=== PATIENT | female | born 1935 | race Caucasian/White ===

== ENCOUNTER 2017-01-13 10:52 | Inpatient (IN) | payer MEDICARE, BC ==
[2017-01-13] MEDS ORDERED: SODIUM CHLORIDE 0.9% 1,000 ML IV STA (11:12)
[2017-01-13] MEDS ORDERED: IPRATROPIUM-ALBUTEROL 3 ML NEB INHALATION STA (11:15)
--- NOTE | 2017-01-13 11:18 | ED ---
General Adult HPI - General Stated complaint: Syncope Time Seen by Provider: 01/13/17 11:02 Source: patient, family, EMS, RN notes reviewed Mode of arrival: EMS Limitations: no limitations - History of Present Illness Initial comments: Patient is a pleasant 81-year-old female presenting to the emergency department following syncopal episode. Reportedly this occurred at Dr. Torrez's office. Patient reportedly had a high heart rate. Carotid massage was done and heart rate improved. EMS states they believe patient originally had SVT then converted to A. fib. Patient is unclear whether or not she fully passed out. is also unclear. Patient has been having some breathing problems. Patient does have cough. Patient has had some intermittent fevers. Patient and state there is some leg swelling. No calf pain. No chest pain. No confusion. No history of previous syncope. - Related Data Home Medications Medication Instructions Recorded Confirmed Atenolol [Tenormin] 50 mg PO BID 08/05/14 07/28/16 Cholecalciferol [Vitamin D3] 5,000 unit PO DAILY 08/05/14 07/28/16 Docusate [Colace] 100 mg PO DAILY PRN 08/05/14 07/28/16 Gabapentin [Neurontin] 300 mg PO TID 08/05/14 07/28/16 Lisinopril [Zestril] 10 mg PO BID 08/05/14 07/28/16 Multivitamins, Thera [Multivitamin 1 tab PO DAILY 08/05/14 07/28/16 (formulary)] Omeprazole 40 mg PO AC-BRKFST 08/05/14 07/28/16 Oxybutynin Chloride [Ditropan XL] 10 mg PO DAILY 08/05/14 07/28/16 Pravastatin Sodium [Pravachol] 10 mg PO DAILY 05/21/15 07/28/16 metFORMIN HCL [Glucophage] 500 mg PO BID 05/21/15 07/28/16 rOPINIRole HCL [Requip] 0.5 mg PO HS 07/28/16 07/28/16 Previous Rx's Medication Instructions Recorded Aspirin EC [Ecotrin Low Dose] 81 mg PO DAILY tablet. 05/26/15 Fluconazole [Diflucan] 200 mg PO DAILY #5 tab 08/04/16 Levofloxacin [Levaquin] 500 mg PO DAILY #7 tab 08/04/16 Allergies Allergy/AdvReac Type Severity Reaction Status Date / Time No Known Allergies Allergy Verified 01/13/17 12:51 Review of Systems ROS Statement: Those systems with pertinent positive or pertinent negative responses have been documented in the HPI. ROS Other: All systems not noted in ROS Statement are negative. Constitutional: Reports: fever Eyes: Denies: eye pain ENT: Denies: ear pain Respiratory: Reports: cough, dyspnea Cardiovascular: Denies: chest pain Endocrine: Denies: fatigue Gastrointestinal: Denies: abdominal pain Genitourinary: Denies: urgency Musculoskeletal: Denies: back pain Skin: Denies: rash Neurological: Denies: weakness Past Medical History Past Medical History: Cancer, Diabetes Mellitus, GERD/Reflux, Hyperlipidemia, Hypertension, Syncope Additional Past Medical History / Comment(s): RT ARM PAIN THAT WOKE PT FROM SLEEP,F/U W/DR IN OFFICE EKG DONE AND PT WAS TOLD TO GO TO ER FOR EVALUATION. OTHER HX: LYMPHOMA; BREAST CANCER, MIGRAINES IN PAST, CONSTIPATION, ANEMIA History of Any Multi-Drug Resistant Organisms: MRSA Date of last positivie culture/infection: 08/26/2014 MDRO Source:: Urine Past Surgical History: Adenoidectomy, Appendectomy, Cholecystectomy, Heart Catheterization, Hysterectomy, Tonsillectomy Additional Past Surgical History / Comment(s): MASTECTOMY RIGHT ,CATARACTS Past Anesthesia/Blood Transfusion Reactions: No Reported Reaction Additional Past Anesthesia/Blood Transfusion Reaction / Comment(s): HAD BLOOD TRANSFUSION IN PAST, HAS CLAUSTERPHOBIA Past Psychological History: No Psychological Hx Reported Smoking Status: Never smoker Past Alcohol Use History: None Reported Past Drug Use History: None Reported - Past Family History Father Additional Family Medical History / Comment(s): PARKINSONS Mother Family Medical History: Cancer Additional Family Medical History / Comment(s): FROM BREAST CANCER-HAD HEART PROBLEMS, General Exam Limitations: no limitations General appearance: alert, in no apparent distress Head exam: Present: atraumatic Eye exam: Present: normal appearance, PERRL, EOMI. Absent: nystagmus ENT exam: Present: normal oropharynx Neck exam: Present: normal inspection Respiratory exam: Present: wheezes, rales Cardiovascular Exam: Present: irregular rhythm GI/Abdominal exam: Present: soft, distended, normal bowel sounds. Absent: tenderness, guarding, rebound, rigid, pulsatile mass Extremities exam: Present: pedal edema. Absent: calf tenderness Back exam: Present: normal inspection Neurological exam: Present: alert, CN II-XII intact. Absent: motor sensory deficit Expanded Speech: Present: fluid speech Cranial nerves: EOM's Intact: Normal Motor strength exam: RUE: 5, LUE: 5, RLE: 5, LLE: 5 Eye Response: (4) open spontaneously Motor Response: (6) obeys commands Verbal Response: (5) oriented Psychiatric exam: Present: normal affect, normal mood Skin exam: Absent: rash Course Vital Signs 01/13/17 01/13/17 01/13/17 11:09 11:36 11:47 Temperature 97.2 F L Pulse Rate 104 H 89 91 Respiratory 20 Rate Blood Pressure 162/70 O2 Sat by Pulse 93 L Oximetry EKG Findings - EKG Comments: EKG Findings:: Irregular narrow complex rhythm. PA 160. QRS 70. QT 364. QTC 421. Left axis. Normal QRS. Nonspecific ST-T Medical Decision Making - Medical Decision Making Patient reevaluated and resting comfortably in bed. Patient will be treated for pneumonia recent chest x-ray results. Patient does have elevated d-dimer. Computed tomography scan of the chest will be ordered. Abdominal CT will also be added secondary to distention. Patient also has some thrombocytopenia therefore anticoagulation will be held at this time. There is some concern for possible underlying malignancy. Case was discussed in detail with Dr. Flores, covering for Dr. auguste, who will admit for Dr. Judge. Cardiology will be consulted for possible arrhythmia. Dr. Torrez will also be consulted. Elevation of heart rate is secondary to arrhythmia prior to patient arrival. This has resolved. Because of this patient does not meet sepsis criteria. In addition with possible underlying CHF patient may be harmed by fluid boluses. This can be further evaluated following computed tomography scan of the chest. - Lab Data Result diagrams: 01/13/17 11:45 01/13/17 11:45 Lab Results 01/13/17 01/13/17 01/13/17 Range/Units 11:45 11:45 11:45 WBC 5.7 (3.8-10.6) k/uL RBC 3.61 L (3.80-5.40) m/uL Hgb 9.7 L (11.4-16.0) gm/dL Hct 31.1 L (34.0-46.0) % MCV 86.2 (80.0-100.0) fL MCH 27.0 (25.0-35.0) pg MCHC 31.3 (31.0-37.0) g/dL RDW 18.0 H (11.5-15.5) % Plt Count 74 L (150-450) k/uL Neutrophils % (Manual) 83.0 % Lymphocytes % (Manual) 5.0 % Monocytes % (Manual) 12.0 % Neutrophils # (Manual) 4.7 (1.3-7.7) k/uL Lymphocytes # (Manual) 0.3 L (1.0-4.8) k/uL Monocytes # (Manual) 0.7 (0-1.0) k/uL Nucleated RBCs 0 (0-0) /100 WBC Large Platelets Present Polychromasia Present Hypochromasia Marked Poikilocytosis (manual Present Anisocytosis Slight Target Cells Present Ovalocytes Present Fragmented RBCs Present PT (9.0-12.0) sec INR (<1.1) APTT (22.0-30.0) sec D-Dimer (<0.60) mg/L FEU Sodium 140 (137-145) mmol/L Potassium 3.0 L* (3.5-5.1) mmol/L Chloride 107 (98-107) mmol/L Carbon Dioxide 24 (22-30) mmol/L Anion Gap 9 mmol/L BUN 21 H (7-17) mg/dL Creatinine 0.90 (0.52-1.04) mg/dL Est GFR (MDRD) Af Amer >60 (>60 ml/min/1.73 sqM) Est GFR (MDRD) Non-Af 60 (>60 ml/min/1.73 sqM) Glucose 125 H (74-99) mg/dL Calcium 8.9 (8.4-10.2) mg/dL Magnesium 1.4 L (1.6-2.3) mg/dL Total Bilirubin 1.4 H (0.2-1.3) mg/dL AST 14 (14-36) U/L ALT 23 (9-52) U/L Alkaline Phosphatase 58 (38-126) U/L Total Creatine Kinase <20 L (30-135) U/L CK-MB (CK-2) 0.4 (0.0-2.4) ng/mL CK-MB (CK-2) Rel Index 0.0 Troponin I 0.033 (0.000-0.034) ng/mL NT-Pro-B Natriuret Pep pg/mL Total Protein 5.3 L (6.3-8.2) g/dL Albumin 3.2 L (3.5-5.0) g/dL 01/13/17 01/13/17 Range/Units 11:45 11:45 WBC (3.8-10.6) k/uL RBC (3.80-5.40) m/uL Hgb (11.4-16.0) gm/dL Hct (34.0-46.0) % MCV (80.0-100.0) fL MCH (25.0-35.0) pg MCHC (31.0-37.0) g/dL RDW (11.5-15.5) % Plt Count (150-450) k/uL Neutrophils % (Manual) % Lymphocytes % (Manual) % Monocytes % (Manual) % Neutrophils # (Manual) (1.3-7.7) k/uL Lymphocytes # (Manual) (1.0-4.8) k/uL Monocytes # (Manual) (0-1.0) k/uL Nucleated RBCs (0-0) /100 WBC Large Platelets Polychromasia Hypochromasia Poikilocytosis (manual Anisocytosis Target Cells Ovalocytes Fragmented RBCs PT 12.3 H (9.0-12.0) sec INR 1.2 (<1.1) APTT 31.2 H (22.0-30.0) sec D-Dimer 6.62 H (<0.60) mg/L FEU Sodium (137-145) mmol/L Potassium (3.5-5.1) mmol/L Chloride (98-107) mmol/L Carbon Dioxide (22-30) mmol/L Anion Gap mmol/L BUN (7-17) mg/dL Creatinine (0.52-1.04) mg/dL Est GFR (MDRD) Af Amer (>60 ml/min/1.73 sqM) Est GFR (MDRD) Non-Af (>60 ml/min/1.73 sqM) Glucose (74-99) mg/dL Calcium (8.4-10.2) mg/dL Magnesium (1.6-2.3) mg/dL Total Bilirubin (0.2-1.3) mg/dL AST (14-36) U/L ALT (9-52) U/L Alkaline Phosphatase (38-126) U/L Total Creatine Kinase (30-135) U/L CK-MB (CK-2) (0.0-2.4) ng/mL CK-MB (CK-2) Rel Index Troponin I (0.000-0.034) ng/mL NT-Pro-B Natriuret Pep 7830 pg/mL Total Protein (6.3-8.2) g/dL Albumin (3.5-5.0) g/dL - Radiology Data Radiology results: report reviewed (Computed tomography scan of the brain shows atrophy), image reviewed (Two-view chest x-ray does show posterior right middle lobe infiltrate. Abdominal x-ray shows nonspecific abdomen.) Disposition Clinical Impression: Syncope, Arrhythmia, Pneumonia Disposition: ADMITTED IP TO THIS HOSP Condition: Serious
[2017-01-13 12:07] LABS: Anisocytosis Slight; Aty Lym Flag Slight; CH 25.9; CHCM 30.2; HCT 31.1 % (34.0-46.0); HDW 3.04; HGB 9.7 gm/dL (11.4-16.0); Hypochromasia Marked; Large Platelets Flag Slight; MCHC 31.3 g/dL (31.0-37.0); MCV 86.2 fL (80.0-100.0); Mean Platelet Volume 10.5; RBC 3.61 m/uL (3.80-5.40); WBC 5.7 k/uL (3.8-10.6); WBC (Perox) 5.93
--- NOTE | 2017-01-13 12:20 | CT ---
EXAMINATION TYPE: CT brain wo con DATE OF EXAM: 01/13/2017 12:09 PM COMPARISON: 06/19/2013 INDICATION: syncope DLP: 931.6 mGycm, Automated exposure control for dose reduction was used. CONTRAST: None CT of the brain is performed utilizing 3 mm thick sections through the posterior fossa and 3 mm thick sections through the remaining calvarium. Study is performed within 24 hours of arrival to the hosp ital. No abnormal hyperdensity is present to suggest an acute intracranial hemorrhage. No mass lesion is evident. No acute infarcts are evident. There is mild periventricular white matter hypodensity, likely on the basis of chronic white matter ischemic changes. Some subcortical white matter change may be within th e posterior left frontal lobe. Ventricles and sulci are prominent for the patient age. Air-fluid level may be within the right maxillary sinus. Mucosal thickening is within the ethmoid air cells. Frontal and sphenoid sinuses are clear. Mild hyperostosis frontalis internus is present. Note is made of distal vertebral and internal carotid artery calcification. IMPRESSIONS: 1. Atrophy with periventricular white matter ischemic changes, somewhat progressive from 06/19/2013. 2. Correlate for acute right maxillary sinusitis.
--- NOTE | 2017-01-13 12:22 | XR ---
EXAMINATION TYPE: XR chest 2V DATE OF EXAM: 01/13/2017 12:17 PM COMPARISON: 09/09/2016 INDICATION: Syncope TECHNIQUE: Single frontal view of the chest is obtained. FINDINGS: The heart size is normal. The pulmonary vasculature is normal. There is a posterior medial right lower lobe infiltrate. Correlate for pneumonia. Atelectasis could b e considered. Follow-up to clearing is recommended. Port is present on the left with the tip in the s uperior vena cava region. On the lateral projection the port plate attached to the chest wall appears is a linear hyperdensity. IMPRESSION: 1. Posterior medial right lower lobe pneumonia. Atelectasis could be considered. Follow-up to clearin g is recommended.
--- NOTE | 2017-01-13 12:23 | XR ---
EXAMINATION TYPE: XR abdomen 1V DATE OF EXAM: 01/13/2017 12:17 PM COMPARISON: Pain INDICATION: Abdominal distention TECHNIQUE: Single view abdomen FINDINGS: Nonspecific bowel gas is present predominantly within small bowel loops within the left midabdomen. S ome colonic bowel gas does appear to be present. No mass effect is evident. Psoas margins are normal. No organomegaly is present. IMPRESSION: 1. Nonspecific bowel gas pattern
[2017-01-13 12:25] LABS: ALT 23 U/L (9-52); AST 14 U/L (14-36); Add Differential Manual Differential; Alkaline Phosphatase 58 U/L (38-126); Anion Gap 9 mmol/L; Blood Urea Nitrogen 21 mg/dL (7-17); Calcium 8.9 mg/dL (8.4-10.2); Carbon Dioxide 24 mmol/L (22-30); Chloride 107 mmol/L (98-107); Glucose 125 mg/dL (74-99); Magnesium 1.4 mg/dL (1.6-2.3); Non-African American GFR(MDRD) 60 (>60 ml/min/1.73 sqM); Sodium 140 mmol/L (137-145); Total Bilirubin 1.4 mg/dL (0.2-1.3); Total Protein 5.3 g/dL (6.3-8.2)
[2017-01-13 12:27] LABS: INR 1.2 (<1.1); Nucleated Red Blood Cells 0 /100 WBC (0-0); Ovalocytes Present; Partial Thromboplastin Time 31.2 sec (22.0-30.0); Prothrombin Time 12.3 sec (9.0-12.0); Target Cells Present; Total Cells Counted 100
[2017-01-13 12:28] LABS: Large Platelets Present; Polychromasia Present
[2017-01-13 12:30] LABS: Creatine Kinase <20 U/L (30-135)
[2017-01-13 12:43] LABS: Creatine Kinase MB 0.4 ng/mL (0.0-2.4); Troponin I 0.033 ng/mL (0.000-0.034)
[2017-01-13] MEDS ORDERED: RX INFO: IV CONTRAST WAS GIVEN 1 EACH MISC MISCELLANE PRN (13:03)
[2017-01-13] MEDS ORDERED: MAGNESIUM SULFATE-D5W PMX 1 GM in DEXTROSE/WATER 1 100ML.BAG IVPB ONE (13:03)
[2017-01-13] MEDS ORDERED: AZITHROMYCIN 500 MG in SODIUM CHLORIDE 0.9% 250 ML IVPB STA (13:09)
[2017-01-13] MEDS ORDERED: NALOXONE 0.4 MG/ML 1 ML VIAL IV PRN (13:09)
[2017-01-13] MEDS ORDERED: IPRATROPIUM-ALBUTEROL 3 ML NEB INHALATION PRN (13:09)
[2017-01-13] MEDS ORDERED: PNEUMONIA PROTOCOL UTILIZED 1 EACH MISC PO PRN (13:09)
[2017-01-13] MEDS: POTASSIUM CHLORIDE 10 MEQ, LIDOCAINE 2% INJ 10 MG in SODIUM CHLORIDE 0.9% 100 ML IVPB SCH ×2 (13:53→17:15)
--- NOTE | 2017-01-13 14:18 | CT ---
CT CHEST FOR PULMONARY EMBOLISM. EXAMINATION TYPE: CT angio chest DATE OF EXAM: 01/13/2017 2:06 PM INDICATION: Coughing CT DLP: 210.90 mGycm, Automated exposure control for dose reduction was used. CONTRAST: Patient injected with 100 mL of Omnipaque 350. COMPARISON: 07/29/2016 TECHNIQUE: CT of the chest is performed on a spiral scan at 2 mm thick sections. Study is performed with intravenous contrast timed for evaluation for pulmonary embolism. This will limit additional po rtions of the evaluation. 3-D MIP images reconstructed by the technologist are reviewed on the compu ter in the coronal and sagittal planes. FINDINGS: No persistent filling defects are evident to suggest an acute pulmonary embolism. No mediastinal or hilar adenopathy enlarged by CT criteria is evident. The ascending aorta diameter at the level of the main pulmonary artery is 3.1 cm. The main pulmonary artery diameter at the bifur cation is 3.3 cm. Early pulmonary hypertension could be considered. There is a small right pleural effusion. Previous left pleural effusion is resolved. Some compressive atelectasis is adjacent. A right lower lobe pneumonia is not excluded. A left lower lobe pneumonia o r atelectasis may be present. There is a 1.1 cm oval density in the posterior medial left upper lobe. Correlate for neoplasm. This has enlarged from 07/29/2016. Peribronchial thickening is present. Chronic bronchitis should be consid ered. There is a 1.3 x 2.5 cm area of increased density within the periphery of the right midlung. Co nsider atelectasis within the differential. Fluid collection could be considered. Neoplasm is not exc luded. Limited CT section through the upper abdomen are unremarkable. IMPRESSIONS: 1. Oval density posterior medial left apex enlarged from prior study. Additional workup for neoplasm is recommended. 2. COPD, consider chronic bronchitis. 3. New density within the periphery of the right midlung. Atelectasis and neoplasm could be considere d. 4. Small right pleural effusion. Previous left pleural effusion is resolved. 5. No acute pulmonary embolism.
--- NOTE | 2017-01-13 14:22 | CT ---
EXAMINATION TYPE: CT abdomen pelvis w con DATE OF EXAM: 01/13/2017 2:06 PM COMPARISON: NONE INDICATION: Abdominal distention DLP: 1585.0 mGycm, Automated exposure control for dose reduction was used. CONTRAST: dose from angio chest study mL of Omnipaque 350. Study performed without Oral Contrast TECHNIQUE: Axial images were obtained from above the diaphragm to the pubic rami in the axial plane a t 5 mm thick sections. Reconstructed images are reviewed on the computer in the coronal plane. FINDINGS: Limited CT sections are obtained the lung bases. Streak opacities in the posterior lateral right sreedhar g base. Correlate for atelectasis or pneumonia. Consolidations in the posterior medial left lung base . Correlate for atelectasis or pneumonia. There is a small right pleural effusion. Ascites is present .. CT ABDOMEN: Liver: Normal Spleen: Normal Pancreas: Normal Adrenal glands: The adrenal glands are normal. Gallbladder: Surgically absent Kidneys: No masses are evident. No hydronephrosis is present. There is a 1.8 cm superior pole left renal cyst. A 1.2 cm cortical renal cysts on the lateral left kidney. Delayed images were obtained t hrough the kidneys, which remain unremarkable. Aorta: Vascular calcification is within the aorta. Inferior vena cava: Normal. CT PELVIS: Ascites within the abdomen extends into the pelvis. A few diverticular changes are within the sigmoid colon. Bowel loops of bowel otherwise appear unrema rkable. Appendix: Normal as visualized. Urinary bladder: Decompressed with limited evaluation. Genitourinary structures: Uterus and ovaries are not identified. Osseous structures: No suspicious lytic or sclerotic lesions. IMPRESSIONS: 1. Bibasilar consolidations. Correlate for atelectasis and pneumonia. 2. Small right pleural effusion. 3. Large amount of ascites. Some subcutaneous edema is also present. 4. Mild diverticulosis sigmoid colon
[2017-01-13] MEDS: IPRATROPIUM-ALBUTEROL 3 ML NEB INHALATION SCH ×2 (16:55→21:08)
[2017-01-13 17:11] LABS: Glucose,Whole Blood 111 mg/dL (75-99)
[2017-01-13] MEDS: INSULIN LISPRO (humaLOG) 300 UNIT/3 ML VIAL SQ SCH ×2 (17:13→22:04)
[2017-01-13] MEDS ORDERED: DOCUSATE 100 MG CAP PO PRN (19:43)
[2017-01-13] MEDS ORDERED: HYDROmorphone 1 MG/ML 1 ML SYRINGE IVP PRN (19:44)
[2017-01-13] MEDS ORDERED: HYDROcodone/APAP 5-325MG 1 EACH TAB PO PRN (19:50)
[2017-01-13] MEDS ORDERED: TEMAZEPAM 15 MG CAP PO PRN (19:50)
[2017-01-13] MEDS: ACETAMINOPHEN TAB 500 MG TAB PO PRN (20:49)
[2017-01-13] MEDS: FUROSEMIDE 10 MG/ML 4 ML VIAL IV SCH (20:49)
[2017-01-13] MEDS: ATENOLOL 50 MG TAB PO SCH (20:49)
[2017-01-13] MEDS: HEPARIN SODIUM,PORCINE 5,000 UNIT/ML 1 ML VIAL SQ SCH (20:51)
[2017-01-13] MEDS: POTASSIUM CHLORIDE ER 20 MEQ TAB.ER PO SCH (20:51)
[2017-01-13] MEDS: FORMOTEROL FUMARATE 20 MCG/2 ML NEBU INHALATION SCH (21:08)
[2017-01-13] MEDS: BUDESONIDE 1 MG/2 ML NEBU INHALATION SCH (21:08)
[2017-01-13 21:30] LABS: Appearance,Urine Cloudy (Clear); Bilirubin,Urine Negative (Negative); Glucose,Urine (UA) Negative (Negative); Ketones,Urine Negative (Negative); Leukocyte Esterase,Urine Negative (Negative); Nitrite,Urine Negative (Negative); Particle Count 10428; Protein,Urine 1+ (Negative); RBC,Urine >182 /hpf (0-5); Specific Gravity,Urine 1.033 (1.001-1.035); Squamous Epithelial Cell,Urine 1 /hpf (0-4); UA Billing (MACRO vs. MICRO) MICRO; Urobilinogen,Urine <2.0 mg/dL (<2.0); WBC,Urine 5 /hpf (0-5)
[2017-01-13 21:31] LABS: Glucose,Whole Blood 113 mg/dL (75-99)
[2017-01-13] MEDS: PIPERACILLIN-TAZOBACTAM 3.375 GM in DEXTROSE/WATER 1 50ML.BAG IVPB SCH (23:15)
[2017-01-13] MEDS: GABAPENTIN 300 MG CAP PO SCH (23:16)
[2017-01-14 06:23] LABS: Glucose,Whole Blood 101 mg/dL (75-99)
[2017-01-14 06:36] LABS: Anisocytosis Slight; Aty Lym Flag Moderate; CH 25.8; CHCM 29.8; HCT 24.7 % (34.0-46.0); HDW 2.94; Hypochromasia Marked; Large Platelets Flag Moderate; Mean Platelet Volume 11.3; RBC 2.84 m/uL (3.80-5.40); RDW 18.1 % (11.5-15.5); WBC (Perox) 4.14
[2017-01-14 06:38] LABS: Anion Gap 5 mmol/L; Blood Urea Nitrogen 20 mg/dL (7-17); Calcium 8.3 mg/dL (8.4-10.2); Carbon Dioxide 27 mmol/L (22-30); Chloride 109 mmol/L (98-107); Glucose 99 mg/dL (74-99); Magnesium 1.6 mg/dL (1.6-2.3); Non-African American GFR(MDRD) 60 (>60 ml/min/1.73 sqM); Potassium 3.5 mmol/L (3.5-5.1); Sodium 141 mmol/L (137-145)
[2017-01-14 06:40] LABS: HGB 7.7 gm/dL (11.4-16.0)
[2017-01-14] MEDS: INSULIN LISPRO (humaLOG) 300 UNIT/3 ML VIAL SQ SCH ×4 (06:44→21:12)
[2017-01-14] MEDS: PIPERACILLIN-TAZOBACTAM 3.375 GM in DEXTROSE/WATER 1 50ML.BAG IVPB SCH ×3 (06:45→23:30)
[2017-01-14] MEDS: PANTOPRAZOLE 40 MG TABLET PO SCH (06:45)
[2017-01-14 06:54] LABS: Add Differential Manual Differential
[2017-01-14 06:58] LABS: Manual Review Performed; Nucleated Red Blood Cells 0 /100 WBC (0-0); Ovalocytes Present; Total Cells Counted 100
[2017-01-14] MEDS: FORMOTEROL FUMARATE 20 MCG/2 ML NEBU INHALATION SCH ×2 (08:56→21:08)
[2017-01-14] MEDS: IPRATROPIUM-ALBUTEROL 3 ML NEB INHALATION SCH ×4 (08:56→21:08)
[2017-01-14] MEDS: BUDESONIDE 1 MG/2 ML NEBU INHALATION SCH ×2 (08:56→21:08)
--- NOTE | 2017-01-14 09:14 | HP ---
DATE OF ADMISSION: 01/13/2017 CHIEF COMPLAINT: Syncope episode, atrial fibrillation and tiredness and weakness. HISTORY OF PRESENT ILLNESS: This 81-year-old woman with a past medical history of multiple medical problems including diabetes mellitus, GERD, hypertension, hyperlipidemia, large cell B-cell lymphoma, right breast cancer with surgery, history of peripheral neuropathy, adenoidectomy, being followed by Dr. Judge in the outpatient setting, apparently had follow-up appointment with Dr. Torrez's office. The patient had a high heart rate and patient had syncopal episode. After rate improved. The patient apparently had SVT and converted to atrial fibrillation. The patient was taken to [facility] and Cardizem was given. Currently the patient is in sinus rhythm. The patient also had significant bilateral rhonchi and also had evidence of consolidation. D-dimer was elevated but there is no evidence of any pulmonary embolism. Patient is being closely monitored at this time. There is no history of fevers, rigors. No history of headache, loss of consciousness or seizures. PAST MEDICAL HISTORY: History of diabetes, history of GERD, hypertension, hyperlipidemia, history of large B-cell lymphoma, history adenoidectomy, may have claustrophobia. Medications prior to admission include home medications are: 1. Stioloto 1 puff daily. 2. Requip 0.5 mg q.h.s. 3. Colace 100 mg daily p.r.n. 4. Lasix 20 mg daily. 5. Ventolin HFA 1 to 2 puffs q.4 p.r.n. 6. Glucophage 500 mg b.i.d. 7. Pravachol 10 mg p.o. daily. 8. Ditropan XL 10 mg p.o. daily. 9. Omeprazole 40 mg with breakfast. 10. Multivitamins 1 p.o. daily. 11. Neurontin 300 mg t.i.d. 12. Vitamin D3 5,000 daily. 13. Tenormin 50 mg p.o. b.i.d. ALLERGIES: None. FAMILY HISTORY: History of DJD, Parkinson's in the family. SOCIAL HISTORY: No history of smoking, no history of alcohol intake. REVIEW OF SYSTEMS: HEENT: Diminished vision, diminished hearing. CARDIOVASCULAR: As mentioned earlier. RESPIRATORY: As mentioned earlier. GI: No nausea. : No dysuria. NERVOUS SYSTEM: No numbness or weakness. ALLERGY/IMMUNOLOGY: No history of asthma or hayfever. MUSCULOSKELETAL: As mentioned earlier. HEMATOLOGY/ONCOLOGY: As mentioned earlier. ENDOCRINE: No history of diabetes or hypothyroidism. CONSTITUTIONAL: As mentioned earlier. DERMATOLOGY: Negative. RHEUMATOLOGY: Negative. PSYCHIATRY: As mentioned earlier. PHYSICAL EXAMINATION: Patient is alert and oriented x3. Pulse is 93, blood pressure 162/93, respirations 20, temperature 99 degrees, pulse ox 97% on 2 liters. HEENT: Conjunctivae normal. Oral mucosa moist. NECK: No jugular venous distention. No carotid bruit. No lymph node enlargement. CARDIOVASCULAR: S1 and S2, muffled. Ejection systolic murmur present. RESPIRATORY: Breath sounds diminished at the bases. Bilateral scattered rhonchi and crackles. ABDOMEN: Soft, nontender. No mass palpable. Abdominal distention present. LEGS: No edema, no swelling. NERVOUS SYSTEM: Higher function as mentioned. Moves all four limbs. No focal motor deficits. LYMPHATIC: No lymphadenopathy in the neck, axillae or groin. SKIN: No ulcer, rash or bleeding. LABS: Chest x-ray reviewed. EKG reviewed personally. Hemoglobin 9.7, D-dimer 6.6, potassium 3, total bilirubin 1.4. Troponin 0.08. ASSESSMENT: 1. Atrial fibrillation with fast ventricular rate. 2. Congestive heart failure acute exacerbation with acute on chronic systolic dysfunction, ejection fraction, 45 to 50%. 3. Moderate severe aortic stenosis and moderate mitral regurgitation. 4. Small right pleural effusion. 5. Ascites. 6. Hypokalemia. 7. Hypoalbuminemia with mild to moderate protein calorie malnutrition. 8. Troponin 0.08, indeterminate. 9. D-dimer is 6.6, high without evidence of pulmonary embolus. 10. Anemia, normocytic anemia of chronic disease. 11. Thrombocytopenia, possibly secondary to malignancy. 12. History large B-cell lymphoma. 13. History of right breast cancer and surgery. 14. Diabetes mellitus type 2. 15. Gastroesophageal reflux disease. 16. Hypertension, essential. 17. Hyperlipidemia. 18. History of syncope. 19. History of anemia. 20. History of peripheral neuropathy. 21. History of dystrophy of the right hand. 22. History of adenoidectomy. 23. History of appendectomy. 24. History of mastectomy, right. 25. History of gait dysfunction. 26. FULL CODE. 27. Hypokalemia. RECOMMENDATIONS AND DISCUSSION: This 81-year-old woman who presented with multiple complex medical issues. Will monitor the patient closely. Continue the current medications. I would recommend bronchodilators and broad-spectrum IV antibiotics. I also recommend IV diuretics also. Cardiology and pulmonology consultations to coordinate the care. Otherwise, monitor blood sugars closely. DVT prophylaxis. Repeat labs. Guarded prognosis because of multiple complex medical issues. Further recommendations to follow. See orders for details. MTDD
[2017-01-14] MEDS: SODIUM CHLORIDE 0.9% 1,000 ML IV SCH ×2 (09:15→15:23)
[2017-01-14] MEDS: POTASSIUM CHLORIDE ER 20 MEQ TAB.ER PO SCH ×2 (09:21→21:02)
[2017-01-14] MEDS: PRAVASTATIN SODIUM 20 MG TAB PO SCH (09:21)
[2017-01-14] MEDS: OXYBUTYNIN 10 MG TAB.ER.24 PO SCH (09:21)
[2017-01-14] MEDS: FUROSEMIDE 10 MG/ML 4 ML VIAL IV SCH ×2 (09:21→21:02)
[2017-01-14] MEDS: ATENOLOL 50 MG TAB PO SCH (09:21)
[2017-01-14] MEDS: CHOLECALCIFEROL 1,000 UNIT TAB PO SCH (09:22)
[2017-01-14] MEDS: GABAPENTIN 300 MG CAP PO SCH ×3 (09:22→21:03)
[2017-01-14] MEDS: HEPARIN SODIUM,PORCINE 5,000 UNIT/ML 1 ML VIAL SQ SCH ×2 (09:22→21:02)
[2017-01-14] MEDS: MULTIVITAMINS, THERA 1 EACH TAB PO SCH (11:06)
[2017-01-14 12:14] LABS: Glucose,Whole Blood 93 mg/dL (75-99)
--- NOTE | 2017-01-14 13:39 | XR ---
EXAMINATION TYPE: XR chest 2V DATE OF EXAM: 01/14/2017 1:22 PM COMPARISON: 01/13/2017 INDICATION: Pneumonia previous abnormal chest TECHNIQUE: Single frontal view of the chest is obtained. FINDINGS: The heart size is normal. The pulmonary vasculature is normal. Small posterior pleural effusions are likely present and stable. Right lower lobe infiltrate appears to be resolving. Port is present on the left tip in superior vena cava region. IMPRESSION: 1. Small posterior pleural effusions
--- NOTE | 2017-01-14 14:51 | P.CRDCN ---
History of Present Illness Consult date: 01/14/17 Reason for Consult (text): arrhythmia Chief complaint: weakness, syncope History of present illness: Is a pleasant 81-year-old patient known history of diabetes, hyperlipidemia, hypertension, GERD, cancer and multifocal atrial tachycardia in the past. 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 Apparently was found to have a very high heart rate in the 180s, carotid massage was performed and it is unclear as to whether patient was in an SVT or atrial fibrillation at that time, no rhythm strips or EKGs available. Since admission patient has been in a sinus rhythm with some PACs. Also showed some possible areas of neoplasm. A value showed hemoglobin of 9.7 with a drop to 7.7 this morning. Her potassium on admission was 3.0 up to 3.5 this morning. When necessary 20 and creatinine was 0.9. Troponin levels 0.033 , 0.08 and 0.069. The patient is currently on atenolol 50 mg by mouth twice a day. Her vital signs have been stable. She has had no further complaints of dizziness, lightheadedness, syncope or weakness. She denies complaints of chest discomfort, palpitations or edema. Past Medical History Past Medical History: Cancer, Diabetes Mellitus, GERD/Reflux, Hyperlipidemia, Hypertension, Neurologic Disorder, Syncope Additional Past Medical History / Comment(s): LARGE B CELL LYMPHOMA; RIGHT BREAST CANCER WITH SX AND PT BELIEVES CHEMO, MIGRAINES IN PAST, CONSTIPATION, ANEMIA, NIDDM TYPE II, NEUROPATHY BILATERAL FEET, PUD, DIVERTICULAR DX, UTI'S, BACK PAIN, VASOMOTOR SYMPATHETIC DYSTROPHY RIGHT HAND, RLS. History of Any Multi-Drug Resistant Organisms: MRSA Date of last positivie culture/infection: 08/26/2014 MDRO Source:: Urine Past Surgical History: Adenoidectomy, Appendectomy, Breast Surgery, Cholecystectomy, Heart Catheterization, Hysterectomy, Tonsillectomy Additional Past Surgical History / Comment(s): MASTECTOMY RIGHT, BILATERAL CATARACTS REMOVED WITH LENS IMPLANTS, CARDIAC CATH-NORMAL, COLONOSCOPY Past Anesthesia/Blood Transfusion Reactions: No Reported Reaction Additional Past Anesthesia/Blood Transfusion Reaction / Comment(s): HAD BLOOD TRANSFUSION IN PAST, HAS CLAUSTERPHOBIA Past Psychological History: No Psychological Hx Reported Additional Psychological History / Comment(s): PT RESIDES WITH HER SPOUSE AND DAUGHTER. SHE USES A CANE TO AMBULATE. SHE NO LONGER DRIVES, HER SPOUSE TAKES HER TO APPTS OR HER DAUGHTER. Smoking Status: Never smoker Past Alcohol Use History: None Reported Past Drug Use History: None Reported - Past Family History Father Family Medical History: Musculoskeletal Disorder, Neurologic Disorder Additional Family Medical History / Comment(s): PARKINSONS Mother Family Medical History: Cancer Additional Family Medical History / Comment(s): FROM BREAST CANCER-HAD HEART PROBLEMS, Medications and Allergies Home Medications Medication Instructions Recorded Confirmed Type Atenolol [Tenormin] 50 mg PO BID 08/05/14 01/13/17 History Cholecalciferol [Vitamin D3] 5,000 unit PO DAILY 08/05/14 01/13/17 History Docusate [Colace] 100 mg PO DAILY PRN 08/05/14 01/13/17 History Gabapentin [Neurontin] 300 mg PO TID 08/05/14 01/13/17 History Multivitamins, Thera [Multivitamin 1 tab PO DAILY 08/05/14 01/13/17 History (formulary)] Omeprazole 40 mg PO AC-BRKFST 08/05/14 01/13/17 History Oxybutynin Chloride [Ditropan XL] 10 mg PO DAILY 08/05/14 01/13/17 History Pravastatin Sodium [Pravachol] 10 mg PO DAILY 05/21/15 01/13/17 History metFORMIN HCL [Glucophage] 500 mg PO BID 05/21/15 01/13/17 History rOPINIRole HCL [Requip] 0.5 mg PO HS 07/28/16 01/13/17 History Albuterol Inhaler [Ventolin Hfa 1 - 2 puff INHALATION RT-Q4H PRN 01/13/17 History Inhaler] Furosemide [Lasix] 20 mg PO DAILY 01/13/17 01/13/17 History Tiotropium Br/Olodaterol HCl 1 puff INHALATION RT-DAILY 01/13/17 01/13/17 History [Stiolto Respimat Inhal Sagle] Allergies Allergy/AdvReac Type Severity Reaction Status Date / Time No Known Allergies Allergy Verified 01/13/17 12:51 Physical Exam Vitals: Vital Signs Temp Pulse Pulse Resp BP Pulse Ox 01/14/17 13:08 60 01/14/17 12:59 64 01/14/17 11:32 60 18 129/58 94 L 01/14/17 09:30 68 01/14/17 09:08 68 01/14/17 08:57 64 01/14/17 08:00 98.6 F 66 18 130/60 100 01/14/17 03:00 98.4 F 68 18 130/64 98 01/13/17 23:30 98.6 F 68 20 122/58 98 01/13/17 22:53 86 01/13/17 22:42 86 01/13/17 21:30 89 01/13/17 21:11 84 01/13/17 20:00 101.2 F H 87 20 139/80 97 01/13/17 17:03 84 01/13/17 16:56 80 Intake and Output 01/13/17 01/14/17 01/14/17 22:59 06:59 14:59 Intake Total 290 Output Total 100 1200 Balance -100 -910 Intake: Intake, IV Titration 290 Amount Piperacillin-Tazobactam 3 50 .375 gm In Dextrose/Water 1 50ml.bag @ 12.5 mls/hr IVPB Q6HR [facility] Rx#: [id number] Sodium Chloride 0.9% 1, 240 000 ml @ 20 mls/hr IV . Q24H [facility] Rx#:[id number] Output: Urine 100 1200 Other: Voiding Method Bedside Commode Bedside Commode Bedside Commode Diaper Diaper Diaper Incontinent Incontinent Incontinent Weight 74.843 kg 75 kg PHYSICAL EXAMINATION: HEENT: Head is atraumatic, normocephalic. Pupils equal, round. Neck is supple. There is no elevated jugular venous pressure. HEART EXAMINATION: Heart sounds regular, S1 and S2 normal. No murmur or gallop heard. CHEST EXAMINATION: Lungs reveal scattered rhonchi with diminished air entry bilateral bases. No chest wall tenderness is noted on palpation or with deep breathing. ABDOMEN: Soft, nontender. Bowel sounds are heard. No organomegaly noted. EXTREMITIES: 2+ peripheral pulses with no evidence of peripheral edema and no calf tenderness noted. NEUROLOGIC patient is awake, alert and oriented x3. . Results 01/14/17 05:57 01/14/17 05:57 Cardiac Enzymes 01/13/17 01/13/17 Range/Units 17:41 23:34 Troponin I 0.080 H* 0.069 H* (0.000-0.034) ng/mL CBC 01/14/17 Range/Units 05:57 WBC 4.0 (3.8-10.6) k/uL RBC 2.84 L (3.80-5.40) m/uL Hgb 7.7 L D (11.4-16.0) gm/dL Hct 24.7 L (34.0-46.0) % Plt Count 67 L (150-450) k/uL Comprehensive Metabolic Panel 01/14/17 Range/Units 05:57 Sodium 141 (137-145) mmol/L Potassium 3.5 (3.5-5.1) mmol/L Chloride 109 H (98-107) mmol/L Carbon Dioxide 27 (22-30) mmol/L BUN 20 H (7-17) mg/dL Creatinine 0.90 (0.52-1.04) mg/dL Glucose 99 (74-99) mg/dL Calcium 8.3 L (8.4-10.2) mg/dL Current Medications Generic Name Dose Route Start Last Admin Trade Name Freq PRN Reason Stop Dose Admin Acetaminophen 500 mg 01/13/17 19:50 01/13/17 20:49 Tylenol Tab PO 500 mg Q6HR PRN Administration Fever and/ or Mild Pain Hydrocodone Bitart/Acetaminophen 1 each 01/13/17 19:50 [place] 5-325 PO Q6HR PRN Moderate Pain Albuterol/Ipratropium 3 ml 01/13/17 16:00 01/14/17 12:59 Duoneb 0.5 Mg-3 Mg/3 Ml Soln INHALATION 3 ml RT-QID [facility] Administration Albuterol/Ipratropium 3 ml 01/13/17 13:09 01/13/17 22:42 Duoneb 0.5 Mg-3 Mg/3 Ml Soln INHALATION 3 ml RT-Q4H PRN Administration shortness of breath Alprazolam 0.25 mg 01/13/17 19:50 Xanax PO TID PRN Anxiety Atenolol 50 mg 01/13/17 21:00 01/14/17 09:21 Tenormin PO 50 mg BID [facility] Administration Azithromycin 500 mg 01/14/17 14:00 Zithromax PO DAILY@1400 [facility] Budesonide 1 mg 01/13/17 20:00 01/14/17 08:56 Pulmicort INHALATION 1 mg RT-BID [facility] Administration Cholecalciferol 5,000 unit 01/14/17 09:00 01/14/17 09:22 Vitamin D3 PO 5,000 unit DAILY [facility] Administration Docusate Sodium 100 mg 01/13/17 19:43 Colace PO DAILY PRN Constipation Formoterol Fumarate 20 mcg 01/13/17 20:00 01/14/17 08:56 Perforomist INHALATION 20 mcg RT-BID [facility] Administration Furosemide 40 mg 01/13/17 21:00 01/14/17 09:21 Lasix IV 40 mg Q12HR [facility] Administration Gabapentin 300 mg 01/13/17 22:00 01/14/17 09:22 Neurontin PO 300 mg TID [facility] Administration Heparin Sodium (Porcine) 5,000 unit 01/13/17 21:00 01/14/17 09:22 Heparin SQ 5,000 unit Q12HR [facility] Administration Hydromorphone HCl 0.5 mg 01/13/17 19:44 Dilaudid IVP Q6HR PRN Severe Pain Sodium Chloride 1,000 mls @ 20 mls/hr 01/13/17 13:15 01/14/17 09:15 Saline 0.9% IV Not Given .Q24H [facility] Piperacillin/Tazobactam/ 50 mls @ 12.5 mls/hr 01/14/17 16:00 Dextrose 3.375 gm/ IV Solution IVPB Q8HR [facility] Insulin Human Lispro 0 unit 01/13/17 17:30 01/14/17 12:46 Humalog SQ Not [facility] Protocol Metformin HCl 500 mg 01/15/17 17:30 Glucophage PO AC-BID [facility] Miscellaneous Information 1 each 01/13/17 13:03 Rx Info: Iv Contrast Was Given MISCELLANE 01/15/17 13:04 DAILY PRN Per Protocol Miscellaneous Information 1 each 01/13/17 13:09 Pneumonia Protocol Utilized PO ONCE PRN Per Protocol Multivitamins 1 each 01/14/17 12:00 01/14/17 11:06 Theragran PO 1 each DAILY@1200 [facility] Administration Naloxone HCl 0.2 mg 01/13/17 13:09 Narcan IV Q2M PRN Opioid Reversal Oxybutynin Chloride 10 mg 01/14/17 09:00 01/14/17 09:21 Ditropan Xl PO 10 mg DAILY [facility] Administration Pantoprazole Sodium 40 mg 01/14/17 07:30 01/14/17 06:45 Protonix PO 40 mg AC-BRKFST [facility] Administration Potassium Chloride 40 meq 01/13/17 21:00 01/14/17 09:21 K-Dur 20 PO 40 meq BID [facility] Administration Pravastatin Sodium 10 mg 01/14/17 09:00 01/14/17 09:21 Pravachol PO 10 mg DAILY [facility] Administration Ropinirole HCl 0.5 mg 01/13/17 21:00 01/13/17 20:51 Requip PO 0.5 mg HS [facility] Administration Temazepam 15 mg 01/13/17 19:50 Restoril PO HS PRN Insomnia Intake and Output 01/13/17 01/14/17 01/14/17 22:59 06:59 14:59 Intake Total 290 Output Total 100 1200 Balance -100 -910 Intake: Intake, IV Titration 290 Amount Piperacillin-Tazobactam 3 50 .375 gm In Dextrose/Water 1 50ml.bag @ 12.5 mls/hr IVPB Q6HR [facility] Rx#: [id number] Sodium Chloride 0.9% 1, 240 000 ml @ 20 mls/hr IV . Q24H [facility] Rx#:[id number] Output: Urine 100 1200 Other: Voiding Method Bedside Commode Bedside Commode Bedside Commode Diaper Diaper Diaper Incontinent Incontinent Incontinent Weight 74.843 kg 75 kg 01/14/17 05:57 01/14/17 05:57 Assessment and Plan Plan: Assessment and plan #1 SVT versus atrial fibrillation with rapid ventricular response, no arrhythmias noted since admission. #2 chronic ingestant heart failure, awaiting echo results #3 mild elevation in troponins, likely secondary to oxygen supply and demand mismatch related to rapid heart rate #4 history of large B-cell lymphoma #5 anemia From cardiology's perspective, we will obtain a 2-D echo. Depending on LV systolic function we may discontinue atenolol and start the patient on verapamil or Cardizem. Further recommendations to follow. 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 Patient was seen and examined.
[2017-01-14] MEDS: AZITHROMYCIN 500 MG TAB PO SCH (15:27)
--- NOTE | 2017-01-14 15:33 | ECHOF ---
Referral Reason:syncope MEASUREMENTS -------- HEIGHT: 165.1 cm WEIGHT: 74.8 kg BP: 130/60 IVSd: 1.1 cm (0.6 - 1.1) LVIDd: 4.7 cm (3.9 - 5.3) LVPWd: 0.9 cm (0.6 - 1.1) IVSs: 1.5 cm LVIDs: 3.2 cm LVPWs: 1.5 cm MV EXCURSION: 18.048 mm (> 18.000) MV EF SLOPE: 28 mm/s (70 - 150) EPSS: 1.4 cm MV E Colt: 1.12 m/s MV DecT: 263 ms MV A Colt: 1.23 m/s MV E/A Ratio: 0.91 AV maxP.79 mmHg AV meanP.75 mmHg RAP: 5.00 mmHg RVSP: 31.41 mmHg FINDINGS -------- Sinus rhythm. This was a technically adequate study. There is mild concentric left ventricular hypertrophy. Overall left ventricular systolic function is low-normal with, an EF between 50 - 55 %. The right ventricle is normal in size. The right atrial size is normal. The aortic valve was not well visualized. Aortic valve is trileaflet and is moderately thickened. Peak/mean gradient across the Aortic Valve is 41.79mmHg / 25.75mmHg. Aov is stenotic with decrease opening. Mild mitral annular calcification present. There is trace mitral regurgitation. No regurgitation noted There is no evidence of pulmonary hypertension. The right ventricular systolic pressure, as measured by Doppler, is 31.41mmHg. There is no pulmonic regurgitation present. There is no pericardial effusion. Large Pleural Effusion. CONCLUSIONS -------- 1. There is mild concentric left ventricular hypertrophy. 2. There is no evidence of pulmonary hypertension. 3. The right ventricular systolic pressure, as measured by Doppler, is 31.41mmHg. 4. There is no pericardial effusion. 5. Large Pleural Effusion. 6. Overall left ventricular systolic function is low-normal with, an EF between 50 - 55 %. 7. The aortic valve was not well visualized. 8. Aortic valve is trileaflet and is moderately thickened. 9. Peak/mean gradient across the Aortic Valve is 41.79mmHg / 25.75mmHg. 10. Aov is stenotic with decrease opening. 11. Mild mitral annular calcification present. 12. There is trace mitral regurgitation. 13. 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
[2017-01-14 17:06] LABS: Glucose,Whole Blood 94 mg/dL (75-99)
[2017-01-14] MEDS ORDERED: DILTIAZEM CD 120 MG CAP.ER.24H PO STA (17:13)
--- NOTE | 2017-01-14 17:20 | P.CONS ---
History of Present Illness - Reason for Consult Consult date: 01/14/17 - Chief Complaint Altered mental status - History of Present Illness 81-year-old female is a history of multiple medical troubles with that her pulmonologists office for follow-up of her cough that has been problematic since September of this year. She's had difficulties with some shortness of breath as well as a mostly dry but minimally productive cough. It has affected the quality of her life. At the office the patient apparently slumped over onto her . She had altered mental status. Vital signs reveal evidence of her heart rate in the 180s. Carotid massage was performed and heart rate slowed. Because of her difficulty she was transferred to the emergency center. There she is on evidence of atrial fibrillation with rapid ventricular response. She was treated with Cardizem and has had improvement. The patient has a known history of large B-cell lymphoma as well as a history of breast carcinoma. Does have underlying hyperlipidemia hypertension and diabetes in a history of multifocal atrial tachycardia. Cardiology has seen the patient and believe that she has chronic congestive heart failure systolic type. Infectious diseases consultation requested with concerns of pneumonia after her event and the abnormal chest x-ray. Patient does not believe she's had significant fever chill or rigor before admission. However is noted she is having difficulty with a chronic cough that is only minimally productive at times. Review of Systems HEENT:Denies headache or acute visual change. Denies sinus or mouth discomforts. Denies neck stiffness or pain. Denies significant oral cavity pain. Denies difficulty on swallowing. Lungs: He has baseline shortness of breath. She has a chronic cough. Minimally productive. No hemoptysis. She has baseline dyspnea on exertion but denies nik orthopnea or PND. Cardiovascular: Patient is denying chest pain. She does have chronic shortness of breath with cough. No sputum production. No chest pains or pressures. She did have a presyncopal/syncopal event in the physician's office. Gastrointestinal:Denies nausea, vomiting, diarrhea, constipation, hematemesis, melena, hematochezia. No no significant change of bowel habit noticed. Musculoskeletal: denies significant myalgias or arthralgias. No new joint swelling. Denies new back pain. Skin: Denies new rash or lesions. No new ulcers or wounds are related.. Neuro: Denies headache or visual change. Has some generalized weakness which has not changed recently. No acute other neurological changes except for the presyncopal/syncopal event. Psychiatric:Denies anxiety or depression. Endocrine: Denies significant fatigue, denies significant weight loss or weight gain. Past Medical History Past Medical History: Cancer, Diabetes Mellitus, GERD/Reflux, Hyperlipidemia, Hypertension, Neurologic Disorder, Syncope Additional Past Medical History / Comment(s): LARGE B CELL LYMPHOMA; RIGHT BREAST CANCER WITH SX AND PT BELIEVES CHEMO, MIGRAINES IN PAST, CONSTIPATION, ANEMIA, NIDDM TYPE II, NEUROPATHY BILATERAL FEET, PUD, DIVERTICULAR DX, UTI'S, BACK PAIN, VASOMOTOR SYMPATHETIC DYSTROPHY RIGHT HAND, RLS. History of Any Multi-Drug Resistant Organisms: MRSA Year Discovered:: 08/26/2014 MDRO Source:: Urine Past Surgical History: Adenoidectomy, Appendectomy, Breast Surgery, Cholecystectomy, Heart Catheterization, Hysterectomy, Tonsillectomy Additional Past Surgical History / Comment(s): MASTECTOMY RIGHT, BILATERAL CATARACTS REMOVED WITH LENS IMPLANTS, CARDIAC CATH-NORMAL, COLONOSCOPY Past Anesthesia/Blood Transfusion Reactions: No Reported Reaction Additional Past Anesthesia/Blood Transfusion Reaction / Comm: HAD BLOOD TRANSFUSION IN PAST, HAS CLAUSTERPHOBIA Past Psychological History: No Psychological Hx Reported Additional Psychological History / Comment(s): PT RESIDES WITH HER SPOUSE AND DAUGHTER. SHE USES A CANE TO AMBULATE. SHE NO LONGER DRIVES, HER SPOUSE TAKES HER TO APPTS OR HER DAUGHTER. They have 5 children. One grandson is a dentist in [place], [place] She has no experience. No international travel. no animal exposures. Very supportive family. for 65 years. Smoking Status: Never smoker Past Alcohol Use History: None Reported Past Drug Use History: None Reported - Past Family History Father Family Medical History: Musculoskeletal Disorder, Neurologic Disorder Additional Family Medical History / Comment(s): PARKINSONS Mother Family Medical History: Cancer Additional Family Medical History / Comment(s): FROM BREAST CANCER-HAD HEART PROBLEMS, Medications and Allergies Home Medications and Allergies Comment(s): Current Medications Acetaminophen (Tylenol Tab) 500 mg PO Q6HR PRN PRN Reason: Fever and/ or Mild Pain Last Admin: 01/13/17 20:49 Dose: 500 mg Hydrocodone Bitart/Acetaminophen ([place] 5-325) 1 each PO Q6HR PRN PRN Reason: Moderate Pain Albuterol/Ipratropium (Duoneb 0.5 Mg-3 Mg/3 Ml Soln) 3 ml INHALATION RT-QID [facility] Last Admin: 01/14/17 16:18 Dose: 3 ml Albuterol/Ipratropium (Duoneb 0.5 Mg-3 Mg/3 Ml Soln) 3 ml INHALATION RT-Q4H PRN PRN Reason: shortness of breath Last Admin: 01/13/17 22:42 Dose: 3 ml Alprazolam (Xanax) 0.25 mg PO TID PRN PRN Reason: Anxiety Atenolol (Tenormin) 50 mg PO BID [facility] Last Admin: 01/14/17 09:21 Dose: 50 mg Azithromycin (Zithromax) 500 mg PO DAILY@1400 [facility] Last Admin: 01/14/17 15:27 Dose: 500 mg Budesonide (Pulmicort) 1 mg INHALATION RT-BID [facility] Last Admin: 01/14/17 08:56 Dose: 1 mg Cholecalciferol (Vitamin D3) 5,000 unit PO DAILY [facility] Last Admin: 01/14/17 09:22 Dose: 5,000 unit Docusate Sodium (Colace) 100 mg PO DAILY PRN PRN Reason: Constipation Formoterol Fumarate (Perforomist) 20 mcg INHALATION RT-BID [facility] Last Admin: 01/14/17 08:56 Dose: 20 mcg Furosemide (Lasix) 40 mg IV Q12HR [facility] Last Admin: 01/14/17 09:21 Dose: 40 mg Gabapentin (Neurontin) 300 mg PO TID [facility] Last Admin: 01/14/17 15:27 Dose: 300 mg Heparin Sodium (Porcine) (Heparin) 5,000 unit SQ Q12HR [facility] Last Admin: 01/14/17 09:22 Dose: 5,000 unit Hydromorphone HCl (Dilaudid) 0.5 mg IVP Q6HR PRN PRN Reason: Severe Pain Sodium Chloride (Saline 0.9%) 1,000 mls @ 20 mls/hr IV .Q24H [facility] Last Admin: 01/14/17 15:23 Dose: Not Given Piperacillin/Tazobactam/ (Dextrose 3.375 gm/ IV Solution) 50 mls @ 12.5 mls/hr IVPB Q8HR [facility] Last Admin: 01/14/17 15:30 Dose: 12.5 mls/hr Insulin Human Lispro (Humalog) 0 unit SQ ACHS [facility] PRN Reason: Protocol Last Admin: 01/14/17 12:46 Dose: Not Given Metformin HCl (Glucophage) 500 mg PO AC-BID [facility] Miscellaneous Information (Rx Info: Iv Contrast Was Given) 1 each MISCELLANE DAILY PRN PRN Reason: Per Protocol Stop: 01/15/17 13:04 Miscellaneous Information (Pneumonia Protocol Utilized) 1 each PO ONCE PRN PRN Reason: Per Protocol Multivitamins (Theragran) 1 each PO DAILY@1200 [facility] Last Admin: 01/14/17 11:06 Dose: 1 each Naloxone HCl (Narcan) 0.2 mg IV Q2M PRN PRN Reason: Opioid Reversal Oxybutynin Chloride (Ditropan Xl) 10 mg PO DAILY [facility] Last Admin: 01/14/17 09:21 Dose: 10 mg Pantoprazole Sodium (Protonix) [facility] Last Admin: 01/14/17 06:45 Dose: 40 mg Potassium Chloride (K-Dur 20) 40 meq PO BID [facility] Last Admin: 01/14/17 09:21 Dose: 40 meq Pravastatin Sodium (Pravachol) 10 mg PO DAILY [facility] Last Admin: 01/14/17 09:21 Dose: 10 mg Ropinirole HCl (Requip) 0.5 mg PO HS [facility] Last Admin: 01/13/17 20:51 Dose: 0.5 mg Temazepam (Restoril) 15 mg PO HS PRN PRN Reason: Insomnia Home Medications Medication Instructions Recorded Confirmed Type Atenolol [Tenormin] 50 mg PO BID 08/05/14 01/13/17 History Cholecalciferol [Vitamin D3] 5,000 unit PO DAILY 08/05/14 01/13/17 History Docusate [Colace] 100 mg PO DAILY PRN 08/05/14 01/13/17 History Gabapentin [Neurontin] 300 mg PO TID 08/05/14 01/13/17 History Multivitamins, Thera [Multivitamin 1 tab PO DAILY 08/05/14 01/13/17 History (formulary)] Omeprazole 40 mg PO AC-BRKFST 08/05/14 01/13/17 History Oxybutynin Chloride [Ditropan XL] 10 mg PO DAILY 08/05/14 01/13/17 History Pravastatin Sodium [Pravachol] 10 mg PO DAILY 05/21/15 01/13/17 History metFORMIN HCL [Glucophage] 500 mg PO BID 05/21/15 01/13/17 History rOPINIRole HCL [Requip] 0.5 mg PO HS 07/28/16 01/13/17 History Albuterol Inhaler [Ventolin Hfa 1 - 2 puff INHALATION RT-Q4H PRN 01/13/17 History Inhaler] Furosemide [Lasix] 20 mg PO DAILY 01/13/17 01/13/17 History Tiotropium Br/Olodaterol HCl 1 puff INHALATION RT-DAILY 01/13/17 01/13/17 History [Stiolto Respimat Inhal [place]] Allergies Allergy/AdvReac Type Severity Reaction Status Date / Time No Known Allergies Allergy Verified 01/13/17 12:51 Physical Exam Vitals: Vital Signs Temp Pulse Pulse Resp BP Pulse Ox 01/14/17 16:41 68 01/14/17 16:18 68 01/14/17 16:00 63 18 150/61 95 01/14/17 13:08 60 01/14/17 12:59 64 01/14/17 11:32 60 18 129/58 94 L 01/14/17 09:30 68 01/14/17 09:08 68 01/14/17 08:57 64 01/14/17 08:00 98.6 F 66 18 130/60 100 01/14/17 03:00 98.4 F 68 18 130/64 98 01/13/17 23:30 98.6 F 68 20 122/58 98 01/13/17 22:53 86 01/13/17 22:42 86 01/13/17 21:30 89 01/13/17 21:11 84 01/13/17 20:00 101.2 F H 87 20 139/80 97 Intake and Output 01/14/17 01/14/17 01/14/17 06:59 14:59 22:59 Intake Total 290 210 Output Total 1200 1400 Balance -910 210 -1400 Intake: Intake, IV Titration 290 210 Amount Piperacillin-Tazobactam 3 50 .375 gm In Dextrose/Water 1 50ml.bag @ 12.5 mls/hr IVPB Q6HR [facility] Rx#: [id number] Piperacillin-Tazobactam 3 50 .375 gm In Dextrose/Water 1 50ml.bag @ 12.5 mls/hr IVPB Q8HR [facility] Rx#: [id number] Sodium Chloride 0.9% 1, 240 000 ml @ 20 mls/hr IV . Q24H [facility] Rx#:[id number] Sodium Chloride 0.9% 1, 160 000 ml @ 20 mls/hr IV . Q24H [facility] Rx#:[id number] Output: Urine 1200 1400 Other: Voiding Method Bedside Commode Bedside Commode Bedside Commode Diaper Diaper Diaper Incontinent Incontinent Incontinent Weight 75 kg Pleasant 81-year-old woman who seems very modestly comfortable but coughs occasionally through the exam. Does relate to some modest shortness of breath. HEENT: Anicteric conjunctiva are pink and moist nasal mucosa grossly intact without significant lesions, there is no thrush. Neck: The neck is supple without significant lymphadenopathy or thyromegaly. Lungs: There is symmetrical air entry. There are bibasilar crackles. No nik bronchial sounds. No dullness or egophony. Heart: Irregular with an audible S1-S2, no S3 off tests for. There is no significant murmur click or rub, PMI was nondisplaced. Abdomen: Positive bowel sounds soft and nontender without palpable masses or organomegaly. There was no guarding or rebound. Extremities: The upper extremities have excellent pulses they are symmetric, no significant petechiae or telangiectasia. No splinter hemorrhages were noted. The lower extremities are free from significant edema. The peripheral pulses were 2+ and symmetric. Neuro: Awake alert oriented to person place and time. There are no acute new gross focal sensory motor deficits. Results CBC & Chem 7: 01/14/17 05:57 01/14/17 05:57 Labs: Abnormal Lab Results - Last 24 Hours (Table) 01/13/17 01/13/17 01/13/17 Range/Units 17:03 17:41 21:05 RBC (3.80-5.40) m/uL Hgb (11.4-16.0) gm/dL Hct (34.0-46.0) % RDW (11.5-15.5) % Plt Count (150-450) k/uL Lymphocytes # (Manual) (1.0-4.8) k/uL Chloride (98-107) mmol/L BUN (7-17) mg/dL POC Glucose (mg/dL) 111 H (75-99) mg/dL Calcium (8.4-10.2) mg/dL Troponin I 0.080 H* (0.000-0.034) ng/mL Urine Appearance Cloudy H (Clear) Urine Protein 1+ H (Negative) Urine Blood Large H (Negative) Urine RBC >182 H (0-5) /hpf 01/13/17 01/13/17 01/14/17 Range/Units 21:29 23:34 05:57 RBC 2.84 L (3.80-5.40) m/uL Hgb 7.7 L D (11.4-16.0) gm/dL Hct 24.7 L (34.0-46.0) % RDW 18.1 H (11.5-15.5) % Plt Count 67 L (150-450) k/uL Lymphocytes # (Manual) 0.7 L (1.0-4.8) k/uL Chloride (98-107) mmol/L BUN (7-17) mg/dL POC Glucose (mg/dL) 113 H (75-99) mg/dL Calcium (8.4-10.2) mg/dL Troponin I 0.069 H* (0.000-0.034) ng/mL Urine Appearance (Clear) Urine Protein (Negative) Urine Blood (Negative) Urine RBC (0-5) /hpf 01/14/17 01/14/17 Range/Units 05:57 06:15 RBC (3.80-5.40) m/uL Hgb (11.4-16.0) gm/dL Hct (34.0-46.0) % RDW (11.5-15.5) % Plt Count (150-450) k/uL Lymphocytes # (Manual) (1.0-4.8) k/uL Chloride 109 H (98-107) mmol/L BUN 20 H (7-17) mg/dL POC Glucose (mg/dL) 101 H (75-99) mg/dL Calcium 8.3 L (8.4-10.2) mg/dL Troponin I (0.000-0.034) ng/mL Urine Appearance (Clear) Urine Protein (Negative) Urine Blood (Negative) Urine RBC (0-5) /hpf Microbiology - Last 24 Hours (Table) 01/14/17 11:00 Gram Stain - Final Sputum Sputum Culture - Final 01/13/17 19:30 Urine Culture - Preliminary Urine,Voided Laboratory Results WBC 4.0 k/uL (3.8-10.6) 01/14/17 05:57 RBC 2.84 m/uL (3.80-5.40) L 01/14/17 05:57 Hgb 7.7 gm/dL (11.4-16.0) L D 01/14/17 05:57 Hct 24.7 % (34.0-46.0) L 01/14/17 05:57 MCV 87.0 fL (80.0-100.0) 01/14/17 05:57 MCH 27.0 pg (25.0-35.0) 01/14/17 05:57 MCHC 31.0 g/dL (31.0-37.0) 01/14/17 05:57 RDW 18.1 % (11.5-15.5) H 01/14/17 05:57 Plt Count 67 k/uL (150-450) L 01/14/17 05:57 Neutrophils % (Manual) 59.0 % 01/14/17 05:57 Band Neutrophils % 5.0 % 01/14/17 05:57 Lymphocytes % (Manual) 17.0 % 01/14/17 05:57 Monocytes % (Manual) 19.0 % 01/14/17 05:57 Neutrophils # (Manual) 2.6 k/uL (1.3-7.7) 01/14/17 05:57 Lymphocytes # (Manual) 0.7 k/uL (1.0-4.8) L 01/14/17 05:57 Monocytes # (Manual) 0.8 k/uL (0-1.0) 01/14/17 05:57 Nucleated RBCs 0 /100 WBC (0-0) 01/14/17 05:57 Manual Slide Review Performed 01/14/17 05:57 Large Platelets Present 01/13/17 11:45 Polychromasia Present 01/13/17 11:45 Hypochromasia Marked 01/14/17 05:57 Poikilocytosis (manual Present 01/13/17 11:45 Anisocytosis Slight 01/14/17 05:57 Target Cells Present 01/13/17 11:45 Ovalocytes Present 01/14/17 05:57 Fragmented RBCs Present 01/14/17 05:57 PT 12.3 sec (9.0-12.0) H 01/13/17 11:45 INR 1.2 (<1.1) 01/13/17 11:45 APTT 31.2 sec (22.0-30.0) H 01/13/17 11:45 D-Dimer 6.62 mg/L FEU (<0.60) H 01/13/17 11:45 Sodium 141 mmol/L (137-145) 01/14/17 05:57 Potassium 3.5 mmol/L (3.5-5.1) 01/14/17 05:57 Chloride 109 mmol/L (98-107) H 01/14/17 05:57 Carbon Dioxide 27 mmol/L (22-30) 01/14/17 05:57 Anion Gap 5 mmol/L 01/14/17 05:57 BUN 20 mg/dL (7-17) H 01/14/17 05:57 Creatinine 0.90 mg/dL (0.52-1.04) 01/14/17 05:57 Est GFR (MDRD) Af Amer >60 (>60 ml/min/1.73 sqM) 01/14/17 05:57 Est GFR (MDRD) Non-Af 60 (>60 ml/min/1.73 sqM) 01/14/17 05:57 Glucose 99 mg/dL (74-99) 01/14/17 05:57 POC Glucose (mg/dL) 94 mg/dL (75-99) 01/14/17 17:04 POC Glu [place] ID More[place] Amaro 01/14/17 17:[address] Glu mg/dL 126 mg/dL 01/13/17 17:41 Hemoglobin A1c 6.0 % (4.2-6.1) 01/13/17 17:41 Calcium 8.3 mg/dL (8.4-10.2) L 01/14/17 05:57 Magnesium 1.6 mg/dL (1.6-2.3) 01/14/17 05:57 Total Bilirubin 1.4 mg/dL (0.2-1.3) H 01/13/17 11:45 AST 14 U/L (14-36) 01/13/17 11:45 ALT 23 U/L (9-52) 01/13/17 11:45 Alkaline Phosphatase 58 U/L (38-126) 01/13/17 11:45 Total Creatine Kinase <20 U/L (30-135) L 01/13/17 11:45 CK-MB (CK-2) 0.4 ng/mL (0.0-2.4) 01/13/17 11:45 CK-MB (CK-2) Rel Index 0.0 01/13/17 11:45 Troponin I 0.069 ng/mL (0.000-0.034) H* 01/13/17 23:34 NT-Pro-B Natriuret Pep 7830 pg/mL 01/13/17 11:45 Total Protein 5.3 g/dL (6.3-8.2) L 01/13/17 11:45 Albumin 3.2 g/dL (3.5-5.0) L 01/13/17 11:45 Urine Color Yellow 01/13/17 21:05 Urine Appearance Cloudy (Clear) H 01/13/17 21:05 Urine pH 6.0 (5.0-8.0) 01/13/17 21:05 Ur Specific [place] 1.033 (1.001-1.035) 01/13/17 21:05 Urine Protein 1+ (Negative) H 01/13/17 21:05 Urine Glucose (UA) Negative (Negative) 01/13/17 21:05 Urine Ketones Negative (Negative) 01/13/17 21:05 Urine Blood Large (Negative) H 01/13/17 21:05 Urine Nitrite Negative (Negative) 01/13/17 21:05 Urine Bilirubin Negative (Negative) 01/13/17 21:05 Urine Urobilinogen <2.0 mg/dL (<2.0) 01/13/17 21:05 Ur Leukocyte Esterase Negative (Negative) 01/13/17 21:05 Urine RBC >182 /hpf (0-5) H 01/13/17 21:05 Urine WBC 5 /hpf (0-5) 01/13/17 21:05 Ur Squamous Epith Cells 1 /hpf (0-4) 01/13/17 21:05 Microbiology 01/13/17 11:45 Blood Blood Culture - Preliminary No Growth after 24 hours 01/14/17 11:00 Sputum Gram Stain - Final 01/14/17 11:00 Sputum Sputum Culture - Final 01/13/17 19:30 Urine,Voided Urine Culture - Preliminary Hemoglobin July was 10.3. CT scan - chest: report reviewed (Pneumonia and worsening mass process in the chest) Assessment and Plan (1) Pneumonia Narrative/Plan: 81-year-old female with history of diffuse large B-cell lymphoma and follows with local oncology. The patient relates that in the fall of every year she undergoes a 4 week cycle of Rituxan infusions before she goes to [place]. They've returned from [place] from their winter session where she was quite well while she was there. Upon returning back she's not been feeling well. She's had a cough has been ongoing since September. It's been with minimal production and mostly dry. She denies significant shortness of breath. She is also not having fevers chills or rigors. In the days preceding her admission she was not feeling well and was seen by her gun repair clerk. While she was in the office she had a change of her status she slumped into her 's arms. She was on evidence of a very high heart rate of 180 and vagal stimulation was performed. She was transported to Hospital by EMS. She's now doing somewhat better. That has evidence of the abnormal computed tomography scan and chest x-ray. Concerns for pneumonia. Given the altered mental status further concerns to potential aspiration pneumonia. Computed tomography scan failed to reveal evidence of a pulmonary embolus. Consequently for antibiotic therapy piperacillin tazobactam is a reasonable choice at this point in time given her immunocompromised status, pseudomonas risk and aspiration risk. She's noticed to have worsening of her baseline anemia. Unclear if this from underlying disease state or another process. Is being monitored at this point in time. Her thrombocytopenia is at about its baseline. No evidence for other forms of infection at this point in time, but does have some hematuria which may need follow-up. CT of the abdomen did show evidence of some ascites Does have evidence of a low IgG level. Level will be rechecked. May require supplementation. Status: Acute (2) Syncope Status: Acute (3) Diffuse large B cell lymphoma Status: Acute (4) History of cancer of right breast Status: Acute
[2017-01-14 18:11] LABS: % Iron Saturation 10.3 % (20-50)
[2017-01-14 18:39] LABS: Reticulocyte % 1.8 % (0.5-2.0)
--- NOTE | 2017-01-14 19:30 | CONS ---
DATE OF CONSULTATION: 01/14/2017. REASON FOR CONSULTATION: Dyspnea. This is a very pleasant 81-year-old female patient who has a history of diabetes mellitus, hypertension, hyperlipidemia, large B-cell lymphoma. She also has a history of chronic obstructive pulmonary disease and follows with Dr. Torrez in our office for the same. She presented there yesterday after just returning from a trip back from [place] the day prior. She was quite short of breath and dyspneic. While in the office she had suspected syncopal episode found with her head down and briefly unresponsive. She is also found to be in atrial fibrillation with a rapid ventricular response. EMS was called and she was brought here to the emergency room for the same. She was found to be in atrial fibrillation with a rapid ventricular response. Peak troponin of 0.69. She is also anemic at 9.7. ProBNP level 7830. Her hemoglobin was 9.7. She had a d-dimer of 6.62. CT angiogram was performed that did not reveal any evidence of pulmonary embolism; however, there was oval density posterior middle left apex which is enlarged compared to previous study. Neoplasm is in the differential. There is also evidence of COPD and chronic bronchitis and a new density in the periphery of the right mid lung. There is atelectasis and again neoplasm is within the differential. She is seen today in consultation on the selective care unit. She is awake and alert, in no acute distress. She states she is feeling better today as compared to yesterday. She continues with a loose, nonproductive cough. She is maintaining O2 saturation in the low 90s on 3 liters. She has been hemodynamically stable. Her heart rate is better controlled. Past medical history includes diabetes mellitus, gastroesophageal reflux disease, hypertension, hyperlipidemia, large B-cell lymphoma. Past surgical history includes adenoidectomy, appendectomy and a right mastectomy. SOCIAL HISTORY: She is a lifelong nonsmoker. No excessive alcohol intake. ALLERGIES: No known allergies. HOME MEDICATIONS: 1. Spiriva 1 inhalation daily. 2. Requip 0.5 mg at bedtime. 3. Colace 100 mg daily p.r.n. 4. Lasix 20 mg daily. 5. Ventolin HFA 1 to 2 inhalations q.4 hours p.r.n. 6. Glucophage 500 mg b.i.d. 7. Pravachol 10 mg daily. 8. Ditropan XL 10 mg daily. 9. Omeprazole 40 mg daily. 10. Neurontin 300 mg t.i.d. 11. Tenormin 50 mg b.i.d. REVIEW OF SYSTEMS: Twelve-point review of system was conducted; all negative other than as mentioned in the HPI. On physical exam, she is awake and alert, in no acute distress. Vital signs reveal blood pressure is 129/58, heart rate 60, respirations 18, temperature is 98.6. She is 94% O2 saturation on 3 liters. Her head is normocephalic. Sclerae are anicteric. Her neck is supple. Trachea midline. Her lungs have scattered rhonchi, more so on the right lung. Her heart is currently regular, S1, S2. Her abdomen is distended. There is positive fluid waves. Bowel sounds are present. There is trace peripheral edema. No clubbing. No cyanosis. Peripheral pulses are intact. INVESTIGATIONS: Urine and sputum cultures are pending. CT scan of the brain revealed no acute intracranial abnormalities. There is some acute maxillary sinusitis and age related atrophy. Abdominal x-ray reveals nonspecific bowel gas pattern. CT scan of the chest, abdomen and pelvis revealed bibasilar consolidations, correlate for atelectasis and pneumonia. A small right pleural effusion and a large amount of ascites. Some subcutaneous edema is also present. Mild diverticulosis. Chest x-ray reveals a small posterior pleural effusion. Lab results reveal WBC 4.0, hemoglobin 7.7, platelet count 67,000. Sodium 141, potassium 3.5, chloride 109, CO2 of 27, BUN 20, creatinine 0.90. Her medications are reviewed. IMPRESSION: 1. Atrial fibrillation with a rapid ventricular response. 2. Acute on chronic systolic congestive heart failure with estimated ejection fraction of 45 to 50%. 3. Moderate to severe aortic stenosis. 4. History of pancytopenia. 5. History of large B-cell lymphoma. 6. Hypertension. 7. Hyperlipidemia. 8. Gastroesophageal reflux disease 9. Ascites. 10. Anemia. Current hemoglobin 7.7. 11. History of right breast cancer with surgery. PLAN: The patient was seen and evaluated by Dr. Rebollar. All of her scans and x-rays were reviewed. The patient does have multiple comorbidities. We will continue with current medications including bronchodilators, Pulmicort and Perforomist inhalations b.i.d., Zosyn and azithromycin. She is on IV Lasix. Cardiology is on the case as well. We will continue to follow and make further recommendations based on her clinical status. MARYANN
[2017-01-14 20:57] LABS: Glucose,Whole Blood 124 mg/dL (75-99)
[2017-01-15 06:44] LABS: Calcium 8.5 mg/dL (8.4-10.2); Potassium 3.8 mmol/L (3.5-5.1)
[2017-01-15] MEDS: INSULIN LISPRO (humaLOG) 300 UNIT/3 ML VIAL SQ SCH ×4 (06:46→22:01)
[2017-01-15] MEDS: PANTOPRAZOLE 40 MG TABLET PO SCH (06:47)
[2017-01-15 07:04] LABS: Glucose,Whole Blood 104 mg/dL (75-99)
[2017-01-15 07:29] LABS: Anisocytosis Slight; Aty Lym Flag Slight; CH 25.5; CHCM 29.1; HCT 25.3 % (34.0-46.0); HDW 2.73; HGB 7.8 gm/dL (11.4-16.0); Hypochromasia Marked; MCHC 30.7 g/dL (31.0-37.0); MCV 87.9 fL (80.0-100.0); Mean Platelet Volume 10.8; RBC 2.88 m/uL (3.80-5.40); RDW 17.8 % (11.5-15.5); WBC 3.8 k/uL (3.8-10.6); WBC (Perox) 3.92
[2017-01-15] MEDS: IPRATROPIUM-ALBUTEROL 3 ML NEB INHALATION SCH ×4 (08:01→19:33)
[2017-01-15] MEDS: BUDESONIDE 1 MG/2 ML NEBU INHALATION SCH ×2 (08:01→19:33)
[2017-01-15] MEDS: FORMOTEROL FUMARATE 20 MCG/2 ML NEBU INHALATION SCH ×2 (08:01→19:33)
[2017-01-15] MEDS: PIPERACILLIN-TAZOBACTAM 3.375 GM in DEXTROSE/WATER 1 50ML.BAG IVPB SCH ×2 (08:27→15:23)
[2017-01-15] MEDS: POTASSIUM CHLORIDE ER 20 MEQ TAB.ER PO SCH ×2 (08:35→20:39)
[2017-01-15] MEDS: OXYBUTYNIN 10 MG TAB.ER.24 PO SCH (08:35)
[2017-01-15] MEDS: CHOLECALCIFEROL 1,000 UNIT TAB PO SCH (08:35)
[2017-01-15] MEDS: GABAPENTIN 300 MG CAP PO SCH ×3 (08:35→20:39)
[2017-01-15] MEDS: FUROSEMIDE 10 MG/ML 4 ML VIAL IV SCH (08:35)
[2017-01-15] MEDS: PRAVASTATIN SODIUM 20 MG TAB PO SCH (08:36)
[2017-01-15] MEDS: HEPARIN SODIUM,PORCINE 5,000 UNIT/ML 1 ML VIAL SQ SCH ×2 (08:36→22:02)
[2017-01-15] MEDS: MULTIVITAMINS, THERA 1 EACH TAB PO SCH (08:37)
[2017-01-15 10:15] LABS: Add Differential Manual Differential
[2017-01-15 10:18] LABS: Nucleated Red Blood Cells 0 /100 WBC (0-0); Total Cells Counted 100
[2017-01-15 10:19] LABS: Ovalocytes Present; Target Cells Present
--- NOTE | 2017-01-15 11:04 | PN ---
DATE OF SERVICE: 01/14/2017 This 81-year-old woman was admitted with syncopal episode also had multiple complex medical issues including CHF, history of atrial fibrillation, history of sinusitis and right pleural effusion as well. The patient also has a history of B cell lymphoma. A chest CT demonstrated old densities posterior medial left apex, enlarged from the previous density. No acute pulmonary embolism was noted. A 2-D echo with Doppler done by cardiology showed ejection fraction 50% to 55% with peak mean gradient of the aortic valve was 41/25.75. A large pleural effusion was also noted. A recent chest x-ray done today which is reviewed by me showed evidence of some fluid overload. Otherwise, the patient will be closely monitored. Past medical history reviewed: REVIEW OF SYSTEMS: CARDIOVASCULAR: As mentioned earlier. RESPIRATORY: As mentioned earlier. GI: No nausea. : No dysuria. NERVOUS SYSTEM: No numbness or weakness. Current medications are reviewed and include: 1. Tylenol 2. Harrison 5 mg p.o. p.r.n. 3. Xanax 0.05 t.i.d. 4. Zithromax 500 mg. 5. Pulmicort 1 mg b.i.d. 6. Vitamin D 5000 daily. 7. Colace. 9. Lasix 40 mg daily. 11. Multivitamins 1 p.o. daily. 12. Ditropan. 13. Zosyn 3.75 q8. 14. Pravachol 10 mg p.o. daily. PHYSICAL EXAMINATION: Patient is alert and oriented x3. Pulse is 63, blood pressure 156/80, respirations 18, temperature is normal, pulse ox 94% on 3 liters. HEENT: Conjunctivae normal NECK: No jugular venous distention. CARDIOVASCULAR: S1 and S2, muffled. RESPIRATORY: Breath sounds diminished at the bases. Bilateral scattered rhonchi and crackles. ABDOMEN: Soft, ascites present. LABS: WBC 4, hemoglobin 7.7. INR is 1.2, D-dimer 6.62. ASSESSMENT: 1. Atrial fibrillation with fast ventricular rate. 2. Congestive heart failure acute exacerbation with acute on chronic systolic dysfunction, ejection fraction, 45 to 50%. 3. Moderate severe aortic stenosis and moderate mitral regurgitation. 4. Small right pleural effusion. 5. 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 6. Possible aspiration pneumonia. 7. Ascites. 8. Hypokalemia. 9. Hypoalbuminemia with mild to moderate protein calorie malnutrition. 10. Troponin 0.08, indeterminate. 11. D-dimer is 6.6, high without evidence of pulmonary embolus. 12. Anemia, normocytic anemia of chronic disease. 13. Thrombocytopenia, possibly secondary to malignancy. 14. Large B-cell lymphoma history. 15. History of right breast cancer and surgery. 16. Diabetes mellitus type 2. 17. Gastroesophageal reflux disease. 18. Hypertension, essential. 19. Hyperlipidemia. 20. History of syncope. 21. History of anemia. 22. History of peripheral neuropathy. 23. History of dystrophy of the right hand. 24. History of adenoidectomy. 25. History of appendectomy. 26. History of mastectomy, right. 27. History of gait dysfunction. 28. Hypokalemia. 29. FULL CODE. RECOMMENDATIONS AND DISCUSSION: Recommend to continue current medication, continue symptomatic treatment, continue with broad spectrum I antibiotics, potassium is being corrected. Otherwise, continue to monitor. I would also recommend follow up with multiple consultants as detailed above. Otherwise, I would also recommend interventional radiology evaluation and possible ascitic tap also, the exact etiology of which is unknown but the patient has got multiple complex medical issues. Further recommendations to follow. MTDD
[2017-01-15 11:44] LABS: Glucose,Whole Blood 116 mg/dL (75-99)
--- NOTE | 2017-01-15 13:34 | P.PN ---
Subjective Principal diagnosis: Altered mental status 81-year-old female is a history of multiple medical troubles with that her pulmonologists office for follow-up of her cough that has been problematic since September of this year. She's had difficulties with some shortness of breath as well as a mostly dry but minimally productive cough. It has affected the quality of her life. At the office the patient apparently slumped over onto her . She had altered mental status. Vital signs reveal evidence of her heart rate in the 180s. Carotid massage was performed and heart rate slowed. Because of her difficulty she was transferred to the emergency center. There she is on evidence of atrial fibrillation with rapid ventricular response. She was treated with Cardizem and has had improvement. The patient has a known history of large B-cell lymphoma as well as a history of breast carcinoma. Does have underlying hyperlipidemia hypertension and diabetes in a history of multifocal atrial tachycardia. Cardiology has seen the patient and believe that she has chronic congestive heart failure systolic type. Infectious diseases consultation requested with concerns of pneumonia after her event and the abnormal chest x-ray. Patient does not believe she's had significant fever chill or rigor before admission. However is noted she is having difficulty with a chronic cough that is only minimally productive at times. Feels better today. Objective - Vital Signs Vital signs: Vital Signs Temp 98 F 01/15/17 08:00 Pulse 64 01/15/17 12:00 Resp 20 01/15/17 11:58 BP 118/57 01/15/17 11:58 Pulse Ox 98 01/15/17 11:58 Intake & Output 01/14/17 01/15/17 01/15/17 18:59 06:59 18:59 Intake Total 330 290 200 Output Total 2800 1200 1000 Balance -2470 -910 -800 Weight 72.1 kg Intake: Intake, IV Titration 210 290 Amount Piperacillin-Tazobactam 3 50 50 .375 gm In Dextrose/Water 1 50ml.bag @ 12.5 mls/hr IVPB Q8HR [facility] Rx#: [id number] Sodium Chloride 0.9% 1, 240 000 ml @ 20 mls/hr IV . Q24H [facility] Rx#:[id number] Sodium Chloride 0.9% 1, 160 000 ml @ 20 mls/hr IV . Q24H [facility] Rx#:[id number] Oral 120 200 Output: Urine 2800 1200 1000 Other: Voiding Method Bedside Commode Bedside Commode Bedside Commode Diaper Diaper Diaper Incontinent Incontinent Incontinent - Exam Pleasant 81-year-old woman who seems very modestly comfortable but coughs occasionally through the exam. Does relate to some modest shortness of breath. HEENT: Anicteric conjunctiva are pink and moist nasal mucosa grossly intact without significant lesions, there is no thrush. Neck: The neck is supple without significant lymphadenopathy or thyromegaly. Lungs: There is symmetrical air entry. There are bibasilar crackles. No nik bronchial sounds. No dullness or egophony. Heart: Irregular with an audible S1-S2, no S3 off tests for. There is no significant murmur click or rub, PMI was nondisplaced. Abdomen: Positive bowel sounds soft and nontender without palpable masses or organomegaly. There was no guarding or rebound. Extremities: The upper extremities have excellent pulses they are symmetric, no significant petechiae or telangiectasia. No splinter hemorrhages were noted. The lower extremities are free from significant edema. The peripheral pulses were 2+ and symmetric. Neuro: Awake alert oriented to person place and time. There are no acute new gross focal sensory motor deficits. - Labs CBC & Chem 7: 01/15/17 05:47 01/15/17 05:47 Labs: Abnormal Lab Results - Last 24 Hours (Table) 01/14/17 01/14/17 01/15/17 Range/Units 05:57 20:53 05:47 RBC 2.88 L (3.80-5.40) m/uL Hgb 7.8 L (11.4-16.0) gm/dL Hct 25.3 L (34.0-46.0) % MCHC 30.7 L (31.0-37.0) g/dL RDW 17.8 H (11.5-15.5) % Plt Count 63 L (150-450) k/uL Lymphocytes # (Manual) 0.6 L (1.0-4.8) k/uL Creatinine (0.52-1.04) mg/dL POC Glucose (mg/dL) 124 H (75-99) mg/dL Iron 21 L (37-170) ug/dL TIBC 204 L (265-497) ug/dL % Saturation 10.3 L (20-50) % 01/15/17 01/15/17 01/15/17 Range/Units 05:47 06:42 11:43 RBC (3.80-5.40) m/uL Hgb (11.4-16.0) gm/dL Hct (34.0-46.0) % MCHC (31.0-37.0) g/dL RDW (11.5-15.5) % Plt Count (150-450) k/uL Lymphocytes # (Manual) (1.0-4.8) k/uL Creatinine 1.10 H (0.52-1.04) mg/dL POC Glucose (mg/dL) 104 H 116 H (75-99) mg/dL Iron (37-170) ug/dL TIBC (265-497) ug/dL % Saturation (20-50) % Microbiology - Last 24 Hours (Table) 01/13/17 19:30 Urine Culture - Final Urine,Voided 01/14/17 11:00 Gram Stain - Final Sputum Sputum Culture - Final Laboratory Results WBC 3.8 k/uL (3.8-10.6) 01/15/17 05:47 RBC 2.88 m/uL (3.80-5.40) L 01/15/17 05:47 Hgb 7.8 gm/dL (11.4-16.0) L 01/15/17 05:47 Hct 25.3 % (34.0-46.0) L 01/15/17 05:47 MCV 87.9 fL (80.0-100.0) 01/15/17 05:47 MCH 27.0 pg (25.0-35.0) 01/15/17 05:47 MCHC 30.7 g/dL (31.0-37.0) L 01/15/17 05:47 RDW 17.8 % (11.5-15.5) H 01/15/17 05:47 Plt Count 63 k/uL (150-450) L 01/15/17 05:47 Neutrophils % (Manual) 68.0 % 01/15/17 05:47 Band Neutrophils % 5.0 % 01/14/17 05:57 Lymphocytes % (Manual) 15.0 % 01/15/17 05:47 Monocytes % (Manual) 15.0 % 01/15/17 05:47 Eosinophils % (Manual) 2.0 % 01/15/17 05:47 Neutrophils # (Manual) 2.6 k/uL (1.3-7.7) 01/15/17 05:47 Lymphocytes # (Manual) 0.6 k/uL (1.0-4.8) L 01/15/17 05:47 Monocytes # (Manual) 0.6 k/uL (0-1.0) 01/15/17 05:47 Eosinophils # (Manual) 0.1 k/uL (0-0.7) 01/15/17 05:47 Nucleated RBCs 0 /100 WBC (0-0) 01/15/17 05:47 Manual Slide Review Performed 01/14/17 05:57 Large Platelets Present 01/13/17 11:45 Polychromasia Present 01/13/17 11:45 Hypochromasia Marked 01/15/17 05:47 Poikilocytosis (manual Present 01/13/17 11:45 Anisocytosis Slight 01/15/17 05:47 Target Cells Present 01/15/17 05:47 Ovalocytes Present 01/15/17 05:47 Fragmented RBCs Present 01/15/17 05:47 Retic Count 1.8 % (0.5-2.0) 01/14/17 05:57 PT 12.3 sec (9.0-12.0) H 01/13/17 11:45 INR 1.2 (<1.1) 01/13/17 11:45 APTT 31.2 sec (22.0-30.0) H 01/13/17 11:45 D-Dimer 6.62 mg/L FEU (<0.60) H 01/13/17 11:45 Sodium 139 mmol/L (137-145) 01/15/17 05:47 Potassium 3.8 mmol/L (3.5-5.1) 01/15/17 05:47 Chloride 105 mmol/L (98-107) 01/15/17 05:47 Carbon Dioxide 28 mmol/L (22-30) 01/15/17 05:47 Anion Gap 6 mmol/L 01/15/17 05:47 BUN 17 mg/dL (7-17) 01/15/17 05:47 Creatinine 1.10 mg/dL (0.52-1.04) H 01/15/17 05:47 Est GFR (MDRD) Af Amer 58 (>60 ml/min/1.73 sqM) 01/15/17 05:47 Est GFR (MDRD) Non-Af 48 (>60 ml/min/1.73 sqM) 01/15/17 05:47 Glucose 97 mg/dL (74-99) 01/15/17 05:47 POC Glucose (mg/dL) 116 mg/dL (75-99) H 01/15/17 11:43 POC Glu Bat Boy/Girl ID Joy Guaman 01/15/17 11:[address] Glu mg/dL 126 mg/dL 01/13/17 17:41 Hemoglobin A1c 6.0 % (4.2-6.1) 01/13/17 17:41 Calcium 8.5 mg/dL (8.4-10.2) 01/15/17 05:47 Magnesium 1.6 mg/dL (1.6-2.3) 01/14/17 05:57 Iron 21 ug/dL (37-170) L 01/14/17 05:57 TIBC 204 ug/dL (265-497) L 01/14/17 05:57 % Saturation 10.3 % (20-50) L 01/14/17 05:57 Total Bilirubin 1.4 mg/dL (0.2-1.3) H 01/13/17 11:45 AST 14 U/L (14-36) 01/13/17 11:45 ALT 23 U/L (9-52) 01/13/17 11:45 Alkaline Phosphatase 58 U/L (38-126) 01/13/17 11:45 Total Creatine Kinase <20 U/L (30-135) L 01/13/17 11:45 CK-MB (CK-2) 0.4 ng/mL (0.0-2.4) 01/13/17 11:45 CK-MB (CK-2) Rel Index 0.0 01/13/17 11:45 Troponin I 0.069 ng/mL (0.000-0.034) H* 01/13/17 23:34 NT-Pro-B Natriuret Pep 7830 pg/mL 01/13/17 11:45 Total Protein 5.3 g/dL (6.3-8.2) L 01/13/17 11:45 Albumin 3.2 g/dL (3.5-5.0) L 01/13/17 11:45 Urine Color Yellow 01/13/17 21:05 Urine Appearance Cloudy (Clear) H 01/13/17 21:05 Urine pH 6.0 (5.0-8.0) 01/13/17 21:05 Ur Specific [place] 1.033 (1.001-1.035) 01/13/17 21:05 Urine Protein 1+ (Negative) H 01/13/17 21:05 Urine Glucose (UA) Negative (Negative) 01/13/17 21: Urine Ketones Negative (Negative) 01/13/17 21: Urine Blood Large (Negative) H 01/13/17 21: Urine Nitrite Negative (Negative) 01/13/17 21: Urine Bilirubin Negative (Negative) 01/13/17 21:05 Urine Urobilinogen <2.0 mg/dL (<2.0) 01/13/17 21:05 Ur Leukocyte Esterase Negative (Negative) 01/13/17 21:05 Urine RBC >182 /hpf (0-5) H 01/13/17 21:05 Urine WBC 5 /hpf (0-5) 01/13/17 21:05 Ur Squamous Epith Cells 1 /hpf (0-4) 01/13/17 21:05 Microbiology 01/13/17 19:30 Urine,Voided Urine Culture - Final 01/13/17 11:45 Blood Blood Culture - Preliminary No Growth after 24 hours 01/14/17 11:00 Sputum Gram Stain - Final 01/14/17 11:00 Sputum Sputum Culture - Final Assessment and Plan (1) Pneumonia Narrative/Plan: 81-year-old female with history of diffuse large B-cell lymphoma and follows with local oncology. The patient relates that in the fall of every year she undergoes a 4 week cycle of Rituxan infusions before she goes to [place]. They've returned from [place] from their winter session where she was quite well while she was there. Upon returning back she's not been feeling well. She's had a cough has been ongoing since September. It's been with minimal production and mostly dry. She denies significant shortness of breath. She is also not having fevers chills or rigors. In the days preceding her admission she was not feeling well and was seen by her power house control room operator. While she was in the office she had a change of her status she slumped into her 's arms. She was on evidence of a very high heart rate of 180 and vagal stimulation was performed. She was transported to Hospital by EMS. She's now doing somewhat better. That has evidence of the abnormal computed tomography scan and chest x-ray. Concerns for pneumonia. Given the altered mental status further concerns to potential aspiration pneumonia. Computed tomography scan failed to reveal evidence of a pulmonary embolus. Consequently for antibiotic therapy piperacillin tazobactam is a reasonable choice at this point in time given her immunocompromised status, pseudomonas risk and aspiration risk. She's noticed to have worsening of her baseline anemia. Unclear if this from underlying disease state or another process. Is being monitored at this point in time. Her thrombocytopenia is at about its baseline. No evidence for other forms of infection at this point in time, but does have some hematuria which may need follow-up. CT of the abdomen did show evidence of some ascites, if worsening may need drainage. Does have evidence of a low IgG level. Level was requested and is pending. May require supplementation. Status: Acute (2) Syncope Status: Acute (3) Diffuse large B cell lymphoma Status: Acute (4) History of cancer of right breast Status: Acute
--- NOTE | 2017-01-15 15:08 | P.PN ---
Progress Note - Text Consult dictated Impression: 1- Severe dyspnea 2nd to exacerbation of COPD/CHF 2- New Ascites of ?etilogy > Doubt, but can't R/O relation to prior Lymphoma 3- Anemia, chronic with acute progression > 2nd to chronic illness , as well as , iron deficiency 4- Diffuse Large B-Cell Lymphoma, diagnosed 01/2015, treated with R-CHOP X 3 > On yearly Rituxan , last infusion Jul 2016 5- Chronic Thrombocytopenia Rec: 1- Agree with current managment 2- Transfuse with PRBC X 2 3- Start PO Iron supplement > will give IV iron supplement after discharge. 4- U/S-guided paracentesis D/W patient/, will follow.
[2017-01-15] MEDS: AZITHROMYCIN 500 MG TAB PO SCH (15:22)
[2017-01-15] MEDS: SODIUM CHLORIDE 0.9% 1,000 ML IV SCH (15:22)
[2017-01-15 16:43] LABS: Glucose,Whole Blood 119 mg/dL (75-99)
[2017-01-15] MEDS: FERROUS SULFATE 325 MG TAB PO SCH (17:19)
[2017-01-15] MEDS: metFORMIN 500 MG TAB PO SCH (17:20)
--- NOTE | 2017-01-15 17:22 | PN ---
81-year-old female who was seen by Dr. Torrez in the office and sent immediately to the hospital. She has a history of diabetes mellitus, hypertension, hyperlipidemia, large B-cell lymphoma as well as chronic obstructive pulmonary. The patient was recently coming back from [place] where she was vacationing. She came into the office with significant shortness of breath. She apparently had either a syncopal or near syncopal episode. Anyway, because of that she was sent right over to the hospital. EMS was called. They transported over to the emergency room to be evaluated. At that time, she was also found to have atrial fibrillation with RVR. Anyway, her situation has improved somewhat. Her N-terminal proBNP was 7830. Her troponin levels were a bit high 0.69. Her hemoglobins were bit low at 9.7. Her d-dimer was 6.62. CT angiogram showed no evidence of pulmonary embolism. She did have evidence of some abnormalities on CT scan in the right apex and left lung. Anyway, they were concerned about the possibility of neoplasm. The patient seemed to be resting relatively comfortably at this time. No additional complaints. No fever, no chills. No nausea, vomiting, or diarrhea. No chest pain or chest discomfort. Current vital signs are reviewed. Temperature is 98.8, heart rate 64, respiratory rate 18, blood pressure 120/63, mean 82, 2 liters saturation 93%. Looks a little better than she did yesterday. I did not actually see her in the office. HEENT examination is grossly unremarkable. Mucous membranes are a bit dry. No oral lesions. Neck is supple. Full range of motion. No adenopathy. Cardiovascular examination reveals a regular rhythm and rate. Appears that she is back in sinus rhythm. S1, S2 normal. No S3, S4, murmur. Lungs reveal mostly clear breath sounds. A few scattered rhonchi. No wheezes or crackles. ABDOMEN: Soft. Bowel sounds are heard. EXTREMITIES: Intact. Trace edema. No cyanosis or clubbing. Skin: without rash. She is a bit pale. Labs are reviewed. White count 3.8, hemoglobin 7.8, hematocrit 25.3, platelet count 63,000. Sodium, potassium, chloride and CO2 all normal. BUN and creatinine were 17 and 1.10. Microbiologic studies are either pending or negative and include sputum, blood and urine. Her most recent chest x-ray done on the shows a small posterior pleural effusion. CT scan was reviewed. Medications are reviewed. She is currently on from the pulmonary standpoint: 1. She is on Zithromax. 2. Pulmicort updrafts. 3. Perforomist updrafts. 4. Albuterol and Atrovent updrafts. 5. Zosyn. The other medications are all her usual medications. ASSESSMENT: 1. Atrial fibrillation with rapid ventricular response. 2. Acute on chronic systolic congestive heart failure with an ejection fraction of 45 to 50%. 3. Moderate to severe aortic stenosis. 4. History of pancytopenia. 5. Large B-cell lymphoma. 6. Hypertension. 7. Hyperlipidemia. 8. Gastroesophageal reflux disease. 9. Ascites. 10. Anemia. 11. History of right breast cancer with surgery. 12. Abnormalities on CT scan, which could be reflective of malignancy versus infiltrate/inflammatory process. PLAN: The patient is currently on good medications including antibiotics, bronchodilators and the like. We will continue to follow. Atrial fibrillation was appropriately dealt with. No additional recommendations are made, will continue to follow. Prognosis is guarded.
--- NOTE | 2017-01-15 18:16 | CONS ---
DATE OF CONSULTATION: 01/15/2017. REASON FOR CONSULTATION: Shortness of breath, anemia, and lymphoma. HISTORY OF PRESENT ILLNESS: Brent is an 81-year-old female well known to myself. She was diagnosed with diffuse large B-cell lymphoma in January 2015 then presenting with a very large abdominal mass presenting conglomerate periaortic lymphadenopathy as well as right supraclavicular lymphadenopathy. Biopsy of the later confirmed diffuse large B-cell lymphoma. The patient was stage IV disease and was treated with R-CHOP combination chemotherapy. Able to complete only 3 cycles due to severe toxicity, the patient however achieved complete response and has no further systemic chemotherapy since then, she has been receiving maintenance rituximab infusion on a yearly basis. The last infusion was given in July 2016. The patient just returned from [place] earlier this month and she stated not feeling well with progressive weakness, loss of functional status and increasing shortness of breath. Brent who is known to have advanced COPD presented to Dr. Torrez's office for further follow-up. She was found to be severely dyspneic and hypoxemic on room air with oxygen saturation of 80%. Decision was made to admit the patient to the hospital for further management. She denied any fever, chills, or night sweats. The patient denies any chest or abdominal pain, was reported having progressive abdominal distention over the last few weeks and CT scan of the chest, abdomen, and pelvis revealed evidence of basal infiltrative pattern consistent with possible pneumonia as well as having a large amount of ascites, rather new findings. Further laboratory showed anemia with a hemoglobin of 7.8. Iron studies are indicative of anemia of chronic disease as well as iron deficiency. PAST MEDICAL HISTORY: 1. Diffuse large B-cell lymphoma with diagnostic and therapeutic circumstances indicated above. 2. Advanced chronic obstructive pulmonary disease. 3. Prior right breast cancer treated at [facility] 10 years ago without recurrences. 4. Degenerative joint disease. 5. Known cardiomyopathy. PAST SURGICAL HISTORY: Listed in electronic medical record and reviewed. Current medications reviewed and listed in electronic medical record. SOCIAL HISTORY: The patient had prior history of smoking but none recently. Denies any excessive use of alcohol. Resides with her . FAMILY HISTORY: Unremarkable for hematologic disorders or malignancies. REVIEW OF SYSTEMS: Progressive weakness and loss of functional status, shortness of breath and increasing abdominal distention as stated. PHYSICAL EXAMINATION: GENERAL: The patient is alert and oriented, pale but not icteric. Hair distribution is within normal for age and gender. Blood pressure was 118/57, pulse 60 and regular, respiratory rate was 18, not labored, temperature was 98. CHEST: Fairly clear with bilateral crackles in both bases, left more than right. HEART: Heart sounds are normal and distant, irregularly irregular. ABDOMEN: Soft. The liver and the spleen were not clinically palpable. There was moderate ascites on examination. Extremities appear unremarkable. NEUROLOGIC: No focal neurologic deficits. IMPRESSION: 1. Acute dyspnea due to exacerbation of chronic obstructive pulmonary disease, atrial fibrillation and probably anemia. 2. Anemia due to known chronic anemia, which is mostly chronic with hemoglobin normally ranging between 9 and 10, this has acutely progressed and in part due to iron deficiency. 3. Diffuse large B-cell lymphoma diagnosed in January 2015 without evidence of recurrences. 4. New ascites which is unlikely to be related to lymphoma. 5. Atrial fibrillation with rapid ventricular response. RECOMMENDATIONS: 1. Agree with the current management. 2. Transfuse with 2 units of packed red blood cells with Lasix. 3. Ultrasound-guided paracentesis. 4. Oral iron supplements will be added, parenteral iron supplements would likely be given after discharge. IV iron should not be given in patient with suspected active infection such as pneumonia. 5. No further recommendation from oncology standpoint at the present time. We will follow the patient along with you in the hospital. I discussed the case, assessment and recommendation with the patient and her , answered all their questions and concerns to their satisfaction.
--- NOTE | 2017-01-15 19:06 | P.PN ---
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 Patient was found to be tachycardic felt to be in the SVT or atrial fibrillation. Patient had carotid stimulation and subsequently admitted to the hospital. She in atrial fibrillation with a rapid ventricular response. Computed tomography scan ruled out pulmonary embolism. She is being treated with calcium channel blockers. She is also seen by infectious disease specialist and also oncologist. Patient is going to get some iron supplement. She is being treated with antibiotics. Echocardiogram showed an ejection fraction of 50-55%. From cardiac point we'll continue current medical therapy Objective - Vital Signs Vital signs: Vital Signs Temp 98.6 F 01/15/17 18:30 Pulse 68 01/15/17 18:30 Resp 18 01/15/17 18:30 BP 131/67 01/15/17 18:30 Pulse Ox 95 01/15/17 18:30 Intake & Output 01/15/17 01/15/17 01/16/17 06:59 18:59 06:59 Intake Total 290 580 Output Total 1200 1400 Balance -910 -820 Weight 72.1 kg Intake: Intake, IV Titration 290 Amount Piperacillin-Tazobactam 3 50 .375 gm In Dextrose/Water 1 50ml.bag @ 12.5 mls/hr IVPB Q8HR [facility] Rx#: [id number] Sodium Chloride 0.9% 1, 240 000 ml @ 20 mls/hr IV . Q24H [facility] Rx#:[id number] Oral 580 Blood Product 0 Rc Pheresis As-3 Unit 0 [id number] Output: Urine 1200 1400 Other: Voiding Method Bedside Commode Bedside Commode Diaper Diaper Incontinent Incontinent - Exam GENERAL EXAM: Patient is alert and oriented and doesn't appear to be in any acute distress HEENT: Normocephalic. Normal reaction of pupils, equal size, normal range of extraocular motion. No erythema or exudates in the throat. NECK: No masses, no nuchal rigidity. CHEST: No chest wall deformity. LUNGS: Diminished breath sounds HEART: Irregular heart sounds ABDOMEN: No hepatosplenomegaly, normal bowel sounds, no guarding or rigidity. SKIN: No rashes CENTRAL NERVOUS SYSTEM: No focal deficits. EXTREMITIES: No cyanosis, clubbing or edema. - Labs CBC & Chem 7: 01/15/17 05:47 01/15/17 05:47 Labs: Abnormal Lab Results - Last 24 Hours (Table) 01/14/17 01/15/17 01/15/17 Range/Units 20:53 05:47 05:47 RBC 2.88 L (3.80-5.40) m/uL Hgb 7.8 L (11.4-16.0) gm/dL Hct 25.3 L (34.0-46.0) % MCHC 30.7 L (31.0-37.0) g/dL RDW 17.8 H (11.5-15.5) % Plt Count 63 L (150-450) k/uL Lymphocytes # (Manual) 0.6 L (1.0-4.8) k/uL Creatinine 1.10 H (0.52-1.04) mg/dL POC Glucose (mg/dL) 124 H (75-99) mg/dL Crossmatch 01/15/17 01/15/17 01/15/17 Range/Units 06:42 11:43 16:10 RBC (3.80-5.40) m/uL Hgb (11.4-16.0) gm/dL Hct (34.0-46.0) % MCHC (31.0-37.0) g/dL RDW (11.5-15.5) % Plt Count (150-450) k/uL Lymphocytes # (Manual) (1.0-4.8) k/uL Creatinine (0.52-1.04) mg/dL POC Glucose (mg/dL) 104 H 116 H (75-99) mg/dL Crossmatch See Detail 01/15/17 Range/Units 16:32 RBC (3.80-5.40) m/uL Hgb (11.4-16.0) gm/dL Hct (34.0-46.0) % MCHC (31.0-37.0) g/dL RDW (11.5-15.5) % Plt Count (150-450) k/uL Lymphocytes # (Manual) (1.0-4.8) k/uL Creatinine (0.52-1.04) mg/dL POC Glucose (mg/dL) 119 H (75-99) mg/dL Crossmatch Microbiology - Last 24 Hours (Table) 01/13/17 19:30 Urine Culture - Final Urine,Voided Assessment and Plan (1) Atrial fibrillation Status: Acute (2) Arrhythmia Status: Acute (3) Anemia Status: Acute (4) Syncope Status: Acute (5) Diffuse large B cell lymphoma Status: Acute Plan: Continue current cardiac medications. Patient is being constricted for iron infusion. There is also consideration to tap ascites prognosis is guarded
[2017-01-15] MEDS: FUROSEMIDE 10 MG/ML 2 ML VIAL IV SCH ×2 (20:38→23:46)
[2017-01-15 21:24] LABS: Glucose,Whole Blood 136 mg/dL (75-99)
[2017-01-16] MEDS: PIPERACILLIN-TAZOBACTAM 3.375 GM in DEXTROSE/WATER 1 50ML.BAG IVPB SCH ×4 (03:55→23:05)
[2017-01-16] MEDS: metFORMIN 500 MG TAB PO SCH ×2 (06:44→16:05)
[2017-01-16] MEDS: FERROUS SULFATE 325 MG TAB PO SCH ×2 (06:44→16:05)
[2017-01-16] MEDS: PANTOPRAZOLE 40 MG TABLET PO SCH (06:44)
[2017-01-16] MEDS: INSULIN LISPRO (humaLOG) 300 UNIT/3 ML VIAL SQ SCH ×4 (06:56→22:09)
[2017-01-16 06:58] LABS: Anisocytosis Slight; Aty Lym Flag Slight; CH 27.3; CHCM 31.4; HCT 31.5 % (34.0-46.0); HDW 3.94; HGB 10.1 gm/dL (11.4-16.0); Hypochromasia Marked; Large Platelets Flag Slight; MCH 28.2 pg (25.0-35.0); MCHC 32.2 g/dL (31.0-37.0); MCV 87.6 fL (80.0-100.0); Mean Platelet Volume 10.8; Poikilocytosis Slight; RDW 17.4 % (11.5-15.5); WBC 4.4 k/uL (3.8-10.6); WBC (Perox) 4.39
[2017-01-16 07:05] LABS: Glucose,Whole Blood 104 mg/dL (75-99)
[2017-01-16 07:05] LABS: Glucose,Whole Blood 93 mg/dL (75-99)
[2017-01-16 07:07] LABS: Calcium 8.9 mg/dL (8.4-10.2)
[2017-01-16 07:41] LABS: Add Differential Manual Differential
[2017-01-16] MEDS: FORMOTEROL FUMARATE 20 MCG/2 ML NEBU INHALATION SCH ×2 (07:41→21:27)
[2017-01-16] MEDS: BUDESONIDE 1 MG/2 ML NEBU INHALATION SCH ×2 (07:41→21:27)
[2017-01-16] MEDS: IPRATROPIUM-ALBUTEROL 3 ML NEB INHALATION SCH ×4 (07:41→21:26)
[2017-01-16 07:53] LABS: Nucleated Red Blood Cells 0 /100 WBC (0-0); Total Cells Counted 100
[2017-01-16 07:55] LABS: Target Cells Present
[2017-01-16] MEDS: GABAPENTIN 300 MG CAP PO SCH ×3 (08:42→23:05)
[2017-01-16] MEDS: CHOLECALCIFEROL 1,000 UNIT TAB PO SCH (08:42)
[2017-01-16] MEDS: OXYBUTYNIN 10 MG TAB.ER.24 PO SCH (08:43)
[2017-01-16] MEDS: PRAVASTATIN SODIUM 20 MG TAB PO SCH (08:44)
--- NOTE | 2017-01-16 09:34 | PN ---
DATE OF SERVICE: 01/15/2017 This 81-year-old woman was admitted with atrial fibrillation with fast ventricular rate. The patient also had congestive heart failure. The patient also had significant cough and shortness of breath also. The patient is being seen by multiple consultants. The patient has ascites also. The patient had B-cell lymphoma and Dr. Mauro saw the patient as well. Ascites thought to be new onset. The patient history received and yearly Rituxan. Past medical history reviewed. REVIEW OF SYSTEMS: CARDIOVASCULAR: As mentioned earlier. RESPIRATORY: As mentioned earlier. GASTROINTESTINAL: No nausea or vomiting. : No dysuria. Nervous system: No numbness or weakness. Current medications are reviewed and include: 1. Tylenol 500 q6h p.r.n. 2. [place] 5 mg. 3. DuoNeb q.i.d. and p.r.n. 4. Xanax 0.5 t.i.d. 5. Zithromax 500 daily. 6. Pulmicort 1 mg daily. 7. Vitamin D3. 8. Colace. 9. Perforomist b.i.d. 10. Lasix 40 mg b.i.d. 11. Heparin. 12. Humalog. 13. Glucophage. 14. Ativan. 15. Ditropan. 16. Zosyn 3.75 IV q.8. 17. K-Dur 40 mg p.o. b.i.d. 18. Requip. 19. Restoril. PHYSICAL EXAMINATION: The patient is alert and oriented times three. Pulse is 66, blood pressure 126/52, respirations 18, temperature 98.8, pulse ox 99% on 2 L. HEENT: Conjunctivae normal. NECK: No jugular venous distention. CARDIOVASCULAR: S1, S2 muffled. RESPIRATORY: Breath sounds diminished at the bases. A few scattered rhonchi and crackles. ABDOMEN: Soft. Nontender. LEGS: No edema. No swelling. CENTRAL NERVOUS SYSTEM: No focal deficits. LABS: WBC ntd, hemoglobin 7.8. Creatinine is 1.10. ASSESSMENT: 1. Atrial fibrillation with a fast ventricular rate, present on admission. 2. Congestive heart failure, acute exacerbation, acute on chronic systolic dysfunction, ejection fraction 40% 50%. 3. Moderate severe aortic stenosis and moderate mitral regurgitation. 4. Small right pleural effusion. 5. Ascites, new onset of undetermined etiology. 6. Large B-cell lymphoma was on Rituxan yearly. 7. Possible aspiration pneumonia. 8. Hypokalemia. 9. Hypoalbuminemia with mild to moderate protein calorie malnutrition. 10. Troponin 0.08, indeterminate. 11. D-dimer 6.6 without any evidence of pulmonary embolism. 12. Anemia, normocytic anemia of chronic disease. 13. Thrombocytopenia, possibly secondary to malignancy. 14. History of right breast cancer surgery. 15. Diabetes mellitus type 2. 16. History of gastroesophageal reflux disease. 17. Hypertension, essential. 18. Hyperlipidemia. 19. History of syncope. 20. History of anemia. 21. History of peripheral neuropathy. 22. History of dystrophy of the right hand. 23. History adenoidectomy. 24. History of appendectomy. 25. History of mastectomy, right. 26. History of gait dysfunction. 27. Hypokalemia. 28. FULL CODE. RECOMMENDATIONS AND DISCUSSION: Recommended to continue current medications. Continue with monitoring, symptomatic treatment. Continue bronchodilators. Continue the IV diuretics. Monitor intake and output carefully. Otherwise, the patient appears to be diuresing well. Continue the rest of the medications including empiric antibiotics. Guarded prognosis. Further recommendations to follow. MTDD
[2017-01-16] MEDS: POTASSIUM CHLORIDE ER 20 MEQ TAB.ER PO SCH ×2 (10:04→23:04)
[2017-01-16] MEDS: FUROSEMIDE 10 MG/ML 4 ML VIAL IV SCH (10:05)
[2017-01-16 11:56] LABS: Glucose,Whole Blood 98 mg/dL (75-99)
[2017-01-16] MEDS: MULTIVITAMINS, THERA 1 EACH TAB PO SCH (12:20)
--- NOTE | 2017-01-16 13:57 | P.PN ---
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 Patient was found to be tachycardic felt to be in the SVT or atrial fibrillation. Patient had carotid stimulation and subsequently admitted to the hospital. CTA of the chest was negative for pulmonary embolism. Patient is currently on verapamil, in normal sinus rhythm. It appears that the patient was actually in an MAT rhythm. She is also being followed by infectious disease and oncology. She did receive 2 unit of packed cells yesterday and received an iron infusion. hgb today is 10.1, platelet count is 60, potassium 40, BUN 17 and creatinine 1.3. Patient is overall feeling mildly stronger today. Objective - Vital Signs Vital signs: Vital Signs Temp 97.9 F 01/16/17 12:10 Pulse 95 01/16/17 13:35 Resp 16 01/16/17 13:35 BP 135/71 01/16/17 13:35 Pulse Ox 95 01/16/17 13:35 Intake & Output 01/15/17 01/16/17 01/16/17 18:59 06:59 18:59 Intake Total 580 1290 540 Output Total 1800 3400 300 Balance -1220 -2110 240 Weight 68.5 kg Intake: IV 50 Piperacillin-Tazobactam 3 50 .375 gm In Dextrose/Water 1 50ml.bag @ 12.5 mls/hr IVPB Q8HR [facility] Rx#: [id number] Oral 580 540 Blood Product 0 1240 Rc As-1 Unit 310 [id number] Rc Pheresis As-3 Unit 0 310 [id number] Output: Urine 1800 3400 300 Other: Voiding Method Bedside Commode Bedside Commode Bedside Commode Diaper Incontinent - Exam PHYSICAL EXAMINATION: HEENT: Head is atraumatic, normocephalic. Pupils equal, round. Neck is supple. There is no elevated jugular venous pressure. HEART EXAMINATION: S1 and S2 systolic murmur is heard. CHEST EXAMINATION: Lungs reveal scattered wheezing throughout. ABDOMEN: Soft, nontender. Bowel sounds are heard. No organomegaly noted. EXTREMITIES: 2+ peripheral pulses with no evidence of peripheral edema and no calf tenderness noted. NEUROLOGIC patient is awake, alert and oriented -3. . - Labs CBC & Chem 7: 01/16/17 06:24 01/16/17 06:21 Labs: Abnormal Lab Results - Last 24 Hours (Table) 01/14/17 01/15/17 01/15/17 Range/Units 05:57 16:10 16:32 RBC (3.80-5.40) m/uL Hgb (11.4-16.0) gm/dL Hct (34.0-46.0) % RDW (11.5-15.5) % Plt Count (150-450) k/uL Creatinine (0.52-1.04) mg/dL POC Glucose (mg/dL) 119 H (75-99) mg/dL IgG 241.0 L (700.0-1600.0) mg/dL Crossmatch See Detail 01/15/17 01/16/17 01/16/17 Range/Units 21:20 06:21 06:24 RBC 3.60 L (3.80-5.40) m/uL Hgb 10.1 L (11.4-16.0) gm/dL Hct 31.5 L (34.0-46.0) % RDW 17.4 H (11.5-15.5) % Plt Count 60 L (150-450) k/uL Creatinine 1.13 H (0.52-1.04) mg/dL POC Glucose (mg/dL) 136 H (75-99) mg/dL IgG (700.0-1600.0) mg/dL Crossmatch 01/16/17 Range/Units 06:42 RBC (3.80-5.40) m/uL Hgb (11.4-16.0) gm/dL Hct (34.0-46.0) % RDW (11.5-15.5) % Plt Count (150-450) k/uL Creatinine (0.52-1.04) mg/dL POC Glucose (mg/dL) 104 H (75-99) mg/dL IgG (700.0-1600.0) mg/dL Crossmatch Microbiology - Last 24 Hours (Table) 01/13/17 19:30 Urine Culture - Final Urine,Voided Assessment and Plan (1) Multifocal atrial tachycardia Status: Acute (2) Anemia Status: Acute (3) Syncope Status: Acute (4) Atypical chest pain Status: Acute (5) Diabetes Status: Acute (6) Diffuse large B cell lymphoma Status: Acute (7) Aortic stenosis Status: Acute Plan: From cardiology's perspective, we will recommend to continue the patient on her current medications. We will follow her along with you now on an as-needed basis only please don't hesitate to call with any questions. We will continue current dose of verapamil. DNP note has been reviewed, I agree with a documented findings and plan of care. Patient was seen and examined.
--- NOTE | 2017-01-16 15:37 | US ---
Therapeutic and diagnostic paracentesis. CLINICAL HISTORY: Ascites The procedure was discussed with the patient. The risks, complications, benefits, and alternatives we re discussed and any questions were answered. Informed consent was obtained. The patient was placed s upine on the ultrasound table and prepped and draped in the usual sterile fashion. All elements of maximal barrier technique were utilized. Under ultrasound guidance, access into the right lower quadrant was obtained, via the paracentesis catheter system and direct ultrasound guidanc e. Approximately 2.6 liters of serous fluid was removed. The patient was stable throughout the procedure and remained stable upon discharge from Department of Radiology. Sample sent to pathology for analys is. IMPRESSION: Successful paracentesis under ultrasound guidance.
[2017-01-16] MEDS: HEPARIN SODIUM,PORCINE 5,000 UNIT/ML 1 ML VIAL SQ SCH ×2 (16:05→23:04)
[2017-01-16] MEDS: AZITHROMYCIN 500 MG TAB PO SCH (16:05)
[2017-01-16 17:31] LABS: Glucose,Whole Blood 109 mg/dL (75-99)
--- NOTE | 2017-01-16 17:45 | P.PN ---
Subjective This is a very pleasant 81-year-old female patient has a history of diabetes Fernando, hypertension, hyperlipidemia, large B-cell lymphoma. She also has a history of chronic obstructive pulmonary disease and follows with Dr. Torrez in our office for the same. She was in the office on 01/13/2017 and was quite weak. She was briefly unresponsive. She was found to be in atrial fibrillation with rapid ventricular response. EMS was called and she was brought here to the emergency room. She was found to be in continued atrial fibrillation with a rapid rapid ventricular response. She is also had elevated d-dimer. A CT angiogram ruled out pulmonary embolism however there is an oval density posterior middle left apex which is enlarged compared to previous study. Neoplasm is in the differential. There is also evidence of chronic obstructive pulmonary disease and chronic bronchitis with a new density in the periphery of the right mid lung with atelectasis. The patient also had distended abdomen and was found to have significant ascites. She is currently down for a paracentesis of the abdomen. Objective - Vital Signs Vital signs: Vital Signs Temp 97.0 F L 01/16/17 15:00 Pulse 76 01/16/17 16:16 Resp 18 01/16/17 15:00 BP 142/60 01/16/17 15:00 Pulse Ox 95 01/16/17 15:00 Intake & Output 01/15/17 01/16/17 01/16/17 18:59 06:59 18:59 Intake Total 580 1290 540 Output Total 1800 3400 300 Balance -1220 -2110 240 Weight 68.5 kg Intake: IV 50 Piperacillin-Tazobactam 3 50 .375 gm In Dextrose/Water 1 50ml.bag @ 12.5 mls/hr IVPB Q8HR [facility] Rx#: [id number] Oral 580 540 Blood Product 0 1240 Rc As-1 Unit 310 [id number] Rc Pheresis As-3 Unit 0 310 [id number] Output: Urine 1800 3400 300 Other: Voiding Method Bedside Commode Bedside Commode Bedside Commode Diaper Incontinent - Exam On physical exam vital signs reveal blood pressure 142/60 heart rate 75 respirations 18 temperature is 97.0 he is 95% O2 saturation on 2 L/m per nasal cannula. Her head is normocephalic sclera anicteric her neck is supple trachea midline her lungs have few scattered rhonchi diminished her heart is regular S1 and S2, her abdomen is distended bowel sounds are present there is trace peripheral edema no clubbing no cyanosis peripheral pulses are intact. - Labs CBC & Chem 7: 01/16/17 06:24 01/16/17 06:21 Labs: Abnormal Lab Results - Last 24 Hours (Table) 01/14/17 01/15/17 01/15/17 Range/Units 05:57 16:10 21:20 RBC (3.80-5.40) m/uL Hgb (11.4-16.0) gm/dL Hct (34.0-46.0) % RDW (11.5-15.5) % Plt Count (150-450) k/uL Creatinine (0.52-1.04) mg/dL POC Glucose (mg/dL) 136 H (75-99) mg/dL IgG 241.0 L (700.0-1600.0) mg/dL Crossmatch See Detail 01/16/17 01/16/17 01/16/17 Range/Units 06:21 06:24 06:42 RBC 3.60 L (3.80-5.40) m/uL Hgb 10.1 L (11.4-16.0) gm/dL Hct 31.5 L (34.0-46.0) % RDW 17.4 H (11.5-15.5) % Plt Count 60 L (150-450) k/uL Creatinine 1.13 H (0.52-1.04) mg/dL POC Glucose (mg/dL) 104 H (75-99) mg/dL IgG (700.0-1600.0) mg/dL Crossmatch 01/16/17 Range/Units 16:56 RBC (3.80-5.40) m/uL Hgb (11.4-16.0) gm/dL Hct (34.0-46.0) % RDW (11.5-15.5) % Plt Count (150-450) k/uL Creatinine (0.52-1.04) mg/dL POC Glucose (mg/dL) 109 H (75-99) mg/dL IgG (700.0-1600.0) mg/dL Crossmatch Assessment and Plan Plan: Impression: #1 Atrial fibrillation with a rapid ventricular response. #2 Acute on chronic systolic congestive heart failure with estimated ejection fraction of 45-50%. #3 Moderate to severe aortic stenosis. #4 History of pancytopenia. #5 History of large B-cell lymphoma. #6 Hypertension. #7 Hyperlipidemia. #8 Gastroesophageal reflux disease. #9 Ascites status post paracentesis. 2.6 L of serous fluid was removed. #10 Anemia. Current hemoglobin 10.1. #11 History of right breast cancer with surgery. Plan: We will continue with the patient's current medications. We'll continue with bronchodilators, Pulmicort and Perforomist inhalations twice a day. We'll continue with antibiotics. She remains on Lasix. She remains on antibiotics in the form of Zosyn and Levaquin. We will increase her activity as tolerated. We'll continue to follow make further recommendations based on her clinical status.
[2017-01-16 20:12] LABS: Glucose,Whole Blood 120 mg/dL (75-99)
--- NOTE | 2017-01-16 20:58 | P.PN ---
Subjective Principal diagnosis: Altered mental status 81-year-old female is a history of multiple medical troubles with that her pulmonologists office for follow-up of her cough that has been problematic since September of this year. She's had difficulties with some shortness of breath as well as a mostly dry but minimally productive cough. It has affected the quality of her life. At the office the patient apparently slumped over onto her . She had altered mental status. Vital signs reveal evidence of her heart rate in the 180s. Carotid massage was performed and heart rate slowed. Because of her difficulty she was transferred to the emergency center. There she is on evidence of atrial fibrillation with rapid ventricular response. She was treated with Cardizem and has had improvement. The patient has a known history of large B-cell lymphoma as well as a history of breast carcinoma. Does have underlying hyperlipidemia hypertension and diabetes in a history of multifocal atrial tachycardia. Cardiology has seen the patient and believe that she has chronic congestive heart failure systolic type. Infectious diseases consultation requested with concerns of pneumonia after her event and the abnormal chest x-ray. Patient does not believe she's had significant fever chill or rigor before admission. However is noted she is having difficulty with a chronic cough that is only minimally productive at times. Feels better again today. Objective - Vital Signs Vital signs: Vital Signs Temp 98.0 F 01/16/17 19:21 Pulse 81 01/16/17 19:21 Resp 16 01/16/17 19:21 BP 130/64 01/16/17 19:21 Pulse Ox 92 L 01/16/17 19:21 Intake & Output 01/16/17 01/16/17 01/17/17 06:59 18:59 06:59 Intake Total 1290 900 Output Total 3400 300 Balance -2110 600 Weight 68.5 kg Intake: IV 50 Piperacillin-Tazobactam 3 50 .375 gm In Dextrose/Water 1 50ml.bag @ 12.5 mls/hr IVPB Q8HR [facility] Rx#: [id number] Oral 900 Blood Product 1240 Rc As-1 Unit 310 [id number] Rc Pheresis As-3 Unit 310 [id number] Output: Urine 3400 300 Other: Voiding Method Bedside Commode Bedside Commode - Exam Pleasant 81-year-old woman who seems very modestly comfortable but coughs occasionally through the exam. Does relate to some modest shortness of breath. HEENT: Anicteric conjunctiva are pink and moist nasal mucosa grossly intact without significant lesions, there is no thrush. Neck: The neck is supple without significant lymphadenopathy or thyromegaly. Lungs: There is symmetrical air entry. There are bibasilar crackles. No nik bronchial sounds. No dullness or egophony. Heart: Irregular with an audible S1-S2, no S3 off tests for. There is no significant murmur click or rub, PMI was nondisplaced. Abdomen: Positive bowel sounds soft and nontender without palpable masses or organomegaly. There was no guarding or rebound.The large ascites is improved after paracentesis of today. Extremities: The upper extremities have excellent pulses they are symmetric, no significant petechiae or telangiectasia. No splinter hemorrhages were noted. The lower extremities are free from significant edema. The peripheral pulses were 2+ and symmetric. Neuro: Awake alert oriented to person place and time. There are no acute new gross focal sensory motor deficits. - Labs CBC & Chem 7: 01/16/17 06:24 01/16/17 06:21 Labs: Abnormal Lab Results - Last 24 Hours (Table) 01/14/17 01/15/17 01/15/17 Range/Units 05:57 16:10 21:20 RBC (3.80-5.40) m/uL Hgb (11.4-16.0) gm/dL Hct (34.0-46.0) % RDW (11.5-15.5) % Plt Count (150-450) k/uL Creatinine (0.52-1.04) mg/dL POC Glucose (mg/dL) 136 H (75-99) mg/dL IgG 241.0 L (700.0-1600.0) mg/dL Crossmatch See Detail 01/16/17 01/16/17 01/16/17 Range/Units 06:21 06:24 06:42 RBC 3.60 L (3.80-5.40) m/uL Hgb 10.1 L (11.4-16.0) gm/dL Hct 31.5 L (34.0-46.0) % RDW 17.4 H (11.5-15.5) % Plt Count 60 L (150-450) k/uL Creatinine 1.13 H (0.52-1.04) mg/dL POC Glucose (mg/dL) 104 H (75-99) mg/dL IgG (700.0-1600.0) mg/dL Crossmatch 01/16/17 01/16/17 Range/Units 16:56 20:10 RBC (3.80-5.40) m/uL Hgb (11.4-16.0) gm/dL Hct (34.0-46.0) % RDW (11.5-15.5) % Plt Count (150-450) k/uL Creatinine (0.52-1.04) mg/dL POC Glucose (mg/dL) 109 H 120 H (75-99) mg/dL IgG (700.0-1600.0) mg/dL Crossmatch Laboratory Results WBC 4.4 k/uL (3.8-10.6) 01/16/17 06:24 RBC 3.60 m/uL (3.80-5.40) L 01/16/17 06:24 Hgb 10.1 gm/dL (11.4-16.0) L 01/16/17 06:24 Hct 31.5 % (34.0-46.0) L 01/16/17 06:24 MCV 87.6 fL (80.0-100.0) 01/16/17 06:24 MCH 28.2 pg (25.0-35.0) 01/16/17 06:24 MCHC 32.2 g/dL (31.0-37.0) 01/16/17 06:24 RDW 17.4 % (11.5-15.5) H 01/16/17 06:24 Plt Count 60 k/uL (150-450) L 01/16/17 06:24 Neutrophils % (Manual) 56.0 % 01/16/17 06:24 Band Neutrophils % 1.0 % 01/16/17 06:24 Lymphocytes % (Manual) 23.0 % 01/16/17 06:24 Monocytes % (Manual) 20.0 % 01/16/17 06:24 Eosinophils % (Manual) 2.0 % 01/15/17 05:47 Neutrophils # (Manual) 2.5 k/uL (1.3-7.7) 01/16/17 06:24 Lymphocytes # (Manual) 1.0 k/uL (1.0-4.8) 01/16/17 06:24 Monocytes # (Manual) 0.9 k/uL (0-1.0) 01/16/17 06:24 Eosinophils # (Manual) 0.1 k/uL (0-0.7) 01/15/17 05:47 Nucleated RBCs 0 /100 WBC (0-0) 01/16/17 06:24 Manual Slide Review Performed 01/14/17 05:57 Large Platelets Present 01/13/17 11:45 Polychromasia Present 01/13/17 11:45 Hypochromasia Marked 01/16/17 06:24 Poikilocytosis Slight 01/16/17 06:24 Poikilocytosis (manual Present 01/13/17 11:45 Anisocytosis Slight 01/16/17 06:24 Target Cells Present 01/16/17 06:24 Ovalocytes Present 01/15/17 05:47 Fragmented RBCs Present 01/16/17 06:24 Retic Count 1.8 % (0.5-2.0) 01/14/17 05:57 PT 12.3 sec (9.0-12.0) H 01/13/17 11:45 INR 1.2 (<1.1) 01/13/17 11:45 APTT 31.2 sec (22.0-30.0) H 01/13/17 11:45 D-Dimer 6.62 mg/L FEU (<0.60) H 01/13/17 11:45 Sodium 140 mmol/L (137-145) 01/16/17 06:21 Potassium 4.0 mmol/L (3.5-5.1) 01/16/17 06:21 Chloride 103 mmol/L (98-107) 01/16/17 06:21 Carbon Dioxide 29 mmol/L (22-30) 01/16/17 06:21 Anion Gap 8 mmol/L 01/16/17 06:21 BUN 17 mg/dL (7-17) 01/16/17 06:21 Creatinine 1.13 mg/dL (0.52-1.04) H 01/16/17 06:21 Est GFR (MDRD) Af Amer 56 (>60 ml/min/1.73 sqM) 01/16/17 06:21 Est GFR (MDRD) Non-Af 46 (>60 ml/min/1.73 sqM) 01/16/17 06:21 Glucose 97 mg/dL (74-99) 01/16/17 06:21 POC Glucose (mg/dL) 120 mg/dL (75-99) H 01/16/17 20:10 POC Glu [employer] Developer Reema Camarena 01/16/17 20:[address] Glu mg/dL 126 mg/dL 01/13/17 17:41 Hemoglobin A1c 6.0 % (4.2-6.1) 01/13/17 17:41 Calcium 8.9 mg/dL (8.4-10.2) 01/16/17 06:21 Magnesium 1.6 mg/dL (1.6-2.3) 01/14/17 05:57 Iron 21 ug/dL (37-170) L 01/14/17 05:57 TIBC 204 ug/dL (265-497) L 01/14/17 05:57 % Saturation 10.3 % (20-50) L 01/14/17 05:57 Total Bilirubin 1.4 mg/dL (0.2-1.3) H 01/13/17 11:45 AST 14 U/L (14-36) 01/13/17 11:45 ALT 23 U/L (9-52) 01/13/17 11:45 Alkaline Phosphatase 58 U/L (38-126) 01/13/17 11:45 Total Creatine Kinase <20 U/L (30-135) L 01/13/17 11:45 CK-MB (CK-2) 0.4 ng/mL (0.0-2.4) 01/13/17 11:45 CK-MB (CK-2) Rel Index 0.0 01/13/17 11:45 Troponin I 0.069 ng/mL (0.000-0.034) H* 01/13/17 23:34 NT-Pro-B Natriuret Pep 7830 pg/mL 01/13/17 11:45 Total Protein 5.3 g/dL (6.3-8.2) L 01/13/17 11:45 Albumin 3.2 g/dL (3.5-5.0) L 01/13/17 11:45 Urine Color Yellow 01/13/17 21:05 Urine Appearance Cloudy (Clear) H 01/13/17 21:05 Urine pH 6.0 (5.0-8.0) 01/13/17 21:05 Ur Specific [place] 1.033 (1.001-1.035) 01/13/17 21:05 Urine Protein 1+ (Negative) H 01/13/17 21:05 Urine Glucose (UA) Negative (Negative) 01/13/17 21:05 Urine Ketones Negative (Negative) 01/13/17 21:05 Urine Blood Large (Negative) H 01/13/17 21:05 Urine Nitrite Negative (Negative) 01/13/17 21:05 Urine Bilirubin Negative (Negative) 01/13/17 21:05 Urine Urobilinogen <2.0 mg/dL (<2.0) 01/13/17 21:05 Ur Leukocyte Esterase Negative (Negative) 01/13/17 21:05 Urine RBC >182 /hpf (0-5) H 01/13/17 21:05 Urine WBC 5 /hpf (0-5) 01/13/17 21:05 Ur Squamous Epith Cells 1 /hpf (0-4) 01/13/17 21:05 IgG 241.0 mg/dL (700.0-1600.0) L 01/14/17 05:57 Blood Type A Positive 01/15/17 16:10 Blood Type Recheck No 01/15/17 16:10 Antibody Screen NEGATIVE 01/15/17 16:10 Crossmatch See Detail 01/15/17 16:10 Spec Expiration Date 01/16/2017 13601/15/17 16:10 Microbiology 01/13/17 11:45 Blood Blood Culture - Preliminary No Growth after 72 hours 01/13/17 19:30 Urine,Voided Urine Culture - Final 01/14/17 11:00 Sputum Gram Stain - Final 01/14/17 11:00 Sputum Sputum Culture - Final Assessment and Plan (1) Pneumonia Narrative/Plan: 81-year-old female with history of diffuse large B-cell lymphoma and follows with local oncology. The patient relates that in the fall of every year she undergoes a 4 week cycle of Rituxan infusions before she goes to [place]. They've returned from [place] from their winter session where she was quite well while she was there. Upon returning back she's not been feeling well. She's had a cough has been ongoing since September. It's been with minimal production and mostly dry. She denies significant shortness of breath. She is also not having fevers chills or rigors. In the days preceding her admission she was not feeling well and was seen by her director of partner marketing. While she was in the office she had a change of her status she slumped into her 's arms. She was on evidence of a very high heart rate of 180 and vagal stimulation was performed. She was transported to Hospital by EMS. She's now doing somewhat better. That has evidence of the abnormal computed tomography scan and chest x-ray. Concerns for pneumonia. Given the altered mental status further concerns to potential aspiration pneumonia. Computed tomography scan failed to reveal evidence of a pulmonary embolus. Consequently for antibiotic therapy piperacillin tazobactam is a reasonable choice at this point in time given her immunocompromised status, pseudomonas risk and aspiration risk. She's noticed to have worsening of her baseline anemia. Unclear if this from underlying disease state or another process. Is being monitored at this point in time. Her thrombocytopenia is at about its baseline. No evidence for other forms of infection at this point in time, but does have some hematuria which may need follow-up. CT of the abdomen did show evidence of some ascites, underwent paracentesis today and await further data Does have evidence of a low IgG level. Level was requested in his further reduced at 241. Given the current level of illness may do well with IgG supplementation, will ask hematology oncology if they are in agreement. Status: Acute (2) Syncope Status: Acute (3) Diffuse large B cell lymphoma Status: Acute (4) History of cancer of right breast Status: Acute
--- NOTE | 2017-01-16 21:31 | PN ---
DATE OF SERVICE: 01/16/2017 This 81-year-old woman who was admitted with atrial fibrillation also had CHF, acute exacerbation, The patient also had moderate to severe aortic stenosis. Patient also had ascites, new onset of undetermined etiology. The patient underwent paracentesis with 2.6 liters of serous fluid removed. The lab findings are pending at this time. The patient is being closely monitored. No chest pain. No palpitations. The patient is still short of breath. The patient on diuretics. PAST MEDICAL HISTORY: Reviewed. REVIEW OF SYSTEMS: CARDIOVASCULAR: No angina or palpitations. RESPIRATORY: As mentioned earlier. GASTROINTESTINAL: As mentioned earlier. GENITOURINARY: No dysuria. CENTRAL NERVOUS SYSTEM: No numbness or weakness. Current medications are reviewed and include: 1. Tylenol 650 q.6 p.r.n. 2. [place] 5 mg q6h p.r.n. 3. Duoneb q.i.d. and p.r.n. 4. Xanax 0.25 mg t.i.d. 6. Pulmicort 1 mg b.i.d. 7. Vitamin D3 5000 units. 8. Colace 100 mg daily. 9. Iron sulfate 320 mg b.i.d. 10. Perforomist 20 mg b.i.d. 11. Lasix 40 mg IV b.i.d. 12. Neurontin 300 mg t.i.d. 13. Heparin 5000 subcu b.i.d. 14. Dilaudid. 15. Humalog a.c. and q.h.s. 16. Glucophage 500 mg b.i.d. 17. Multivitamins one p.o. daily. 18. Narcan. 19. Ditropan XL 40 mg daily. 20. Zosyn 3.75 IV q.8. 21. K-Dur 40 meq p.o. b.i.d. 22. Pravachol 10 mg p.o. b.i.d. 23. Requip 0.5 mg q.h.s. PHYSICAL EXAMINATION: Patient is alert and oriented times three. Pulse 86. Blood pressure 135/57. Respiratory rate 18. Temperature 97.9. Pulse ox 97% on 2 L. HEENT: Conjunctivae normal. NECK: No jugular venous distention. CARDIOVASCULAR: S1, S2 muffled. RESPIRATORY: Breath sounds diminished at the bases. Bilateral scattered rhonchi and crackles. ABDOMEN: Soft, obese, minimal ascites presented. There is no tenderness. No guarding. No rigidity. No mass palpable. Bowel sounds present. LEGS: Bilateral leg edema. CENTRAL NERVOUS SYSTEM: No focal deficits. LABS: WBC 4.5, hemoglobin 10.1. Creatinine is 1.13. ASSESSMENT: 1. Atrial fibrillation with fast ventricular rate present on admission. 2. Congestive heart failure, acute exacerbation, acute on chronic systolic dysfunction, ejection fraction 40% to 50%, present on admission. 3. Moderate aortic stenosis and moderate mitral regurgitation. 4. Ascites new onset of undetermined etiology, status post paracentesis 2.6 liters. 5. Serous fluid. 6. Small right pleural effusion. 7. Large B-cell lymphoma on Rituxan yearly. 8. Possible aspiration pneumonia present on admission. 9. Hypokalemia. 10. Hypoalbuminemia with mild to moderate protein calorie malnutrition. 11. Troponin 0.08 indeterminate. 12. D-dimer 6.6 without any evidence of pulmonary embolism. 13. Anemia, normocytic anemia of chronic disease. 14. Thrombocytopenia, possibly secondary to malignancy. 15. History of right breast cancer surgery. 16. Diabetes mellitus type 2. 17. History of gastroesophageal reflux disease. 18. Hypertension, essential. 19. Hyperlipidemia. 20. History of syncope. 21. History of anemia. 22. History of peripheral neuropathy, possibly related to malignancy. 23. History dystrophy of the right eye. 24. History of adenoidectomy. 25. History of appendectomy. 27. Gait dysfunction. 28. Hypokalemia. 29. FULL CODE. RECOMMENDATIONS AND DISCUSSION: In this 81-year-old woman who presented with multiple complex medical issues, we will monitor the patient closely, continue the current medications. Continue symptomatic treatment. Otherwise at this time, I would recommend continue current medications. Taper the Lasix to p.o. Lasix, await ascitic fluid reports. Otherwise, closely follow with cardiology and multiple consultants. Guarded prognosis. Further recommendations to follow. MTDD
[2017-01-16] MEDS: SODIUM CHLORIDE 0.9% 1,000 ML IV SCH (21:43)
[2017-01-17 07:01] LABS: Glucose,Whole Blood 103 mg/dL (75-99)
[2017-01-17] MEDS: BUDESONIDE 1 MG/2 ML NEBU INHALATION SCH ×2 (07:46→20:09)
[2017-01-17] MEDS: IPRATROPIUM-ALBUTEROL 3 ML NEB INHALATION SCH ×4 (07:46→20:09)
[2017-01-17] MEDS: FORMOTEROL FUMARATE 20 MCG/2 ML NEBU INHALATION SCH ×2 (07:46→20:09)
[2017-01-17] MEDS: INSULIN LISPRO (humaLOG) 300 UNIT/3 ML VIAL SQ SCH ×4 (07:56→20:27)
[2017-01-17 08:04] LABS: Potassium 4.4 mmol/L (3.5-5.1)
[2017-01-17 08:29] LABS: Anisocytosis Slight; Aty Lym Flag Slight; CH 27.2; CHCM 31.5; HCT 33.2 % (34.0-46.0); HDW 3.61; HGB 11.1 gm/dL (11.4-16.0); Hypochromasia Moderate; Large Platelets Flag Slight; MCH 28.9 pg (25.0-35.0); MCHC 33.4 g/dL (31.0-37.0); MCV 86.6 fL (80.0-100.0); Mean Platelet Volume 10.8; Poikilocytosis Slight; RBC 3.83 m/uL (3.80-5.40); RDW 17.1 % (11.5-15.5); WBC 3.3 k/uL (3.8-10.6); WBC (Perox) 3.54
[2017-01-17] MEDS: metFORMIN 500 MG TAB PO SCH ×2 (08:45→17:34)
[2017-01-17] MEDS: FERROUS SULFATE 325 MG TAB PO SCH ×2 (08:45→17:34)
[2017-01-17] MEDS: PANTOPRAZOLE 40 MG TABLET PO SCH (08:45)
[2017-01-17] MEDS: PIPERACILLIN-TAZOBACTAM 3.375 GM in DEXTROSE/WATER 1 50ML.BAG IVPB SCH ×3 (08:45→23:56)
[2017-01-17] MEDS: CHOLECALCIFEROL 1,000 UNIT TAB PO SCH (08:45)
[2017-01-17] MEDS: GABAPENTIN 300 MG CAP PO SCH ×3 (08:46→20:27)
[2017-01-17] MEDS: HEPARIN SODIUM,PORCINE 5,000 UNIT/ML 1 ML VIAL SQ SCH ×2 (08:46→20:26)
[2017-01-17] MEDS: FUROSEMIDE 40 MG TAB PO SCH (08:46)
[2017-01-17] MEDS: OXYBUTYNIN 10 MG TAB.ER.24 PO SCH (08:47)
[2017-01-17] MEDS: PRAVASTATIN SODIUM 20 MG TAB PO SCH (08:47)
[2017-01-17] MEDS: POTASSIUM CHLORIDE ER 20 MEQ TAB.ER PO SCH ×2 (08:47→20:27)
[2017-01-17 11:22] LABS: Glucose,Whole Blood 150 mg/dL (75-99)
[2017-01-17 12:38] LABS: Add Differential Manual Differential
[2017-01-17] MEDS: MULTIVITAMINS, THERA 1 EACH TAB PO SCH (12:41)
[2017-01-17 12:42] LABS: Nucleated Red Blood Cells 0 /100 WBC (0-0); Total Cells Counted 100
--- NOTE | 2017-01-17 14:31 | P.PN ---
Subjective This is a very pleasant 81-year-old female patient has a history of diabetes Fernando, hypertension, hyperlipidemia, large B-cell lymphoma. She also has a history of chronic obstructive pulmonary disease and follows with Dr. Torrez in our office for the same. She was in the office on 01/13/2017 and was quite weak. She was briefly unresponsive. She was found to be in atrial fibrillation with rapid ventricular response. EMS was called and she was brought here to the emergency room. She was found to be in continued atrial fibrillation with a rapid rapid ventricular response. She is also had elevated d-dimer. A CT angiogram ruled out pulmonary embolism however there is an oval density posterior middle left apex which is enlarged compared to previous study. Neoplasm is in the differential. There is also evidence of chronic obstructive pulmonary disease and chronic bronchitis with a new density in the periphery of the right mid lung with atelectasis. The patient also had distended abdomen and was found to have significant ascites. She is currently down for a paracentesis of the abdomen. Seen again today January 17 2017 in follow-up on the oncology unit. She is currently awake and alert in no acute distress. She is feeling better today. He had 2.6 L of fluid removed from her abdomen yesterday. Pathology is pending. Her hemoglobin remained stable at 11.1. She is status post 2 units of packed red blood cell infusions. Platelet count 62,000. She has some worsening of her renal function, current creatinine 1.24. She continues with a loose productive cough of pale yellow sputum. She's afebrile. No leukocytosis. Maintaining good O2 saturations in the 90s on 2 L/m per nasal cannula. She remains in sinus rhythm. Objective - Vital Signs Vital signs: Vital Signs Temp 98.4 F 01/17/17 07:00 Pulse 74 01/17/17 11:45 Resp 18 01/17/17 07:00 BP 141/94 01/17/17 07:00 Pulse Ox 94 L 01/17/17 07:46 Intake & Output 01/16/17 01/17/17 01/17/17 18:59 06:59 18:59 Intake Total 900 130 Output Total 300 Balance 600 130 Weight 63.5 kg 63.5 kg Intake: IV 50 Piperacillin-Tazobactam 3 50 .375 gm In Dextrose/Water 1 50ml.bag @ 12.5 mls/hr IVPB Q8HR [facility] Rx#: [id number] Intake, IV Titration 80 Amount Sodium Chloride 0.9% 1, 80 000 ml @ 20 mls/hr IV . Q24H [facility] Rx#:[id number] Oral 900 Output: Urine 300 Other: Voiding Method Bedside Commode Bedside Commode Bedside Commode # Voids 1 1 # Bowel Movements 1 - Exam GENERAL EXAM: Alert, active, comfortable in no apparent distress. HEAD: Normocephalic. EYES: Normal reaction of pupils, equal size. NOSE: Clear with pink turbinates. THROAT: No erythema or exudates. NECK: No masses, no JVD. CHEST: No chest wall deformity. LUNGS: Equal air entry with no few scattered rhonchi, crackles in the posterior bases.. CVS: S1 and S2 normal with no audible murmurs, regular rhythm. ABDOMEN: No hepatosplenomegaly, normal bowel sounds, no guarding or rigidity. SPINE: No scoliosis or deformity SKIN: No rashes CENTRAL NERVOUS SYSTEM: No focal deficits, tone is normal in all 4 extremities. Extremities: There is no significant peripheral edema. No clubbing, no cyanosis. Peripheral pulses are intact. - Labs CBC & Chem 7: 01/17/17 07:11 01/17/17 07:11 Labs: Abnormal Lab Results - Last 24 Hours (Table) 01/16/17 01/16/17 01/17/17 Range/Units 16:56 20:10 06:59 WBC (3.8-10.6) k/uL Hgb (11.4-16.0) gm/dL Hct (34.0-46.0) % RDW (11.5-15.5) % Plt Count (150-450) k/uL Lymphocytes # (Manual) (1.0-4.8) k/uL Carbon Dioxide (22-30) mmol/L BUN (7-17) mg/dL Creatinine (0.52-1.04) mg/dL POC Glucose (mg/dL) 109 H 120 H 103 H (75-99) mg/dL 01/17/17 01/17/17 01/17/17 Range/Units 07:11 07:11 11:21 WBC 3.3 L (3.8-10.6) k/uL Hgb 11.1 L (11.4-16.0) gm/dL Hct 33.2 L (34.0-46.0) % RDW 17.1 H (11.5-15.5) % Plt Count 62 L (150-450) k/uL Lymphocytes # (Manual) 0.9 L (1.0-4.8) k/uL Carbon Dioxide 32 H (22-30) mmol/L BUN 18 H (7-17) mg/dL Creatinine 1.24 H (0.52-1.04) mg/dL POC Glucose (mg/dL) 150 H (75-99) mg/dL Assessment and Plan Plan: Impression: #1 Atrial fibrillation with a rapid ventricular response versus multifocal atrial tachycardia. Currently in sinus rhythm.. #2 Acute on chronic systolic congestive heart failure with estimated ejection fraction of 45-50%. #3 Moderate to severe aortic stenosis. #4 History of pancytopenia. #5 History of large B-cell lymphoma. #6 Hypertension. #7 Hyperlipidemia. #8 Gastroesophageal reflux disease. #9 Ascites status post paracentesis. 2.6 L of serous fluid was removed. #10 Anemia. Current hemoglobin 11.1. #11 History of right breast cancer with surgery. #12 Acute renal failure, current creatinine 1.24. Plan: The patient was seen and evaluated by Dr. Villegas. We will continue with the patient's current medications. We'll continue with bronchodilators, Pulmicort and Perforomist inhalations twice a day. We'll continue with antibiotics. She remains on Lasix. She remains on antibiotics in the form of Zosyn and Levaquin. We will increase her activity as tolerated. We will repeat her chest x-ray in the a.m. We'll continue to follow make further recommendations based on her clinical status.
[2017-01-17] MEDS: AZITHROMYCIN 500 MG TAB PO SCH (15:12)
[2017-01-17 17:03] LABS: Glucose,Whole Blood 136 mg/dL (75-99)
[2017-01-17 20:27] LABS: Glucose,Whole Blood 147 mg/dL (75-99)
[2017-01-17] MEDS: SODIUM CHLORIDE 0.9% 1,000 ML IV SCH (20:32)
[2017-01-17] MEDS: ALPRAZolam 0.25 MG TAB PO PRN (21:32)
[2017-01-17] MEDS ORDERED: IMMUNE GLOBULIN 1 GM/10 ML VL IV ONE (22:09)
--- NOTE | 2017-01-17 22:10 | P.PN ---
Subjective Principal diagnosis: Altered mental status 81-year-old female is a history of multiple medical troubles with that her pulmonologists office for follow-up of her cough that has been problematic since September of this year. She's had difficulties with some shortness of breath as well as a mostly dry but minimally productive cough. It has affected the quality of her life. At the office the patient apparently slumped over onto her . She had altered mental status. Vital signs reveal evidence of her heart rate in the 180s. Carotid massage was performed and heart rate slowed. Because of her difficulty she was transferred to the emergency center. There she is on evidence of atrial fibrillation with rapid ventricular response. She was treated with Cardizem and has had improvement. The patient has a known history of large B-cell lymphoma as well as a history of breast carcinoma. Does have underlying hyperlipidemia hypertension and diabetes in a history of multifocal atrial tachycardia. Cardiology has seen the patient and believe that she has chronic congestive heart failure systolic type. Infectious diseases consultation requested with concerns of pneumonia after her event and the abnormal chest x-ray. Patient does not believe she's had significant fever chill or rigor before admission. However is noted she is having difficulty with a chronic cough that is only minimally productive at times. Feels better again today. Objective - Vital Signs Vital signs: Vital Signs Temp 98.1 F 01/17/17 21:20 Pulse 80 01/17/17 21:20 Resp 16 01/17/17 21:20 BP 109/61 01/17/17 21:20 Pulse Ox 92 L 01/17/17 21:20 Intake & Output 01/17/17 01/17/17 01/18/17 06:59 18:59 06:59 Intake Total 130 170 Balance 130 170 Weight 63.5 kg 63.5 kg Intake: IV 50 Piperacillin-Tazobactam 3 50 .375 gm In Dextrose/Water 1 50ml.bag @ 12.5 mls/hr IVPB Q8HR [facility] Rx#: [id number] Intake, IV Titration 80 170 Amount Piperacillin-Tazobactam 3 50 .375 gm In Dextrose/Water 1 50ml.bag @ 12.5 mls/hr IVPB Q8HR AP[facility] Rx#: [id number] Sodium Chloride 0.9% 1, 80 120 000 ml @ 20 mls/hr IV . Q24H APO[facility]VA Rx#:[id number] Other: Voiding Method Bedside Commode Bedside Commode # Voids 1 3 1 # Bowel Movements 1 - Exam Pleasant 81-year-old woman who seems very modestly comfortable but coughs occasionally through the exam. Does relate to some modest shortness of breath. HEENT: Anicteric conjunctiva are pink and moist nasal mucosa grossly intact without significant lesions, there is no thrush. Neck: The neck is supple without significant lymphadenopathy or thyromegaly. Lungs: There is symmetrical air entry. There are bibasilar crackles. No nik bronchial sounds. No dullness or egophony. Heart: Irregular with an audible S1-S2, no S3 off tests for. There is no significant murmur click or rub, PMI was nondisplaced. Abdomen: Positive bowel sounds soft and nontender without palpable masses or organomegaly. There was no guarding or rebound.The large ascites is improved after paracentesis of today. Extremities: The upper extremities have excellent pulses they are symmetric, no significant petechiae or telangiectasia. No splinter hemorrhages were noted. The lower extremities are free from significant edema. The peripheral pulses were 2+ and symmetric. Neuro: Awake alert oriented to person place and time. There are no acute new gross focal sensory motor deficits. - Labs CBC & Chem 7: 01/17/17 07:11 01/17/17 07:11 Labs: Abnormal Lab Results - Last 24 Hours (Table) 01/17/17 01/17/17 01/17/17 Range/Units 06:59 07:11 07:11 WBC 3.3 L (3.8-10.6) k/uL Hgb 11.1 L (11.4-16.0) gm/dL Hct 33.2 L (34.0-46.0) % RDW 17.1 H (11.5-15.5) % Plt Count 62 L (150-450) k/uL Lymphocytes # (Manual) 0.9 L (1.0-4.8) k/uL Carbon Dioxide 32 H (22-30) mmol/L BUN 18 H (7-17) mg/dL Creatinine 1.24 H (0.52-1.04) mg/dL POC Glucose (mg/dL) 103 H (75-99) mg/dL 01/17/17 01/17/17 01/17/17 Range/Units 11:21 17:01 20:14 WBC (3.8-10.6) k/uL Hgb (11.4-16.0) gm/dL Hct (34.0-46.0) % RDW (11.5-15.5) % Plt Count (150-450) k/uL Lymphocytes # (Manual) (1.0-4.8) k/uL Carbon Dioxide (22-30) mmol/L BUN (7-17) mg/dL Creatinine (0.52-1.04) mg/dL POC Glucose (mg/dL) 150 H 136 H 147 H (75-99) mg/dL Laboratory Results WBC 3.3 k/uL (3.8-10.6) L 01/17/17 07:11 RBC 3.83 m/uL (3.80-5.40) 01/17/17 07:11 Hgb 11.1 gm/dL (11.4-16.0) L 01/17/17 07:11 Hct 33.2 % (34.0-46.0) L 01/17/17 07:11 MCV 86.6 fL (80.0-100.0) 01/17/17 07:11 MCH 28.9 pg (25.0-35.0) 01/17/17 07:11 MCHC 33.4 g/dL (31.0-37.0) 01/17/17 07:11 RDW 17.1 % (11.5-15.5) H 01/17/17 07:11 Plt Count 62 k/uL (150-450) L 01/17/17 07:11 Neutrophils % (Manual) 51.0 % 01/17/17 07:11 Band Neutrophils % 2.0 % 01/17/17 07:11 Lymphocytes % (Manual) 27.0 % 01/17/17 07:11 Monocytes % (Manual) 18.0 % 01/17/17 07:11 Eosinophils % (Manual) 2.0 % 01/17/17 07:11 Neutrophils # (Manual) 1.7 k/uL (1.3-7.7) 01/17/17 07:11 Lymphocytes # (Manual) 0.9 k/uL (1.0-4.8) L 01/17/17 07:11 Monocytes # (Manual) 0.6 k/uL (0-1.0) 01/17/17 07:11 Eosinophils # (Manual) 0.1 k/uL (0-0.7) 01/17/17 07:11 Nucleated RBCs 0 /100 WBC (0-0) 01/17/17 07:11 Manual Slide Review Performed 01/14/17 05:57 Large Platelets Present 01/13/17 11:45 Polychromasia Present 01/13/17 11:45 Hypochromasia Moderate 01/17/17 07:11 Poikilocytosis Slight 01/17/17 07:11 Poikilocytosis (manual Present 01/13/17 11:45 Anisocytosis Slight 01/17/17 07:11 Target Cells Present 01/16/17 06:24 Ovalocytes Present 01/15/17 05:47 Fragmented RBCs Present 01/17/17 07:11 Retic Count 1.8 % (0.5-2.0) 01/14/17 05:57 PT 12.3 sec (9.0-12.0) H 01/13/17 11:45 INR 1.2 (<1.1) 01/13/17 11:45 APTT 31.2 sec (22.0-30.0) H 01/13/17 11:45 D-Dimer 6.62 mg/L FEU (<0.60) H 01/13/17 11:45 Sodium 142 mmol/L (137-145) 01/17/17 07:11 Potassium 4.4 mmol/L (3.5-5.1) 01/17/17 07:11 Chloride 100 mmol/L (98-107) 01/17/17 07:11 Carbon Dioxide 32 mmol/L (22-30) H 01/17/17 07:11 Anion Gap 10 mmol/L 01/17/17 07:11 BUN 18 mg/dL (7-17) H 01/17/17 07:11 Creatinine 1.24 mg/dL (0.52-1.04) H 01/17/17 07:11 Est GFR (MDRD) Af Amer 50 (>60 ml/min/1.73 sqM) 01/17/17 07:11 Est GFR (MDRD) Non-Af 41 (>60 ml/min/1.73 sqM) 01/17/17 07:11 Glucose 90 mg/dL (74-99) 01/17/17 07:11 POC Glucose (mg/dL) 147 mg/dL (75-99) H 01/17/17 20:14 POC Glu Manager Skilled ID Reema Mauricio 01/17/17 20:[address] Glu mg/dL 126 mg/dL 01/13/17 17:41 Hemoglobin A1c 6.0 % (4.2-6.1) 01/13/17 17:41 Calcium 9.0 mg/dL (8.4-10.2) 01/17/17 07:11 Magnesium 1.6 mg/dL (1.6-2.3) 01/14/17 05:57 Iron 21 ug/dL (37-170) L 01/14/17 05:57 TIBC 204 ug/dL (265-497) L 01/14/17 05:57 % Saturation 10.3 % (20-50) L 01/14/17 05:57 Total Bilirubin 1.4 mg/dL (0.2-1.3) H 01/13/17 11:45 AST 14 U/L (14-36) 01/13/17 11:45 ALT 23 U/L (9-52) 01/13/17 11:45 Alkaline Phosphatase 58 U/L (38-126) 01/13/17 11:45 Total Creatine Kinase <20 U/L (30-135) L 01/13/17 11:45 CK-MB (CK-2) 0.4 ng/mL (0.0-2.4) 01/13/17 11:45 CK-MB (CK-2) Rel Index 0.0 01/13/17 11:45 Troponin I 0.069 ng/mL (0.000-0.034) H* 01/13/17 23:34 NT-Pro-B Natriuret Pep 7830 pg/mL 01/13/17 11:45 Total Protein 5.3 g/dL (6.3-8.2) L 01/13/17 11:45 Albumin 3.2 g/dL (3.5-5.0) L 01/13/17 11:45 Urine Color Yellow 01/13/17 21:05 Urine Appearance Cloudy (Clear) H 01/13/17 21:05 Urine pH 6.0 (5.0-8.0) 01/13/17 21:05 Ur Specific [place] 1.033 (1.001-1.035) 01/13/17 21:05 Urine Protein 1+ (Negative) H 01/13/17 21:05 Urine Glucose (UA) Negative (Negative) 01/13/17 21:05 Urine Ketones Negative (Negative) 01/13/17 21:05 Urine Blood Large (Negative) H 01/13/17 21:05 Urine Nitrite Negative (Negative) 01/13/17 21:05 Urine Bilirubin Negative (Negative) 01/13/17 21:05 Urine Urobilinogen <2.0 mg/dL (<2.0) 01/13/17 21:05 Ur Leukocyte Esterase Negative (Negative) 01/13/17 21:05 Urine RBC >182 /hpf (0-5) H 01/13/17 21:05 Urine WBC 5 /hpf (0-5) 01/13/17 21:05 Ur Squamous Epith Cells 1 /hpf (0-4) 01/13/17 21:05 IgG 241.0 mg/dL (700.0-1600.0) L 01/14/17 05:57 Blood Type A Positive 01/15/17 16:10 Blood Type Recheck No 01/15/17 16:10 Antibody Screen NEGATIVE 01/15/17 16:10 Crossmatch See Detail 01/15/17 16:10 Spec Expiration Date 01/16/2017 - 6027 01/15/17 16:10 Microbiology 01/13/17 11:45 Blood Blood Culture - Preliminary No Growth after 96 hours 01/13/17 19:30 Urine,Voided Urine Culture - Final 01/14/17 11:00 Sputum Gram Stain - Final 01/14/17 11:00 Sputum Sputum Culture - Final Assessment and Plan (1) Pneumonia Narrative/Plan: 81-year-old female with history of diffuse large B-cell lymphoma and follows with local oncology. The patient relates that in the fall of every year she undergoes a 4 week cycle of Rituxan infusions before she goes to [place]. They've returned from [place] from their winter session where she was quite well while she was there. Upon returning back she's not been feeling well. She's had a cough has been ongoing since September. It's been with minimal production and mostly dry. She denies significant shortness of breath. She is also not having fevers chills or rigors. In the days preceding her admission she was not feeling well and was seen by her lead material handler. While she was in the office she had a change of her status she slumped into her 's arms. She was on evidence of a very high heart rate of 180 and vagal stimulation was performed. She was transported to Hospital by EMS. She's now doing somewhat better. That has evidence of the abnormal computed tomography scan and chest x-ray. Concerns for pneumonia. Given the altered mental status further concerns to potential aspiration pneumonia. Computed tomography scan failed to reveal evidence of a pulmonary embolus. Consequently for antibiotic therapy piperacillin tazobactam is a reasonable choice at this point in time given her immunocompromised status, pseudomonas risk and aspiration risk. She's noticed to have worsening of her baseline anemia. Unclear if this from underlying disease state or another process. Is being monitored at this point in time. Her thrombocytopenia is at about its baseline. Does not seem to be having any difficulty with the Zosyn therapy. No evidence for other forms of infection at this point in time, but does have some hematuria which may need follow-up. CT of the abdomen did show evidence of some ascites, underwent paracentesis and await further data Does have evidence of a low IgG level. Level was requested in his further reduced at 241. Given the current level of illness IgG supplementation has been ordered. Discussed with oncology. Status: Acute (2) Syncope Status: Acute (3) Diffuse large B cell lymphoma Status: Acute (4) History of cancer of right breast Status: Acute
--- NOTE | 2017-01-17 22:26 | PN ---
DATE OF SERVICE: 01/17/2017 This 81-year-old woman who was admitted with atrial fibrillation also had a history of CHF. The patient also had ascites of new onset. The patient had ascitic aspiration. Patient also had significant history of B-cell lymphoma as well. Multiple consultants are following the patient closely. The cultures are negative so far. The ascitic fluid testing is not available. PAST MEDICAL HISTORY: Reviewed. REVIEW OF SYSTEMS: CARDIOVASCULAR: No anginal or palpitations. RESPIRATORY: As mentioned earlier. GI: As mentioned earlier. : No dysuria. NERVOUS: No numbness or weakness. Current medications are reviewed, include: 1. Tylenol 500 mg every 6 hours p.r.n. 2. Moselle 5 mg every 6 hours. 3. DuoNeb q.i.d. and p.r.n. 4. Xanax 0.5 t.i.d. 5. Zithromax 500 mg daily. 6. Pulmicort 1 mg b.i.d. 7. Vitamin D3, 5000 units. 8. Colace 100 mg p.o. daily. 9. Iron sulfate 220 mg b.i.d. 10. Lasix 40 mg daily. 11. Heparin. 12. Dilaudid 0.5 mg every 6 hours p.r.n. 13. Glucovance 500 mg b.i.d. 14. Multivitamin 1 p.o. daily. 15. Narcan. 16. Ditropan XL 10 mg p.o. daily. 17. Protonix 40 mg daily. 18. Zosyn 3.375 IV q.8. 19. K-Dur 40 mEq b.i.d. 20. Pravachol. 21. Requip. PHYSICAL EXAM: Patient is alert and oriented x3. Pulse is 72, blood pressure is 140/94, respirations 18, temperature 98.4, pulse ox 92% on 4L. HEENT: Conjunctivae normal. NECK: No jugular venous distension. CARDIOVASCULAR: S1 and S2. RESPIRATORY: Breath sounds diminished in the bases. A few scattered rhonchi and crackles. Expiratory wheezing also present. ABDOMEN: Soft. Minimal ascites present. LEGS: Minimal edema. NERVOUS SYSTEM: Diffusely weak. LABS: WBC 3.4, hemoglobin is 11.1. Creatinine is 1.24. ASSESSMENT: 1. Atrial fibrillation with fast ventricular rate, present on admission. 2. Congestive heart failure exacerbation with acute on chronic systolic dysfunction, ejection fraction 40% to 50%, present on admission. 3. Moderate aortic stenosis and moderate mitral regurgitation. 4. Ascites, new onset of undetermined etiology, status post abdominal paracentesis with 2.6 L. 5. Small right pleural effusion. 6. Large B-cell lymphoma on Rituxan yearly. 7. Possible aspiration pneumonia, present on admission. 8. Hypokalemia. 9. Hypoalbuminemia with mild to moderate protein-calorie malnutrition. 10. Troponin 0.08, indeterminate. 11. D-dimer 6.6 without any evidence of pulmonary embolism. 12. Anemia, normocytic anemia of chronic disease. 13. Thrombocytopenia, possibly secondary to malignancy. 14. History of right breast cancer surgery. 15. Diabetes mellitus type 2. 16. Gastroesophageal reflux disease. 17. Hypertension, essential. 18. Hyperlipidemia. 19. Syncope. 20. History of anemia. 21. History of peripheral neuropathy, possible malignancy. 22. History of dystrophy of the right hand. 23. History adenoidectomy. 24. History of appendectomy. 25. History of mastectomy, right. 26. History of gait dysfunction. 27. Hypokalemia. 28. Mild acute renal failure, possible prerenal. 29. FULL CODE. RECOMMENDATIONS AND DISCUSSION: Recommend to continue with current medications. Continue with symptomatic treatment. Otherwise at this time, I would recommend continuing with empiric antibiotics, bronchodilators, cautious diuretics. Monitor renal functions closely. Will repeat a chest x-ray tomorrow to evaluate. Overall prognosis guarded because of multiple complex medical issues. Further recommendations to follow. MTDD
[2017-01-17] MEDS ORDERED: IMMUNE GLOBULIN (HUMAN-IGG) 20 GM in EMPTY BAG 1 BAG IV ONE ×2 (22:30→22:45)
[2017-01-18 07:14] LABS: Glucose,Whole Blood 93 mg/dL (75-99)
[2017-01-18] MEDS: POTASSIUM CHLORIDE ER 20 MEQ TAB.ER PO SCH ×2 (08:03→19:46)
[2017-01-18] MEDS: PIPERACILLIN-TAZOBACTAM 3.375 GM in DEXTROSE/WATER 1 50ML.BAG IVPB SCH ×3 (08:03→23:15)
[2017-01-18] MEDS: PRAVASTATIN SODIUM 20 MG TAB PO SCH (08:03)
[2017-01-18] MEDS: GABAPENTIN 300 MG CAP PO SCH ×3 (08:04→19:47)
[2017-01-18] MEDS: CHOLECALCIFEROL 1,000 UNIT TAB PO SCH (08:04)
[2017-01-18] MEDS: OXYBUTYNIN 10 MG TAB.ER.24 PO SCH (08:04)
[2017-01-18] MEDS: HEPARIN SODIUM,PORCINE 5,000 UNIT/ML 1 ML VIAL SQ SCH ×2 (08:04→19:46)
[2017-01-18] MEDS: metFORMIN 500 MG TAB PO SCH (08:04)
[2017-01-18] MEDS: FUROSEMIDE 40 MG TAB PO SCH (08:04)
[2017-01-18] MEDS: INSULIN LISPRO (humaLOG) 300 UNIT/3 ML VIAL SQ SCH ×4 (08:05→20:26)
[2017-01-18] MEDS: PANTOPRAZOLE 40 MG TABLET PO SCH (08:05)
[2017-01-18] MEDS: FERROUS SULFATE 325 MG TAB PO SCH ×2 (08:05→16:37)
[2017-01-18] MEDS: ALPRAZolam 0.25 MG TAB PO PRN ×2 (08:20→19:45)
[2017-01-18] MEDS: FORMOTEROL FUMARATE 20 MCG/2 ML NEBU INHALATION SCH ×2 (08:32→20:39)
[2017-01-18] MEDS: BUDESONIDE 1 MG/2 ML NEBU INHALATION SCH ×2 (08:32→20:39)
[2017-01-18] MEDS: IPRATROPIUM-ALBUTEROL 3 ML NEB INHALATION SCH ×4 (08:32→20:39)
[2017-01-18 09:45] LABS: Anisocytosis Slight; Basophils % (A) 1 %; CH 26.7; CHCM 29.8; Eosinophils # (A) 0.1 k/uL (0-0.7); Eosinophils % (A) 2 %; HCT 33.6 % (34.0-46.0); HDW 3.08; HGB 10.5 gm/dL (11.4-16.0); Hypochromasia Marked; Large Platelets Flag Moderate; Luc # (Auto) 0.11; Luc % (Auto) 4; Lymphocytes # (A) 0.6 k/uL (1.0-4.8); Lymphocytes % (A) 19 %; MCH 28.1 pg (25.0-35.0); MCHC 31.3 g/dL (31.0-37.0); MCV 89.8 fL (80.0-100.0); Mean Platelet Volume 11.6; Monocytes # (A) 0.4 k/uL (0-1.0); Monocytes % (A) 14 %; Neutrophils # (A) 1.9 k/uL (1.3-7.7); Neutrophils % (A) 62 %; RBC 3.74 m/uL (3.80-5.40); RDW 17.3 % (11.5-15.5); WBC 3.1 k/uL (3.8-10.6); WBC (Perox) 3.21
[2017-01-18 10:15] LABS: Calcium 8.8 mg/dL (8.4-10.2); Potassium 4.6 mmol/L (3.5-5.1)
--- NOTE | 2017-01-18 10:44 | XR ---
EXAMINATION TYPE: XR chest 1V portable DATE OF EXAM: 01/18/2017 10:39 AM COMPARISON: 01/14/2017 HISTORY: Shortness of breath TECHNIQUE: Frontal and lateral views of the chest are obtained. FINDINGS: Scattered senescent parenchymal changes noted. Hyperinflation compatible with COPD. Small focal infiltrate right midlung zone. Small right-sided pleural effusion. No evidence for atelec tasis. Heart size is stable. No evidence for overt failure at this time. Mediastinal structures are stable and grossly unremarkable. No evidence for hilar prominence. Degenerative changes dorsal spine. IMPRESSION: 1. No evidence for overt failure at this time. Small focal infiltrate right midlung zone.
[2017-01-18] MEDS: MULTIVITAMINS, THERA 1 EACH TAB PO SCH (11:37)
[2017-01-18 11:38] LABS: Glucose,Whole Blood 117 mg/dL (75-99)
[2017-01-18 13:48] LABS: INR 1.3 (<1.1); Prothrombin Time 12.4 sec (9.0-12.0)
[2017-01-18] MEDS: AZITHROMYCIN 500 MG TAB PO SCH (14:52)
--- NOTE | 2017-01-18 15:17 | PN ---
Patient is an 81-year-old admitted with atrial fibrillation, CHF exacerbation. Patient's CHF improved and patient is also being treated for pneumonia at this point of time. Patient does have B-cell lymphoma because of which patient is immunosuppressed and multiple consultants are following the patient including Infectious Disease who is managing antibiotics. Patient is presently on Zosyn and erythromycin and all the cultures so far are negative. Patient is quite weak, may need rehabilitation. I will obtain a PT and OT evaluation. Patient started having tremors yesterday and can be related to medications and patient does have ascites and does not have any significant peripheral signs of cirrhosis. Will obtain an INR level and as well as ammonia level that may be contributing to her tremor and patient does have some asterixis as well. REVIEW OF SYSTEMS: GENERAL: As described in HPI. CARDIOVASCULAR: No chest pain, no orthopnea, no PND, no palpitations. PULMONARY: Denied any shortness of breath. No cough or hemoptysis. GASTROINTESTINAL: No diarrhea, nausea or vomiting. No abdominal pain. Normoactive bowel sounds. NEUROLOGIC: No headaches, no weakness, no numbness. Medications were reviewed. PHYSICAL EXAMINATION: Temperature 98.1, pulse of 77, respiratory rate of 20, blood pressure is 165/65, saturating at 94% on room air. GENERAL EXAMINATION: Patient is tremulous, alert and oriented x3, not in any apparent respiratory distress. LUNG EXAMINATION: Bibasilar crackles were appreciated and include air entry into bilateral lung bases, no wheezing was appreciated. ABDOMEN: Patient does have shifting dullness and ascites on exam. HEENT: Pupils are round and equally reacting to light. EOMI. No scleral icterus. No conjunctival pallor. Normocephalic, atraumatic. No pharyngeal erythema. No thyromegaly. CARDIOVASCULAR: S1 and S2 present. No murmurs, rubs, or gallops. MUSCULOSKELETAL: No joint swelling or deformity. EXTREMITIES: No cyanosis, clubbing, or pedal edema. NEUROLOGICAL: Gross neurological examination did not reveal any focal deficits. SKIN: No rashes. LABORATORY DATA: CBC, CMP are abnormal for elevated BUN and creatinine of 19 and 1.19, which creatinine actually improved compared to yesterday, patient is being continued on Lasix at this point of time. ASSESSMENT AND PLAN: 1. Atrial fibrillation, rate controlled at this point of time. Continue with present medications. 2. Congestive heart failure, chronic systolic dysfunction with acute exacerbation, improved. Patient has 40% to 45% ejection fraction. 3. Moderate aortic stenosis and moderate mitral regurgitation, treat for congestive heart failure as mentioned above. 4. Large B-cell lymphoma on Rituxan and patient immunosuppressed and received immunoglobulin therapy. 5. Possible aspiration pneumonia with right lower lobe infiltrate for which patient is on Zosyn and azithromycin as per recommendation from Infectious Disease and mild protein calorie malnutrition. 6. Mildly elevated troponin secondary to infection. 7. Acute renal failure secondary to prerenal azotemia from congestive heart failure, which is improving at this point of time. 8. Mild pancytopenia secondary to the cancer itself and chemotherapy. 9. Hypertension. 10. Hyperlipidemia. 11. Diabetic peripheral neuropathy. 12. 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 13. Gastroesophageal reflux disease. 14. Tremors ( ) level. 15. Ascites, unknown etiology. For above mentioned chronic medical problems, I will go ahead and continue her home medications. Unfortunately, I do not have any acetic fluid labs available to ( ) score. Will obtain an INR.
--- NOTE | 2017-01-18 15:18 | CDI ---
In responding to this query, please exercise your independent professional judgment. The [facility] Coding Staff and Clinical Documentation Specialists appreciate your assistance in clarifying documentation, maintaining compliance with coding guidelines, accurately documenting patients condition and capturing severity of illness. The fact that a question is asked does not imply that any particular answer is desired or expected. Communication forms are a method of clarifying documentation and are not made part of the Legal Health Record. Thank you in advance for your clarification. Last Revision, July 2015 Benjamin Richards [address] [place] [place] [address] Documentation Clarification Form Date: 01/18/2017 3:09:00 PM From: Ivy Castro CCS, CCDS Admit Date: 01/13/2017 12:57:00 PM Patient Name: Brent Ni Visit Number: [id number] Discharge Date: Dr. Kong Edmondson: Atrial fibrillation is documented in the Cardiology consult as well as in the subsequent progress notes. History/Risk Factors: Hypertension, DM, Large B Cell Lymphoma and CHF. Clinical Indicators: Presented with syncopal episode, atrial fibrillation & weakness. EKG/telemetry: R 101 Sinus tachycardia w/PVCs. 2nd EKG: R 100 nsr. Heart rate high 180s LAB: Trops elevated: 0.033, 0.08, 0.069. Treatment: Cardizem drip, IV Lasix, IV antibiotics, Heparin sc, Albuterol neb txs Consults: Cardiology, Pulmonary, Infectious Disease and Oncology In your professional opinion, can you please clarify the type of atrial fibrillation, if known? Chronic/Permanent Paroxysmal Persistent Other, please specify Unable to determine Please document in your progress notes and discharge summary in order to capture severity of illness and risk of mortality. Include clinical findings that support your diagnosis. FYI: Press F11 to launch patient chart Place X here if this finding has no clinical significance, is not applicable or if you are not able to provide any additional documentation. Thank You. MARYANN
[2017-01-18] MEDS: SODIUM CHLORIDE 0.9% 1,000 ML IV SCH (16:37)
[2017-01-18] MEDS ORDERED: RX INFO: IV CONTRAST WAS GIVEN 1 EACH MISC MISCELLANE PRN (16:59)
[2017-01-18] MEDS: IOHEXOL 350 MG/ML 25 ML BOTTLE (ORAL USE) PO PRN ×2 (17:29→18:32)
[2017-01-18 17:30] LABS: Glucose,Whole Blood 133 mg/dL (75-99)
--- NOTE | 2017-01-18 18:11 | P.PN ---
Subjective This is a very pleasant 81-year-old female patient has a history of diabetes Fernando, hypertension, hyperlipidemia, large B-cell lymphoma. She also has a history of chronic obstructive pulmonary disease and follows with Dr. Torrez in our office for the same. She was in the office on 01/13/2017 and was quite weak. She was briefly unresponsive. She was found to be in atrial fibrillation with rapid ventricular response. EMS was called and she was brought here to the emergency room. She was found to be in continued atrial fibrillation with a rapid rapid ventricular response. She is also had elevated d-dimer. A CT angiogram ruled out pulmonary embolism however there is an oval density posterior middle left apex which is enlarged compared to previous study. Neoplasm is in the differential. There is also evidence of chronic obstructive pulmonary disease and chronic bronchitis with a new density in the periphery of the right mid lung with atelectasis. The patient also had distended abdomen and was found to have significant ascites. She is currently down for a paracentesis of the abdomen. Seen again today January 17 2017 in follow-up on the oncology unit. She is currently awake and alert in no acute distress. She is feeling better today. He had 2.6 L of fluid removed from her abdomen yesterday. Pathology is pending. Her hemoglobin remained stable at 11.1. She is status post 2 units of packed red blood cell infusions. Platelet count 62,000. She has some worsening of her renal function, current creatinine 1.24. She continues with a loose productive cough of pale yellow sputum. She's afebrile. No leukocytosis. Maintaining good O2 saturations in the 90s on 2 L/m per nasal cannula. She remains in sinus rhythm. On the patient is being seen in follow-up. She is still weak. She is having significant weakness in her lower extremities bilaterally. Her abdomen is slightly distended and the patient underwent a large volume paracentesis for a total of 2.60. Fluid was revealed and the fluid analysis has not been sent yet the there is a fluid cytology that is still pending for now. Meanwhile, the patient is still having some limited shortness of breath especially with activity. She has a mild cough with congestion. No significant sputum production. She is covered with antibiotics regarding possibility of an underlying pneumonia. No change in mental status. No chest pain. Function of the kidneys is stable with a creatinine of 1.1. Platelets are still low at 57, 000 and there is a mild degree of coagulopathy with an INR of 1.3. Ammonia level is at 14. 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 Back then the patient presents with a very large abdominal mass presenting with currently on the rate that aortic lymphadenopathy as well as supraclavicular lymphadenopathy. She got treated with R CHOP combination and she responded nicely to treatment and following that she was receiving Cytoxan as a maintenance. Her condition decompensated after she went to [place] in July 2016 and she came in from her vacation with above-mentioned issues.. Objective - Vital Signs Vital signs: Vital Signs Temp 97.6 F 01/18/17 15:00 Pulse 81 01/18/17 15:00 Resp 20 01/18/17 15:00 BP 109/58 01/18/17 15:00 Pulse Ox 97 01/18/17 15:00 Intake & Output 01/17/17 01/18/17 01/18/17 18:59 06:59 18:59 Intake Total 170 540 Balance 170 540 Weight 63.5 kg Intake: Intake, IV Titration 170 180 Amount Piperacillin-Tazobactam 3 50 .375 gm In Dextrose/Water 1 50ml.bag @ 12.5 mls/hr IVPB Q8HR [facility] Rx#: [id number] Sodium Chloride 0.9% 1, 120 180 000 ml @ 20 mls/hr IV . Q24H [facility] Rx#:[id number] Oral 360 Other: Voiding Method Bedside Commode Bedside Commode Bedside Commode # Voids 3 1 2 # Bowel Movements 1 - Exam the patient is obese, comfortable. She is alert and oriented 3. Nonacute distress.Head exam was generally normal. There was no scleral icterus or corneal arcus. Mucous membranes were moist.Neck was supple and without jugular venous distension, thyromegaly, or carotid bruits. Carotids were easily palpable bilaterally. There was no adenopathy. Lung sounds are diminished along with some crackles at lung bases bilaterally left more than right. Heart sounds are irregular, positive S1-S2, no significant murmurs appreciated. Abdomen is slightly distended. There is some ascites. No direct tenderness. No rebound tenderness. No guarding.Examination of the extremities revealed easily palpable radial, femoral and pedal pulses. There was no cyanosis, clubbing or edema. Neurologically she is awake and alert and there is no focal neurological deficits. - Labs CBC & Chem 7: 01/18/17 08:42 01/18/17 08:42 Labs: Abnormal Lab Results - Last 24 Hours (Table) 01/17/17 01/18/17 01/18/17 Range/Units 20:14 08:42 08:42 WBC 3.1 L (3.8-10.6) k/uL RBC 3.74 L (3.80-5.40) m/uL Hgb 10.5 L (11.4-16.0) gm/dL Hct 33.6 L (34.0-46.0) % RDW 17.3 H (11.5-15.5) % Plt Count 57 L (150-450) k/uL Lymphocytes # 0.6 L (1.0-4.8) k/uL PT (9.0-12.0) sec BUN 19 H (7-17) mg/dL Creatinine 1.19 H (0.52-1.04) mg/dL POC Glucose (mg/dL) 147 H (75-99) mg/dL 01/18/17 01/18/17 01/18/17 Range/Units 11:31 13:04 17:26 WBC (3.8-10.6) k/uL RBC (3.80-5.40) m/uL Hgb (11.4-16.0) gm/dL Hct (34.0-46.0) % RDW (11.5-15.5) % Plt Count (150-450) k/uL Lymphocytes # (1.0-4.8) k/uL PT 12.4 H (9.0-12.0) sec BUN (7-17) mg/dL Creatinine (0.52-1.04) mg/dL POC Glucose (mg/dL) 117 H 133 H (75-99) mg/dL Assessment and Plan Plan: assessment 1 shortness of breath multifactorial. Contributing factors of COPD, chronic anemia in addition to the atrial fibrillation that was an active issue at time of admission. An aspiration pneumonia cannot be completely excluded. 2 diffuse large B-cell lymphoma status post R CHOP followed by Rituxan. 3 ascites status post large volume paracentesis and the patient's ascitic fluid cytology still pending for now 4 chronic anemia 5 history of breast cancer treated [facility] more than 10 years ago without any evidence of recurrence 6 degenerative arthritis 7preserved LV function with an ejection fraction of 50-65%. The patient has mild concentric left ventricular hypertrophy and mild pulmonary hypertension with a PA pressure of around 31 plan Awaiting the aspirate fluid cytology. I discussed the case with the hospitalist. I think it's worthwhile to obtain a CAT scan of the abdomen and pelvis to further investigate the ascites and the abdominal symptoms.admitting there is to the COPD, the patient is on DuoNeb nebulized treatments around the clock and the patient is also on broad-spectrum antibiotics for any potential aspiration pneumonia. She will and physical therapy. Oncology follow-up. We' ll follow.
[2017-01-18 20:16] LABS: Glucose,Whole Blood 71 mg/dL (75-99)
[2017-01-18 20:16] LABS: Glucose,Whole Blood 53 mg/dL (75-99)
[2017-01-18 20:45] LABS: Glucose,Whole Blood 74 mg/dL (75-99)
--- NOTE | 2017-01-18 21:23 | CT ---
EXAMINATION TYPE: CT abdomen pelvis wo con DATE OF EXAM: 01/18/2017 7:20 PM COMPARISON: 01/13/2017 INDICATION: Abdominal distension and pain DLP: 533 mGycm, Automated exposure control for dose reduction was used. CONTRAST: 0 mL of Omnipaque 300. Study performed with Oral Contrast TECHNIQUE: Axial images were obtained from above the diaphragm to the pubic rami in the axial plane a t 5 mm thick sections. Reconstructed images are reviewed on the computer in the coronal plane. FINDINGS: Limited CT sections are obtained the lung bases. There is streak opacity within the posterior right lung base. Correlate for atelectasis. Scarring can be considered. Underlying mass is not excluded. Th ere is a small right pleural effusion which is smaller than prior. Minimal right pleural effusion and some compressive atelectasis posterior medial left lung base. Coronary artery calcification is prese nt.. CT ABDOMEN: Ascites is present. Liver: Normal Spleen: Normal Pancreas: Pancreas is atrophic. Adrenal glands: The adrenal glands are normal. Gallbladder: Surgically absent Kidneys: No masses are evident. No hydronephrosis is present. 2.1 cm left superior pole renal cyst is present. Delayed images were obtained through the kidneys, which remain unremarkable. Aorta: Vascular calcification is within the aorta. Inferior vena cava: Normal. CT PELVIS: Small periumbilical hernia is present containing fluid. Loops of bowel within the abdomen and pelvis are normal. There are loops of bowel which are incom pletely distended or lack oral contrast limiting their evaluation. Appendix: Not visualized Urinary bladder: Decompressed with limited evaluation Genitourinary structures: Uterus is not identified. Adnexal regions are clear. Osseous structures: No suspicious lytic or sclerotic lesions. Sacroiliac joint degenerative changes p resent. Facet hypertrophy is present L4-5 and no 5 S1. IMPRESSIONS: 1. Ascites. 2. Small right and minimal left pleural effusion. Adjacent atelectasis is likely present. Underlying mass cannot be excluded at this time. 3. Nonspecific loops of bowel with contrast extending to the distal small bowel. No obstruction is id entified. 4. Bowel loops have increased in prominence over the interval. Correlate for ileus. Low-grade obstruc tion is not excluded. Air and fecal debris remains within the colon.
--- NOTE | 2017-01-18 22:44 | P.PN ---
Subjective Principal diagnosis: Altered mental status 81-year-old female is a history of multiple medical troubles with that her pulmonologists office for follow-up of her cough that has been problematic since September of this year. She's had difficulties with some shortness of breath as well as a mostly dry but minimally productive cough. It has affected the quality of her life. At the office the patient apparently slumped over onto her . She had altered mental status. Vital signs reveal evidence of her heart rate in the 180s. Carotid massage was performed and heart rate slowed. Because of her difficulty she was transferred to the emergency center. There she is on evidence of atrial fibrillation with rapid ventricular response. She was treated with Cardizem and has had improvement. The patient has a known history of large B-cell lymphoma as well as a history of breast carcinoma. Does have underlying hyperlipidemia hypertension and diabetes in a history of multifocal atrial tachycardia. Cardiology has seen the patient and believe that she has chronic congestive heart failure systolic type. Infectious diseases consultation requested with concerns of pneumonia after her event and the abnormal chest x-ray. Patient does not believe she's had significant fever chill or rigor before admission. However is noted she is having difficulty with a chronic cough that is only minimally productive at times. Feels better today. Objective - Vital Signs Vital signs: Vital Signs Temp 97.6 F 01/18/17 15:00 Pulse 81 01/18/17 21:59 Resp 20 01/18/17 21:59 BP 109/58 01/18/17 15:00 Pulse Ox 97 01/18/17 15:00 Intake & Output 01/18/17 01/18/17 01/19/17 06:59 18:59 06:59 Intake Total 540 470 Output Total 300 Balance 540 170 Intake: IV 50 Piperacillin-Tazobactam 3 50 .375 gm In Dextrose/Water 1 50ml.bag @ 12.5 mls/hr IVPB Q8HR [facility] Rx#: [id number] Intake, IV Titration 180 180 Amount Sodium Chloride 0.9% 1, 180 180 000 ml @ 20 mls/hr IV . Q24H [facility] Rx#:[id number] Oral 360 240 Output: Urine 300 Other: Voiding Method Bedside Commode Bedside Commode Bedside Commode # Voids 1 2 2 # Bowel Movements 1 1 - Exam Pleasant 81-year-old woman who seems very modestly comfortable but coughs occasionally through the exam. Does relate to some modest shortness of breath. HEENT: Anicteric conjunctiva are pink and moist nasal mucosa grossly intact without significant lesions, there is no thrush. Neck: The neck is supple without significant lymphadenopathy or thyromegaly. Lungs: There is symmetrical air entry. There are bibasilar crackles. No nik bronchial sounds. No dullness or egophony. Heart: Irregular with an audible S1-S2, no S3 off tests for. There is no significant murmur click or rub, PMI was nondisplaced. Abdomen: Positive bowel sounds soft and nontender without palpable masses or organomegaly. There was no guarding or rebound.The large ascites is improved after paracentesis of today. Extremities: The upper extremities have excellent pulses they are symmetric, no significant petechiae or telangiectasia. No splinter hemorrhages were noted. The lower extremities are free from significant edema. The peripheral pulses were 2+ and symmetric. Neuro: Awake alert oriented to person place and time. There are no acute new gross focal sensory motor deficits. - Labs CBC & Chem 7: 01/18/17 08:42 01/18/17 08:42 Labs: Abnormal Lab Results - Last 24 Hours (Table) 01/18/17 01/18/17 01/18/17 Range/Units 08:42 08:42 11:31 WBC 3.1 L (3.8-10.6) k/uL RBC 3.74 L (3.80-5.40) m/uL Hgb 10.5 L (11.4-16.0) gm/dL Hct 33.6 L (34.0-46.0) % RDW 17.3 H (11.5-15.5) % Plt Count 57 L (150-450) k/uL Lymphocytes # 0.6 L (1.0-4.8) k/uL PT (9.0-12.0) sec BUN 19 H (7-17) mg/dL Creatinine 1.19 H (0.52-1.04) mg/dL POC Glucose (mg/dL) 117 H (75-99) mg/dL 01/18/17 01/18/17 01/18/17 Range/Units 13:04 17:26 20:13 WBC (3.8-10.6) k/uL RBC (3.80-5.40) m/uL Hgb (11.4-16.0) gm/dL Hct (34.0-46.0) % RDW (11.5-15.5) % Plt Count (150-450) k/uL Lymphocytes # (1.0-4.8) k/uL PT 12.4 H (9.0-12.0) sec BUN (7-17) mg/dL Creatinine (0.52-1.04) mg/dL POC Glucose (mg/dL) 133 H 53 L (75-99) mg/dL 01/18/17 01/18/17 Range/Units 20:14 20:34 WBC (3.8-10.6) k/uL RBC (3.80-5.40) m/uL Hgb (11.4-16.0) gm/dL Hct (34.0-46.0) % RDW (11.5-15.5) % Plt Count (150-450) k/uL Lymphocytes # (1.0-4.8) k/uL PT (9.0-12.0) sec BUN (7-17) mg/dL Creatinine (0.52-1.04) mg/dL POC Glucose (mg/dL) 71 L 74 L (75-99) mg/dL Laboratory Results WBC 3.1 k/uL (3.8-10.6) L 01/18/17 08:42 RBC 3.74 m/uL (3.80-5.40) L 01/18/17 08:42 Hgb 10.5 gm/dL (11.4-16.0) L 01/18/17 08:42 Hct 33.6 % (34.0-46.0) L 01/18/17 08:42 MCV 89.8 fL (80.0-100.0) 01/18/17 08:42 MCH 28.1 pg (25.0-35.0) 01/18/17 08:42 MCHC 31.3 g/dL (31.0-37.0) 01/18/17 08:42 RDW 17.3 % (11.5-15.5) H 01/18/17 08:42 Plt Count 57 k/uL (150-450) L 01/18/17 08:42 Neutrophils % 62 % 01/18/17 08:42 Neutrophils % (Manual) 51.0 % 01/17/17 07:11 Band Neutrophils % 2.0 % 01/17/17 07:11 Lymphocytes % 19 % 01/18/17 08:42 Lymphocytes % (Manual) 27.0 % 01/17/17 07:11 Monocytes % 14 % 01/18/17 08:42 Monocytes % (Manual) 18.0 % 01/17/17 07:11 Eosinophils % 2 % 01/18/17 08:42 Eosinophils % (Manual) 2.0 % 01/17/17 07:11 Basophils % 1 % 01/18/17 08:42 Neutrophils # 1.9 k/uL (1.3-7.7) 01/18/17 08:42 Neutrophils # (Manual) 1.7 k/uL (1.3-7.7) 01/17/17 07:11 Lymphocytes # 0.6 k/uL (1.0-4.8) L 01/18/17 08:42 Lymphocytes # (Manual) 0.9 k/uL (1.0-4.8) L 01/17/17 07:11 Monocytes # 0.4 k/uL (0-1.0) 01/18/17 08:42 Monocytes # (Manual) 0.6 k/uL (0-1.0) 01/17/17 07:11 Eosinophils # 0.1 k/uL (0-0.7) 01/18/17 08:42 Eosinophils # (Manual) 0.1 k/uL (0-0.7) 01/17/17 07:11 Basophils # 0.0 k/uL (0-0.2) 01/18/17 08:42 Nucleated RBCs 0 /100 WBC (0-0) 01/17/17 07:11 Manual Slide Review Performed 01/14/17 05:57 Large Platelets Present 01/13/17 11:45 Polychromasia Present 01/13/17 11:45 Hypochromasia Marked 01/18/17 08:42 Poikilocytosis Slight 01/17/17 07:11 Poikilocytosis (manual Present 01/13/17 11:45 Anisocytosis Slight 01/18/17 08:42 Target Cells Present 01/16/17 06:24 Ovalocytes Present 01/15/17 05:47 Fragmented RBCs Present 01/17/17 07:11 Retic Count 1.8 % (0.5-2.0) 01/14/17 05:57 PT 12.4 sec (9.0-12.0) H 01/18/17 13:04 INR 1.3 (<1.1) 01/18/17 13:04 APTT 31.2 sec (22.0-30.0) H 01/13/17 11:45 D-Dimer 6.62 mg/L FEU (<0.60) H 01/13/17 11:45 Sodium 139 mmol/L (137-145) 01/18/17 08:42 Potassium 4.6 mmol/L (3.5-5.1) 01/18/17 08:42 Chloride 103 mmol/L (98-107) 01/18/17 08:42 Carbon Dioxide 27 mmol/L (22-30) 01/18/17 08:42 Anion Gap 9 mmol/L 01/18/17 08:42 BUN 19 mg/dL (7-17) H 01/18/17 08:42 Creatinine 1.19 mg/dL (0.52-1.04) H 01/18/17 08:42 Est GFR (MDRD) Af Amer 53 (>60 ml/min/1.73 sqM) 01/18/17 08:42 Est GFR (MDRD) Non-Af 43 (>60 ml/min/1.73 sqM) 01/18/17 08:42 Glucose 91 mg/dL (74-99) 01/18/17 08:42 POC Glucose (mg/dL) 74 mg/dL (75-99) L 01/18/17 20:34 POC Glu County Manager ID Anya Nielson 01/18/17 20:[address] Glu mg/dL 126 mg/dL 01/13/17 17:41 Hemoglobin A1c 6.0 % (4.2-6.1) 01/13/17 17:41 Calcium 8.8 mg/dL (8.4-10.2) 01/18/17 08:42 Magnesium 1.6 mg/dL (1.6-2.3) 01/14/17 05:57 Iron 21 ug/dL (37-170) L 01/14/17 05:57 TIBC 204 ug/dL (265-497) L 01/14/17 05:57 % Saturation 10.3 % (20-50) L 01/14/17 05:57 Total Bilirubin 1.4 mg/dL (0.2-1.3) H 01/13/17 11:45 AST 14 U/L (14-36) 01/13/17 11:45 ALT 23 U/L (9-52) 01/13/17 11:45 Alkaline Phosphatase 58 U/L (38-126) 01/13/17 11:45 Ammonia 14 umol/L (<30) 01/18/17 13:04 Total Creatine Kinase <20 U/L (30-135) L 01/13/17 11:45 CK-MB (CK-2) 0.4 ng/mL (0.0-2.4) 01/13/17 11:45 CK-MB (CK-2) Rel Index 0.0 01/13/17 11:45 Troponin I 0.069 ng/mL (0.000-0.034) H* 01/13/17 23:34 NT-Pro-B Natriuret Pep 7830 pg/mL 01/13/17 11:45 Total Protein 5.3 g/dL (6.3-8.2) L 01/13/17 11:45 Albumin 3.2 g/dL (3.5-5.0) L 01/13/17 11:45 TSH 3.440 mIU/L (0.465-4.680) 01/18/17 08:42 Urine Color Yellow 01/13/17 21:05 Urine Appearance Cloudy (Clear) H 01/13/17 21:05 Urine pH 6.0 (5.0-8.0) 01/13/17 21:05 Ur Specific [place] 1.033 (1.001-1.035) 01/13/17 21:05 Urine Protein 1+ (Negative) H 01/13/17 21:05 Urine Glucose (UA) Negative (Negative) 01/13/17 21:05 Urine Ketones Negative (Negative) 01/13/17 21:05 Urine Blood Large (Negative) H 01/13/17 21:05 Urine Nitrite Negative (Negative) 01/13/17 21:05 Urine Bilirubin Negative (Negative) 01/13/17 21:05 Urine Urobilinogen <2.0 mg/dL (<2.0) 01/13/17 21:05 Ur Leukocyte Esterase Negative (Negative) 01/13/17 21:05 Urine RBC >182 /hpf (0-5) H 01/13/17 21:05 Urine WBC 5 /hpf (0-5) 01/13/17 21:05 Ur Squamous Epith Cells 1 /hpf (0-4) 01/13/17 21:05 IgG 241.0 mg/dL (700.0-1600.0) L 01/14/17 05:57 Blood Type A Positive 01/15/17 16:10 Blood Type Recheck No 01/15/17 16:10 Antibody Screen NEGATIVE 01/15/17 16:10 Crossmatch See Detail 01/15/17 16:10 Spec Expiration Date 01/16/2017 - 234401/15/17 16:10 Microbiology 01/13/17 11:45 Blood Blood Culture - Preliminary No Growth after 120 hours 01/13/17 19:30 Urine,Voided Urine Culture - Final 01/14/17 11:00 Sputum Gram Stain - Final 01/14/17 11:00 Sputum Sputum Culture - Final - Imaging and Cardiology CT scan - abdomen: report reviewed Assessment and Plan (1) Pneumonia Narrative/Plan: 81-year-old female with history of diffuse large B-cell lymphoma and follows with local oncology. The patient relates that in the fall of every year she undergoes a 4 week cycle of Rituxan infusions before she goes to [place]. They've returned from [place] from their winter session where she was quite well while she was there. Upon returning back she's not been feeling well. She's had a cough has been ongoing since September. It's been with minimal production and mostly dry. She denies significant shortness of breath. She is also not having fevers chills or rigors. 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 While she was in the office she had a change of her status she slumped into her 's arms. She was on evidence of a very high heart rate of 180 and vagal stimulation was performed. She was transported to Hospital by EMS. She's now doing somewhat better. That has evidence of the abnormal computed tomography scan and chest x-ray. Concerns for pneumonia. Given the altered mental status further concerns to potential aspiration pneumonia. Computed tomography scan failed to reveal evidence of a pulmonary embolus. Consequently for antibiotic therapy piperacillin tazobactam is a reasonable choice at this point in time given her immunocompromised status, pseudomonas risk and aspiration risk. She's noticed to have worsening of her baseline anemia. Unclear if this from underlying disease state or another process. Is being monitored at this point in time. Her thrombocytopenia is at about its baseline. Does not seem to be having any difficulty with the Zosyn therapy. No evidence for other forms of infection at this point in time, but does have some hematuria which may need follow-up. CT of the abdomen did show evidence of some ascites, underwent paracentesis and await further data Does have evidence of a low IgG level. Level was requested in his further reduced at 241. Given the current level of illness IgG supplementation has been given and well tolerated. Discussed with oncology. Status: Acute (2) Syncope Status: Acute (3) Diffuse large B cell lymphoma Status: Acute (4) History of cancer of right breast Status: Acute
[2017-01-19 07:25] LABS: Glucose,Whole Blood 67 mg/dL (75-99)
[2017-01-19 07:35] LABS: Glucose,Whole Blood 69 mg/dL (75-99)
[2017-01-19 07:57] LABS: Glucose,Whole Blood 83 mg/dL (75-99)
[2017-01-19] MEDS: FORMOTEROL FUMARATE 20 MCG/2 ML NEBU INHALATION SCH ×2 (08:10→19:51)
[2017-01-19] MEDS: IPRATROPIUM-ALBUTEROL 3 ML NEB INHALATION SCH ×4 (08:10→19:51)
[2017-01-19] MEDS: BUDESONIDE 1 MG/2 ML NEBU INHALATION SCH ×2 (08:10→19:51)
[2017-01-19 08:24] LABS: Calcium 9.3 mg/dL (8.4-10.2); Total Bilirubin 1.7 mg/dL (0.2-1.3); Total Protein 7.1 g/dL (6.3-8.2)
[2017-01-19 09:09] LABS: Anisocytosis Slight; CH 27.2; CHCM 30.7; HCT 36.9 % (34.0-46.0); HDW 2.89; HGB 11.4 gm/dL (11.4-16.0); Hypochromasia Moderate; Large Platelets Flag Slight; MCH 27.5 pg (25.0-35.0); MCHC 30.9 g/dL (31.0-37.0); Mean Platelet Volume 11.8; RBC 4.15 m/uL (3.80-5.40); RDW 17.5 % (11.5-15.5); WBC 5.4 k/uL (3.8-10.6)
[2017-01-19 09:13] LABS: ABG Base Excess -0.9 mmol/L; ABG HCO3 22 mmol/L (21-25); ABG Oxygen Saturation 94.5 % (94-97); ABG PCO2 26 mmHg (35-45); ABG PH 7.53 (7.35-7.45); ABG PO2 63 mmHg (83-108); ABG TCO2 22 mmol/L (19-24)
[2017-01-19] MEDS: INSULIN LISPRO (humaLOG) 300 UNIT/3 ML VIAL SQ SCH ×4 (09:23→21:18)
[2017-01-19] MEDS: PRAVASTATIN SODIUM 20 MG TAB PO SCH (09:28)
[2017-01-19] MEDS: PANTOPRAZOLE 40 MG TABLET PO SCH (09:28)
[2017-01-19] MEDS: PIPERACILLIN-TAZOBACTAM 3.375 GM in DEXTROSE/WATER 1 50ML.BAG IVPB SCH ×3 (09:28→23:59)
[2017-01-19] MEDS: FERROUS SULFATE 325 MG TAB PO SCH ×2 (09:28→18:11)
[2017-01-19] MEDS: POTASSIUM CHLORIDE ER 20 MEQ TAB.ER PO SCH ×3 (09:29→21:27)
[2017-01-19] MEDS: HEPARIN SODIUM,PORCINE 5,000 UNIT/ML 1 ML VIAL SQ SCH ×2 (09:29→21:18)
[2017-01-19] MEDS: FUROSEMIDE 40 MG TAB PO SCH (09:29)
[2017-01-19] MEDS: OXYBUTYNIN 10 MG TAB.ER.24 PO SCH (09:29)
[2017-01-19] MEDS: CHOLECALCIFEROL 1,000 UNIT TAB PO SCH (09:29)
[2017-01-19] MEDS: GABAPENTIN 300 MG CAP PO SCH ×3 (09:29→21:17)
--- NOTE | 2017-01-19 10:44 | P.NPCON ---
History of Present Illness - Reason for Consult acute renal failure - History of Present Illness Reason for consultation: Acute kidney injury History of present illness: Patient is a 81-year-old female seen in renal consultation for acute kidney injury. Her baseline creatinine is near 1 and is elevated at 1.36 today. Patient presented to the hospital on January 13 after she had a syncopal episode at a physician's office. She was noted to be in atrial fibrillation with RVR and was started on Cardizem drip. Her heart rate is now controlled and Cardizem drip has been discontinued. She did undergo a CTA on January 13 which did not reveal any evidence of pulmonary embolus however there was concern for mass. She does have B cell lymphoma and underwent treatment with R- CHOP and is maintained on rituximab. There is also concern for aspiration pneumonia for which she is currently on antibiotics per infectious disease recommendations. She is also noted to have ascites for which the cause is not clear at this time. She did undergo paracentesis on January 16 and 2.6 L were removed. Currently she is maintained on Lasix 40 mg daily. Her oral intake is poor. No vomiting or diarrhea. Denies chest pain. Patient is quite lethargic and most of the history is provided by her was present at bedside. She was also anemic with hemoglobin of less than 8 and did undergo 2 units of packed red blood cell transfusion this admission. Hemoglobin is improved. Her blood pressures have been stable. She has been voiding. No hematuria or dysuria. Vital signs are stable. General: The patient appeared well nourished and normally developed. HEENT: Head exam is unremarkable. Neck is without jugular venous distension. LUNGS: Lungs are clear to auscultation and percussion. Breath sounds decreased. HEART: Rate and Rhythm are regular. First and second heart sounds normal. No murmurs, rubs or gallops. ABDOMEN: Abdominal exam reveals normal bowel sounds. Non-tender, moderately distended. EXTREMITITES: No clubbing, cyanosis, or edema. Past Medical History Past Medical History: Cancer, Diabetes Mellitus, GERD/Reflux, Hyperlipidemia, Hypertension, Neurologic Disorder, Syncope Additional Past Medical History / Comment(s): LARGE B CELL LYMPHOMA; RIGHT BREAST CANCER WITH SX AND PT BELIEVES CHEMO, MIGRAINES IN PAST, CONSTIPATION, ANEMIA, NIDDM TYPE II, NEUROPATHY BILATERAL FEET, PUD, DIVERTICULAR DX, UTI'S, BACK PAIN, VASOMOTOR SYMPATHETIC DYSTROPHY RIGHT HAND, RLS. History of Any Multi-Drug Resistant Organisms: MRSA Date of last positivie culture/infection: 08/26/2014 MDRO Source:: Urine Past Surgical History: Adenoidectomy, Appendectomy, Breast Surgery, Cholecystectomy, Heart Catheterization, Hysterectomy, Tonsillectomy Additional Past Surgical History / Comment(s): MASTECTOMY RIGHT, BILATERAL CATARACTS REMOVED WITH LENS IMPLANTS, CARDIAC CATH-NORMAL, COLONOSCOPY Past Anesthesia/Blood Transfusion Reactions: No Reported Reaction Additional Past Anesthesia/Blood Transfusion Reaction / Comment(s): HAD BLOOD TRANSFUSION IN PAST, HAS CLAUSTERPHOBIA Past Psychological History: No Psychological Hx Reported Additional Psychological History / Comment(s): PT RESIDES WITH HER SPOUSE AND DAUGHTER. SHE USES A CANE TO AMBULATE. SHE NO LONGER DRIVES, HER SPOUSE TAKES HER TO APPTS OR HER DAUGHTER. They have 5 children. One grandson is a dentist in [place], [place]. She has no experience. No international travel. no animal exposures. Very supportive family. for 65 years. Smoking Status: Never smoker Past Alcohol Use History: None Reported Past Drug Use History: None Reported - Past Family History Father Family Medical History: Musculoskeletal Disorder, Neurologic Disorder Additional Family Medical History / Comment(s): PARKINSONS Mother Family Medical History: Cancer Additional Family Medical History / Comment(s): FROM BREAST CANCER-HAD HEART PROBLEMS, Medications and Allergies Home Medications Medication Instructions Recorded Confirmed Type Atenolol [Tenormin] 50 mg PO BID 08/05/14 01/13/17 History Cholecalciferol [Vitamin D3] 5,000 unit PO DAILY 08/05/14 01/13/17 History Docusate [Colace] 100 mg PO DAILY PRN 08/05/14 01/13/17 History Gabapentin [Neurontin] 300 mg PO TID 08/05/14 01/13/17 History Multivitamins, Thera [Multivitamin 1 tab PO DAILY 08/05/14 01/13/17 History (formulary)] Omeprazole 40 mg PO AC-BRKFST 08/05/14 01/13/17 History Oxybutynin Chloride [Ditropan XL] 10 mg PO DAILY 08/05/14 01/13/17 History Pravastatin Sodium [Pravachol] 10 mg PO DAILY 05/21/15 01/13/17 History metFORMIN HCL [Glucophage] 500 mg PO BID 05/21/15 01/13/17 History rOPINIRole HCL [Requip] 0.5 mg PO HS 07/28/16 01/13/17 History Albuterol Inhaler [Ventolin Hfa 1 - 2 puff INHALATION RT-Q4H PRN 01/13/17 History Inhaler] Furosemide [Lasix] 20 mg PO DAILY 01/13/17 01/13/17 History Tiotropium Br/Olodaterol HCl 1 puff INHALATION RT-DAILY 01/13/17 01/13/17 History [Stiolto Respimat Inhal [place]] Allergies Allergy/AdvReac Type Severity Reaction Status Date / Time No Known Allergies Allergy Verified 01/13/17 12:51 Physical Exam Vitals: Vital Signs Temp Pulse Pulse Resp BP Pulse Ox 01/19/17 08:39 86 01/19/17 08:32 82 01/19/17 08:22 82 94 L 01/19/17 07:00 98.1 F 92 20 145/75 95 01/18/17 23:31 98.4 F 88 16 146/76 92 L 01/18/17 21:59 81 20 01/18/17 20:59 72 01/18/17 20:42 70 01/18/17 20:41 70 01/18/17 20:39 72 01/18/17 15:00 97.6 F 81 20 109/58 97 01/18/17 11:41 76 01/18/17 11:33 80 Intake and Output 01/18/17 01/19/17 01/19/17 22:59 06:59 14:59 Intake Total 470 300 Output Total 300 Balance 170 300 Intake: IV 50 Piperacillin-Tazobactam 3 50 .375 gm In Dextrose/Water 1 50ml.bag @ 12.5 mls/hr IVPB Q8HR [facility] Rx#: [id number] Intake, IV Titration 180 100 Amount Sodium Chloride 0.9% 1, 180 100 000 ml @ 20 mls/hr IV . Q24H [facility] Rx#:[id number] Oral 240 200 Output: Urine 300 Other: Voiding Method Bedside Commode # Voids 2 2 # Bowel Movements 1 1 Results - Lab Results Most recent lab results ABG pH 7.53 (7.35-7.45) H 01/19/17 08:22 ABG pCO2 26 mmHg (35-45) L 01/19/17 08:22 ABG pO2 63 mmHg (83-108) L 01/19/17 08:22 ABG HCO3 22 mmol/L (21-25) 01/19/17 08:22 ABG O2 Saturation 94.5 % (94-97) 01/19/17 08:22 Calcium 9.3 mg/dL (8.4-10.2) 01/19/17 07:21 Magnesium 1.6 mg/dL (1.6-2.3) 01/14/17 05:57 01/19/17 07:21 01/19/17 07:21 Assessment and Plan Plan: Assessment: #1. Nonoliguric acute kidney injury secondary to ischemic ATN which is multifactorial in nature. Etiologies include hemodynamic instability from atrial fibrillation with RVR along with paracentesis with 2.6 L removed on January 16 as well as diuresis. Her baseline creatinine is 1 and is elevated at 1.36 today. Additional she also underwent CT angiogram on January 13. No hydronephrosis noted on CAT scan of abdomen and pelvis. Her prior urinalysis revealed no evidence of hematuria. However she does have proteinuria that has been present persistently reaches likely related to her underlying diabetic kidney disease. #2. Large B-cell lymphoma. She underwent R CHOP chemotherapy and maintained on rituximab. #3. Ascites. Unknown etiology at this time. Status post paracentesis on January 16 2.6 L drained. #4. Anemia. Status post 2 units packed red blood cell transfusion. Hemoglobin 11.4 today. #5. Diabetes mellitus. Metformin held. #6. Aspiration pneumonia. Plan: Hold Lasix today. Avoid nephrotoxic agents and hypotensive episodes. Await cytology results from paracentesis done on January 16. Antibiotics per infectious disease recommendations. Repeat electrolytes in the morning. Repeat urinalysis. Will quantify proteinuria was GFR returns to baseline. Thank you for the consultation. I will continue to follow the patient with you during her hospital stay.
--- NOTE | 2017-01-19 11:10 | CDI ---
In responding to this query, please exercise your independent professional judgment. The [facility] Coding Staff and Clinical Documentation Specialists appreciate your assistance in clarifying documentation, maintaining compliance with coding guidelines, accurately documenting patients condition and capturing severity of illness. The fact that a question is asked does not imply that any particular answer is desired or expected. Communication forms are a method of clarifying documentation and are not made part of the Legal Health Record. Thank you in advance for your clarification. Last Revision, July 2015 Benjamin Richards [address] [place] [address] Documentation Clarification Form Date: 01/18/2017 3:09:00 PM From: Ivy Castro CCS, CCDS Admit Date: 01/13/2017 12:57:00 PM Patient Name: Brent Ni Visit Number: [id number] Discharge Date: Dr. Kong Edmondson: Atrial fibrillation is documented in the Cardiology consult as well as in the subsequent progress notes. History/Risk Factors: Hypertension, DM, Large B Cell Lymphoma and CHF. Clinical Indicators: Presented with syncopal episode, atrial fibrillation & weakness. EKG/telemetry: R 101 Sinus tachycardia w/PVCs. 2nd EKG: R 100 nsr. Heart rate high 180s LAB: Trops elevated: 0.033, 0.08, 0.069. Treatment: Cardizem drip, IV Lasix, IV antibiotics, Heparin sc, Albuterol neb txs Consults: Cardiology, Pulmonary, Infectious Disease and Oncology In your professional opinion, can you please clarify the type of atrial fibrillation, if known? Chronic/Permanent Paroxysmal Persistent Other, please specify Unable to determine Please document in your progress notes and discharge summary in order to capture severity of illness and risk of mortality. Include clinical findings that support your diagnosis. FYI: Press F11 to launch patient chart Place X here if this finding has no clinical significance, is not applicable or if you are not able to provide any additional documentation. Thank You. MARYANN
[2017-01-19 11:35] LABS: Glucose,Whole Blood 79 mg/dL (75-99)
--- NOTE | 2017-01-19 12:19 | PN ---
Patient is admitted with atrial fibrillation, congestive heart failure exacerbation. Both of which improved. Patient is on the hypovolemic side and kidney function has been worsening. Patient also received contrast and after discussion with Nephrology, discontinued Lasix, holding Lasix at this point of time. Repeat kidney function tomorrow. Patient's clinical condition has worsened significantly since yesterday. The patient is more encephalopathic and tremulous or myoclonus. The only medication I can see that can cause that is Zosyn, which will be held until Infectious Disease evaluates the patient. W will also obtain a consultation from Neurology. All her narcotic medications will be discontinued. Patient does not give any clear-cut history what is wrong with her but she states she does not feel well. Patient denied any pain anywhere. Patient may need an EEG and an MRI. I will leave the decision to Neurology at this time. Patient's CT of the abdomen that was done yesterday did not show any worsening lymphadenopathy. Of I did not see any mention of lymphadenopathy in the CT of the abdomen report except for ascites, some small right-sided pleural effusion. REVIEW OF SYSTEMS: As mentioned above, but patient is confused, alert and oriented x around 2. PHYSICAL EXAMINATION: Temperature 98.1, pulse of 86, respiratory rate of 20, blood pressure is 145/75. Saturating at 94% on 3 L of O2 nasal cannula. GENERAL EXAMINATION: Patient has constant tremors or myoclonus and appears to have malaise and alert and oriented x1. NEUROLOGICAL: No focal neurological deficits were appreciated. HEENT: Pupils are round and equally reacting to light. EOMI. No scleral icterus. No conjunctival pallor. Normocephalic, atraumatic. No pharyngeal erythema. No thyromegaly. CARDIOVASCULAR: S1 and S2 present. No murmurs, rubs, or gallops. PULMONARY: Chest is clear to auscultation, no wheezing or crackles. ABDOMEN: Soft, nontender, nondistended, normoactive bowel sounds. No palpable organomegaly. MUSCULOSKELETAL: No joint swelling or deformity. EXTREMITIES: No cyanosis, clubbing, or pedal edema. SKIN: No rashes. LABORATORY DATA: Patient had an ABG which showed low pCO2. I will obtain a lactic acid level on her. Patient is a bit alkalotic and patient has some respiratory alkalosis. Patient becomes hypoxic easily; unsure of the exact etiology of hypoxemia at this point of time. ASSESSMENT AND PLAN: 1. Atrial fibrillation, presently rate controlled. 2. Congestive heart failure, chronic systolic dysfunction. We believe patient is on the volume-depleted side because of which were are holding off on Lasix at this point of time. 3. Hypoxemia or acute hypoxic respiratory failure; unsure of the exact etiology. Will discuss with Pulmonology regarding that. 4. Moderate aortic stenosis and moderate mitral regurgitation. 5. Large B-cell lymphoma, completed chemotherapy recently. 6. Confusion, altered mental status along with myoclonus. Zosyn will be held until further evaluation by Infectious Disease. Possible aspiration pneumonia for which patient is on Zosyn. 7. Mildly elevated troponin secondary to infection on admission. 8. Acute renal failure, prerenal azotemia secondary to excessive diuresis. Patient received contrast as well yesterday. Nephrology was consulted, holding off on Lasix. 9. Mild pancytopenia secondary to chemotherapy. 10. Hypertension. 11. Hyperlipidemia. 12. Diabetic nephropathy. 13. Gastroesophageal reflux disease. 14. Ascites, unknown etiology. Except for cirrhosis, I do not have any explanation for ascites. I do not have any pathology results at this point of time. Other labs are not obtained.
[2017-01-19] MEDS ORDERED: SODIUM CHLORIDE 0.9% 1,000 ML IV ONE (13:12)
[2017-01-19] MEDS: MULTIVITAMINS, THERA 1 EACH TAB PO SCH (13:21)
--- NOTE | 2017-01-19 14:24 | P.PN ---
Subjective This is a very pleasant 81-year-old female patient has a history of diabetes Fernando, hypertension, hyperlipidemia, large B-cell lymphoma. She also has a history of chronic obstructive pulmonary disease and follows with Dr. Torrez in our office for the same. She was in the office on 01/13/2017 and was quite weak. She was briefly unresponsive. She was found to be in atrial fibrillation with rapid ventricular response. EMS was called and she was brought here to the emergency room. She was found to be in continued atrial fibrillation with a rapid rapid ventricular response. She is also had elevated d-dimer. A CT angiogram ruled out pulmonary embolism however there is an oval density posterior middle left apex which is enlarged compared to previous study. Neoplasm is in the differential. There is also evidence of chronic obstructive pulmonary disease and chronic bronchitis with a new density in the periphery of the right mid lung with atelectasis. The patient also had distended abdomen and was found to have significant ascites. She is currently down for a paracentesis of the abdomen. Seen again today January 17 2017 in follow-up on the oncology unit. She is currently awake and alert in no acute distress. She is feeling better today. He had 2.6 L of fluid removed from her abdomen yesterday. Pathology is pending. Her hemoglobin remained stable at 11.1. She is status post 2 units of packed red blood cell infusions. Platelet count 62,000. She has some worsening of her renal function, current creatinine 1.24. She continues with a loose productive cough of pale yellow sputum. She's afebrile. No leukocytosis. Maintaining good O2 saturations in the 90s on 2 L/m per nasal cannula. She remains in sinus rhythm. On the patient is being seen in follow-up. She is still weak. She is having significant weakness in her lower extremities bilaterally. Her abdomen is slightly distended and the patient underwent a large volume paracentesis for a total of 2.60. Fluid was revealed and the fluid analysis has not been sent yet the there is a fluid cytology that is still pending for now. Meanwhile, the patient is still having some limited shortness of breath especially with activity. She has a mild cough with congestion. No significant sputum production. She is covered with antibiotics regarding possibility of an underlying pneumonia. No change in mental status. No chest pain. Function of the kidneys is stable with a creatinine of 1.1. Platelets are still low at 57, 000 and there is a mild degree of coagulopathy with an INR of 1.3. Ammonia level is at 14. 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 Back then the patient presents with a very large abdominal mass presenting with currently on the rate that aortic lymphadenopathy as well as supraclavicular lymphadenopathy. She got treated with R CHOP combination and she responded nicely to treatment and following that she was receiving Cytoxan as a maintenance. Her condition decompensated after she went to [place] in July 2016 and she came in from her vacation with above-mentioned issues. The patient is seen again today 01/19/2017. Unfortunately her mental status continues to decline. She is having hand tremors progressive weakness. He is less alert today as compared to yesterday. Pathology of paracentesis fluid is still pending. There is concerns regarding recurrent lymphoma. A computed tomography scan of the abdomen did reveal ascites there is small right and minimal left pleural effusions with atelectasis. There is no evidence of abdominal. mass. Objective - Vital Signs Vital signs: Vital Signs Temp 98.1 F 01/19/17 07:00 Pulse 86 01/19/17 08:39 Resp 20 01/19/17 07:00 BP 145/75 01/19/17 07:00 Pulse Ox 94 L 01/19/17 08:22 Intake & Output 01/18/17 01/19/17 01/19/17 18:59 06:59 18:59 Intake Total 770 Output Total 300 Balance 470 Intake: IV 50 Piperacillin-Tazobactam 3 50 .375 gm In Dextrose/Water 1 50ml.bag @ 12.5 mls/hr IVPB Q8HR [facility] Rx#: [id number] Intake, IV Titration 280 Amount Sodium Chloride 0.9% 1, 280 000 ml @ 20 mls/hr IV . Q24H [facility] Rx#:[id number] Oral 440 Output: Urine 300 Other: Voiding Method Bedside Commode Bedside Commode # Voids 2 2 # Bowel Movements 1 1 - Exam GENERAL EXAM: Altered mental status. Tremorous. HEAD: Normocephalic. EYES: Normal reaction of pupils, equal size. NOSE: Clear with pink turbinates. THROAT: No erythema or exudates. NECK: No masses, no JVD. CHEST: No chest wall deformity. LUNGS: Equal air entry with no few scattered rhonchi, crackles in the posterior bases.. CVS: S1 and S2 normal with no audible murmurs, regular rhythm. ABDOMEN: Slightly distended, normal bowel sounds, no guarding or rigidity. Extremities: There is no significant peripheral edema. No clubbing, no cyanosis. Peripheral pulses are intact. - Labs CBC & Chem 7: 01/19/17 07:21 01/19/17 07:21 Labs: Abnormal Lab Results - Last 24 Hours (Table) 01/18/17 01/18/17 01/18/17 Range/Units 17:26 20:13 20:14 MCHC (31.0-37.0) g/dL RDW (11.5-15.5) % Plt Count (150-450) k/uL ABG pH (7.35-7.45) ABG pCO2 (35-45) mmHg ABG pO2 (83-108) mmHg Sodium (137-145) mmol/L BUN (7-17) mg/dL Creatinine (0.52-1.04) mg/dL POC Glucose (mg/dL) 133 H 53 L 71 L (75-99) mg/dL Plasma Lactic Acid Ruy (0.7-2.0) mmol/L Total Bilirubin (0.2-1.3) mg/dL 01/18/17 01/19/17 01/19/17 Range/Units 20:34 07:10 07:21 MCHC 30.9 L (31.0-37.0) g/dL RDW 17.5 H (11.5-15.5) % Plt Count 55 L (150-450) k/uL ABG pH (7.35-7.45) ABG pCO2 (35-45) mmHg ABG pO2 (83-108) mmHg Sodium (137-145) mmol/L BUN (7-17) mg/dL Creatinine (0.52-1.04) mg/dL POC Glucose (mg/dL) 74 L 67 L (75-99) mg/dL Plasma Lactic Acid Ruy (0.7-2.0) mmol/L Total Bilirubin (0.2-1.3) mg/dL 01/19/17 01/19/17 01/19/17 Range/Units 07:21 07:32 08:22 MCHC (31.0-37.0) g/dL RDW (11.5-15.5) % Plt Count (150-450) k/uL ABG pH 7.53 H (7.35-7.45) ABG pCO2 26 L (35-45) mmHg ABG pO2 63 L (83-108) mmHg Sodium 136 L (137-145) mmol/L BUN 19 H (7-17) mg/dL Creatinine 1.36 H (0.52-1.04) mg/dL POC Glucose (mg/dL) 69 L (75-99) mg/dL Plasma Lactic Acid Ruy (0.7-2.0) mmol/L Total Bilirubin 1.7 H (0.2-1.3) mg/dL 01/19/17 Range/Units 11:37 MCHC (31.0-37.0) g/dL RDW (11.5-15.5) % Plt Count (150-450) k/uL ABG pH (7.35-7.45) ABG pCO2 (35-45) mmHg ABG pO2 (83-108) mmHg Sodium (137-145) mmol/L BUN (7-17) mg/dL Creatinine (0.52-1.04) mg/dL POC Glucose (mg/dL) (75-99) mg/dL Plasma Lactic Acid Ruy 2.3 H* (0.7-2.0) mmol/L Total Bilirubin (0.2-1.3) mg/dL Assessment and Plan Plan: Impression: #1 Atrial fibrillation with a rapid ventricular response versus multifocal atrial tachycardia. Currently in sinus rhythm.. #2 Acute on chronic systolic congestive heart failure with estimated ejection fraction of 45-50%. #3 Moderate to severe aortic stenosis. #4 History of pancytopenia. #5 History of large B-cell lymphoma, status post R CHOP followed by Rituxan. #6 Hypertension. #7 Hyperlipidemia. #8 Gastroesophageal reflux disease. #9 Ascites status post paracentesis. 2.6 L of serous fluid was removed. #10 Anemia. #11 History of right breast cancer with surgery. #12 Acute renal failure, current creatinine 1.36. Plan: The patient was seen and evaluated by Dr. Villegas. He did have discussions with the family who are all at the bedside. They are aware of her altered mental status and gradual deterioration. We are awaiting final pathology reports. There is concern regarding recurrent lymphoma. Oncology is on the case. Neurology has been consulted. Nephrology is on the case as well. From the pulmonary standpoint will see the patient on as-needed basis.
[2017-01-19] MEDS: SODIUM CHLORIDE 0.9% 1,000 ML IV SCH (14:30)
[2017-01-19] MEDS: AZITHROMYCIN 500 MG TAB PO SCH (15:34)
[2017-01-19 17:19] LABS: Glucose,Whole Blood 104 mg/dL (75-99)
[2017-01-19 20:01] LABS: Glucose,Whole Blood 101 mg/dL (75-99)
--- NOTE | 2017-01-19 20:25 | P.PN ---
Subjective Pt has developed tremors, as well as lethargy and some confusion Objective - Vital Signs Vital signs: Vital Signs Temp 99.1 F 01/19/17 17:38 Pulse 84 01/19/17 18:55 Resp 92 H 01/19/17 18:55 BP 138/72 01/19/17 18:55 Pulse Ox 94 L 01/19/17 18:55 Intake & Output 01/19/17 01/19/17 01/20/17 06:59 18:59 06:59 Intake Total 770 Output Total 300 Balance 470 Intake: IV 50 Piperacillin-Tazobactam 3 50 .375 gm In Dextrose/Water 1 50ml.bag @ 12.5 mls/hr IVPB Q8HR [facility] Rx#: [id number] Intake, IV Titration 280 Amount Sodium Chloride 0.9% 1, 280 000 ml @ 20 mls/hr IV . Q24H [facility] Rx#:[id number] Oral 440 Output: Urine 300 Other: Voiding Method Bedside Commode Bedside Commode # Voids 2 3 # Bowel Movements 1 3 - Constitutional General appearance: Present: no acute distress - EENT Eyes: Present: PERRLA ENT: Present: hearing grossly normal, normal oropharynx - Respiratory Respiratory: bilateral: CTA - Cardiovascular Rhythm: regular Heart sounds: normal: S1, S2 - Gastrointestinal General gastrointestinal: Present: distended, soft - Integumentary Integumentary: Present: normal - Neurologic Neurologic Comment(s): Mild confusion, memory difficulty. Tremors involving b/l UE Neurologic: Present: CNII-XII intact - Musculoskeletal Musculoskeletal: Present: generalized weakness - Psychiatric Psychiatric Comment(s): mildlly confused - Labs CBC & Chem 7: 01/19/17 07:21 01/19/17 07:21 Labs: Abnormal Lab Results - Last 24 Hours (Table) 01/18/17 01/18/17 01/18/17 Range/Units 20:13 20:14 20:34 MCHC (31.0-37.0) g/dL RDW (11.5-15.5) % Plt Count (150-450) k/uL ABG pH (7.35-7.45) ABG pCO2 (35-45) mmHg ABG pO2 (83-108) mmHg Sodium (137-145) mmol/L BUN (7-17) mg/dL Creatinine (0.52-1.04) mg/dL POC Glucose (mg/dL) 53 L 71 L 74 L (75-99) mg/dL Plasma Lactic Acid Ruy (0.7-2.0) mmol/L Total Bilirubin (0.2-1.3) mg/dL 01/19/17 01/19/17 01/19/17 Range/Units 07:10 07:21 07:21 MCHC 30.9 L (31.0-37.0) g/dL RDW 17.5 H (11.5-15.5) % Plt Count 55 L (150-450) k/uL ABG pH (7.35-7.45) ABG pCO2 (35-45) mmHg ABG pO2 (83-108) mmHg Sodium 136 L (137-145) mmol/L BUN 19 H (7-17) mg/dL Creatinine 1.36 H (0.52-1.04) mg/dL POC Glucose (mg/dL) 67 L (75-99) mg/dL Plasma Lactic Acid Ruy (0.7-2.0) mmol/L Total Bilirubin 1.7 H (0.2-1.3) mg/dL 01/19/17 01/19/17 01/19/17 Range/Units 07:32 08:22 11:37 MCHC (31.0-37.0) g/dL RDW (11.5-15.5) % Plt Count (150-450) k/uL ABG pH 7.53 H (7.35-7.45) ABG pCO2 26 L (35-45) mmHg ABG pO2 63 L (83-108) mmHg Sodium (137-145) mmol/L BUN (7-17) mg/dL Creatinine (0.52-1.04) mg/dL POC Glucose (mg/dL) 69 L (75-99) mg/dL Plasma Lactic Acid Ruy 2.3 H* (0.7-2.0) mmol/L Total Bilirubin (0.2-1.3) mg/dL 01/19/17 Range/Units 17:15 MCHC (31.0-37.0) g/dL RDW (11.5-15.5) % Plt Count (150-450) k/uL ABG pH (7.35-7.45) ABG pCO2 (35-45) mmHg ABG pO2 (83-108) mmHg Sodium (137-145) mmol/L BUN (7-17) mg/dL Creatinine (0.52-1.04) mg/dL POC Glucose (mg/dL) 104 H (75-99) mg/dL Plasma Lactic Acid Ruy (0.7-2.0) mmol/L Total Bilirubin (0.2-1.3) mg/dL Assessment and Plan (1) Diffuse large B cell lymphoma Narrative/Plan: So far, there is no evidence of progression. CT scans have shown no measurable adenopathy. Ascitic fluid cytology is pending, but flow cytometry is negative for any evidence of B cell NHL Status: Acute (2) Mental status alteration Narrative/Plan: The pt had new onset of confusion and tremors. There was concern per the admitting service, about [facility] involvement with her NHL. Case d/w them . The risk of the same is clinically quite low given no evidence of progressive disease elsewhere.Isolated relapse in the [facility] would be unusual. - With ascites negative for malignancy, liver disease as an etiology is possible. Ct AP did not show any liver masses, and NH3 level was normal - Zosyn has been stopped, with possibly some improvement in her mentation. We will monitor closely. Neurology opinion is awaited. If no further improvement , consider [facility] imaging and LP tomorrow Status: Acute
--- NOTE | 2017-01-19 22:12 | P.CNNES ---
History of Present Illness Consult date: 01/19/17 Chief complaint: Patient with history of B-cell lymphoma and altered mental status. History of Present Illness: This patient is a 81-year-old female who has a complex past medical history and multiple complicated clinical presentation. Patient was admitted to Hospital on 01/13/2017 she had a acute syncopal episode with altered mental status. Patient has a history of large B cell lymphoma and is being followed closely in the oncology clinic. She also has a remote history of breast carcinoma. Due to her acute mental status changes she was sent for a computed tomography scan of the brain on 01/13/2017. This CAT scan revealed atrophy with white matter ischemic changes noted. She is being evaluated also for possibility of pneumonia. Patient is a poor historian and has difficulty expressing her thoughts. She did have a large amount of ascites for which she underwent a paracentesis. The final results of the fluid analysis is still pending at this time. Due to her severe respiratory compromise she was sent for a computed tomography scan angiogram to rule out pulmonary embolus. This came back negative. Given her changes in mental status there was concern that she may have central nervous system involvement from her lymphoma. She also does have history of underlying breast carcinoma as well. She was noted to have increasing lethargy and confusion today and several of her narcotic pain medications were discontinued. Computed tomography scan of the abdomen done yesterday did reveal worsening lymphadenopathy. We're waiting further recommendations from oncology. In fact the patient was seen today by Dr. Hunter who feels that [facility] [employer] involvement with her lymphoma is not felt to be very likely. He is recommending possible lumbar puncture and MRI of the brain to be done for further assessment however given her acute mental status changes. We would agree that both studies would be beneficial for this patient. The patient is unable to provide much history as she does seem to have word finding difficulties. She apparently was having increasing degree of tremors earlier today and there was concern she may be having mild seizures. We have recommended a routine EEG to be done for further assessment. Patient is a very poor historian. She appears to be very frail. When questioned about her abdominal ascites she is unable to give much history as to why she may have this condition. Currently her mental status is consistent with a diffuse encephalopathy. We would recommend further evaluation of this patient given her multiple complex past medical histories. We will await further recommendations from oncology regarding her overall status. Due to the worsening mental status changes neurology is now been consulted for further evaluation and recommendations. Review of Systems Constitutional: Denies chills, Denies fever Eyes: denies blurred vision, denies pain Ears, nose, mouth and throat: Denies headache, Denies sore throat Cardiovascular: Denies chest pain, Denies shortness of breath Respiratory: Denies cough Gastrointestinal: Denies abdominal pain, Denies diarrhea, Denies nausea, Denies vomiting Genitourinary: Denies dysuria, Denies hematuria Musculoskeletal: Denies myalgias Integumentary: Denies pruritus, Denies rash Neurological: Reports change in mentation, Reports confusion, Reports seizures, Reports tremors, Denies numbness, Denies weakness Psychiatric: Denies anxiety, Denies depression Endocrine: Denies fatigue, Denies weight change Past Medical History Past Medical History: Cancer, Diabetes Mellitus, GERD/Reflux, Hyperlipidemia, Hypertension, Neurologic Disorder, Syncope Additional Past Medical History / Comment(s): LARGE B CELL LYMPHOMA; RIGHT BREAST CANCER WITH SX AND PT BELIEVES CHEMO, MIGRAINES IN PAST, CONSTIPATION, ANEMIA, NIDDM TYPE II, NEUROPATHY BILATERAL FEET, PUD, DIVERTICULAR DX, UTI'S, BACK PAIN, VASOMOTOR SYMPATHETIC DYSTROPHY RIGHT HAND, RLS. History of Any Multi-Drug Resistant Organisms: MRSA Date of last positivie culture/infection: 08/26/2014 MDRO Source:: Urine Past Surgical History: Adenoidectomy, Appendectomy, Breast Surgery, Cholecystectomy, Heart Catheterization, Hysterectomy, Tonsillectomy Additional Past Surgical History / Comment(s): MASTECTOMY RIGHT, BILATERAL CATARACTS REMOVED WITH LENS IMPLANTS, CARDIAC CATH-NORMAL, COLONOSCOPY Past Anesthesia/Blood Transfusion Reactions: No Reported Reaction Additional Past Anesthesia/Blood Transfusion Reaction / Comment(s): HAD BLOOD TRANSFUSION IN PAST, HAS CLAUSTERPHOBIA Past Psychological History: No Psychological Hx Reported Additional Psychological History / Comment(s): PT RESIDES WITH HER SPOUSE AND DAUGHTER. SHE USES A CANE TO AMBULATE. SHE NO LONGER DRIVES, HER SPOUSE TAKES HER TO APPTS OR HER DAUGHTER. They have 5 children. One grandson is a dentist in [place], [place]. She has no experience. No international travel. no animal exposures. Very supportive family. for 65 years. Smoking Status: Never smoker Past Alcohol Use History: None Reported Past Drug Use History: None Reported - Past Family History Father Family Medical History: Musculoskeletal Disorder, Neurologic Disorder Additional Family Medical History / Comment(s): PARKINSONS Mother Family Medical History: Cancer Additional Family Medical History / Comment(s): FROM BREAST CANCER-HAD HEART PROBLEMS, Medications and Allergies Home Medications Medication Instructions Recorded Confirmed Type Atenolol [Tenormin] 50 mg PO BID 08/05/14 01/13/17 History Cholecalciferol [Vitamin D3] 5,000 unit PO DAILY 08/05/14 01/13/17 History Docusate [Colace] 100 mg PO DAILY PRN 08/05/14 01/13/17 History Gabapentin [Neurontin] 300 mg PO TID 08/05/14 01/13/17 History Multivitamins, Thera [Multivitamin 1 tab PO DAILY 08/05/14 01/13/17 History (formulary)] Omeprazole 40 mg PO AC-BRKFST 08/05/14 01/13/17 History Oxybutynin Chloride [Ditropan XL] 10 mg PO DAILY 08/05/14 01/13/17 History Pravastatin Sodium [Pravachol] 10 mg PO DAILY 05/21/15 01/13/17 History metFORMIN HCL [Glucophage] 500 mg PO BID 05/21/15 01/13/17 History rOPINIRole HCL [Requip] 0.5 mg PO HS 07/28/16 01/13/17 History Albuterol Inhaler [Ventolin Hfa 1 - 2 puff INHALATION RT-Q4H PRN 01/13/17 History Inhaler] Furosemide [Lasix] 20 mg PO DAILY 01/13/17 01/13/17 History Tiotropium Br/Olodaterol HCl 1 puff INHALATION RT-DAILY 01/13/17 01/13/17 History [Stiolto Respimat Inhal [place]] Allergies Allergy/AdvReac Type Severity Reaction Status Date / Time No Known Allergies Allergy Verified 01/13/17 12:51 Physical Examination - Vital Signs Vital Signs: Vital Signs Temp Pulse Pulse Resp BP Pulse Ox 01/19/17 18:55 84 92 H 138/72 94 L 01/19/17 17:38 99.1 F 01/19/17 16:08 100 01/19/17 15:52 98 01/19/17 15:00 99.8 F H 100 20 151/80 92 L 01/19/17 08:39 86 01/19/17 08:32 82 01/19/17 08:22 82 94 L 01/19/17 07:00 98.1 F 92 20 145/75 95 01/18/17 23:31 98.4 F 88 16 146/76 92 L 01/18/17 21:59 81 20 01/18/17 20:59 72 01/18/17 20:42 70 01/18/17 20:41 70 01/18/17 20:39 72 Intake and Output 01/19/17 01/19/17 01/19/17 06:59 14:59 22:59 Intake Total 300 Balance 300 Intake: Intake, IV Titration 100 Amount Sodium Chloride 0.9% 1, 100 000 ml @ 20 mls/hr IV . Q24H COUNT INCLUDES THE [facility] Rx#:[id number] Oral 200 Other: Voiding Method Bedside Commode Bedside Commode # Voids 2 3 # Bowel Movements 1 3 - Constitutional General appearance: average body habitus, cooperative - EENT EENT: PERRL, mucous membranes moist - Respiratory Respiratory: lungs clear, normal breath sounds - Cardiovascular Cardiovascular: normal S1, normal S2 Extremities: no peripheral edema bilaterally - Gastrointestinal Gastrointestinal: normoactive bowel sounds - Integumentary Integumentary: normal - Neurologic Cranial nerve examination: PERRL, EOMI, VFF, V1/V2/V3 grossly intact, face symmetric, tongue midline, intact gag reflex, intact corneal reflex, normal palatal elevation Speech examination: intact Sensorimotor examination: intact Motor examination - right side: 3/5: biceps, triceps, wrist flexion, wrist extension, political advisor, hip flexors, knee extensors, dorsiflexion, toe extension (EHL) , plantarflexion Motor examination - left side: 3/5: biceps, triceps, wrist flexion, wrist extension, political advisor, hip flexors, knee extensors, dorsiflexion, toe extension (EHL) , plantarflexion Detailed sensory examination: intact Reflex and gait examination: intact Reflexes: 1+: ankle, bicep, knee, tricep - Musculoskeletal Musculoskeletal: no pain - Psychiatric Psychiatric: mood/affect appropriate, cooperative Results - Laboratory Findings CBC and BMP: 01/19/17 07:21 01/19/17 07:21 Abnormal Lab Findings: Abnormal Labs 01/13/17 01/13/1701/13/17 17:03 17:41 21:05 WBC RBC Hgb Hct MCHC RDW Plt Count Lymphocytes # Lymphocytes # (Manual) PT ABG pH ABG pCO2 ABG pO2 Sodium Chloride Carbon Dioxide BUN Creatinine POC Glucose (mg/dL) 111 H Plasma Lactic Acid Ruy Calcium Iron TIBC % Saturation Total Bilirubin Troponin I 0.080 H* Urine Appearance Cloudy H Urine Protein 1+ H Urine Blood Large H Urine RBC >182 H IgG Crossmatch 01/13/17 01/13/17 01/14/17 21:29 23:34 05:57 WBC RBC 2.84 L Hgb 7.7 L D Hct 24.7 L MCHC RDW 18.1 H Plt Count 67 L Lymphocytes # Lymphocytes # (Manual) 0.7 L PT ABG pH ABG pCO2 ABG pO2 Sodium Chloride Carbon Dioxide BUN Creatinine POC Glucose (mg/dL) 113 H Plasma Lactic Acid Ruy Calcium Iron TIBC % Saturation Total Bilirubin Troponin I 0.069 H* Urine Appearance Urine Protein Urine Blood Urine RBC IgG Crossmatch 01/14/17 01/14/17 01/14/17 05:57 05:57 05:57 WBC RBC Hgb Hct MCHC RDW Plt Count Lymphocytes # Lymphocytes # (Manual) PT ABG pH ABG pCO2 ABG pO2 Sodium Chloride 109 H Carbon Dioxide BUN 20 H Creatinine POC Glucose (mg/dL) Plasma Lactic Acid Ruy Calcium 8.3 L Iron 21 L TIBC 204 L % Saturation 10.3 L Total Bilirubin Troponin I Urine Appearance Urine Protein Urine Blood Urine RBC IgG 241.0 L Crossmatch 01/14/17 01/14/17 01/15/17 06:15 20:53 05:47 WBC RBC 2.88 L Hgb 7.8 L Hct 25.3 L MCHC 30.7 L RDW 17.8 H Plt Count 63 L Lymphocytes # Lymphocytes # (Manual) 0.6 L PT ABG pH ABG pCO2 ABG pO2 Sodium Chloride Carbon Dioxide BUN Creatinine POC Glucose (mg/dL) 101 H 124 H Plasma Lactic Acid Ruy Calcium Iron TIBC % Saturation Total Bilirubin Troponin I Urine Appearance Urine Protein Urine Blood Urine RBC IgG Crossmatch 01/15/17 01/15/17 01/15/17 05:47 06:42 11:43 WBC RBC Hgb Hct MCHC RDW Plt Count Lymphocytes # Lymphocytes # (Manual) PT ABG pH ABG pCO2 ABG pO2 Sodium Chloride Carbon Dioxide BUN Creatinine 1.10 H POC Glucose (mg/dL) 104 H 116 H Plasma Lactic Acid Ruy Calcium Iron TIBC % Saturation Total Bilirubin Troponin I Urine Appearance Urine Protein Urine Blood Urine RBC IgG Crossmatch 01/15/17 01/15/17 01/15/17 16:10 16:32 21:20 WBC RBC Hgb Hct MCHC RDW Plt Count Lymphocytes # Lymphocytes # (Manual) PT ABG pH ABG pCO2 ABG pO2 Sodium Chloride Carbon Dioxide BUN Creatinine POC Glucose (mg/dL) 119 H 136 H Plasma Lactic Acid Ruy Calcium Iron TIBC % Saturation Total Bilirubin Troponin I Urine Appearance Urine Protein Urine Blood Urine RBC IgG Crossmatch See Detail 01/16/17 01/16/17 01/16/17 06:21 06:24 06:42 WBC RBC 3.60 L Hgb 10.1 L Hct 31.5 L MCHC RDW 17.4 H Plt Count 60 L Lymphocytes # Lymphocytes # (Manual) PT ABG pH ABG pCO2 ABG pO2 Sodium Chloride Carbon Dioxide BUN Creatinine 1.13 H POC Glucose (mg/dL) 104 H Plasma Lactic Acid Ruy Calcium Iron TIBC % Saturation Total Bilirubin Troponin I Urine Appearance Urine Protein Urine Blood Urine RBC IgG Crossmatch 01/16/17 01/16/17 01/17/17 16:56 20:10 06:59 WBC RBC Hgb Hct MCHC RDW Plt Count Lymphocytes # Lymphocytes # (Manual) PT ABG pH ABG pCO2 ABG pO2 Sodium Chloride Carbon Dioxide BUN Creatinine POC Glucose (mg/dL) 109 H 120 H 103 H Plasma Lactic Acid Ruy Calcium Iron TIBC % Saturation Total Bilirubin Troponin I Urine Appearance Urine Protein Urine Blood Urine RBC IgG Crossmatch 01/17/17 01/17/17 01/17/17 07:11 07:11 11:21 WBC 3.3 L RBC Hgb 11.1 L Hct 33.2 L MCHC RDW 17.1 H Plt Count 62 L Lymphocytes # Lymphocytes # (Manual) 0.9 L PT ABG pH ABG pCO2 ABG pO2 Sodium Chloride Carbon Dioxide 32 H BUN 18 H Creatinine 1.24 H POC Glucose (mg/dL) 150 H Plasma Lactic Acid Ruy Calcium Iron TIBC % Saturation Total Bilirubin Troponin I Urine Appearance Urine Protein Urine Blood Urine RBC IgG Crossmatch 01/17/17 01/17/17 01/18/17 17:01 20:14 08:42 WBC 3.1 L RBC 3.74 L Hgb 10.5 L Hct 33.6 L MCHC RDW 17.3 H Plt Count 57 L Lymphocytes # 0.6 L Lymphocytes # (Manual) PT ABG pH ABG pCO2 ABG pO2 Sodium Chloride Carbon Dioxide BUN Creatinine POC Glucose (mg/dL) 136 H 147 H Plasma Lactic Acid Ruy Calcium Iron TIBC % Saturation Total Bilirubin Troponin I Urine Appearance Urine Protein Urine Blood Urine RBC IgG Crossmatch 01/18/17 01/18/17 01/18/17 08:42 11:31 13:04 WBC RBC Hgb Hct MCHC RDW Plt Count Lymphocytes # Lymphocytes # (Manual) PT 12.4 H ABG pH ABG pCO2 ABG pO2 Sodium Chloride Carbon Dioxide BUN 19 H Creatinine 1.19 H POC Glucose (mg/dL) 117 H Plasma Lactic Acid Ruy Calcium Iron TIBC % Saturation Total Bilirubin Troponin I Urine Appearance Urine Protein Urine Blood Urine RBC IgG Crossmatch 01/18/17 01/18/17 01/18/17 17:26 20:13 20:14 WBC RBC Hgb Hct MCHC RDW Plt Count Lymphocytes # Lymphocytes # (Manual) PT ABG pH ABG pCO2 ABG pO2 Sodium Chloride Carbon Dioxide BUN Creatinine POC Glucose (mg/dL) 133 H 53 L 71 L Plasma Lactic Acid Ruy Calcium Iron TIBC % Saturation Total Bilirubin Troponin I Urine Appearance Urine Protein Urine Blood Urine RBC IgG Crossmatch 01/18/17 01/19/17 01/19/17 20:34 07:10 07:21 WBC RBC Hgb Hct MCHC 30.9 L RDW 17.5 H Plt Count 55 L Lymphocytes # Lymphocytes # (Manual) PT ABG pH ABG pCO2 ABG pO2 Sodium Chloride Carbon Dioxide BUN Creatinine POC Glucose (mg/dL) 74 L 67 L Plasma Lactic Acid Ruy Calcium Iron TIBC % Saturation Total Bilirubin Troponin I Urine Appearance Urine Protein Urine Blood Urine RBC IgG Crossmatch 01/19/17 01/19/17 01/19/17 07:21 07:32 08:22 WBC RBC Hgb Hct MCHC RDW Plt Count Lymphocytes # Lymphocytes # (Manual) PT ABG pH 7.53 H ABG pCO2 26 L ABG pO2 63 L Sodium 136 L Chloride Carbon Dioxide BUN 19 H Creatinine 1.36 H POC Glucose (mg/dL) 69 L Plasma Lactic Acid Ruy Calcium Iron TIBC % Saturation Total Bilirubin 1.7 H Troponin I Urine Appearance Urine Protein Urine Blood Urine RBC IgG Crossmatch 01/19/17 01/19/17 11:37 17:15 WBC RBC Hgb Hct MCHC RDW Plt Count Lymphocytes # Lymphocytes # (Manual) PT ABG pH ABG pCO2 ABG pO2 Sodium Chloride Carbon Dioxide BUN Creatinine POC Glucose (mg/dL) 104 H Plasma Lactic Acid Ruy 2.3 H* Calcium Iron TIBC % Saturation Total Bilirubin Troponin I Urine Appearance Urine Protein Urine Blood Urine RBC IgG Crossmatch Assessment and Plan (1) Acute encephalopathy Status: Acute Code(s): G93.40 - ENCEPHALOPATHY, UNSPECIFIED (2) Diffuse large B cell lymphoma Status: Acute Code(s): C83.30 - DIFFUSE LARGE B-CELL LYMPHOMA, UNSPECIFIED SITE (3) SIRS (systemic inflammatory response syndrome) Status: Acute Code(s): R65.10 - SIRS OF NON-INFECTIOUS ORIGIN W/O ACUTE ORGAN DYSFUNCTION (4) Weakness Status: Acute Code(s): R53.1 - WEAKNESS Plan: This patient is a 81-year-old female with complex past medical history. She has a history of underlying large cell B-cell lymphoma as well as remote history of breast cancer. She was found to be in atrial fibrillation and is currently being treated for this as well. She is suddenly shown a worsening change in mental status over the last 24 hours. She is having generalized weakness as well as increased tremors. We have recommended a routine EEG to rule out complex partial status epilepticus in this patient. We would recommend an MRI of the brain for further evaluation as well as a lumbar puncture to rule out meningeal carcinomatosis. Analysis of the spinal fluid shows also rule out malignant cells in the CSF. Clinical history is showing one of deterioration with possible spread of several of her underlying cancer history. We will await further recommendations from oncology as well. This patient's overall prognosis at this time remains very guarded. We will continue close neurological follow-up with this patient during this admission. Time with Patient: Greater than 30
--- NOTE | 2017-01-19 23:15 | P.PN ---
Subjective Principal diagnosis: Altered mental status 81-year-old female is a history of multiple medical troubles with that her pulmonologists office for follow-up of her cough that has been problematic since September of this year. She's had difficulties with some shortness of breath as well as a mostly dry but minimally productive cough. It has affected the quality of her life. At the office the patient apparently slumped over onto her . She had altered mental status. Vital signs reveal evidence of her heart rate in the 180s. Carotid massage was performed and heart rate slowed. Because of her difficulty she was transferred to the emergency center. There she is on evidence of atrial fibrillation with rapid ventricular response. She was treated with Cardizem and has had improvement. The patient has a known history of large B-cell lymphoma as well as a history of breast carcinoma. Does have underlying hyperlipidemia hypertension and diabetes in a history of multifocal atrial tachycardia. Cardiology has seen the patient and believe that she has chronic congestive heart failure systolic type. Infectious diseases consultation requested with concerns of pneumonia after her event and the abnormal chest x-ray. Patient does not believe she's had significant fever chill or rigor before admission. However is noted she is having difficulty with a chronic cough that is only minimally productive at times. He has had a decline since yesterday. Overnight had worsening of her mental status. She is developed myoclonas and remains quite jerky with her extremities. She is uncomfortable and minimally agitated tonight. Objective - Vital Signs Vital signs: Vital Signs Temp 99.1 F 01/19/17 17:38 Pulse 84 01/19/17 18:55 Resp 92 H 01/19/17 18:55 BP 138/72 01/19/17 18:55 Pulse Ox 94 L 01/19/17 18:55 Intake & Output 01/19/17 01/19/17 01/20/17 06:59 18:59 06:59 Intake Total 770 Output Total 300 Balance 470 Intake: IV 50 Piperacillin-Tazobactam 3 50 .375 gm In Dextrose/Water 1 50ml.bag @ 12.5 mls/hr IVPB Q8HR [facility] Rx#: [id number] Intake, IV Titration 280 Amount Sodium Chloride 0.9% 1, 280 000 ml @ 20 mls/hr IV . Q24H APOORVA Rx#:[id number] Oral 440 Output: Urine 300 Other: Voiding Method Bedside Commode Bedside Commode # Voids 2 3 # Bowel Movements 1 3 - Exam Pleasant 81-year-old woman who seems very modestly comfortable but coughs occasionally through the exam. Does relate to some modest shortness of breath. HEENT: Anicteric conjunctiva are pink and moist nasal mucosa grossly intact without significant lesions, there is no thrush. Neck: The neck is supple without significant lymphadenopathy or thyromegaly. Lungs: There is symmetrical air entry. There are bibasilar crackles. No nik bronchial sounds. No dullness or egophony. Heart: Irregular with an audible S1-S2, no S3 off tests for. There is no significant murmur click or rub, PMI was nondisplaced. Abdomen: Positive bowel sounds soft and nontender without palpable masses or organomegaly. There was no guarding or rebound.The large ascites is improved after paracentesis of today. Extremities: The upper extremities have excellent pulses they are symmetric, no significant petechiae or telangiectasia. No splinter hemorrhages were noted. The lower extremities are free from significant edema. The peripheral pulses were 2+ and symmetric. Neuro: Awake and alert slightly agitated complaints of discomfort especially of her coccyx, with 3 positioning slightly more comfortable. Does have myoclonic jerks - Labs CBC & Chem 7: 01/19/17 07:21 01/19/17 07:21 Labs: Abnormal Lab Results - Last 24 Hours (Table) 01/19/17 01/19/17 01/19/17 Range/Units 07:10 07:21 07:21 MCHC 30.9 L (31.0-37.0) g/dL RDW 17.5 H (11.5-15.5) % Plt Count 55 L (150-450) k/uL ABG pH (7.35-7.45) ABG pCO2 (35-45) mmHg ABG pO2 (83-108) mmHg Sodium 136 L (137-145) mmol/L BUN 19 H (7-17) mg/dL Creatinine 1.36 H (0.52-1.04) mg/dL POC Glucose (mg/dL) 67 L (75-99) mg/dL Plasma Lactic Acid Ruy (0.7-2.0) mmol/L Total Bilirubin 1.7 H (0.2-1.3) mg/dL 01/19/17 01/19/17 01/19/17 Range/Units 07:32 08:22 11:37 MCHC (31.0-37.0) g/dL RDW (11.5-15.5) % Plt Count (150-450) k/uL ABG pH 7.53 H (7.35-7.45) ABG pCO2 26 L (35-45) mmHg ABG pO2 63 L (83-108) mmHg Sodium (137-145) mmol/L BUN (7-17) mg/dL Creatinine (0.52-1.04) mg/dL POC Glucose (mg/dL) 69 L (75-99) mg/dL Plasma Lactic Acid Ruy 2.3 H* (0.7-2.0) mmol/L Total Bilirubin (0.2-1.3) mg/dL 01/19/17 01/19/17 Range/Units 17:15 20:00 MCHC (31.0-37.0) g/dL RDW (11.5-15.5) % Plt Count (150-450) k/uL ABG pH (7.35-7.45) ABG pCO2 (35-45) mmHg ABG pO2 (83-108) mmHg Sodium (137-145) mmol/L BUN (7-17) mg/dL Creatinine (0.52-1.04) mg/dL POC Glucose (mg/dL) 104 H 101 H (75-99) mg/dL Plasma Lactic Acid Ruy (0.7-2.0) mmol/L Total Bilirubin (0.2-1.3) mg/dL Laboratory Results WBC 5.4 k/uL (3.8-10.6) 01/19/17 07:21 RBC 4.15 m/uL (3.80-5.40) 01/19/17 07:21 Hgb 11.4 gm/dL (11.4-16.0) 01/19/17 07:21 Hct 36.9 % (34.0-46.0) 01/19/17 07:21 MCV 89.0 fL (80.0-100.0) 01/19/17 07:21 MCH 27.5 pg (25.0-35.0) 01/19/17 07:21 MCHC 30.9 g/dL (31.0-37.0) L 01/19/17 07:21 RDW 17.5 % (11.5-15.5) H 01/19/17 07:21 Plt Count 55 k/uL (150-450) L 01/19/17 07:21 Neutrophils % 62 % 01/18/17 08:42 Neutrophils % (Manual) 51.0 % 01/17/17 07:11 Band Neutrophils % 2.0 % 01/17/17 07:11 Lymphocytes % 19 % 01/18/17 08:42 Lymphocytes % (Manual) 27.0 % 01/17/17 07:11 Monocytes % 14 % 01/18/17 08:42 Monocytes % (Manual) 18.0 % 01/17/17 07:11 Eosinophils % 2 % 01/18/17 08:42 Eosinophils % (Manual) 2.0 % 01/17/17 07:11 Basophils % 1 % 01/18/17 08:42 Neutrophils # 1.9 k/uL (1.3-7.7) 01/18/17 08:42 Neutrophils # (Manual) 1.7 k/uL (1.3-7.7) 01/17/17 07:11 Lymphocytes # 0.6 k/uL (1.0-4.8) L 01/18/17 08:42 Lymphocytes # (Manual) 0.9 k/uL (1.0-4.8) L 01/17/17 07:11 Monocytes # 0.4 k/uL (0-1.0) 01/18/17 08:42 Monocytes # (Manual) 0.6 k/uL (0-1.0) 01/17/17 07:11 Eosinophils # 0.1 k/uL (0-0.7) 01/18/17 08:42 Eosinophils # (Manual) 0.1 k/uL (0-0.7) 01/17/17 07:11 Basophils # 0.0 k/uL (0-0.2) 01/18/17 08:42 Nucleated RBCs 0 /100 WBC (0-0) 01/17/17 07:11 Manual Slide Review Performed 01/14/17 05:57 Large Platelets Present 01/13/17 11:45 Polychromasia Present 01/13/17 11:45 Hypochromasia Moderate 01/19/17 07:21 Poikilocytosis Slight 01/17/17 07:11 Poikilocytosis (manual Present 01/13/17 11:45 Anisocytosis Slight 01/19/17 07:21 Target Cells Present 01/16/17 06:24 Ovalocytes Present 01/15/17 05:47 Fragmented RBCs Present 01/17/17 07:11 Retic Count 1.8 % (0.5-2.0) 01/14/17 05:57 PT 12.4 sec (9.0-12.0) H 01/18/17 13:04 INR 1.3 (<1.1) 01/18/17 13:04 APTT 31.2 sec (22.0-30.0) H 01/13/17 11:45 D-Dimer 6.62 mg/L FEU (<0.60) H 01/13/17 11:45 Sample Site LBA 01/19/17 08:22 ABG pH 7.53 (7.35-7.45) H 01/19/17 08:22 ABG pCO2 26 mmHg (35-45) L 01/19/17 08:22 ABG pO2 63 mmHg (83-108) L 01/19/17 08:22 ABG HCO3 22 mmol/L (21-25) 01/19/17 08:22 ABG Total CO2 22 mmol/L (19-24) 01/19/17 08:22 ABG O2 Saturation 94.5 % (94-97) 01/19/17 08:22 ABG Base Excess -0.9 mmol/L 01/19/17 08:22 FiO2 28 % 01/19/17 08:22 Sodium 136 mmol/L (137-145) L 01/19/17 07:21 Potassium 5.0 mmol/L (3.5-5.1) 01/19/17 07:21 Chloride 100 mmol/L (98-107) 01/19/17 07:21 Carbon Dioxide 25 mmol/L (22-30) 01/19/17 07:21 Anion Gap 11 mmol/L 01/19/17 07:21 BUN 19 mg/dL (7-17) H 01/19/17 07:21 Creatinine 1.36 mg/dL (0.52-1.04) H 01/19/17 07:21 Est GFR (MDRD) Af Amer 45 (>60 ml/min/1.73 sqM) 01/19/17 07:21 Est GFR (MDRD) Non-Af 37 (>60 ml/min/1.73 sqM) 01/19/17 07:21 Glucose 92 mg/dL (74-99) 01/19/17 07:21 POC Glucose (mg/dL) 101 mg/dL (75-99) H 01/19/17 20:00 POC Glu [employer] Electric[employer] ID Samaria Leon 01/19/17 20:[address] Glu mg/dL 126 mg/dL 01/13/17 17:41 Hemoglobin A1c 6.0 % (4.2-6.1) 01/13/17 17:41 Plasma Lactic Acid Ruy 1.7 mmol/L (0.7-2.0) 01/19/17 19:23 Calcium 9.3 mg/dL (8.4-10.2) 01/19/17 07:21 Magnesium 1.6 mg/dL (1.6-2.3) 01/14/17 05:57 Iron 21 ug/dL (37-170) L 01/14/17 05:57 TIBC 204 ug/dL (265-497) L 01/14/17 05:57 % Saturation 10.3 % (20-50) L 01/14/17 05:57 Total Bilirubin 1.7 mg/dL (0.2-1.3) H 01/19/17 07:21 AST 20 U/L (14-36) 01/19/17 07:21 ALT 20 U/L (9-52) 01/19/17 07:21 Alkaline Phosphatase 63 U/L (38-126) 01/19/17 07:21 Ammonia <9 umol/L (<30) 01/19/17 21:01 Total Creatine Kinase <20 U/L (30-135) L 01/13/17 11:45 CK-MB (CK-2) 0.4 ng/mL (0.0-2.4) 01/13/17 11:45 CK-MB (CK-2) Rel Index 0.0 01/13/17 11:45 Troponin I 0.069 ng/mL (0.000-0.034) H* 01/13/17 23:34 NT-Pro-B Natriuret Pep 7830 pg/mL 01/13/17 11:45 Total Protein 7.1 g/dL (6.3-8.2) 01/19/17 07:21 Albumin 3.5 g/dL (3.5-5.0) 01/19/17 07:21 TSH 3.440 mIU/L (0.465-4.680) 01/18/17 08:42 Urine Color Yellow 01/13/17 21:05 Urine Appearance Cloudy (Clear) H 01/13/17 21:05 Urine pH 6.0 (5.0-8.0) 01/13/17 21:05 Ur Specific Lennon 1.033 (1.001-1.035) 01/13/17 21:05 Urine Protein 1+ (Negative) H 01/13/17 21:05 Urine Glucose (UA) Negative (Negative) 01/13/17 21:05 Urine Ketones Negative (Negative) 01/13/17 21:05 Urine Blood Large (Negative) H 01/13/17 21:05 Urine Nitrite Negative (Negative) 01/13/17 21:05 Urine Bilirubin Negative (Negative) 01/13/17 21:05 Urine Urobilinogen <2.0 mg/dL (<2.0) 01/13/17 21:05 Ur Leukocyte Esterase Negative (Negative) 01/13/17 21:05 Urine RBC >182 /hpf (0-5) H 01/13/17 21:05 Urine WBC 5 /hpf (0-5) 01/13/17 21:05 Ur Squamous Epith Cells 1 /hpf (0-4) 01/13/17 21:05 IgG 241.0 mg/dL (700.0-1600.0) L 01/14/17 05:57 Miscellaneous Test B CELL, PERITONEAL 01/16/17 14:41 Misc Test Result See Comment 01/16/17 14:41 Blood Type A Positive 01/15/17 16:10 Blood Type Recheck No 01/15/17 16:10 Antibody Screen NEGATIVE 01/15/17 16:10 Crossmatch See Detail 01/15/17 16:10 Spec Expiration Date 01/16/2017 - 234401/15/17 16:10 Microbiology 01/13/17 11:45 Blood Blood Culture - Final No Growth after 144 hours 01/13/17 19:30 Urine,Voided Urine Culture - Final 01/14/17 11:00 Sputum Gram Stain - Final 01/14/17 11:00 Sputum Sputum Culture - Final Assessment and Plan (1) Pneumonia Narrative/Plan: 81-year-old female with history of diffuse large B-cell lymphoma and follows with local oncology. The patient relates that in the fall of every year she undergoes a 4 week cycle of Rituxan infusions before she goes to [place]. They've returned from [place] from their winter session where she was quite well while she was there. Upon returning back she's not been feeling well. She's had a cough has been ongoing since September. It's been with minimal production and mostly dry. She denies significant shortness of breath. She is also not having fevers chills or rigors. 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 While she was in the office she had a change of her status she slumped into her 's arms. She was on evidence of a very high heart rate of 180 and vagal stimulation was performed. She was transported to Hospital by EMS. She's now doing somewhat better. That has evidence of the abnormal computed tomography scan and chest x-ray. Concerns for pneumonia. Given the altered mental status further concerns to potential aspiration pneumonia. Computed tomography scan failed to reveal evidence of a pulmonary embolus. Consequently for antibiotic therapy piperacillin tazobactam is a reasonable choice at this point in time given her immunocompromised status, pseudomonas risk and aspiration risk. She's noticed to have worsening of her baseline anemia. Unclear if this from underlying disease state or another process. Is being monitored at this point in time. Her thrombocytopenia is at about its baseline. Does not seem to be having any difficulty with the Zosyn therapy. No evidence for other forms of infection at this point in time, but does have some hematuria which may need follow-up. CT of the abdomen did show evidence of some ascites, underwent paracentesis and await further data, blood cultures negative so far and paracentesis was negative for malignant cells Does have evidence of a low IgG level. Level was requested in his further reduced at 241. Given the current level of illness IgG supplementation has been given and well tolerated. Discussed with oncology. Patient's neurological status has worsened. She's been seen by neurology. Concerns to a metabolic processes were underlying malignancy causing the current changes of her mental status. Literature review on up-to-date was performed with piperacillin tazobactam and no significant neurological toxicity is reported. It is unlikely the antibiotic is causing her current disease state. He would like to continue her antibiotic to complete the treatment of her aspiration pneumonia, 7 days. Status: Acute (2) Syncope Status: Acute (3) Diffuse large B cell lymphoma Status: Acute (4) History of cancer of right breast Status: Acute
[2017-01-19] MEDS: ACETAMINOPHEN TAB 500 MG TAB PO PRN (23:57)
[2017-01-20 07:32] LABS: Glucose,Whole Blood 98 mg/dL (75-99)
[2017-01-20 07:46] LABS: INR 1.3 (<1.1); Partial Thromboplastin Time 41.7 sec (22.0-30.0); Prothrombin Time 12.8 sec (9.0-12.0)
[2017-01-20 07:52] LABS: Calcium 8.6 mg/dL (8.4-10.2); Potassium 3.8 mmol/L (3.5-5.1); Total Bilirubin 1.4 mg/dL (0.2-1.3); Total Protein 5.8 g/dL (6.3-8.2)
--- NOTE | 2017-01-20 08:38 | XR ---
EXAMINATION TYPE: XR chest 1V portable DATE OF EXAM: 01/20/2017 7:30 AM Comparison: 01/18/2017 Clinical History: 81-year-old female CHF Findings: Heart is normal size. At this chronic arch calcifications. Left anterior chest wall subclavian cathet er with tip at the upper SVC. The visualized ACF hardware. Surgical clips of the right axilla. There is some stable patchy right midlung opacity. Prominent skin folds projecting at the peripheral right base. Pulmonary vasculature within normal limits. There is a convexly marginated edge projecting at t he right upper lung. Impression: 1. Stable patchy infiltrate at the right midlung. 2. Prominent skin folds at the right base. Additional convexly marginated edge at the right upper sreedhar g equivocal for additional skin fold versus new small superior pneumothorax. Repeat exam recommended to exclude a pneumothorax. Findings called to 5-ONC and given to nurse Regi at 8:34am.
[2017-01-20] MEDS: PRAVASTATIN SODIUM 20 MG TAB PO SCH (08:42)
[2017-01-20 08:43] LABS: Anisocytosis Slight; CHCM 30.5; HCT 31.4 % (34.0-46.0); HDW 2.89; Hypochromasia Moderate; Large Platelets Flag Marked; MCH 27.3 pg (25.0-35.0); MCHC 30.8 g/dL (31.0-37.0); MCV 88.7 fL (80.0-100.0); Mean Platelet Volume 12.2; RBC 3.53 m/uL (3.80-5.40); RDW 17.6 % (11.5-15.5); WBC 3.3 k/uL (3.8-10.6)
[2017-01-20] MEDS: OXYBUTYNIN 10 MG TAB.ER.24 PO SCH (08:43)
[2017-01-20] MEDS: HEPARIN SODIUM,PORCINE 5,000 UNIT/ML 1 ML VIAL SQ SCH ×2 (08:43→22:31)
[2017-01-20] MEDS: GABAPENTIN 300 MG CAP PO SCH ×3 (08:44→22:31)
[2017-01-20] MEDS: CHOLECALCIFEROL 1,000 UNIT TAB PO SCH (08:44)
[2017-01-20] MEDS: PANTOPRAZOLE 40 MG TABLET PO SCH (08:46)
[2017-01-20] MEDS: PIPERACILLIN-TAZOBACTAM 3.375 GM in DEXTROSE/WATER 1 50ML.BAG IVPB SCH (08:46)
[2017-01-20] MEDS: INSULIN LISPRO (humaLOG) 300 UNIT/3 ML VIAL SQ SCH ×4 (08:47→22:31)
[2017-01-20] MEDS: FERROUS SULFATE 325 MG TAB PO SCH ×2 (08:47→18:02)
[2017-01-20 08:55] LABS: HGB 9.6 gm/dL (11.4-16.0)
[2017-01-20] MEDS: BUDESONIDE 1 MG/2 ML NEBU INHALATION SCH ×2 (09:13→20:19)
[2017-01-20] MEDS: FORMOTEROL FUMARATE 20 MCG/2 ML NEBU INHALATION SCH ×2 (09:13→20:19)
[2017-01-20] MEDS: IPRATROPIUM-ALBUTEROL 3 ML NEB INHALATION SCH ×4 (09:14→20:19)
--- NOTE | 2017-01-20 09:15 | P.PN ---
Subjective Patient is seen in follow-up for acute kidney injury. Her baseline creatinine is near 1 and was elevated at 1.36 yesterday. It is down to 1.3 today. Patient presented to the hospital on January 13 after a syncopal episode at a physician's office. She was also made fibrillation with RVR. Her heart rate is now controlled. She also underwent CT on January 13 which did not reveal any evidence of PE. Furthermore she underwent paracentesis on January 16 for ascites and 2.6 L were removed. She is also been maintained on Lasix 40 mg IV daily. Patient has been quite lethargic but is better today. She did develop tremors yesterday and is scheduled to undergo MRI of the brain as well as an EEG per neurology. She also has B-cell lymphoma and has underwent treatment with R- CHOP and is maintained on rituximab. She is currently having breakfast. Denies chest pain or shortness of breath. No lower extremity edema. Admits to good urine output. Vital signs are stable. General: The patient appeared well nourished and normally developed. HEENT: Head exam is unremarkable. Neck is without jugular venous distension. LUNGS: Lungs are clear to auscultation and percussion. Breath sounds decreased. HEART: Rate and Rhythm are regular. First and second heart sounds normal. No murmurs, rubs or gallops. ABDOMEN: Abdominal exam reveals normal bowel sounds. Non-tender, moderately distended. EXTREMITITES: No clubbing, cyanosis, or edema. Objective - Vital Signs Vital signs: Vital Signs Temp 97.6 F 01/20/17 07:00 Pulse 81 01/20/17 07:00 Resp 16 01/20/17 07:00 BP 169/77 01/20/17 07:00 Pulse Ox 98 01/20/17 07:00 Intake & Output 01/19/17 01/20/17 01/20/17 18:59 06:59 18:59 Intake Total 710 Balance 710 Intake: Oral 710 Other: Voiding Method Bedside Commode Bedside Commode # Voids 3 7 # Bowel Movements 3 - Labs CBC & Chem 7: 01/20/17 06:55 01/20/17 06:55 Labs: Abnormal Lab Results - Last 24 Hours (Table) 01/19/17 01/19/17 01/19/17 Range/Units 07:21 08:22 11:37 WBC (3.8-10.6) k/uL RBC (3.80-5.40) m/uL Hgb (11.4-16.0) gm/dL Hct (34.0-46.0) % MCHC 30.9 L (31.0-37.0) g/dL RDW 17.5 H (11.5-15.5) % Plt Count 55 L (150-450) k/uL PT (9.0-12.0) sec APTT (22.0-30.0) sec ABG pH 7.53 H (7.35-7.45) ABG pCO2 26 L (35-45) mmHg ABG pO2 63 L (83-108) mmHg BUN (7-17) mg/dL Creatinine (0.52-1.04) mg/dL POC Glucose (mg/dL) (75-99) mg/dL Plasma Lactic Acid Ruy 2.3 H* (0.7-2.0) mmol/L Total Bilirubin (0.2-1.3) mg/dL Total Protein (6.3-8.2) g/dL Albumin (3.5-5.0) g/dL 01/19/17 01/19/17 01/20/17 Range/Units 17:15 20:00 06:55 WBC 3.3 L (3.8-10.6) k/uL RBC 3.53 L (3.80-5.40) m/uL Hgb 9.6 L D (11.4-16.0) gm/dL Hct 31.4 L (34.0-46.0) % MCHC 30.8 L (31.0-37.0) g/dL RDW 17.6 H (11.5-15.5) % Plt Count 41 L* (150-450) k/uL PT (9.0-12.0) sec APTT (22.0-30.0) sec ABG pH (7.35-7.45) ABG pCO2 (35-45) mmHg ABG pO2 (83-108) mmHg BUN (7-17) mg/dL Creatinine (0.52-1.04) mg/dL POC Glucose (mg/dL) 104 H 101 H (75-99) mg/dL Plasma Lactic Acid Ruy (0.7-2.0) mmol/L Total Bilirubin (0.2-1.3) mg/dL Total Protein (6.3-8.2) g/dL Albumin (3.5-5.0) g/dL 01/20/17 01/20/17 Range/Units 06:55 06:55 WBC (3.8-10.6) k/uL RBC (3.80-5.40) m/uL Hgb (11.4-16.0) gm/dL Hct (34.0-46.0) % MCHC (31.0-37.0) g/dL RDW (11.5-15.5) % Plt Count (150-450) k/uL PT 12.8 H (9.0-12.0) sec APTT 41.7 H (22.0-30.0) sec ABG pH (7.35-7.45) ABG pCO2 (35-45) mmHg ABG pO2 (83-108) mmHg BUN 19 H (7-17) mg/dL Creatinine 1.30 H (0.52-1.04) mg/dL POC Glucose (mg/dL) (75-99) mg/dL Plasma Lactic Acid Ruy (0.7-2.0) mmol/L Total Bilirubin 1.4 H (0.2-1.3) mg/dL Total Protein 5.8 L (6.3-8.2) g/dL Albumin 2.8 L (3.5-5.0) g/dL Assessment and Plan Plan: Assessment: #1. Nonoliguric acute kidney injury secondary to ischemic ATN which is multifactorial in nature. Etiologies include hemodynamic instability from atrial fibrillation with RVR, anemia, along with paracentesis with 2.6 L removed on January 16 as well as diuresis. Her baseline creatinine is 1 and is elevated at 1.36 as of yesterday. It is down to 1.30 today. Additional she also underwent CT angiogram on January 13. No hydronephrosis noted on CAT scan of abdomen and pelvis. Her prior urinalysis revealed no evidence of hematuria. However she does have proteinuria that has been present persistently and is likely related to her underlying diabetic kidney disease. #2. Large B-cell lymphoma. She underwent R CHOP chemotherapy and maintained on rituximab. #3. Ascites. Unknown etiology at this time. Status post paracentesis on January 16 2.6 L drained. #4. Anemia. Status post 2 units packed red blood cell transfusion. Hemoglobin down to 9.6 today. #5. Diabetes mellitus. Metformin held. #6. Aspiration pneumonia. Plan: Hold Lasix today - last dose was January 19. Avoid nephrotoxic agents and hypotensive episodes. Await cytology results from paracentesis done on January 16. Antibiotics per infectious disease recommendations. Follow-up MRI and EEG results. Potential LP per oncology recommendations. Repeat electrolytes in the morning. Check iron studies. Repeat urinalysis. Will quantify proteinuria when GFR returns to baseline.
[2017-01-20 10:48] LABS: % Iron Saturation 14.1 % (20-50)
--- NOTE | 2017-01-20 11:18 | CDI ---
In responding to this query, please exercise your independent professional judgment. The [facility] Coding Staff and Clinical Documentation Specialists appreciate your assistance in clarifying documentation, maintaining compliance with coding guidelines, accurately documenting patients condition and capturing severity of illness. The fact that a question is asked does not imply that any particular answer is desired or expected. Communication forms are a method of clarifying documentation and are not made part of the Legal Health Record. Thank you in advance for your clarification. Last Revision, July [address] [facility] [place] [place] [address] Documentation Clarification Form Date: 01/20/2017 10:53:00 AM From: Ivy Castro CCS, CCDS Admit Date: 01/13/2017 12:57:00 PM Patient Name: Brent Ni Visit Number: [id number] Discharge Date: Dr. Abimael Roe: Encephalopathy is documented in the 01/19 attending progress note and also the Neurological Consultation as Acute Encephalopathy. History/Risk factors: 81 yo female, admitted after a syncopal episode, atrial fibrillation & tiredness & weakness. Long time smoker. Clinical Indicators: Patient's mental status has been worsening since admission per documentation. Per nursing note: patient has pulled off her gown, pulled out one of her IVs and is minimally agitated. Labs: PT 12.8^, APTT 41.7^, Blood Gas: pH 7.53^, pCO2 26*, pO2 63*; Na 136*, BUN 19^, Cr 1.30^, Total Bili 1.4^, Total protein 5.8*, Albumin 2.8*. EEG: Pending CT Brain: Atrophy with periventricular white matter ischemic changes, progressive from 06/19/13. Correlate for acute right maxillary sinusitis. Treatment: IV abx for possible aspiration pneumonia, BiPAP initially, now on high flow O2 3Lnc, smoking cessation. Consults: Cardiology, Infectious Disease, Pulmonary, Oncology, Neurology. EEG pending, MRI brain recommended. In your professional opinion, can you please clarify the specific type of encephalopathy, if known? Anoxic Encephalopathy Hypertensive Encephalopathy Metabolic Encephalopathy Septic Encephalopathy Toxic Encephalopathy Hepatic Encephalopathy, if indicated, please clarify: - Indicate whether acute, sub-acute or chronic? Other, please specify Unable to determine Please document in your progress notes and discharge summary in order to capture severity of illness and risk of mortality. Include clinical findings that support your diagnosis. FYI: Press F11 to launch patient chart. Place X here if this finding has no clinical significance, is not applicable or if you are not able to provide any additional documentation. Thank You. MARYANN
[2017-01-20 11:40] LABS: Glucose,Whole Blood 109 mg/dL (75-99)
--- NOTE | 2017-01-20 12:51 | PN ---
Patient is feeling little bit better compared to yesterday. Patient's mental status improved, but says still has myoclonus. Patient is started back on Zosyn, although patient appears to have received 7 days of antibiotics as recommended by infectious disease and also there is no significant evidence of aspiration pneumonia, either, because of this, antibiotic will be discontinued, although Zosyn does not cause encephalopathy it can still cause myoclonic activity by decreasing seizure threshold and neurology evaluated the patient and patient is getting an MRI and EEG. The possibility of KILN FEEDER lymphoma is pretty low considering the nature of her lymphoma and no evidence of recurrence or spread on the CT of the abdomen. REVIEW OF SYSTEMS: CARDIOVASCULAR: No chest pain, no orthopnea, no PND, no palpitations. PULMONARY: Denied any shortness of breath. No cough or hemoptysis. GASTROINTESTINAL: No diarrhea, nausea or vomiting. No abdominal pain. Normoactive bowel sounds. NEUROLOGIC: As described in HPI. Medications were reviewed. PHYSICAL EXAMINATION: Temperature 97.6, pulse 100, respiratory rate of 16, blood pressure is 116/77. Saturating at 98% on 4 liters of oxygen by nasal cannula. GENERAL: Patient continues to have myoclonic activity. Patient is alert and oriented times around 3 today, around 2 to 3 today. HEENT: Pupils are round and equally reacting to light. EOMI. No scleral icterus. No conjunctival pallor. Normocephalic, atraumatic. No pharyngeal erythema. No thyromegaly. CARDIOVASCULAR: S1 and S2 present. No murmurs, rubs, or gallops. PULMONARY: Chest is clear to auscultation, no wheezing or crackles. ABDOMEN: Soft, nontender, nondistended, normoactive bowel sounds. No palpable organomegaly. MUSCULOSKELETAL: No joint swelling or deformity. EXTREMITIES: No cyanosis, clubbing, or pedal edema. NEUROLOGICAL: No new focal neurological deficits were appreciated except myoclonic activity. SKIN: No rashes. LABORATORY DATA: CBC, CMP are abnormal for low platelet count of 41,000 and creatinine remains at 1.3. Apparently patient received Lasix yesterday. FINAL DIAGNOSIS(ES): 1. Atrial fibrillation, rate controlled, congestive heart failure, Patient has diastolic dysfunction with acute exacerbation on admission with minimally depressed ejection fraction of around 45%. Patient is on the hypovolemic side. Patient actually received IV fluids, 2. Large B-cell lymphoma completed chemotherapy. 3. Confusion and altered mental status due to metabolic toxic metabolic encephalopathy. 4. Myoclonus secondary to encephalopathy, which I still believe is related to antibiotics, which will be discontinued. 5. Mildly elevated troponin secondary to secondary to infection on admission, which resolved at this point of time. 6. Acute renal failure with prerenal azotemia secondary to excessive diuretic therapy. 7. Mild pancytopenia. 8. Hypertension. 9. Hyperlipidemia. 10. Diabetic nephropathy. 11. Gastroesophageal reflux disease. 12. Ascites of unknown etiology. Regarding altered mental status and delirium, further evaluation as mentioned in the interval history.
--- NOTE | 2017-01-20 13:00 | XR ---
EXAMINATION TYPE: XR chest 2V DATE OF EXAM: 01/20/2017 12:20 PM COMPARISON: Earlier today HISTORY: 81-year-old female rule out pneumothorax, follow-up 2 questionable finding earlier today. TECHNIQUE: Frontal and lateral views FINDINGS: Lateral view shows patchy posterior basilar opacity. Resolution of the previously seen skin folds on the right. There is no appreciable pneumothorax on the right. ACDF hardware and left anterior chest w all injection port. Improving aeration at the right midlung. IMPRESSION: 1. No pneumothorax. Finding on the exam performed earlier today is compatible with a skin fold. 2. Improving aeration at the right midlung. However, the lateral view shows patchy posterior basilar opacity that could represent atelectasis or early infiltrate. Clinically correlate.
--- NOTE | 2017-01-20 14:51 | MR ---
EXAMINATION TYPE: MR brain wo/w con DATE OF EXAM: 01/20/2017 2:36 PM COMPARISON: MRI brain June 27, 2013. HISTORY: Mental status changes with history of lymphoma and sepsis TECHNIQUE: Multiplanar, multisequence images of the brain and brainstem is performed without and with IV contras t, utilizing 15 mL intravenous MultiHance . FINDINGS: Diffusion weighted images demonstrate no evidence of a recent infarct or other diffusion ab normality. There is no worrisome extra-axial fluid collection. There is ventricular and sulcal promi nence consistent with diffuse age-related cerebral atrophy. There are scattered foci of T2 hyperinten sity seen throughout the white matter bilaterally. Lesions are nonspecific in appearance and distribu tion but most likely on basis of product of chronic small vessel ischemic change in patient this age. Midline structures demonstrate normal morphology. The craniocervical junction appears within normal limits. Post contrast images demonstrate no abnormal enhancement. The dural venous sinuses appear pa tent. Prominent filling defect presumed arachnoid granulation on the left on axial image 10 is unchan ged from prior exam. There is mild to moderate mucosal thickening involving bilateral maxillary sinus es with more oval T2 hyperintense lesion in right maxillary sinus inferiorly felt to reflect polyp. T here is additional small air-fluid level in left maxillary sinus. There is moderate mucosal thickenin g ethmoid sinuses bilaterally. Mild mucosal thickening is seen in bilateral frontal sinuses. Both andrae ses are thinned similar to prior study. Focal fluid is Increased fluid signal right mastoid air cells is now present IMPRESSION: 1. Mild to moderate diffuse cerebral atrophy and chronic small vessel ischemic change redemonstrated, no significant change from prior MRI is seen. 2. New chronic paranasal sinus disease with possible acute component left maxillary sinus noted. Clin ical correlation advised. 3. New increased fluid signal right mastoid air cells in which mastoiditis cannot be excluded, clinic al correlation advised.
[2017-01-20] MEDS: MULTIVITAMINS, THERA 1 EACH TAB PO SCH (15:30)
--- NOTE | 2017-01-20 16:52 | P.PN ---
Subjective Principal diagnosis: Admitted for syncopy, Hem/Onc consulted for Hx lymphoma Pt seen today in follow up. She is feeling much better, she is eating and drinking without nausea or vomiting, no cough or SOB, her abd feels much better after paracentesis, she has had BM, not been out of bed much. Objective - Vital Signs Vital signs: Vital Signs Temp 97.6 F 01/20/17 07:00 Pulse 90 01/20/17 15:58 Resp 16 01/20/17 07:00 BP 169/77 01/20/17 07:00 Pulse Ox 98 01/20/17 07:00 Intake & Output 01/19/17 01/20/17 01/20/17 18:59 06:59 18:59 Intake Total 710 Balance 710 Intake: Oral 710 Other: Voiding Method Bedside Commode Bedside Commode Bedside Commode # Voids 3 7 # Bowel Movements 3 - Constitutional General appearance: Present: cooperative, no acute distress, thin - EENT Eyes: Present: anicteric sclerae - Gastrointestinal General gastrointestinal: Present: normal bowel sounds, soft - Neurologic Neurologic Comment(s): moderate tremor noted Neurologic: Present: CNII-XII intact - Musculoskeletal Musculoskeletal: Present: generalized weakness, strength equal bilaterally - Psychiatric Psychiatric: Present: A&O x's 3, appropriate affect, intact judgment & insight - Labs CBC & Chem 7: 01/20/17 06:55 01/20/17 06:55 Labs: Abnormal Lab Results - Last 24 Hours (Table) 01/19/17 01/19/17 01/20/17 Range/Units 17:15 20:00 06:55 WBC 3.3 L (3.8-10.6) k/uL RBC 3.53 L (3.80-5.40) m/uL Hgb 9.6 L D (11.4-16.0) gm/dL Hct 31.4 L (34.0-46.0) % MCHC 30.8 L (31.0-37.0) g/dL RDW 17.6 H (11.5-15.5) % Plt Count 41 L* (150-450) k/uL PT (9.0-12.0) sec APTT (22.0-30.0) sec BUN (7-17) mg/dL Creatinine (0.52-1.04) mg/dL POC Glucose (mg/dL) 104 H 101 H (75-99) mg/dL Iron (37-170) ug/dL TIBC (265-497) ug/dL % Saturation (20-50) % Total Bilirubin (0.2-1.3) mg/dL Total Protein (6.3-8.2) g/dL Albumin (3.5-5.0) g/dL 01/20/17 01/20/17 01/20/17 Range/Units 06:55 06:55 06:55 WBC (3.8-10.6) k/uL RBC (3.80-5.40) m/uL Hgb (11.4-16.0) gm/dL Hct (34.0-46.0) % MCHC (31.0-37.0) g/dL RDW (11.5-15.5) % Plt Count (150-450) k/uL PT 12.8 H (9.0-12.0) sec APTT 41.7 H (22.0-30.0) sec BUN 19 H (7-17) mg/dL Creatinine 1.30 H (0.52-1.04) mg/dL POC Glucose (mg/dL) (75-99) mg/dL Iron 30 L (37-170) ug/dL TIBC 213 L (265-497) ug/dL % Saturation 14.1 L (20-50) % Total Bilirubin 1.4 H (0.2-1.3) mg/dL Total Protein 5.8 L (6.3-8.2) g/dL Albumin 2.8 L (3.5-5.0) g/dL 01/20/17 Range/Units 11:37 WBC (3.8-10.6) k/uL RBC (3.80-5.40) m/uL Hgb (11.4-16.0) gm/dL Hct (34.0-46.0) % MCHC (31.0-37.0) g/dL RDW (11.5-15.5) % Plt Count (150-450) k/uL PT (9.0-12.0) sec APTT (22.0-30.0) sec BUN (7-17) mg/dL Creatinine (0.52-1.04) mg/dL POC Glucose (mg/dL) 109 H (75-99) mg/dL Iron (37-170) ug/dL TIBC (265-497) ug/dL % Saturation (20-50) % Total Bilirubin (0.2-1.3) mg/dL Total Protein (6.3-8.2) g/dL Albumin (3.5-5.0) g/dL - Imaging and Cardiology MRI - head: report reviewed Assessment and Plan (1) Diffuse large B-cell lymphoma of extranodal site Narrative/Plan: NO evidence of disease progression at this time. Pt mental status has improved , MRI of the brain without evidence of disease. No LP will be ordered at this time. Pt will continue on f/u for lymphoma as scheduled, appt in chart. Status: Chronic (2) Pancytopenia Narrative/Plan: Counts low but safe range, no acute intervention Status: Chronic Plan: Pt has made it clear to me that she does not want susana go to nursing hime. She has support of and family friend, she also had modified stairs, toilet seat lift, walker ect... and would like to go home with home care nursing and PT /OT. Left message with Social Work.
[2017-01-20 17:26] LABS: Glucose,Whole Blood 148 mg/dL (75-99)
[2017-01-20] MEDS: SODIUM CHLORIDE 0.9% 1,000 ML IV SCH (18:02)
--- NOTE | 2017-01-20 20:50 | P.PN ---
Subjective Principal diagnosis: Altered mental status 81-year-old female is a history of multiple medical troubles with that her pulmonologists office for follow-up of her cough that has been problematic since September of this year. She's had difficulties with some shortness of breath as well as a mostly dry but minimally productive cough. It has affected the quality of her life. At the office the patient apparently slumped over onto her . She had altered mental status. Vital signs reveal evidence of her heart rate in the 180s. Carotid massage was performed and heart rate slowed. Because of her difficulty she was transferred to the emergency center. There she is on evidence of atrial fibrillation with rapid ventricular response. She was treated with Cardizem and has had improvement. The patient has a known history of large B-cell lymphoma as well as a history of breast carcinoma. Does have underlying hyperlipidemia hypertension and diabetes in a history of multifocal atrial tachycardia. Cardiology has seen the patient and believe that she has chronic congestive heart failure systolic type. Infectious diseases consultation requested with concerns of pneumonia after her event and the abnormal chest x-ray. Patient does not believe she's had significant fever chill or rigor before admission. However is noted she is having difficulty with a chronic cough that is only minimally productive at times. He has had a decline of her status. Has been seen by neurology. MRI was performed without evidence of new disease. Primary service has discontinued Zosyn. Objective - Vital Signs Vital signs: Vital Signs Temp 98.3 F 01/20/17 15:00 Pulse 96 01/20/17 20:42 Resp 20 01/20/17 15:00 BP 152/68 01/20/17 15:00 Pulse Ox 94 L 01/20/17 15:00 Intake & Output 01/20/17 01/20/17 01/21/17 06:59 18:59 06:59 Intake Total 710 Balance 710 Intake: Oral 710 Other: Voiding Method Bedside Commode Bedside Commode # Voids 7 2 # Bowel Movements 2 - Exam Pleasant 81-year-old woman who seems very modestly comfortable but coughs occasionally through the exam. Does relate to some modest shortness of breath. HEENT: Anicteric conjunctiva are pink and moist nasal mucosa grossly intact without significant lesions, there is no thrush. Neck: The neck is supple without significant lymphadenopathy or thyromegaly. Lungs: There is symmetrical air entry. There are bibasilar crackles. No nik bronchial sounds. No dullness or egophony. Heart: Irregular with an audible S1-S2, no S3 off tests for. There is no significant murmur click or rub, PMI was nondisplaced. Abdomen: Positive bowel sounds soft and nontender without palpable masses or organomegaly. There was no guarding or rebound.The large ascites is improved after paracentesis of today. Extremities: The upper extremities have excellent pulses they are symmetric, no significant petechiae or telangiectasia. No splinter hemorrhages were noted. The lower extremities are free from significant edema. The peripheral pulses were 2+ and symmetric. Neuro: Awake and alert less agitated and more interactive - Labs CBC & Chem 7: 01/20/17 06:55 01/20/17 06:55 Labs: Abnormal Lab Results - Last 24 Hours (Table) 01/20/17 01/20/17 01/20/17 Range/Units 06:55 06:55 06:55 WBC 3.3 L (3.8-10.6) k/uL RBC 3.53 L (3.80-5.40) m/uL Hgb 9.6 L D (11.4-16.0) gm/dL Hct 31.4 L (34.0-46.0) % MCHC 30.8 L (31.0-37.0) g/dL RDW 17.6 H (11.5-15.5) % Plt Count 41 L* (150-450) k/uL PT 12.8 H (9.0-12.0) sec APTT 41.7 H (22.0-30.0) sec BUN 19 H (7-17) mg/dL Creatinine 1.30 H (0.52-1.04) mg/dL POC Glucose (mg/dL) (75-99) mg/dL Iron (37-170) ug/dL TIBC (265-497) ug/dL % Saturation (20-50) % Total Bilirubin 1.4 H (0.2-1.3) mg/dL Total Protein 5.8 L (6.3-8.2) g/dL Albumin 2.8 L (3.5-5.0) g/dL 01/20/17 01/20/17 01/20/17 Range/Units 06:55 11:37 17:25 WBC (3.8-10.6) k/uL RBC (3.80-5.40) m/uL Hgb (11.4-16.0) gm/dL Hct (34.0-46.0) % MCHC (31.0-37.0) g/dL RDW (11.5-15.5) % Plt Count (150-450) k/uL PT (9.0-12.0) sec APTT (22.0-30.0) sec BUN (7-17) mg/dL Creatinine (0.52-1.04) mg/dL POC Glucose (mg/dL) 109 H 148 H (75-99) mg/dL Iron 30 L (37-170) ug/dL TIBC 213 L (265-497) ug/dL % Saturation 14.1 L (20-50) % Total Bilirubin (0.2-1.3) mg/dL Total Protein (6.3-8.2) g/dL Albumin (3.5-5.0) g/dL Laboratory Results WBC 3.3 k/uL (3.8-10.6) L 01/20/17 06:55 RBC 3.53 m/uL (3.80-5.40) L 01/20/17 06:55 Hgb 9.6 gm/dL (11.4-16.0) L D 01/20/17 06:55 Hct 31.4 % (34.0-46.0) L 01/20/17 06:55 MCV 88.7 fL (80.0-100.0) 01/20/17 06:55 MCH 27.3 pg (25.0-35.0) 01/20/17 06:55 MCHC 30.8 g/dL (31.0-37.0) L 01/20/17 06:55 RDW 17.6 % (11.5-15.5) H 01/20/17 06:55 Plt Count 41 k/uL (150-450) L* 01/20/17 06:55 Neutrophils % 62 % 01/18/17 08:42 Neutrophils % (Manual) 51.0 % 01/17/17 07:11 Band Neutrophils % 2.0 % 01/17/17 07:11 Lymphocytes % 19 % 01/18/17 08:42 Lymphocytes % (Manual) 27.0 % 01/17/17 07:11 Monocytes % 14 % 01/18/17 08:42 Monocytes % (Manual) 18.0 % 01/17/17 07:11 Eosinophils % 2 % 01/18/17 08:42 Eosinophils % (Manual) 2.0 % 01/17/17 07:11 Basophils % 1 % 01/18/17 08:42 Neutrophils # 1.9 k/uL (1.3-7.7) 01/18/17 08:42 Neutrophils # (Manual) 1.7 k/uL (1.3-7.7) 01/17/17 07:11 Lymphocytes # 0.6 k/uL (1.0-4.8) L 01/18/17 08:42 Lymphocytes # (Manual) 0.9 k/uL (1.0-4.8) L 01/17/17 07:11 Monocytes # 0.4 k/uL (0-1.0) 01/18/17 08:42 Monocytes # (Manual) 0.6 k/uL (0-1.0) 01/17/17 07:11 Eosinophils # 0.1 k/uL (0-0.7) 01/18/17 08:42 Eosinophils # (Manual) 0.1 k/uL (0-0.7) 01/17/17 07:11 Basophils # 0.0 k/uL (0-0.2) 01/18/17 08:42 Nucleated RBCs 0 /100 WBC (0-0) 01/17/17 07:11 Manual Slide Review Performed 01/14/17 05:57 Large Platelets Present 01/13/17 11:45 Polychromasia Present 01/13/17 11:45 Hypochromasia Moderate 01/20/17 06:55 Poikilocytosis Slight 01/17/17 07:11 Poikilocytosis (manual Present 01/13/17 11:45 Anisocytosis Slight 01/20/17 06:55 Target Cells Present 01/16/17 06:24 Ovalocytes Present 01/15/17 05:47 Fragmented RBCs Present 01/17/17 07:11 Retic Count 1.8 % (0.5-2.0) 01/14/17 05:57 PT 12.8 sec (9.0-12.0) H 01/20/17 06:55 INR 1.3 (<1.1) 01/20/17 06:55 APTT 41.7 sec (22.0-30.0) H 01/20/17 06:55 D-Dimer 6.62 mg/L FEU (<0.60) H 01/13/17 11:45 Sample Site LBA 01/19/17 08:22 ABG pH 7.53 (7.35-7.45) H 01/19/17 08:22 ABG pCO2 26 mmHg (35-45) L 01/19/17 08:22 ABG pO2 63 mmHg (83-108) L 01/19/17 08:22 ABG HCO3 22 mmol/L (21-25) 01/19/17 08:22 ABG Total CO2 22 mmol/L (19-24) 01/19/17 08:22 ABG O2 Saturation 94.5 % (94-97) 01/19/17 08:22 ABG Base Excess -0.9 mmol/L 01/19/17 08:22 FiO2 28 % 01/19/17 08:22 Sodium 137 mmol/L (137-145) 01/20/17 06:55 Potassium 3.8 mmol/L (3.5-5.1) 01/20/17 06:55 Chloride 105 mmol/L (98-107) 01/20/17 06:55 Carbon Dioxide 24 mmol/L (22-30) 01/20/17 06:55 Anion Gap 8 mmol/L 01/20/17 06:55 BUN 19 mg/dL (7-17) H 01/20/17 06:55 Creatinine 1.30 mg/dL (0.52-1.04) H 01/20/17 06:55 Est GFR (MDRD) Af Amer 48 (>60 ml/min/1.73 sqM) 01/20/17 06:55 Est GFR (MDRD) Non-Af 39 (>60 ml/min/1.73 sqM) 01/20/17 06:55 Glucose 94 mg/dL (74-99) 01/20/17 06:55 POC Glucose (mg/dL) 148 mg/dL (75-99) H 01/20/17 17:25 POC Glu Conveyor Weigher Operator ID Anya Dowling 01/20/17 17:[address] Glu mg/dL 126 mg/dL 01/13/17 17:41 Hemoglobin A1c 6.0 % (4.2-6.1) 01/13/17 17:41 Plasma Lactic Acid Ruy 1.7 mmol/L (0.7-2.0) 01/19/17 19:23 Calcium 8.6 mg/dL (8.4-10.2) 01/20/17 06:55 Magnesium 1.6 mg/dL (1.6-2.3) 01/14/17 05:57 Iron 30 ug/dL (37-170) L 01/20/17 06:55 TIBC 213 ug/dL (265-497) L 01/20/17 06:55 % Saturation 14.1 % (20-50) L 01/20/17 06:55 Ferritin 118 ng/mL (11-264) 01/20/17 06:55 Total Bilirubin 1.4 mg/dL (0.2-1.3) H 01/20/17 06:55 AST 16 U/L (14-36) 01/20/17 06:55 ALT 22 U/L (9-52) 01/20/17 06:55 Alkaline Phosphatase 48 U/L (38-126) 01/20/17 06:55 Ammonia <9 umol/L (<30) 01/19/17 21:01 Total Creatine Kinase <20 U/L (30-135) L 01/13/17 11:45 CK-MB (CK-2) 0.4 ng/mL (0.0-2.4) 01/13/17 11:45 CK-MB (CK-2) Rel Index 0.0 01/13/17 11:45 Troponin I 0.069 ng/mL (0.000-0.034) H* 01/13/17 23:34 NT-Pro-B Natriuret Pep 7830 pg/mL 01/13/17 11:45 Total Protein 5.8 g/dL (6.3-8.2) L 01/20/17 06:55 Albumin 2.8 g/dL (3.5-5.0) L 01/20/17 06:55 TSH 3.440 mIU/L (0.465-4.680) 01/18/17 08:42 Urine Color Yellow 01/13/17 21:05 Urine Appearance Cloudy (Clear) H 01/13/17 21:05 Urine pH 6.0 (5.0-8.0) 01/13/17 21:05 Ur Specific [place] 1.033 (1.001-1.035) 01/13/17 21:05 Urine Protein 1+ (Negative) H 01/13/17 21:05 Urine Glucose (UA) Negative (Negative) 01/13/17 21:05 Urine Ketones Negative (Negative) 01/13/17 21:05 Urine Blood Large (Negative) H 01/13/17 21:05 Urine Nitrite Negative (Negative) 01/13/17 21:05 Urine Bilirubin Negative (Negative) 01/13/17 21:05 Urine Urobilinogen <2.0 mg/dL (<2.0) 01/13/17 21:05 Ur Leukocyte Esterase Negative (Negative) 01/13/17 21:05 Urine RBC >182 /hpf (0-5) H 01/13/17 21:05 Urine WBC 5 /hpf (0-5) 01/13/17 21:05 Ur Squamous Epith Cells 1 /hpf (0-4) 01/13/17 21:05 IgG 241.0 mg/dL (700.0-1600.0) L 01/14/17 05:57 Miscellaneous Test B CELL, PERITONEAL 01/16/17 14:41 Misc Test Result See Comment 01/16/17 14:41 Blood Type A Positive 01/15/17 16:10 Blood Type Recheck No 01/15/17 16:10 Antibody Screen NEGATIVE 01/15/17 16:10 Crossmatch See Detail 01/15/17 16:10 Spec Expiration Date 01/16/2017 - 9996 01/15/17 16:10 Microbiology 01/13/17 11:45 Blood Blood Culture - Final No Growth after 144 hours 01/13/17 19:30 Urine,Voided Urine Culture - Final 01/14/17 11:00 Sputum Gram Stain - Final 01/14/17 11:00 Sputum Sputum Culture - Final Assessment and Plan (1) Pneumonia Narrative/Plan: 81-year-old female with history of diffuse large B-cell lymphoma and follows with local oncology. The patient relates that in the fall of every year she undergoes a 4 week cycle of Rituxan infusions before she goes to [place]. They've returned from [place] from their winter session where she was quite well while she was there. Upon returning back she's not been feeling well. She's had a cough has been ongoing since September. It's been with minimal production and mostly dry. She denies significant shortness of breath. She is also not having fevers chills or rigors. In the days preceding her admission she was not feeling well and was seen by her regional hr manager. While she was in the office she had a change of her status she slumped into her 's arms. She was on evidence of a very high heart rate of 180 and vagal stimulation was performed. She was transported to Hospital by EMS. She's now doing somewhat better. That has evidence of the abnormal computed tomography scan and chest x-ray. Concerns for pneumonia. Given the altered mental status further concerns to potential aspiration pneumonia. Computed tomography scan failed to reveal evidence of a pulmonary embolus. Consequently for antibiotic therapy piperacillin tazobactam is a reasonable choice at this point in time given her immunocompromised status, pseudomonas risk and aspiration risk. She's noticed to have worsening of her baseline anemia. Unclear if this from underlying disease state or another process. Is being monitored at this point in time. Her thrombocytopenia is at about its baseline. Does not seem to be having any difficulty with the Zosyn therapy. No evidence for other forms of infection at this point in time, but does have some hematuria which may need follow-up. CT of the abdomen did show evidence of some ascites, underwent paracentesis and await further data, blood cultures negative so far and paracentesis was negative for malignant cells Does have evidence of a low IgG level. Level was requested in his further reduced at 241. Given the current level of illness IgG supplementation has been given and well tolerated. Discussed with oncology. Patient's neurological status has worsened. She's been seen by neurology. Concerns to a metabolic processes were underlying malignancy causing the current changes of her mental status. Literature review on up-to-date was performed with piperacillin tazobactam and no significant neurological toxicity is reported. It is unlikely the antibiotic is causing her current disease state. Has completed nearly 7 days of antibiotic therapy. Now discontinued. Monitor pneumonia off of antibiotic therapy. Status: Acute (2) Syncope Status: Acute (3) Diffuse large B cell lymphoma Status: Acute (4) History of cancer of right breast Status: Acute
[2017-01-20 21:29] LABS: Glucose,Whole Blood 147 mg/dL (75-99)
[2017-01-20 22:24] LABS: Appearance,Urine Cloudy (Clear); Bilirubin,Urine Negative (Negative); Glucose,Urine (UA) Negative (Negative); Ketones,Urine Negative (Negative); Leukocyte Esterase,Urine Small (Negative); Nitrite,Urine Negative (Negative); Particle Count 5678; Protein,Urine 1+ (Negative); RBC,Urine 99 /hpf (0-5); Specific Gravity,Urine 1.011 (1.001-1.035); Squamous Epithelial Cell,Urine <1 /hpf (0-4); UA Billing (MACRO vs. MICRO) MICRO; Urobilinogen,Urine <2.0 mg/dL (<2.0)
[2017-01-20] MEDS ORDERED: ADENOSINE 3 MG/ML 2 ML VIAL IVP STA ×2 (23:10)
--- NOTE | 2017-01-20 23:13 | P.PN ---
Subjective This patient is a 81-year-old female seen in neurology consultation yesterday for acute mental status changes and encephalopathy. Patient was sent for MRI of the brain today with and without contrast for further evaluation given history of cancer. Patient has history of B-cell lymphoma and remote history of breast cancer. She completed a MRI of the brain which revealed moderate degree of cerebral atrophy. Bilateral T2 hyperintensities were seen in the cortical hemispheres. There was no abnormal contrast enhancement noted on the MRI of the brain. Patient also underwent a routine EEG today for further evaluation of tremors and questionable seizure activity. EEG was diffusely slow with no evidence of any epileptiform discharges. We reviewed all of these test results today with the patient in detail. We will continue close neurological follow-up for this patient. Her clinical history and exam findings are more consistent with a diffuse encephalopathy secondary to multiple complex medical issues. Patient did undergo a routine MRI of the brain today. MRI reveals mild to moderate degree of cerebral atrophy with chronic small vessel ischemic changes. Sinusitis was also noted. No evidence for contrast enhancing lesions. Patient is showing some improvement today in terms of her mental status. She denies any headache today. Lumbar puncture has been placed on hold at this time. We will continue close neurological follow-up for the patient. Her overall prognosis remains guarded. Objective - Vital Signs Vital signs: Vital Signs Temp 98.3 F 01/20/17 15:00 Pulse 90 01/20/17 15:58 Resp 20 01/20/17 15:00 BP 152/68 01/20/17 15:00 Pulse Ox 94 L 01/20/17 15:00 Intake & Output 01/20/17 01/20/17 01/21/17 06:59 18:59 06:59 Intake Total 710 Balance 710 Intake: Oral 710 Other: Voiding Method Bedside Commode Bedside Commode # Voids 7 2 # Bowel Movements 2 - Exam Physical examination: PHYSICAL EXAMINATION: Patient is resting comfortably in bed. VITAL SIGNS: Blood pressure is [152/68]. Heart rate is [102]. Respiration is [20 ]. Temperature is [98.3]. HEENT: Head is atraumatic, neck is supple, there were no carotid bruits. CHEST: Lungs are clear to auscultation and percussion. CARDIAC: S1, S2 normal rate and rhythm. There is no murmur. ABDOMEN: Soft and nontender. Bowel sounds are present. EXTREMITIES: There is no pedal edema. Peripheral pulses are present. Neurological examination: Patient's neurological examination is unchanged from yesterday. - Labs CBC & Chem 7: 01/20/17 06:55 01/20/17 06:55 Labs: Abnormal Lab Results - Last 24 Hours (Table) 01/19/17 01/20/17 01/20/17 Range/Units 20:00 06:55 06:55 WBC 3.3 L (3.8-10.6) k/uL RBC 3.53 L (3.80-5.40) m/uL Hgb 9.6 L D (11.4-16.0) gm/dL Hct 31.4 L (34.0-46.0) % MCHC 30.8 L (31.0-37.0) g/dL RDW 17.6 H (11.5-15.5) % Plt Count 41 L* (150-450) k/uL PT (9.0-12.0) sec APTT (22.0-30.0) sec BUN 19 H (7-17) mg/dL Creatinine 1.30 H (0.52-1.04) mg/dL POC Glucose (mg/dL) 101 H (75-99) mg/dL Iron (37-170) ug/dL TIBC (265-497) ug/dL % Saturation (20-50) % Total Bilirubin 1.4 H (0.2-1.3) mg/dL Total Protein 5.8 L (6.3-8.2) g/dL Albumin 2.8 L (3.5-5.0) g/dL 01/20/17 01/20/17 01/20/17 Range/Units 06:55 06:55 11:37 WBC (3.8-10.6) k/uL RBC (3.80-5.40) m/uL Hgb (11.4-16.0) gm/dL Hct (34.0-46.0) % MCHC (31.0-37.0) g/dL RDW (11.5-15.5) % Plt Count (150-450) k/uL PT 12.8 H (9.0-12.0) sec APTT 41.7 H (22.0-30.0) sec BUN (7-17) mg/dL Creatinine (0.52-1.04) mg/dL POC Glucose (mg/dL) 109 H (75-99) mg/dL Iron 30 L (37-170) ug/dL TIBC 213 L (265-497) ug/dL % Saturation 14.1 L (20-50) % Total Bilirubin (0.2-1.3) mg/dL Total Protein (6.3-8.2) g/dL Albumin (3.5-5.0) g/dL 01/20/17 Range/Units 17:25 WBC (3.8-10.6) k/uL RBC (3.80-5.40) m/uL Hgb (11.4-16.0) gm/dL Hct (34.0-46.0) % MCHC (31.0-37.0) g/dL RDW (11.5-15.5) % Plt Count (150-450) k/uL PT (9.0-12.0) sec APTT (22.0-30.0) sec BUN (7-17) mg/dL Creatinine (0.52-1.04) mg/dL POC Glucose (mg/dL) 148 H (75-99) mg/dL Iron (37-170) ug/dL TIBC (265-497) ug/dL % Saturation (20-50) % Total Bilirubin (0.2-1.3) mg/dL Total Protein (6.3-8.2) g/dL Albumin (3.5-5.0) g/dL Assessment and Plan (1) Acute encephalopathy Status: Acute Code(s): G93.40 - ENCEPHALOPATHY, UNSPECIFIED (2) Diffuse large B cell lymphoma Status: Acute Code(s): C83.30 - DIFFUSE LARGE B-CELL LYMPHOMA, UNSPECIFIED SITE (3) SIRS (systemic inflammatory response syndrome) Status: Acute Code(s): R65.10 - SIRS OF NON-INFECTIOUS ORIGIN W/O ACUTE ORGAN DYSFUNCTION (4) Weakness Status: Acute Code(s): R53.1 - WEAKNESS Plan: This patient is a 81-year-old female with complex past medical history. She has a history of underlying large cell B-cell lymphoma as well as remote history of breast cancer. She was found to be in atrial fibrillation and is currently being treated for this as well. She is suddenly shown a worsening change in mental status over the last 24 hours. She is having generalized weakness as well as increased tremors. We have recommended a routine EEG to rule out complex partial status epilepticus in this patient. We would recommend an MRI of the brain for further evaluation as well as a lumbar puncture to rule out meningeal carcinomatosis. Analysis of the spinal fluid shows also rule out malignant cells in the CSF. Clinical history is showing one of deterioration with possible spread of several of her underlying cancer history. Patient underwent MRI of the brain today. Results are as noted above. MRI fails to reveal any evidence of contrast enhancing brain lesions. There was moderate degree of cortical atrophy noted. Oncology is not recommending lumbar puncture at this time. We will await further recommendations from oncology as well. Patient did undergo routine EEG which failed to reveal any evidence of seizure focus. There was diffuse slowing noted on the tracing. This patient's overall prognosis at this time remains very guarded. We will continue close neurological follow-up with this patient during this admission.
[2017-01-20 23:36] LABS: Calcium 8.5 mg/dL (8.4-10.2); Potassium 3.7 mmol/L (3.5-5.1)
[2017-01-20 23:41] LABS: Anisocytosis Slight; Aty Lym Flag Slight; CH 27.1; CHCM 31.4; HCT 29.3 % (34.0-46.0); HDW 3.05; HGB 9.6 gm/dL (11.4-16.0); Hypochromasia Moderate; Large Platelets Flag Slight; MCH 28.4 pg (25.0-35.0); MCHC 32.7 g/dL (31.0-37.0); MCV 86.8 fL (80.0-100.0); Mean Platelet Volume 11.3; RBC 3.38 m/uL (3.80-5.40); RDW 17.6 % (11.5-15.5); WBC 3.6 k/uL (3.8-10.6); WBC (Perox) 3.69
[2017-01-21] LABS: Creatine Kinase MB <0.2 ng/mL (0.0-2.4); Troponin I 0.013 ng/mL (0.000-0.034)
[2017-01-21] MEDS: DILTIAZEM 125 MG in SODIUM CHLORIDE 0.9% 100 ML IV SCH ×2
[2017-01-21 00:06] LABS: INR 1.3 (<1.1); Prothrombin Time 12.4 sec (9.0-12.0)
[2017-01-21 00:24] LABS: Add Differential Manual Differential
[2017-01-21 00:28] LABS: Manual Review Performed; Nucleated Red Blood Cells 0 /100 WBC (0-0); Total Cells Counted 100
[2017-01-21 00:29] LABS: Ovalocytes Present; Target Cells Present
[2017-01-21 06:15] LABS: Anisocytosis Slight; CH 27.4; CHCM 31.4; HCT 26.9 % (34.0-46.0); HDW 3.01; HGB 8.8 gm/dL (11.4-16.0); Hypochromasia Slight; Large Platelets Flag Moderate; MCH 28.5 pg (25.0-35.0); MCHC 32.6 g/dL (31.0-37.0); MCV 87.5 fL (80.0-100.0); Mean Platelet Volume 11.6; RBC 3.07 m/uL (3.80-5.40); RDW 17.7 % (11.5-15.5); WBC 3.2 k/uL (3.8-10.6)
[2017-01-21 06:26] LABS: Calcium 8.2 mg/dL (8.4-10.2); Potassium 3.6 mmol/L (3.5-5.1); Total Bilirubin 0.8 mg/dL (0.2-1.3)
[2017-01-21 06:30] LABS: Glucose,Whole Blood 111 mg/dL (75-99)
[2017-01-21 06:49] LABS: Creatine Kinase MB 0.3 ng/mL (0.0-2.4)
[2017-01-21] MEDS: INSULIN LISPRO (humaLOG) 300 UNIT/3 ML VIAL SQ SCH ×4 (06:53→22:11)
[2017-01-21] MEDS: PANTOPRAZOLE 40 MG TABLET PO SCH (06:56)
[2017-01-21 06:57] LABS: Troponin I 0.063 ng/mL (0.000-0.034)
[2017-01-21] MEDS: FORMOTEROL FUMARATE 20 MCG/2 ML NEBU INHALATION SCH ×2 (07:52→20:01)
[2017-01-21] MEDS: IPRATROPIUM-ALBUTEROL 3 ML NEB INHALATION SCH ×4 (07:52→20:03)
[2017-01-21] MEDS: BUDESONIDE 1 MG/2 ML NEBU INHALATION SCH ×2 (07:52→20:01)
--- NOTE | 2017-01-21 08:45 | P.PN ---
Subjective This is an 81-year-old female seen because of acute kidney injury with creatinine going up from 1-1.36. The cause of this is deemed to be from multiple factors including hemodynamic instability with atrial fibrillation with rapid ventricular response, exposure to dye with the CTA to rule out PE. She is known with large cell lymphoma status post chemotherapy with CHOP and Rituxan. Yesterday she had some changes in mental status that have resolved now. An EEG is pending report and MRI are reportedly unremarkable This morning though she is awake alert oriented and able to recall all details. She said she had a good night sleep. She states she had a good breakfast. Otherwise is denying any fever chills cough nausea vomiting diarrhea abdominal pain. She seems somewhat tired. Objective - Vital Signs Vital signs: Vital Signs Temp 97.9 F 01/21/17 04:00 Pulse 92 01/21/17 08:15 Resp 18 01/21/17 04:00 BP 116/59 01/21/17 04:00 Pulse Ox 92 L 01/21/17 04:00 Intake & Output 01/20/17 01/21/17 01/21/17 18:59 06:59 18:59 Intake Total 200 240 Balance 200 240 Weight 64.4 kg Intake: IV 200 Diltiazem 125 mg In 40 Sodium Chloride 0.9% 100 ml @ 5 MG/HR 5 mls/hr IV .Q24H [facility] Rx#:[id number] Sodium Chloride 0.9% 1, 160 000 ml @ 20 mls/hr IV . Q24H [facility] Rx#:[id number] Oral 240 Other: Voiding Method Bedside Commode Toilet # Voids 2 1 1 # Bowel Movements 2 1 0 On examination she is awake alert oriented comfortable HEENT exam no JVP neck is supple no facial asymmetry Lungs are clear to auscultation and percussion good air entry bilaterally. Heart sounds are remarkable for atrial fibrillation with controlled ventricular response. No murmur rub gallop Abdomen is soft nontender except for some mild ascites. No organomegaly. Extremity exam was no edema Neurologically awake alert oriented no asterixis able to move all her extremities but generalized weakness - Labs CBC & Chem 7: 01/21/17 05:46 01/21/17 05:46 Labs: Abnormal Lab Results - Last 24 Hours (Table) 01/20/17 01/20/17 01/20/17 Range/Units 06:55 06:55 11:37 WBC 3.3 L (3.8-10.6) k/uL RBC 3.53 L (3.80-5.40) m/uL Hgb 9.6 L D (11.4-16.0) gm/dL Hct 31.4 L (34.0-46.0) % MCHC 30.8 L (31.0-37.0) g/dL RDW 17.6 H (11.5-15.5) % Plt Count 41 L* (150-450) k/uL Lymphocytes # (Manual) (1.0-4.8) k/uL PT (9.0-12.0) sec APTT (22.0-30.0) sec Sodium (137-145) mmol/L BUN (7-17) mg/dL Creatinine (0.52-1.04) mg/dL Glucose (74-99) mg/dL POC Glucose (mg/dL) 109 H (75-99) mg/dL Calcium (8.4-10.2) mg/dL Iron 30 L (37-170) ug/dL TIBC 213 L (265-497) ug/dL % Saturation 14.1 L (20-50) % Troponin I (0.000-0.034) ng/mL Total Protein (6.3-8.2) g/dL Albumin (3.5-5.0) g/dL Urine Appearance (Clear) Urine Protein (Negative) Urine Blood (Negative) Ur Leukocyte Esterase (Negative) Urine RBC (0-5) /hpf Urine Yeast (Budding) (None) /hpf 01/20/17 01/20/17 01/20/17 Range/Units 17:25 21:13 22:16 WBC (3.8-10.6) k/uL RBC (3.80-5.40) m/uL Hgb (11.4-16.0) gm/dL Hct (34.0-46.0) % MCHC (31.0-37.0) g/dL RDW (11.5-15.5) % Plt Count (150-450) k/uL Lymphocytes # (Manual) (1.0-4.8) k/uL PT (9.0-12.0) sec APTT (22.0-30.0) sec Sodium (137-145) mmol/L BUN (7-17) mg/dL Creatinine (0.52-1.04) mg/dL Glucose (74-99) mg/dL POC Glucose (mg/dL) 148 H 147 H (75-99) mg/dL Calcium (8.4-10.2) mg/dL Iron (37-170) ug/dL TIBC (265-497) ug/dL % Saturation (20-50) % Troponin I (0.000-0.034) ng/mL Total Protein (6.3-8.2) g/dL Albumin (3.5-5.0) g/dL Urine Appearance Cloudy H (Clear) Urine Protein 1+ H (Negative) Urine Blood Moderate H (Negative) Ur Leukocyte Esterase Small H (Negative) Urine RBC 99 H (0-5) /hpf Urine Yeast (Budding) Many H (None) /hpf 01/20/17 01/20/17 01/20/17 Range/Units 23:17 23:17 23:17 WBC 3.6 L (3.8-10.6) k/uL RBC 3.38 L (3.80-5.40) m/uL Hgb 9.6 L (11.4-16.0) gm/dL Hct 29.3 L (34.0-46.0) % MCHC (31.0-37.0) g/dL RDW 17.6 H (11.5-15.5) % Plt Count 51 L (150-450) k/uL Lymphocytes # (Manual) 0.6 L (1.0-4.8) k/uL PT 12.4 H (9.0-12.0) sec APTT 47.0 H (22.0-30.0) sec Sodium 133 L (137-145) mmol/L BUN 20 H (7-17) mg/dL Creatinine 1.19 H (0.52-1.04) mg/dL Glucose 113 H (74-99) mg/dL POC Glucose (mg/dL) (75-99) mg/dL Calcium (8.4-10.2) mg/dL Iron (37-170) ug/dL TIBC (265-497) ug/dL % Saturation (20-50) % Troponin I (0.000-0.034) ng/mL Total Protein (6.3-8.2) g/dL Albumin (3.5-5.0) g/dL Urine Appearance (Clear) Urine Protein (Negative) Urine Blood (Negative) Ur Leukocyte Esterase (Negative) Urine RBC (0-5) /hpf Urine Yeast (Budding) (None) /hpf 01/21/17 01/21/17 01/21/17 Range/Units 05:46 05:46 05:46 WBC 3.2 L (3.8-10.6) k/uL RBC 3.07 L (3.80-5.40) m/uL Hgb 8.8 L (11.4-16.0) gm/dL Hct 26.9 L (34.0-46.0) % MCHC (31.0-37.0) g/dL RDW 17.7 H (11.5-15.5) % Plt Count 41 L* (150-450) k/uL Lymphocytes # (Manual) (1.0-4.8) k/uL PT (9.0-12.0) sec APTT (22.0-30.0) sec Sodium 135 L (137-145) mmol/L BUN 18 H (7-17) mg/dL Creatinine 1.10 H (0.52-1.04) mg/dL Glucose 100 H (74-99) mg/dL POC Glucose (mg/dL) (75-99) mg/dL Calcium 8.2 L (8.4-10.2) mg/dL Iron (37-170) ug/dL TIBC (265-497) ug/dL % Saturation (20-50) % Troponin I 0.063 H* (0.000-0.034) ng/mL Total Protein 5.0 L (6.3-8.2) g/dL Albumin 2.5 L (3.5-5.0) g/dL Urine Appearance (Clear) Urine Protein (Negative) Urine Blood (Negative) Ur Leukocyte Esterase (Negative) Urine RBC (0-5) /hpf Urine Yeast (Budding) (None) /hpf 01/21/17 Range/Units 06:28 WBC (3.8-10.6) k/uL RBC (3.80-5.40) m/uL Hgb (11.4-16.0) gm/dL Hct (34.0-46.0) % MCHC (31.0-37.0) g/dL RDW (11.5-15.5) % Plt Count (150-450) k/uL Lymphocytes # (Manual) (1.0-4.8) k/uL PT (9.0-12.0) sec APTT (22.0-30.0) sec Sodium (137-145) mmol/L BUN (7-17) mg/dL Creatinine (0.52-1.04) mg/dL Glucose (74-99) mg/dL POC Glucose (mg/dL) 111 H (75-99) mg/dL Calcium (8.4-10.2) mg/dL Iron (37-170) ug/dL TIBC (265-497) ug/dL % Saturation (20-50) % Troponin I (0.000-0.034) ng/mL Total Protein (6.3-8.2) g/dL Albumin (3.5-5.0) g/dL Urine Appearance (Clear) Urine Protein (Negative) Urine Blood (Negative) Ur Leukocyte Esterase (Negative) Urine RBC (0-5) /hpf Urine Yeast (Budding) (None) /hpf Assessment and Plan Plan: 1 acute kidney injury secondary to multiple factors including atrial fibrillation, CTA with dye exposure on 01/13/2017,. Improved and creatinine down to 1.1 as of this morning. Urine output is not well documented. 2. Mild degree of hyponatremia secondary to acute kidney injury improved sodium is 135 from 133. 3. history of large B-cell lymphoma, on chemotherapy 4. Ascites negative for malignancy so far, other etiologies are being looked into. 4. Transient confusion resolved. Cause not very clear EEG report pending. Recommendation. 1. blood pressure is somewhat low so we need to watch her intake and output and ensure she has good intake. Cautious control of atrial fibrillation without hypotensive episodes.
--- NOTE | 2017-01-21 08:46 | EEG ---
DATE OF SERVICE: 01/20/2017 INDICATIONS FOR EXAMINATION: This patient is an 81 -year-old female being evaluated for syncope and acute mental status changes. The patient has history of B-cell lymphoma and breast cancer. AGE: 81Y EEG FINDINGS: A routine 21 channel awake digital EEG recording was accomplished utilizing the 10-20 international system with bipolar and referential montages. The background activity in the most alert resting state consists of a low to medium amplitude, poorly developed and poorly sustained 4-5 Hz activity over the posterior head regions. This posterior rhythm attenuates to eye opening. There is a small amount of low amplitude 18-20 Hz beta activity seen maximally over the anterior head regions. Muscle and movement artifact was observed on a few occasions during the tracing. Hyperventilation was not performed. Photic stimulation at flash frequencies of 2-30 Hz produced a minimal occipital driving response. No epileptiform discharges were seen. IMPRESSION: This EEG gives evidence of a severe widespread diffuse disturbance in cerebral function. The EEG failed to reveal any focal, lateralized or epileptiform abnormalities. Clinical correlation is recommended.
[2017-01-21] MEDS: CHOLECALCIFEROL 1,000 UNIT TAB PO SCH (10:27)
[2017-01-21] MEDS: FERROUS SULFATE 325 MG TAB PO SCH ×2 (10:27→16:15)
[2017-01-21] MEDS: GABAPENTIN 300 MG CAP PO SCH ×3 (10:28→22:11)
[2017-01-21] MEDS: HEPARIN SODIUM,PORCINE 5,000 UNIT/ML 1 ML VIAL SQ SCH ×2 (10:28→22:11)
[2017-01-21] MEDS: OXYBUTYNIN 10 MG TAB.ER.24 PO SCH (10:29)
[2017-01-21] MEDS: PRAVASTATIN SODIUM 20 MG TAB PO SCH (10:29)
[2017-01-21] MEDS: MULTIVITAMINS, THERA 1 EACH TAB PO SCH (10:30)
[2017-01-21 11:47] LABS: Glucose,Whole Blood 116 mg/dL (75-99)
[2017-01-21 12:05] LABS: Creatine Kinase MB 0.3 ng/mL (0.0-2.4)
[2017-01-21 12:11] LABS: Troponin I 0.062 ng/mL (0.000-0.034)
--- NOTE | 2017-01-21 15:04 | P.PN ---
Subjective This patient is a 81-year-old female seen in neurology consultation for acute mental status changes and encephalopathy. Patient was sent for MRI of the brain with and without contrast for further evaluation given history of cancer. Patient has history of B-cell lymphoma and remote history of breast cancer. She completed a MRI of the brain which revealed moderate degree of cerebral atrophy. Bilateral T2 hyperintensities were seen in the cortical hemispheres. There was no abnormal contrast enhancement noted on the MRI of the brain. Patient also underwent a routine EEG yesterday for further evaluation of tremors and questionable seizure activity. EEG was diffusely slow with no evidence of any epileptiform discharges. We reviewed all of these test results today with the patient in detail. We will continue close neurological follow-up for this patient. Her clinical history and exam findings are more consistent with a diffuse encephalopathy secondary to multiple complex medical issues. Patient did undergo a routine MRI of the brain today. MRI reveals mild to moderate degree of cerebral atrophy with chronic small vessel ischemic changes. Sinusitis was also noted. No evidence for contrast enhancing lesions. Patient is showing some improvement today in terms of her mental status. She denies any headache today. Lumbar puncture has been placed on hold at this time by oncology. She is being treated for acute kidney injury and her serum creatinine today is 1.1. She does also have a mild degree of hyponatremia which is also slowly improving. As noted her MRI of the brain failed to reveal any enhancing brain lesions given her history of B -cell lymphoma and breast cancer in the past. She is undergone paracentesis in the cytology results are still pending at this time. We will continue close neurological follow-up for the patient. Her overall prognosis remains guarded. Objective - Vital Signs Vital signs: Vital Signs Temp 97.9 F 01/21/17 04:00 Pulse 92 01/21/17 08:15 Resp 18 01/21/17 04:00 BP 116/59 01/21/17 04:00 Pulse Ox 92 L 01/21/17 04:00 Intake & Output 01/20/17 01/21/17 01/21/17 18:59 06:59 18:59 Intake Total 200 240 Balance 200 240 Weight 64.4 kg Intake: IV 200 Diltiazem 125 mg In 40 Sodium Chloride 0.9% 100 ml @ 5 MG/HR 5 mls/hr IV .Q24H [facility] Rx#:[id number] Sodium Chloride 0.9% 1, 160 000 ml @ 20 mls/hr IV . Q24H [facility] Rx#:[id number] Oral 240 Other: Voiding Method Bedside Commode Toilet # Voids 2 1 1 # Bowel Movements 2 1 0 - Exam Physical examination: PHYSICAL EXAMINATION: Patient is resting comfortably in bed. VITAL SIGNS: Blood pressure is [172/72]. Heart rate is [79]. Respiration is [16] . Temperature is [97.7]. HEENT: Head is atraumatic, neck is supple, there were no carotid bruits. CHEST: Lungs are clear to auscultation and percussion. CARDIAC: S1, S2 normal rate and rhythm. There is no murmur. ABDOMEN: Soft and nontender. Bowel sounds are present. EXTREMITIES: There is no pedal edema. Peripheral pulses are present. Neurological examination: Patient's neurological examination is unchanged from yesterday. - Labs CBC & Chem 7: 01/21/17 05:46 01/21/17 05:46 Labs: Abnormal Lab Results - Last 24 Hours (Table) 01/20/17 01/20/17 01/20/17 Range/Units 11:37 17:25 21:13 WBC (3.8-10.6) k/uL RBC (3.80-5.40) m/uL Hgb (11.4-16.0) gm/dL Hct (34.0-46.0) % RDW (11.5-15.5) % Plt Count (150-450) k/uL Lymphocytes # (Manual) (1.0-4.8) k/uL PT (9.0-12.0) sec APTT (22.0-30.0) sec Sodium (137-145) mmol/L BUN (7-17) mg/dL Creatinine (0.52-1.04) mg/dL Glucose (74-99) mg/dL POC Glucose (mg/dL) 109 H 148 H 147 H (75-99) mg/dL Calcium (8.4-10.2) mg/dL Troponin I (0.000-0.034) ng/mL Total Protein (6.3-8.2) g/dL Albumin (3.5-5.0) g/dL Urine Appearance (Clear) Urine Protein (Negative) Urine Blood (Negative) Ur Leukocyte Esterase (Negative) Urine RBC (0-5) /hpf Urine Yeast (Budding) (None) /hpf 01/20/17 01/20/17 01/20/17 Range/Units 22:16 23:17 23:17 WBC 3.6 L (3.8-10.6) k/uL RBC 3.38 L (3.80-5.40) m/uL Hgb 9.6 L (11.4-16.0) gm/dL Hct 29.3 L (34.0-46.0) % RDW 17.6 H (11.5-15.5) % Plt Count 51 L (150-450) k/uL Lymphocytes # (Manual) 0.6 L (1.0-4.8) k/uL PT (9.0-12.0) sec APTT (22.0-30.0) sec Sodium 133 L (137-145) mmol/L BUN 20 H (7-17) mg/dL Creatinine 1.19 H (0.52-1.04) mg/dL Glucose 113 H (74-99) mg/dL POC Glucose (mg/dL) (75-99) mg/dL Calcium (8.4-10.2) mg/dL Troponin I (0.000-0.034) ng/mL Total Protein (6.3-8.2) g/dL Albumin (3.5-5.0) g/dL Urine Appearance Cloudy H (Clear) Urine Protein 1+ H (Negative) Urine Blood Moderate H (Negative) Ur Leukocyte Esterase Small H (Negative) Urine RBC 99 H (0-5) /hpf Urine Yeast (Budding) Many H (None) /hpf 01/20/17 01/21/17 01/21/17 Range/Units 23:17 05:46 05:46 WBC 3.2 L (3.8-10.6) k/uL RBC 3.07 L (3.80-5.40) m/uL Hgb 8.8 L (11.4-16.0) gm/dL Hct 26.9 L (34.0-46.0) % RDW 17.7 H (11.5-15.5) % Plt Count 41 L* (150-450) k/uL Lymphocytes # (Manual) (1.0-4.8) k/uL PT 12.4 H (9.0-12.0) sec APTT 47.0 H (22.0-30.0) sec Sodium 135 L (137-145) mmol/L BUN 18 H (7-17) mg/dL Creatinine 1.10 H (0.52-1.04) mg/dL Glucose 100 H (74-99) mg/dL POC Glucose (mg/dL) (75-99) mg/dL Calcium 8.2 L (8.4-10.2) mg/dL Troponin I (0.000-0.034) ng/mL Total Protein 5.0 L (6.3-8.2) g/dL Albumin 2.5 L (3.5-5.0) g/dL Urine Appearance (Clear) Urine Protein (Negative) Urine Blood (Negative) Ur Leukocyte Esterase (Negative) Urine RBC (0-5) /hpf Urine Yeast (Budding) (None) /hpf 01/21/17 01/21/17 Range/Units 05:46 06:28 WBC (3.8-10.6) k/uL RBC (3.80-5.40) m/uL Hgb (11.4-16.0) gm/dL Hct (34.0-46.0) % RDW (11.5-15.5) % Plt Count (150-450) k/uL Lymphocytes # (Manual) (1.0-4.8) k/uL PT (9.0-12.0) sec APTT (22.0-30.0) sec Sodium (137-145) mmol/L BUN (7-17) mg/dL Creatinine (0.52-1.04) mg/dL Glucose (74-99) mg/dL POC Glucose (mg/dL) 111 H (75-99) mg/dL Calcium (8.4-10.2) mg/dL Troponin I 0.063 H* (0.000-0.034) ng/mL Total Protein (6.3-8.2) g/dL Albumin (3.5-5.0) g/dL Urine Appearance (Clear) Urine Protein (Negative) Urine Blood (Negative) Ur Leukocyte Esterase (Negative) Urine RBC (0-5) /hpf Urine Yeast (Budding) (None) /hpf Assessment and Plan (1) Acute encephalopathy Status: Acute Code(s): G93.40 - ENCEPHALOPATHY, UNSPECIFIED (2) Diffuse large B cell lymphoma Status: Acute Code(s): C83.30 - DIFFUSE LARGE B-CELL LYMPHOMA, UNSPECIFIED SITE (3) SIRS (systemic inflammatory response syndrome) Status: Acute Code(s): R65.10 - SIRS OF NON-INFECTIOUS ORIGIN W/O ACUTE ORGAN DYSFUNCTION (4) Weakness Status: Acute Code(s): R53.1 - WEAKNESS Plan: This patient is a 81-year-old female who was being evaluated for altered mentation and encephalopathy. Patient has a history of diffuse large B-cell lymphoma and is being followed by oncology. She recently underwent chemotherapy with CHOP and Rituxan and has been making slow recovery. Due to the change of mental status and history of cancer she was sent for MRI of the brain results which are noted above. Patient continues to show evidence of a diffuse encephalopathy. Routine EEG was reviewed yesterday and is moderately to severe slowing. No epileptiform discharges were seen. As noted MRI of the brain failed to reveal any enhancing brain lesions. We're waiting the results of her paracentesis which is being done to rule out malignant cells. Blood cultures have been negative thus far. Current antibiotics do not cause any neurotoxicity. We will continue close neurological follow-up for this patient. Her overall prognosis at this time remains guarded.
[2017-01-21 15:50] VITALS: RESP 18
[2017-01-21] MEDS: SODIUM CHLORIDE 0.9% 1,000 ML IV SCH (16:15)
[2017-01-21 17:10] LABS: Glucose,Whole Blood 135 mg/dL (75-99)
--- NOTE | 2017-01-21 19:34 | PN ---
Patient is doing much better today and patient is presently on Cardizem drip because of atrial fibrillation with rapid ventricular rate and patient appears to have yesterday gone into SVT, subsequently converted to A. fib., for which patient is on Cardizem now. Patient was given adenosine yesterday. Patient is doing much better today with improving kidney function, off Lasix and with discontinuation of Zosyn, patient's tremors did definitely improve and mental status did improve as well, although mental status changes may not be secondary to Zosyn. Patient has diffuse encephalopathy on the EEG, but MRI did not show any acute abnormality. Patient is mildly hyponatremic now. REVIEW OF SYSTEMS: GENERAL: As described in HPI. CARDIOVASCULAR: No chest pain, no orthopnea, no PND, no palpitations. PULMONARY: Denied any shortness of breath. No cough or hemoptysis. GASTROINTESTINAL: No diarrhea, nausea or vomiting. No abdominal pain. Normoactive bowel sounds. NEUROLOGIC: As described in HPI. Medications were reviewed. Medication changes as mentioned in the interval history. PHYSICAL EXAMINATION: VITAL SIGNS: Temperature 98.0, pulse of 96, respiratory rate of 18, blood pressure is 128/54, saturating at 94% on 2L of O2 nasal cannula. GENERAL: Patient continues to have tremors which significantly improved. Mental status is alert and oriented x3. PHYSICAL EXAMINATION: GENERAL: The patient is alert and oriented x3, not in any acute distress. Well developed, well nourished. HEENT: Pupils are round and equally reacting to light. EOMI. No scleral icterus. No conjunctival pallor. Normocephalic, atraumatic. No pharyngeal erythema. No thyromegaly. CARDIOVASCULAR: S1 and S2 present. Irregular rate and rhythm. Heart rate is around 90. PULMONARY: Chest is clear to auscultation, no wheezing or crackles. ABDOMEN: Soft, nontender, nondistended, normoactive bowel sounds. No palpable organomegaly. MUSCULOSKELETAL: No joint swelling or deformity. EXTREMITIES: No cyanosis, clubbing, or pedal edema. NEUROLOGICAL: Gross neurological examination did not reveal any focal deficits. SKIN: No rashes. LABORATORY DATA: Sodium is 133. ASSESSMENT AND PLAN: 1. Atrial fibrillation, presently, not rate controlled. Patient is in atrial fibrillation with rapid ventricular rate, is on Cardizem now. 2. Chronic diastolic dysfunction without any acute exacerbation. Patient had normal ejection fraction 50% to 55%. 3. Large B-cell lymphoma. Completed chemotherapy. 4. Confusion and altered mental status secondary to toxic metabolic encephalopathy, which is improving. 5. Myoclonus secondary to encephalopathy, may be related to antibiotics, improving with the discontinuation of those antibiotics. 6. Acute renal failure, multifactorial, secondary to prerenal azotemia from excessive diuretic therapy as well as contrast she received, which is improving at this point of time. 7. Mild pancytopenia. 8. Hypertension. 9. Hyperlipidemia. 10. Diabetic nephropathy. 11. Gastroesophageal reflux disease. 12. Ascites. Etiology is not clear, although negative for malignant cells. All the lymphoma recurrence workup is negative.
[2017-01-21 21:24] LABS: Glucose,Whole Blood 147 mg/dL (75-99)
[2017-01-22 06:10] LABS: Glucose,Whole Blood 112 mg/dL (75-99)
[2017-01-22] MEDS: INSULIN LISPRO (humaLOG) 300 UNIT/3 ML VIAL SQ SCH ×4 (06:34→23:12)
[2017-01-22] MEDS: DILTIAZEM 125 MG in SODIUM CHLORIDE 0.9% 100 ML IV SCH (06:34)
[2017-01-22] MEDS: FERROUS SULFATE 325 MG TAB PO SCH ×2 (06:35→17:45)
[2017-01-22] MEDS: PANTOPRAZOLE 40 MG TABLET PO SCH (06:35)
[2017-01-22] MEDS: FORMOTEROL FUMARATE 20 MCG/2 ML NEBU INHALATION SCH ×2 (08:14→19:45)
[2017-01-22] MEDS: IPRATROPIUM-ALBUTEROL 3 ML NEB INHALATION SCH ×4 (08:15→19:45)
[2017-01-22] MEDS: BUDESONIDE 1 MG/2 ML NEBU INHALATION SCH ×2 (08:15→19:45)
[2017-01-22] MEDS: HEPARIN SODIUM,PORCINE 5,000 UNIT/ML 1 ML VIAL SQ SCH ×2 (10:28→23:13)
[2017-01-22] MEDS: CHOLECALCIFEROL 1,000 UNIT TAB PO SCH (10:28)
[2017-01-22] MEDS: GABAPENTIN 300 MG CAP PO SCH ×3 (10:29→23:13)
[2017-01-22] MEDS: PRAVASTATIN SODIUM 20 MG TAB PO SCH (10:29)
[2017-01-22] MEDS: OXYBUTYNIN 10 MG TAB.ER.24 PO SCH (10:29)
[2017-01-22] MEDS: MULTIVITAMINS, THERA 1 EACH TAB PO SCH (10:30)
--- NOTE | 2017-01-22 10:59 | P.PN ---
Subjective This is an 81-year-old female seen because of acute kidney injury with creatinine going up from 1-1.36. The cause of this is deemed to be from multiple factors including hemodynamic instability with atrial fibrillation with rapid ventricular response, exposure to dye with the CTA to rule out PE. She is known with large cell lymphoma status post chemotherapy with CHOP and Rituxan. On 01/20/2017 day before Yesterday she had some changes in mental status that have resolved now. An EEG is rule out any seizures, and MRI are reportedly unremarkable. This morning she is feeling fairly well no nausea vomiting diarrhea abdominal pain no fever chills cough shortness of breath. Eating fair amounts of her meals. This morning though she is awake alert oriented and able to recall all details. Objective - Vital Signs Vital signs: Vital Signs Temp 96.9 F L 01/22/17 04:00 Pulse 80 01/22/17 08:23 Resp 18 01/22/17 04:00 BP 128/58 01/22/17 04:00 Pulse Ox 92 L 01/22/17 04:00 Intake & Output 01/21/17 01/22/17 01/22/17 18:59 06:59 18:59 Intake Total 585 450 Output Total 200 Balance 585 250 Weight 66 kg Intake: IV 225 205 Diltiazem 125 mg In 45 45 Sodium Chloride 0.9% 100 ml @ 5 MG/HR 5 mls/hr IV .Q24H [facility] Rx#:[id number] Sodium Chloride 0.9% 1, 180 160 000 ml @ 20 mls/hr IV . Q24H [facility] Rx#:[id number] Intake, IV Titration 125 Amount Diltiazem 125 mg In 125 Sodium Chloride 0.9% 100 ml @ 5 MG/HR 5 mls/hr IV .Q24H [facility] Rx#:[id number] Oral 360 120 Output: Urine 200 Other: Voiding Method Toilet Toilet Diaper # Voids 1 1 # Bowel Movements 0 On examination awake alert oriented. HEENT exam no JVP neck is supple no facial asymmetry. Lungs are clear to auscultation percussion good air entry bilaterally Heart sounds are unremarkable for any murmur rub gallop Abdomen soft nontender with ascites which is moderate. Extremity exam was no edema Neuro logically awake alert oriented but generalized weakness. - Labs CBC & Chem 7: 01/21/17 05:46 01/21/17 05:46 Labs: Abnormal Lab Results - Last 24 Hours (Table) 01/21/17 01/21/17 01/21/17 Range/Units 11:12 11:32 17:02 POC Glucose (mg/dL) 116 H 135 H (75-99) mg/dL Troponin I 0.062 H* (0.000-0.034) ng/mL 01/21/17 01/22/17 Range/Units 21:23 06:08 POC Glucose (mg/dL) 147 H 112 H (75-99) mg/dL Troponin I (0.000-0.034) ng/mL Assessment and Plan Plan: 1 acute kidney injury secondary to multiple factors including atrial fibrillation, CTA with dye exposure on 01/13/2017,. Improved and creatinine down to 1.10 as of this morning, stable since yesterday when it was 1.19. Urine output is not well documented. 2. Mild degree of hyponatremia secondary to acute kidney injury improved sodium is improved yesterday dated 01/21 2017 to 135 from 133. 3. history of large B-cell lymphoma, on chemotherapy 4. Ascites negative for malignancy so far, other etiologies are being looked into. 4. Transient confusion resolved. Cause not very clear. EEG showed moderately to severe slowing. No epileptiform discharges were seen. As noted MRI of the brain failed to reveal any enhancing brain lesions Recommendation. 1. blood pressure is somewhat low so we need to watch her intake and output and ensure she has good intake. Cautious control of atrial fibrillation without hypotensive episodes. 2. Check labs tomorrow
[2017-01-22 12:15] LABS: Glucose,Whole Blood 134 mg/dL (75-99)
--- NOTE | 2017-01-22 15:16 | P.PN ---
Subjective This patient is a 81-year-old female who is being followed for history of acute kidney injury and altered mental status. Patient is undergone extensive evaluation for mentation changes. She underwent an MRI of the brain which came back negative for any evidence of acute stroke or hemorrhage. There was no enhancing lesions seen. Patient has a history of underlying B-cell lymphoma as well as breast cancer. MRI ruled out any enhancing brain lesions. Her overall mental status has improved over the last several days. She is being treated for acute kidney injury. She did undergo a routine EEG which failed to reveal any evidence for a seizure focus. She is being treated for hyponatremia as well and several other metabolic abnormalities. Patient does have slowly improving kidney function. Her serum creatinine has come down to 1.10 this morning. Nephrology is following her condition closely. Patient is sitting up in chair today. Her abdominal ascites has significantly improved from initial presentation. She states that 2 L of fluid was removed from her belly. This is helped her overall general condition. As noted she is much more awake and alert today. She has no evidence of acute delirium. We did review the results of her recent MRI and EEG today with the patient's who was at bedside. All his questions were answered. She does seem to be showing improvement in her mental status which would be consistent with a diffuse metabolic encephalopathy. We will continue close neurological follow-up with the patient as well. Her overall prognosis at this time remains very guarded. Objective - Vital Signs Vital signs: Vital Signs Temp 98.7 F 01/22/17 12:00 Pulse 62 01/22/17 12:00 Resp 18 01/22/17 12:00 BP 121/60 01/22/17 12:00 Pulse Ox 98 01/22/17 12:00 Intake & Output 01/21/17 01/22/17 01/22/17 18:59 06:59 18:59 Intake Total 585 450 120 Output Total 200 120 Balance 585 250 0 Weight 66 kg Intake: IV 225 205 Diltiazem 125 mg In 45 45 Sodium Chloride 0.9% 100 ml @ 5 MG/HR 5 mls/hr IV .Q24H [facility] Rx#:[id number] Sodium Chloride 0.9% 1, 180 160 000 ml @ 20 mls/hr IV . Q24H [facility] Rx#:[id number] Intake, IV Titration 125 Amount Diltiazem 125 mg In 125 Sodium Chloride 0.9% 100 ml @ 5 MG/HR 5 mls/hr IV .Q24H [facility] Rx#:[id number] Oral 360 120 120 Output: Urine 200 120 Other: Voiding Method Toilet Toilet Toilet Diaper Diaper # Voids 1 1 # Bowel Movements 0 0 - Exam Physical examination: PHYSICAL EXAMINATION: Patient is resting comfortably in bed. VITAL SIGNS: Blood pressure is [121/60]. Heart rate is [62]. Respiration is [16] . Temperature is [98.7]. HEENT: Head is atraumatic, neck is supple, there were no carotid bruits. CHEST: Lungs are clear to auscultation and percussion. CARDIAC: S1, S2 normal rate and rhythm. There is no murmur. ABDOMEN: Soft and nontender. Bowel sounds are present. EXTREMITIES: There is no pedal edema. Peripheral pulses are present. Neurological examination: Patient's neurological examination is unchanged from yesterday. Patient is more awake and alert today. She is sitting up and is able to answer simple questions. Her memory and intellectual functions show improvement since initial presentation. - Labs CBC & Chem 7: 01/21/17 05:46 01/21/17 05:46 Labs: Abnormal Lab Results - Last 24 Hours (Table) 01/21/17 01/21/17 01/22/17 Range/Units 17:02 21:23 06:08 POC Glucose (mg/dL) 135 H 147 H 112 H (75-99) mg/dL 01/22/17 Range/Units 11:49 POC Glucose (mg/dL) 134 H (75-99) mg/dL Assessment and Plan (1) Acute encephalopathy Status: Acute Code(s): G93.40 - ENCEPHALOPATHY, UNSPECIFIED (2) Diffuse large B cell lymphoma Status: Acute Code(s): C83.30 - DIFFUSE LARGE B-CELL LYMPHOMA, UNSPECIFIED SITE (3) SIRS (systemic inflammatory response syndrome) Status: Acute Code(s): R65.10 - SIRS OF NON-INFECTIOUS ORIGIN W/O ACUTE ORGAN DYSFUNCTION (4) Weakness Status: Acute Code(s): R53.1 - WEAKNESS Plan: This patient is a 81-year-old female who was initially evaluated for evaluation of acute mental status changes. She has a history of underlying B-cell lymphoma and remote history of breast cancer. The patient was evaluated for this and did undergo routine MRI of the brain with and without contrast. This MRI came back negative with specifically no evidence of enhancing mass lesion. The patient seems to be doing better today in terms of her mental status. She did undergo routine EEG which was also showing diffuse slowing but no evidence for epileptiform discharges. She has had no further findings of benefit benign tremors. She likely did have some degree of mild myoclonus which is now resolved. She is being treated for renal failure as well. Her serum creatinine today is 1.36. Nephrology is following the patient closely. We will continue close neurological follow-up of this patient. Case was discussed at length with the patient and the patient's at bedside today. All questions were answered. They are both aware of her overall guarded condition. We will continue close neurological follow-up of this patient during this admission.
--- NOTE | 2017-01-22 16:30 | PN ---
Patient continues to be on Cardizem drip. Cardiology already consulted. Patient's symptoms patient is coughing quite a bit. We will start her on doxycycline for bronchitis. Otherwise patient's symptoms of mental status changes and intramuscular significantly and myoclonic activity completely resolved at this point of time. REVIEW OF SYSTEMS: CARDIOVASCULAR: No chest pain, no orthopnea, no PND, no palpitations. PULMONARY: Cough as mentioned earlier. GASTROINTESTINAL: No diarrhea, nausea or vomiting. No abdominal pain. Normoactive bowel sounds. NEUROLOGIC: No headaches, no weakness, no numbness. Medications were reviewed. PHYSICAL EXAMINATION: VITAL SIGNS: Temperature 98.7, pulse 76, respiratory 16. Blood pressure is 121/60, saturating at 98% on room air. PHYSICAL EXAMINATION: GENERAL: The patient is alert and oriented x3, not in any acute distress. Well developed, well nourished. HEENT: Pupils are round and equally reacting to light. EOMI. No scleral icterus. No conjunctival pallor. Normocephalic, atraumatic. No pharyngeal erythema. No thyromegaly. CARDIOVASCULAR: S1 and S2 present. No murmurs, rubs, or gallops. PULMONARY: Breath sounds a little bit rhonchorous. Tremors significantly improved. ABDOMEN: Soft, nontender, nondistended, normoactive bowel sounds. No palpable organomegaly. MUSCULOSKELETAL: No joint swelling or deformity. EXTREMITIES: No cyanosis, clubbing, or pedal edema. NEUROLOGICAL: Gross neurological examination did not reveal any focal deficits. SKIN: No rashes. LABORATORY DATA: None available from today. Second set of troponins 0.062. Remained at that level this is secondary to renal dysfunction. I do not have any repeat basic metabolic today. ASSESSMENT AND PLAN: 1. Atrial fibrillation, presently rate controlled on Cardizem drip, reconsult cardiology. Chronic diastolic dysfunction without any acute exacerbation. Normal ejection fraction. 2. Large B-cell lymphoma completed chemotherapy. 3. Confusion and altered mental status secondary to toxic encephalopathy, which is improving. 4. Myoclonus secondary to encephalopathy I still believe is related to Zosyn which improved significantly after discontinuation of that antibiotic. 5. Acute renal failure, multifactorial secondary to prerenal azotemia secondary to excessive diuretic therapy as well as contrast, which is improving. 6. Elevated troponin secondary to renal dysfunction. 7. Pancytopenia. 8. Hypertension. 9. Hyperlipidemia. 10. Diabetic nephropathy. 11. Gastroesophageal reflux disease. 12. Ascites etiology is unknown. Negative for malignant cells.
[2017-01-22 16:52] LABS: Glucose,Whole Blood 104 mg/dL (75-99)
[2017-01-22] MEDS: SODIUM CHLORIDE 0.9% 1,000 ML IV SCH (17:45)
[2017-01-22 21:41] LABS: Glucose,Whole Blood 107 mg/dL (75-99)
[2017-01-22] MEDS: DOXYCYCLINE 50 MG CAP PO SCH (23:15)
[2017-01-23 06:28] LABS: Glucose,Whole Blood 97 mg/dL (75-99)
[2017-01-23] MEDS: FERROUS SULFATE 325 MG TAB PO SCH ×2 (06:51→17:28)
[2017-01-23] MEDS: DILTIAZEM 125 MG in SODIUM CHLORIDE 0.9% 100 ML IV SCH (06:51)
[2017-01-23] MEDS: INSULIN LISPRO (humaLOG) 300 UNIT/3 ML VIAL SQ SCH ×4 (06:52→21:00)
[2017-01-23] MEDS: PANTOPRAZOLE 40 MG TABLET PO SCH (06:52)
[2017-01-23 07:26] LABS: Anion Gap 7 mmol/L; Blood Urea Nitrogen 15 mg/dL (7-17); Calcium 8.7 mg/dL (8.4-10.2); Carbon Dioxide 25 mmol/L (22-30); Chloride 109 mmol/L (98-107); Glucose 93 mg/dL (74-99); Non-African American GFR(MDRD) 59 (>60 ml/min/1.73 sqM); Potassium 3.9 mmol/L (3.5-5.1); Sodium 141 mmol/L (137-145)
[2017-01-23] MEDS: BUDESONIDE 1 MG/2 ML NEBU INHALATION SCH ×2 (08:36→21:00)
[2017-01-23] MEDS: FORMOTEROL FUMARATE 20 MCG/2 ML NEBU INHALATION SCH ×2 (08:36→21:00)
[2017-01-23] MEDS: IPRATROPIUM-ALBUTEROL 3 ML NEB INHALATION SCH ×4 (08:36→21:00)
[2017-01-23] MEDS: CHOLECALCIFEROL 1,000 UNIT TAB PO SCH (09:07)
[2017-01-23] MEDS: DOXYCYCLINE 50 MG CAP PO SCH ×2 (09:08→21:00)
[2017-01-23] MEDS: PRAVASTATIN SODIUM 20 MG TAB PO SCH (09:09)
[2017-01-23] MEDS: OXYBUTYNIN 10 MG TAB.ER.24 PO SCH (09:09)
[2017-01-23] MEDS: GABAPENTIN 300 MG CAP PO SCH ×3 (09:09→21:00)
[2017-01-23] MEDS: MULTIVITAMINS, THERA 1 EACH TAB PO SCH (09:09)
[2017-01-23] MEDS: HEPARIN SODIUM,PORCINE 5,000 UNIT/ML 1 ML VIAL SQ SCH ×2 (09:10→21:00)
[2017-01-23 11:38] LABS: Glucose,Whole Blood 93 mg/dL (75-99)
--- NOTE | 2017-01-23 13:55 | P.PN ---
Subjective Principal diagnosis: Atrial fibrillation with RVR and severe aortic stenosis. This is a very pleasant 81-year-old female patient has a history of diabetes Fernando, hypertension, hyperlipidemia, large B-cell lymphoma. She also has a history of chronic obstructive pulmonary disease and follows with Dr. Torrez in our office for the same. She was in the office on 01/13/2017 and was quite weak. She was briefly unresponsive. She was found to be in atrial fibrillation with rapid ventricular response. EMS was called and she was brought here to the emergency room. She was found to be in continued atrial fibrillation with a rapid rapid ventricular response. She is also had elevated d-dimer. A CT angiogram ruled out pulmonary embolism however there is an oval density posterior middle left apex which is enlarged compared to previous study. Neoplasm is in the differential. There is also evidence of chronic obstructive pulmonary disease and chronic bronchitis with a new density in the periphery of the right mid lung with atelectasis. The patient also had distended abdomen and was found to have significant ascites. She is currently down for a paracentesis of the abdomen. Seen again today January 17 2017 in follow-up on the oncology unit. She is currently awake and alert in no acute distress. She is feeling better today. He had 2.6 L of fluid removed from her abdomen yesterday. Pathology is pending. Her hemoglobin remained stable at 11.1. She is status post 2 units of packed red blood cell infusions. Platelet count 62,000. She has some worsening of her renal function, current creatinine 1.24. She continues with a loose productive cough of pale yellow sputum. She's afebrile. No leukocytosis. Maintaining good O2 saturations in the 90s on 2 L/m per nasal cannula. She remains in sinus rhythm. On the patient is being seen in follow-up. She is still weak. She is having significant weakness in her lower extremities bilaterally. Her abdomen is slightly distended and the patient underwent a large volume paracentesis for a total of 2.60. Fluid was revealed and the fluid analysis has not been sent yet the there is a fluid cytology that is still pending for now. Meanwhile, the patient is still having some limited shortness of breath especially with activity. She has a mild cough with congestion. No significant sputum production. She is covered with antibiotics regarding possibility of an underlying pneumonia. No change in mental status. No chest pain. Function of the kidneys is stable with a creatinine of 1.1. Platelets are still low at 57, 000 and there is a mild degree of coagulopathy with an INR of 1.3. Ammonia level is at 14. 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 Back then the patient presents with a very large abdominal mass presenting with currently on the rate that aortic lymphadenopathy as well as supraclavicular lymphadenopathy. She got treated with R CHOP combination and she responded nicely to treatment and following that she was receiving Cytoxan as a maintenance. Her condition decompensated after she went to [place] in July 2016 and she came in from her vacation with above-mentioned issues. The patient is seen again today 01/19/2017. Unfortunately her mental status continues to decline. She is having hand tremors progressive weakness. He is less alert today as compared to yesterday. Pathology of paracentesis fluid is still pending. There is concerns regarding recurrent lymphoma. A computed tomography scan of the abdomen did reveal ascites there is small right and minimal left pleural effusions with atelectasis. There is no evidence of abdominal. mass. On 01/23/2017, patient is doing quite well from the pulmonary perspective, however the patient remains on Cardizem drip, radiology was reconsulted, patient is also known to have history of chronic diastolic dysfunction as well as a large B-cell lymphoma completed chemotherapy, and she has acute renal failure. She was also evaluated for ascites status post paracentesis, and negative cytology. Today, no cough no wheezing, no shortness of breath. Objective - Vital Signs Vital signs: Vital Signs Temp 97.8 F 01/23/17 12:25 Pulse 82 01/23/17 12:38 Resp 18 01/23/17 12:25 BP 140/60 01/23/17 12:25 Pulse Ox 92 L 01/23/17 12:25 Intake & Output 01/22/17 01/23/17 01/23/17 18:59 06:59 18:59 Intake Total 360 321.417 180 Output Total 320 450 300 Balance 40 -128.583 -120 Intake: IV 200 Diltiazem 125 mg In 40 Sodium Chloride 0.9% 100 ml @ 5 MG/HR 5 mls/hr IV .Q24H [facility] Rx#:[id number] Sodium Chloride 0.9% 1, 160 000 ml @ 20 mls/hr IV . Q24H [facility] Rx#:[id number] Intake, IV Titration 121.417 Amount Diltiazem 125 mg In 121.417 Sodium Chloride 0.9% 100 ml @ 5 MG/HR 5 mls/hr IV .Q24H [facility] Rx#:[id number] Oral 360 180 Output: Urine 320 450 300 Other: Voiding Method Toilet Toilet Toilet Diaper Diaper Diaper # Voids 0 1 2 # Bowel Movements 0 1 - Exam GENERAL EXAM: Altered mental status. Tremorous. HEAD: Normocephalic. EYES: Normal reaction of pupils, equal size. NOSE: Clear with pink turbinates. THROAT: No erythema or exudates. NECK: No masses, no JVD. CHEST: No chest wall deformity. LUNGS: Equal air entry with no few scattered rhonchi, crackles in the posterior bases.. CVS: S1 and S2 normal with no audible murmurs, regular rhythm. ABDOMEN: Slightly distended, normal bowel sounds, no guarding or rigidity. Extremities: There is no significant peripheral edema. No clubbing, no cyanosis. Peripheral pulses are intact. - Labs CBC & Chem 7: 01/21/17 05:46 01/23/17 06:42 Labs: Abnormal Lab Results - Last 24 Hours (Table) 01/22/17 01/22/17 01/23/17 Range/Units 16:41 20:51 06:42 Chloride 109 H (98-107) mmol/L POC Glucose (mg/dL) 104 H 107 H (75-99) mg/dL Assessment and Plan Plan: #1 Atrial fibrillation with a rapid ventricular response versus multifocal atrial tachycardia. Currently in sinus rhythm.. #2 Acute on chronic systolic congestive heart failure with estimated ejection fraction of 45-50%. #3 Moderate to severe aortic stenosis. #4 History of pancytopenia. #5 History of large B-cell lymphoma, status post R CHOP followed by Rituxan. #6 Hypertension. #7 Hyperlipidemia. #8 Gastroesophageal reflux disease. #9 Ascites status post paracentesis. 2.6 L of serous fluid was removed. #10 Anemia. #11 History of right breast cancer with surgery. #12 Acute renal failure, current creatinine 1.36. Recommendation: Continue present treatment plan, not much to be added from our perspective, we'll sign off and see on when necessary basis. Time with Patient: Less than 30
--- NOTE | 2017-01-23 14:14 | P.PN ---
Subjective Principal diagnosis: Mental status changes This 81-year-old female with history of large cell lymphoma, COPD and chronic anemia was admitted with sudden onset of mental status changes and a fainting spell in [facility] office. Patient was found to be tachycardic felt to be in the SVT or atrial fibrillation. Patient had carotid stimulation and subsequently admitted to the hospital. CTA of the chest was negative for pulmonary embolism. Patient is currently on verapamil, in normal sinus rhythm. It appears that the patient was actually in an MAT rhythm. He did receive a blood transfusion during this admission. We had signed off her case and she went down to the fifth floor, throughout the night again went into multifocal atrial tachycardia and was reinitiated on IV Cardizem. Continue the Cardizem drip, increase the by mouth dose of Cardizem. She may be transferred to rehab once cleared by the primary and we will make her a follow-up appointment in the office post discharge. Objective - Vital Signs Vital signs: Vital Signs Temp 97.8 F 01/23/17 12:25 Pulse 82 01/23/17 12:38 Resp 18 01/23/17 12:25 BP 140/60 01/23/17 12:25 Pulse Ox 92 L 01/23/17 12:25 Intake & Output 01/22/17 01/23/17 01/23/17 18:59 06:59 18:59 Intake Total 360 321.417 180 Output Total 320 450 300 Balance 40 -128.583 -120 Intake: IV 200 Diltiazem 125 mg In 40 Sodium Chloride 0.9% 100 ml @ 5 MG/HR 5 mls/hr IV .Q24H [facility] Rx#:[id number] Sodium Chloride 0.9% 1, 160 000 ml @ 20 mls/hr IV . Q24H [facility] Rx#:[id number] Intake, IV Titration 121.417 Amount Diltiazem 125 mg In 121.417 Sodium Chloride 0.9% 100 ml @ 5 MG/HR 5 mls/hr IV .Q24H [facility] Rx#:[id number] Oral 360 180 Output: Urine 320 450 300 Other: Voiding Method Toilet Toilet Toilet Diaper Diaper Diaper # Voids 0 1 2 # Bowel Movements 0 1 - Exam PHYSICAL EXAMINATION: HEENT: Head is atraumatic, normocephalic. Pupils equal, round. Neck is supple. There is no elevated jugular venous pressure. HEART EXAMINATION: S1 and S2 systolic murmur is heard. CHEST EXAMINATION: Lungs reveal scattered wheezing throughout. ABDOMEN: Soft, nontender. Bowel sounds are heard. No organomegaly noted. EXTREMITIES: 2+ peripheral pulses with no evidence of peripheral edema and no calf tenderness noted. NEUROLOGIC patient is awake, alert and oriented -3. . - Labs CBC & Chem 7: 01/21/17 05:46 01/23/17 06:42 Labs: Abnormal Lab Results - Last 24 Hours (Table) 01/22/17 01/22/17 01/23/17 Range/Units 16:41 20:51 06:42 Chloride 109 H (98-107) mmol/L POC Glucose (mg/dL) 104 H 107 H (75-99) mg/dL Assessment and Plan (1) Multifocal atrial tachycardia Status: Acute (2) Anemia Status: Acute (3) Syncope Status: Acute (4) Atypical chest pain Status: Acute (5) Diabetes Status: Acute (6) Diffuse large B cell lymphoma Status: Acute (7) Aortic stenosis Status: Acute Plan: From cardiology's perspective, we will recommend to crease oral dose ofVeerapamil. patient may be able to transfer to rehab once cleared by the primary. We will follow her along with you now on an as-needed basis only, please don't hesitate to call with any questions.. DNP note has been reviewed, I agree with a documented findings and plan of care. Patient was seen and examined.
[2017-01-23 16:48] LABS: Glucose,Whole Blood 125 mg/dL (75-99)
[2017-01-23] MEDS: SODIUM CHLORIDE 0.9% 1,000 ML IV SCH (17:27)
--- NOTE | 2017-01-23 17:35 | PN ---
Patient continues to be on Cardizem drip, which is being discontinued. I had extensive discussion with the family, who wanted to take her home. Patient's ascites is getting worse. Etiology of ascites is unknown. Patient is on doxycycline for bronchitis. As the etiology of her ascites is unknown and etiology of possible cirrhosis is unknown, I will go ahead and consult Gastroenterology to evaluate for this possible cirrhosis and patient can have workup again. Patient may end up needing another paracentesis again. REVIEW OF SYSTEMS: CARDIOVASCULAR: No chest pain, no orthopnea, no PND, no palpitations. PULMONARY: Denied any shortness of breath. No cough or hemoptysis. GASTROINTESTINAL: No diarrhea, nausea or vomiting. No abdominal pain. Normoactive bowel sounds. NEUROLOGIC: No headaches, no weakness, no numbness. Medications were reviewed. Patient is being transitioned from Cardizem drip to oral medications. PHYSICAL EXAMINATION: VITAL SIGNS: Temperature 97.8, pulse of 82, respiratory rate of 16. Blood pressure is 140/60. Saturating at 92% on room air. GENERAL: The patient is alert and oriented x3, not in any acute distress. Well developed, well nourished. HEENT: Pupils are round and equally reacting to light. EOMI. No scleral icterus. No conjunctival pallor. Normocephalic, atraumatic. No pharyngeal erythema. No thyromegaly. CARDIOVASCULAR: S1 and S2 present. No murmurs, rubs, or gallops. PULMONARY: Chest is clear to auscultation, no wheezing or crackles. ABDOMEN: Patient ( ) abdominal distention. No rebound or rigidity and no tenderness. MUSCULOSKELETAL: No joint swelling or deformity. EXTREMITIES: No cyanosis, clubbing, or pedal edema. NEUROLOGICAL: Gross neurological examination did not reveal any focal deficits. SKIN: No rashes. LABORATORY DATA: Basic metabolic profile essentially within normal limits. ASSESSMENT AND PLAN: 1. Atrial fibrillation, presently rate-controlled on Cardizem drip. 2. Large B-cell lymphoma. Completed chemotherapy. 3. Confusion, altered mental status secondary to toxic encephalopathy, which is improving. 4. Myoclonus secondary to Zosyn, which improved. 5. Acute renal failure, prerenal azotemia, improved at this point of time. 6. Ascites; etiology is unknown. Lymphoma appears to be in remission. 7. Elevated troponin secondary to renal dysfunction. 8. Pancytopenia. 9. Hypertension. 10. Hyperlipidemia. 11. Diabetic nephropathy. 12. Gastroesophageal reflux disease. Patient will probably be discharged to subacute rehabilitation tomorrow.
--- NOTE | 2017-01-23 19:18 | P.PN ---
Subjective This patient is a 81-year-old female who is being followed for history of acute kidney injury and altered mental status. Patient is undergone extensive evaluation for mentation changes. She underwent an MRI of the brain which came back negative for any evidence of acute stroke or hemorrhage. There was no enhancing lesions seen. Patient has a history of underlying B-cell lymphoma as well as breast cancer. MRI ruled out any enhancing brain lesions. Her overall mental status has improved over the last several days. She is being treated for acute kidney injury. She did undergo a routine EEG which failed to reveal any evidence for a seizure focus. She is being treated for hyponatremia as well and several other metabolic abnormalities. Patient does have slowly improving kidney function. Her serum creatinine has come down to 1.10 this morning. Nephrology is following her condition closely. Patient is sitting up in chair today. Her abdominal ascites has significantly improved from initial presentation. She states that 2 L of fluid was removed from her belly. This is helped her overall general condition. As noted she is much more awake and alert today. She has no evidence of acute delirium. We did review the results of her recent MRI and EEG today with the patient's who was at bedside. All his questions were answered. She does seem to be showing improvement in her mental status which would be consistent with a diffuse metabolic encephalopathy. Patient is being considered for discharge to home tomorrow. We will continue close neurological follow-up with the patient as well. Her overall prognosis at this time remains very guarded. Objective - Vital Signs Vital signs: Vital Signs Temp 97.8 F 01/23/17 12:25 Pulse 84 01/23/17 16:05 Resp 18 01/23/17 12:25 BP 140/60 01/23/17 12:25 Pulse Ox 92 L 01/23/17 12:25 Intake & Output 01/22/17 01/23/17 01/23/17 18:59 06:59 18:59 Intake Total 360 321.417 360 Output Total 320 450 300 Balance 40 -128.583 60 Intake: IV 200 Diltiazem 125 mg In 40 Sodium Chloride 0.9% 100 ml @ 5 MG/HR 5 mls/hr IV .Q24H [facility] Rx#:[id number] Sodium Chloride 0.9% 1, 160 000 ml @ 20 mls/hr IV . Q24H [facility] Rx#:[id number] Intake, IV Titration 121.417 Amount Diltiazem 125 mg In 121.417 Sodium Chloride 0.9% 100 ml @ 5 MG/HR 5 mls/hr IV .Q24H [facility] Rx#:[id number] Oral 360 360 Output: Urine 320 450 300 Other: Voiding Method Toilet Toilet Toilet Diaper Diaper Diaper # Voids 0 1 2 # Bowel Movements 0 1 - Exam Physical examination: PHYSICAL EXAMINATION: Patient is resting comfortably in bed. VITAL SIGNS: Blood pressure is [140/60]. Heart rate is [92]. Respiration is [16] . Temperature is [97.8]. HEENT: Head is atraumatic, neck is supple, there were no carotid bruits. CHEST: Lungs are clear to auscultation and percussion. CARDIAC: S1, S2 normal rate and rhythm. There is no murmur. ABDOMEN: Soft and nontender. Bowel sounds are present. EXTREMITIES: There is no pedal edema. Peripheral pulses are present. Neurological examination: Patient's neurological examination is unchanged from yesterday. Patient is more awake and alert today. She is sitting up and is able to answer simple questions. Her memory and intellectual functions show improvement since initial presentation. - Labs CBC & Chem 7: 01/21/17 05:46 01/23/17 06:42 Labs: Abnormal Lab Results - Last 24 Hours (Table) 01/22/17 01/22/17 01/23/17 Range/Units 16:41 20:51 06:42 Chloride 109 H (98-107) mmol/L POC Glucose (mg/dL) 104 H 107 H (75-99) mg/dL Assessment and Plan (1) Acute encephalopathy Status: Acute Code(s): G93.40 - ENCEPHALOPATHY, UNSPECIFIED (2) Diffuse large B cell lymphoma Status: Acute Code(s): C83.30 - DIFFUSE LARGE B-CELL LYMPHOMA, UNSPECIFIED SITE (3) SIRS (systemic inflammatory response syndrome) Status: Acute Code(s): R65.10 - SIRS OF NON-INFECTIOUS ORIGIN W/O ACUTE ORGAN DYSFUNCTION (4) Weakness Status: Acute Code(s): R53.1 - WEAKNESS Plan: This patient is a 81-year-old female who was initially evaluated for evaluation of acute mental status changes. She has a history of underlying B-cell lymphoma and remote history of breast cancer. The patient was evaluated for this and did undergo routine MRI of the brain with and without contrast. This MRI came back negative with specifically no evidence of enhancing mass lesion. The patient seems to be doing better today in terms of her mental status. She did undergo routine EEG which was also showing diffuse slowing but no evidence for epileptiform discharges. She has had no further findings of benefit benign tremors. She likely did have some degree of mild myoclonus which is now resolved. She is being treated for renal failure as well. Her serum creatinine today is 1.36. Nephrology is following the patient closely. We will continue close neurological follow-up of this patient. Case was discussed at length with the patient and the patient's at bedside today. All questions were answered. Patient is being considered for discharge home tomorrow. She should continue to show improvement with her mental status as her kidney function improves. We will continue close neurological follow-up of this patient during this admission.
--- NOTE | 2017-01-23 20:18 | P.PN ---
Subjective Principal diagnosis: Altered mental status 81-year-old female is a history of multiple medical troubles with that her pulmonologists office for follow-up of her cough that has been problematic since September of this year. She's had difficulties with some shortness of breath as well as a mostly dry but minimally productive cough. It has affected the quality of her life. At the office the patient apparently slumped over onto her . She had altered mental status. Vital signs reveal evidence of her heart rate in the 180s. Carotid massage was performed and heart rate slowed. Because of her difficulty she was transferred to the emergency center. There she is on evidence of atrial fibrillation with rapid ventricular response. She was treated with Cardizem and has had improvement. The patient has a known history of large B-cell lymphoma as well as a history of breast carcinoma. Does have underlying hyperlipidemia hypertension and diabetes in a history of multifocal atrial tachycardia. Cardiology has seen the patient and believe that she has chronic congestive heart failure systolic type. Infectious diseases consultation requested with concerns of pneumonia after her event and the abnormal chest x-ray. Patient does not believe she's had significant fever chill or rigor before admission. However is noted she is having difficulty with a chronic cough that is only minimally productive at times. He has had a decline of her status. Has been seen by neurology. MRI was performed without evidence of new disease. Primary service has discontinued Zosyn. Doxycycline was started. Objective - Vital Signs Vital signs: Vital Signs Temp 97.9 F 01/23/17 16:00 Pulse 88 01/23/17 16:19 Resp 18 01/23/17 16:00 BP 121/60 01/23/17 16:00 Pulse Ox 95 01/23/17 16:00 Intake & Output 01/23/17 01/23/17 01/24/17 06:59 18:59 06:59 Intake Total 321.417 597 Output Total 450 550 Balance -128.583 47 Intake: IV 200 Diltiazem 125 mg In 40 Sodium Chloride 0.9% 100 ml @ 5 MG/HR 5 mls/hr IV .Q24H [facility] Rx#:[id number] Sodium Chloride 0.9% 1, 160 000 ml @ 20 mls/hr IV . Q24H [facility] Rx#:[id number] Intake, IV Titration 121.417 Amount Diltiazem 125 mg In 121.417 Sodium Chloride 0.9% 100 ml @ 5 MG/HR 5 mls/hr IV .Q24H [facility] Rx#:[id number] Oral 597 Output: Urine 450 550 Other: Voiding Method Toilet Toilet Diaper Diaper # Voids 1 2 # Bowel Movements 1 - Exam Pleasant 81-year-old woman who seems very modestly comfortable but coughs occasionally through the exam. Does relate to some modest shortness of breath. HEENT: Anicteric conjunctiva are pink and moist nasal mucosa grossly intact without significant lesions, there is no thrush. Neck: The neck is supple without significant lymphadenopathy or thyromegaly. Lungs: There is symmetrical air entry. There are bibasilar crackles. No nik bronchial sounds. No dullness or egophony. Heart: Irregular with an audible S1-S2, no S3 off tests for. There is no significant murmur click or rub, PMI was nondisplaced. Abdomen: Positive bowel sounds soft and nontender without palpable masses or organomegaly. There was no guarding or rebound.The large ascites is improved after paracentesis of today. Extremities: The upper extremities have excellent pulses they are symmetric, no significant petechiae or telangiectasia. No splinter hemorrhages were noted. The lower extremities are free from significant edema. The peripheral pulses were 2+ and symmetric. Neuro: Awake and alert less agitated and more interactive - Labs CBC & Chem 7: 01/21/17 05:46 01/23/17 06:42 Labs: Abnormal Lab Results - Last 24 Hours (Table) 01/22/17 01/23/17 01/23/17 Range/Units 20:51 06:42 16:43 Chloride 109 H (98-107) mmol/L POC Glucose (mg/dL) 107 H 125 H (75-99) mg/dL Laboratory Results WBC 3.2 k/uL (3.8-10.6) L 01/21/17 05:46 RBC 3.07 m/uL (3.80-5.40) L 01/21/17 05:46 Hgb 8.8 gm/dL (11.4-16.0) L 01/21/17 05:46 Hct 26.9 % (34.0-46.0) L 01/21/17 05:46 MCV 87.5 fL (80.0-100.0) 01/21/17 05:46 MCH 28.5 pg (25.0-35.0) 01/21/17 05:46 MCHC 32.6 g/dL (31.0-37.0) 01/21/17 05:46 RDW 17.7 % (11.5-15.5) H 01/21/17 05:46 Plt Count 41 k/uL (150-450) L* 01/21/17 05:46 Neutrophils % 62 % 01/18/17 08:42 Neutrophils % (Manual) 64.0 % 01/20/17 23:17 Band Neutrophils % 2.0 % 01/17/17 07:11 Lymphocytes % 19 % 01/18/17 08:42 Lymphocytes % (Manual) 17.0 % 01/20/17 23:17 Monocytes % 14 % 01/18/17 08:42 Monocytes % (Manual) 18.0 % 01/20/17 23:17 Eosinophils % 2 % 01/18/17 08:42 Eosinophils % (Manual) 2.0 % 01/17/17 07:11 Basophils % 1 % 01/18/17 08:42 Basophils % (Manual) 1.0 % 01/20/17 23:17 Neutrophils # 1.9 k/uL (1.3-7.7) 01/18/17 08:42 Neutrophils # (Manual) 2.3 k/uL (1.3-7.7) 01/20/17 23:17 Lymphocytes # 0.6 k/uL (1.0-4.8) L 01/18/17 08:42 Lymphocytes # (Manual) 0.6 k/uL (1.0-4.8) L 01/20/17 23:17 Monocytes # 0.4 k/uL (0-1.0) 01/18/17 08:42 Monocytes # (Manual) 0.6 k/uL (0-1.0) 01/20/17 23:17 Eosinophils # 0.1 k/uL (0-0.7) 01/18/17 08:42 Eosinophils # (Manual) 0.1 k/uL (0-0.7) 01/17/17 07:11 Basophils # 0.0 k/uL (0-0.2) 01/18/17 08:42 Basophils # (Manual) 0.0 k/uL (0-0.2) 01/20/17 23:17 Nucleated RBCs 0 /100 WBC (0-0) 01/20/17 23:17 Manual Slide Review Performed 01/20/17 23:17 Large Platelets Present 01/13/17 11:45 Polychromasia Present 01/13/17 11:45 Hypochromasia Slight 01/21/17 05:46 Poikilocytosis Slight 01/17/17 07:11 Poikilocytosis (manual Present 01/20/17 23:17 Anisocytosis Slight 01/21/17 05:46 Target Cells Present 01/20/17 23:17 Ovalocytes Present 01/20/17 23:17 Fragmented RBCs Present 01/17/17 07:11 Retic Count 1.8 % (0.5-2.0) 01/14/17 05:57 PT 12.4 sec (9.0-12.0) H 01/20/17 23:17 INR 1.3 (<1.1) 01/20/17 23:17 APTT 47.0 sec (22.0-30.0) H 01/20/17 23:17 D-Dimer 6.62 mg/L FEU (<0.60) H 01/13/17 11:45 Sample Site LBA 01/19/17 08:22 ABG pH 7.53 (7.35-7.45) H 01/19/17 08:22 ABG pCO2 26 mmHg (35-45) L 01/19/17 08:22 ABG pO2 63 mmHg (83-108) L 01/19/17 08:22 ABG HCO3 22 mmol/L (21-25) 01/19/17 08:22 ABG Total CO2 22 mmol/L (19-24) 01/19/17 08:22 ABG O2 Saturation 94.5 % (94-97) 01/19/17 08:22 ABG Base Excess -0.9 mmol/L 01/19/17 08:22 FiO2 28 % 01/19/17 08:22 Sodium 141 mmol/L (137-145) 01/23/17 06:42 Potassium 3.9 mmol/L (3.5-5.1) 01/23/17 06:42 Chloride 109 mmol/L (98-107) H 01/23/17 06:42 Carbon Dioxide 25 mmol/L (22-30) 01/23/17 06:42 Anion Gap 7 mmol/L 01/23/17 06:42 BUN 15 mg/dL (7-17) 01/23/17 06:42 Creatinine 0.91 mg/dL (0.52-1.04) 01/23/17 06:42 Est GFR (MDRD) Af Amer >60 (>60 ml/min/1.73 sqM) 01/23/17 06:42 Est GFR (MDRD) Non-Af 59 (>60 ml/min/1.73 sqM) 01/23/17 06:42 Glucose 93 mg/dL (74-99) 01/23/17 06:42 POC Glucose (mg/dL) 125 mg/dL (75-99) H 01/23/17 16:43 POC Glu Senior Network Systems Engineer ID 01/23/17 16:[address] Glu mg/dL 126 mg/dL 01/13/17 17:41 Hemoglobin A1c 6.0 % (4.2-6.1) 01/13/17 17:41 Plasma Lactic Acid Ruy 1.3 mmol/L (0.7-2.0) 01/20/17 23:17 Calcium 8.7 mg/dL (8.4-10.2) 01/23/17 06:42 Magnesium 1.6 mg/dL (1.6-2.3) 01/14/17 05:57 Iron 30 ug/dL (37-170) L 01/20/17 06:55 TIBC 213 ug/dL (265-497) L 01/20/17 06:55 % Saturation 14.1 % (20-50) L 01/20/17 06:55 Ferritin 118 ng/mL (11-264) 01/20/17 06:55 Total Bilirubin 0.8 mg/dL (0.2-1.3) 01/21/17 05:46 AST 14 U/L (14-36) 01/21/17 05:46 ALT 29 U/L (9-52) 01/21/17 05:46 Alkaline Phosphatase 41 U/L (38-126) 01/21/17 05:46 Ammonia <9 umol/L (<30) 01/19/17 21:01 Total Creatine Kinase <20 U/L (30-135) L 01/13/17 11:45 CK-MB (CK-2) 0.3 ng/mL (0.0-2.4) 01/21/17 11:12 CK-MB (CK-2) Rel Index 0.0 01/13/17 11:45 Troponin I 0.062 ng/mL (0.000-0.034) H* 01/21/17 11:12 NT-Pro-B Natriuret Pep 2500 pg/mL 01/23/17 06:42 Total Protein 5.0 g/dL (6.3-8.2) L 01/21/17 05:46 Albumin 2.5 g/dL (3.5-5.0) L 01/21/17 05:46 TSH 3.440 mIU/L (0.465-4.680) 01/18/17 08:42 Urine Color Yellow 01/20/17 22:16 Urine Appearance Cloudy (Clear) H 01/20/17 22:16 Urine pH 6.0 (5.0-8.0) 01/20/17 22:16 Ur Specific [place] 1.011 (1.001-1.035) 01/20/17 22:16 Urine Protein 1+ (Negative) H 01/20/17 22:16 Urine Glucose (UA) Negative (Negative) 01/20/17 22:16 Urine Ketones Negative (Negative) 01/20/17 22:16 Urine Blood Moderate (Negative) H 01/20/17 22:16 Urine Nitrite Negative (Negative) 01/20/17 22:16 Urine Bilirubin Negative (Negative) 01/20/17 22:16 Urine Urobilinogen <2.0 mg/dL (<2.0) 01/20/17 22:16 Ur Leukocyte Esterase Small (Negative) H 01/20/17 22:16 Urine RBC 99 /hpf (0-5) H 01/20/17 22:16 Urine WBC 5 /hpf (0-5) 01/13/17 21:05 Ur Squamous Epith Cells <1 /hpf (0-4) 01/20/17 22:16 Urine Yeast (Budding) Many /hpf (None) H 01/20/17 22:16 IgG 241.0 mg/dL (700.0-1600.0) L 01/14/17 05:57 Miscellaneous Test B CELL, PERITONEAL 01/16/17 14:41 Misc Test Result See Comment 01/16/17 14:41 Blood Type A Positive 01/15/17 16:10 Blood Type Recheck No 01/15/17 16:10 Antibody Screen NEGATIVE 01/15/17 16:10 Crossmatch See Detail 01/15/17 16:10 Spec Expiration Date 01/16/2017 - 2345 01/15/17 16:10 Microbiology 01/13/17 11:45 Blood Blood Culture - Final No Growth after 144 hours 01/13/17 19:30 Urine,Voided Urine Culture - Final 01/14/17 11:00 Sputum Gram Stain - Final 01/14/17 11:00 Sputum Sputum Culture - Final . Fluid without evidence of B cell lymphoma Assessment and Plan (1) Pneumonia Narrative/Plan: 81-year-old female with history of diffuse large B-cell lymphoma and follows with local oncology. The patient relates that in the fall of every year she undergoes a 4 week cycle of Rituxan infusions before she goes to [place]. They've returned from [place] from their winter session where she was quite well while she was there. Upon returning back she's not been feeling well. She's had a cough has been ongoing since September. It's been with minimal production and mostly dry. She denies significant shortness of breath. She is also not having fevers chills or rigors. In the days preceding her admission she was not feeling well and was seen by her cooling tower operator. While she was in the office she had a change of her status she slumped into her 's arms. She was on evidence of a very high heart rate of 180 and vagal stimulation was performed. She was transported to Hospital by EMS. She's now doing somewhat better. That has evidence of the abnormal computed tomography scan and chest x-ray. Concerns for pneumonia. Given the altered mental status further concerns to potential aspiration pneumonia. Computed tomography scan failed to reveal evidence of a pulmonary embolus. Consequently for antibiotic therapy piperacillin tazobactam is a reasonable choice at this point in time given her immunocompromised status, pseudomonas risk and aspiration risk. She's noticed to have worsening of her baseline anemia. Unclear if this from underlying disease state or another process. Is being monitored at this point in time. Her thrombocytopenia is at about its baseline. Does not seem to be having any difficulty with the Zosyn therapy. No evidence for other forms of infection at this point in time, but does have some hematuria which may need follow-up. CT of the abdomen did show evidence of some ascites, underwent paracentesis and await further data, blood cultures negative so far and paracentesis was negative for malignant cells Does have evidence of a low IgG level. Level was requested in his further reduced at 241. Given the current level of illness IgG supplementation has been given and well tolerated. Discussed with oncology. Would follow up in IgG level in a few weeks to make sure the level is adequate and not needing further supplementation. Patient's neurological status had worsened. She was seen by neurology. Concerns to a metabolic processes were underlying malignancy causing the current changes of her mental status. Literature review on up-to-date was performed with piperacillin tazobactam and no significant neurological toxicity is reported. It is unlikely the antibiotic is causing her current disease state. Has completed nearly 7 days of antibiotic therapy. Now discontinued. Monitor pneumonia off of antibiotic therapy. Doxycycline started without toxicity so far. Patient is feeling better. Status: Acute (2) Syncope Status: Acute (3) Diffuse large B cell lymphoma Status: Acute (4) History of cancer of right breast Status: Acute
[2017-01-23 21:14] LABS: Glucose,Whole Blood 98 mg/dL (75-99)
[2017-01-24 03:48] VITALS: TEMP 97.3
[2017-01-24 06:55] LABS: Anion Gap 7 mmol/L; Blood Urea Nitrogen 13 mg/dL (7-17); Calcium 8.6 mg/dL (8.4-10.2); Carbon Dioxide 22 mmol/L (22-30); Chloride 111 mmol/L (98-107); Glucose 101 mg/dL (74-99); Non-African American GFR(MDRD) 56 (>60 ml/min/1.73 sqM); Potassium 4.1 mmol/L (3.5-5.1); Sodium 140 mmol/L (137-145)
[2017-01-24 06:58] LABS: Glucose,Whole Blood 108 mg/dL (75-99)
[2017-01-24] MEDS: FERROUS SULFATE 325 MG TAB PO SCH (07:08)
[2017-01-24] MEDS: PANTOPRAZOLE 40 MG TABLET PO SCH (07:08)
[2017-01-24] MEDS: IPRATROPIUM-ALBUTEROL 3 ML NEB INHALATION SCH ×3 (08:28→15:27)
[2017-01-24] MEDS: BUDESONIDE 1 MG/2 ML NEBU INHALATION SCH (08:28)
[2017-01-24] MEDS: FORMOTEROL FUMARATE 20 MCG/2 ML NEBU INHALATION SCH (08:29)
[2017-01-24] MEDS: DOXYCYCLINE 50 MG CAP PO SCH (08:38)
[2017-01-24] MEDS: CHOLECALCIFEROL 1,000 UNIT TAB PO SCH (08:38)
[2017-01-24] MEDS: GABAPENTIN 300 MG CAP PO SCH (08:39)
[2017-01-24] MEDS: PRAVASTATIN SODIUM 20 MG TAB PO SCH (08:39)
[2017-01-24] MEDS: HEPARIN SODIUM,PORCINE 5,000 UNIT/ML 1 ML VIAL SQ SCH (08:39)
[2017-01-24] MEDS: OXYBUTYNIN 10 MG TAB.ER.24 PO SCH (08:40)
[2017-01-24] MEDS: INSULIN LISPRO (humaLOG) 300 UNIT/3 ML VIAL SQ SCH ×2 (08:43→12:11)
[2017-01-24] MEDS ORDERED: VERAPAMIL SR 180 MG TABLET.ER PO SCH (09:00)
--- NOTE | 2017-01-24 09:45 | P.CONS ---
History of Present Illness - Reason for Consult Consult date: 01/24/17 cirrhosis evaluation Requesting physician: Brittaney Mccain - History of Present Illness 81-year-old female with a history of diabetes mellitus. large B-cell lymphoma, pancytopenia, breast carcinoma, COPD. Presents with arrhythmia and atrial tachycardia, shortness of breath, and chronic cough since September. Neurology is following for possible left lung neoplasm. Consultation requested for possible cirrhosis. CT imaging abdomen and pelvis on 01/13/2070 reported normal liver, evidence of ascites. Patient underwent therapeutic diagnostic paracentesis on 01/16/2017 with 2.6 L removal. Cytology negative for malignant cells and B cell population. Serum albumin ascitic gradient greater than 1.1 consistent with portal hypertension. Ascitic albumin measurement 0.7, serum albumin was not obtained the day of procedure but prior to procedure serum albumin level was between 2.5-3.2. Ascitic protein was not obtained however serum protein between 5-7. Echocardiogram reported EF 50%. Evidence of aortic stenosis. IgG levels reported low at 241. Hemoglobin 8.8. White count 3.2. Platelet 41. Alk phos 58. ALT 23. Total bilirubin 0.8-1.4. Iron 30. TIBC 213. Iron saturation 14%. Ferritin 118. No history of known liver disorders. No history of hepatitis or jaundice. She has a long-standing history of diabetes hypertension and hyperlipidemia. History of alcoholism or illicit drug use. Review of Systems Constitutional: Denies fever, chills, sweats, weight gain, or loss. HEENT: Negative for migraines, blurred vision or loss, earaches, drainage, tinnitus, oral mucosal lesions, dysphagia, or odynophagia. CARDIAC: Hyperlipidemia. Hypertension. Negative for chest pain, arrhythmias, or palpitation. RESPIRATORY: COPD. Negative for shortness of breath, hemoptysis, cough, or sputum production. GI: See HPI for pertinent findings. : Negative for hematuria, urgency, frequency, polyuria, or dysuria. GYNc: Negative vaginal discharge. MUSCULOSKELETAL: Negative for muscle aches, swelling, arthritis, and arthralgias. NEUROLOGIC: Negative for stroke or TIA. Hematology: Large B-cell lymphoma. Breast carcinoma. ENDOCRINE: Diabetes mellitus. Negative for thyroid problems. SKIN: Negative for rash or itching. PSYCHIATRIC: Negative history for depression and anxiety All systems: negative (see HPI) Past Medical History Past Medical History: Cancer, Diabetes Mellitus, GERD/Reflux, Hyperlipidemia, Hypertension, Neurologic Disorder, Syncope Additional Past Medical History / Comment(s): LARGE B CELL LYMPHOMA; RIGHT BREAST CANCER WITH SX AND PT BELIEVES CHEMO, MIGRAINES IN PAST, CONSTIPATION, ANEMIA, NIDDM TYPE II, NEUROPATHY BILATERAL FEET, PUD, DIVERTICULAR DX, UTI'S, BACK PAIN, VASOMOTOR SYMPATHETIC DYSTROPHY RIGHT HAND, RLS. History of Any Multi-Drug Resistant Organisms: MRSA Year Discovered:: 08/26/2014 MDRO Source:: Urine Past Surgical History: Adenoidectomy, Appendectomy, Breast Surgery, Cholecystectomy, Heart Catheterization, Hysterectomy, Tonsillectomy Additional Past Surgical History / Comment(s): MASTECTOMY RIGHT, BILATERAL CATARACTS REMOVED WITH LENS IMPLANTS, CARDIAC CATH-NORMAL, COLONOSCOPY Past Anesthesia/Blood Transfusion Reactions: No Reported Reaction Additional Past Anesthesia/Blood Transfusion Reaction / Comm: HAD BLOOD TRANSFUSION IN PAST, HAS CLAUSTERPHOBIA Past Psychological History: No Psychological Hx Reported Additional Psychological History / Comment(s): PT RESIDES WITH HER SPOUSE AND DAUGHTER. SHE USES A CANE TO AMBULATE. SHE NO LONGER DRIVES, HER SPOUSE TAKES HER TO APPTS OR HER DAUGHTER. They have 5 children. One grandson is a dentist in [place], [place]. She has no experience. No international travel. no animal exposures. Very supportive family. for 65 years. Smoking Status: Never smoker Past Alcohol Use History: None Reported Past Drug Use History: None Reported - Past Family History Father Family Medical History: Musculoskeletal Disorder, Neurologic Disorder Additional Family Medical History / Comment(s): PARKINSONS Mother Family Medical History: Cancer Additional Family Medical History / Comment(s): FROM BREAST CANCER-HAD HEART PROBLEMS, Medications and Allergies Home Medications Medication Instructions Recorded Confirmed Type Atenolol [Tenormin] 50 mg PO BID 08/05/14 01/13/17 History Cholecalciferol [Vitamin D3] 5,000 unit PO DAILY 08/05/14 01/13/17 History Docusate [Colace] 100 mg PO DAILY PRN 08/05/14 01/13/17 History Gabapentin [Neurontin] 300 mg PO TID 08/05/14 01/13/17 History Multivitamins, Thera [Multivitamin 1 tab PO DAILY 08/05/14 01/13/17 History (formulary)] Omeprazole 40 mg PO AC-BRKFST 08/05/14 01/13/17 History Oxybutynin Chloride [Ditropan XL] 10 mg PO DAILY 08/05/14 01/13/17 History Pravastatin Sodium [Pravachol] 10 mg PO DAILY 05/21/15 01/13/17 History metFORMIN HCL [Glucophage] 500 mg PO BID 05/21/15 01/13/17 History rOPINIRole HCL [Requip] 0.5 mg PO HS 07/28/16 01/13/17 History Albuterol Inhaler [Ventolin Hfa 1 - 2 puff INHALATION RT-Q4H PRN 01/13/17 History Inhaler] Furosemide [Lasix] 20 mg PO DAILY 01/13/17 01/13/17 History Tiotropium Br/Olodaterol HCl 1 puff INHALATION RT-DAILY 01/13/17 01/13/17 History [Stiolto Respimat Inhal [place]] Allergies Allergy/AdvReac Type Severity Reaction Status Date / Time No Known Allergies Allergy Verified 01/13/17 12:51 Physical Exam Vitals: Vital Signs Temp Pulse Pulse Resp BP Pulse Ox 01/24/17 09:01 84 01/24/17 08:53 84 01/24/17 08:52 84 01/24/17 08:33 82 01/24/17 08:00 90 18 115/56 99 01/24/17 03:47 97.3 F L 91 18 142/75 96 01/24/17 03:43 87 18 01/24/17 00:00 97.2 F L 87 18 125/74 94 L 01/23/17 21:20 84 01/23/17 21:11 80 01/23/17 21:00 84 01/23/17 20:00 98.5 F 101 H 18 142/68 91 L 01/23/17 16:19 88 01/23/17 16:05 84 01/23/17 16:00 97.9 F 81 18 121/60 95 01/23/17 12:38 82 01/23/17 12:29 80 01/23/17 12:25 97.8 F 92 16 140/60 92 L Intake and Output 01/23/17 01/24/17 01/24/17 22:59 06:59 14:59 Intake Total 237 0 280 Output Total 500 250 Balance -263 -250 280 Intake: IV 0 Diltiazem 125 mg In 0 Sodium Chloride 0.9% 100 ml @ 5 MG/HR 5 mls/hr IV .Q24H [facility] Rx#:[id number] Sodium Chloride 0.9% 1, 0 000 ml @ 20 mls/hr IV . Q24H [facility] Rx#:[id number] Oral 237 280 Output: Urine 500 250 Other: Voiding Method Toilet Toilet Diaper Diaper # Voids 1 1 # Bowel Movements 1 1 Weight 66 kg 67.3 kg General appearance: The patient is alert, oriented, in no acute distress. HET: Head is normocephalic and atraumatic. Pupils are equal and reactive. Oropharynx is clear without lesions. Neck: Supple without lymphadenopathy. Trachea midline. Heart: S1 S2. Regular rate and rhythm. Lungs: No crackles or wheezes are heard. Abdomen: Soft, nontender, nondistended with bowel sounds. No peritoneal signs. No palpable organomegaly or masses. Extremities: Normal skin color and turgor. No cyanosis, rash, ulceration, clubbing, or edema. Radial and pedal pulses are 2/4 bilaterally. Neurological: No focal deficits. Strength and sensation are grossly intact. Results CBC & Chem 7: 01/21/17 05:46 01/24/17 06:13 Labs: Abnormal Lab Results - Last 24 Hours (Table) 01/23/17 01/24/17 01/24/17 Range/Units 16:43 06:13 06:52 Chloride 111 H (98-107) mmol/L Glucose 101 H (74-99) mg/dL POC Glucose (mg/dL) 125 H 108 H (75-99) mg/dL Assessment and Plan (1) Portal hypertension Narrative/Plan: Etiology unclear possible cirrhosis possible noncirrhotic portal hypertension. Status post diagnostic therapeutic paracentesis with serum albumin ascitic gradient (SAAG) greater than 1.1 consistent with portal hypertension. Cytology negative for malignant cells and B cell population. Ascitic protein analysis not obtained, serum protein between 5-7 range. Status: Acute (2) Large B-cell lymphoma Status: Chronic (3) Pancytopenia Status: Chronic (4) Atrial tachycardia, multifocal Status: Acute (5) Aortic stenosis Status: Chronic (6) Mass of lung Narrative/Plan: Possible left apex lung neoplasm being evaluated by pulmonology Status: Acute Plan: 1. We'll obtain additional serologic chemistries for cirrhosis workup prior to discharge. 2. Return to office 1 week after discharge for reevaluation. Thank you for this kind referral and the opportunity to participate in the care of your patient. This consultation was discussed with Dr. Dudley. The impression and plan of care have been directed as dictated.
--- NOTE | 2017-01-24 10:08 | US ---
EXAMINATION TYPE: US abdomen limited DATE OF EXAM: 01/24/2017 9:41 AM COMPARISON: CT abdomen and pelvis January 18, 2017 CLINICAL HISTORY: assess fluid. ascites. Bloating. Mild amount of free fluid noted within abdomen Small amount of abdominal fluid or ascites is confirmed in the left upper quadrant and bilateral lowe r quadrants. No significant progression in fluid volume is noted from recent CT. No significant fluid is seen to warrant paracentesis at this time. IMPRESSION: As above.
[2017-01-24] MEDS: MULTIVITAMINS, THERA 1 EACH TAB PO SCH (10:59)
[2017-01-24 11:49] LABS: Glucose,Whole Blood 124 mg/dL (75-99)
[2017-01-24 12:08] VITALS: BMI 23.9
[2017-01-24 12:10] VITALS: BP 120/75
[2017-01-24 12:14] LABS: Hepatitis B Surface Ag Index 0.06
[2017-01-24 12:20] LABS: Hepatitis B Core IgM Index 0.03
[2017-01-24 12:31] LABS: Hepatitis C Virus IgG Index 0.01
[2017-01-24 12:35] LABS: Hepatitis C Virus IgG Ab Negative (Negative)
[2017-01-24 15:37] VITALS: PULSE 84
--- NOTE | 2017-01-24 16:56 | P.PN ---
Subjective This patient is a 81-year-old female who is being followed for history of acute kidney injury and altered mental status. Patient is undergone extensive evaluation for mentation changes. She underwent an MRI of the brain which came back negative for any evidence of acute stroke or hemorrhage. There was no enhancing lesions seen. Patient has a history of underlying B-cell lymphoma as well as breast cancer. MRI ruled out any enhancing brain lesions. This MRI was completed on 01/20/2017. Her overall mental status has improved over the last several days. She is being treated for acute kidney injury. She did undergo a routine EEG which failed to reveal any evidence for a seizure focus. She is being treated for hyponatremia as well and several other metabolic abnormalities. Patient does have slowly improving kidney function. Her serum creatinine has come down to 1.10 this morning. Nephrology is following her condition closely. Patient is sitting up in chair today. Her abdominal ascites has significantly improved from initial presentation. She states that 2 L of fluid was removed from her belly. This is helped her overall general condition. As noted she is much more awake and alert today. She has no evidence of acute delirium. We did review the results of her recent MRI and EEG today with the patient's who was at bedside. All his questions were answered. She does seem to be showing improvement in her mental status which would be consistent with a diffuse metabolic encephalopathy. Oncology is not recommending upper puncture for this patient at this time. Her overall mental status has improved over this past week. She should be monitored for any further changes in her overall neurological status. She is also being treated for possibility of lung neoplasm. She was seen by GI today for possible cirrhosis and portal hypertension. Recent serum albumin acidic gradient was greater than 1.1 and is consistent with portal hypertension. Cytology was negative for any malignant cells and no evidence of B-cell population. We will continue close follow-up with oncology regarding this patient's overall multiple neoplastic issues. Her overall prognosis at this time remains guarded. We will continue close neurological follow-up with the patient as well. Her overall prognosis at this time remains very guarded. Objective - Vital Signs Vital signs: Vital Signs Temp 97.3 F L 01/24/17 03:47 Pulse 85 01/24/17 12:06 Resp 18 01/24/17 12:00 BP 120/75 01/24/17 12:00 Pulse Ox 93 L 01/24/17 12:00 Intake & Output 01/23/17 01/24/17 01/24/17 18:59 06:59 18:59 Intake Total 597 0 560 Output Total 550 500 Balance 47 -500 560 Weight 67.3 kg 67.3 kg Intake: IV 0 160 Diltiazem 125 mg In 0 Sodium Chloride 0.9% 100 ml @ 5 MG/HR 5 mls/hr IV .Q24H [facility] Rx#:[id number] Sodium Chloride 0.9% 1, 0 160 000 ml @ 20 mls/hr IV . Q24H [facility] Rx#:[id number] Oral 597 400 Output: Urine 550 500 Other: Voiding Method Toilet Toilet Diaper Diaper # Voids 2 1 1 # Bowel Movements 1 - Exam Physical examination: PHYSICAL EXAMINATION: Patient is resting comfortably in bed. VITAL SIGNS: Blood pressure is [120/75]. Heart rate is [67]. Respiration is [18] . Temperature is [97.3]. HEENT: Head is atraumatic, neck is supple, there were no carotid bruits. CHEST: Lungs are clear to auscultation and percussion. CARDIAC: S1, S2 normal rate and rhythm. There is no murmur. ABDOMEN: Soft and nontender. Bowel sounds are present. EXTREMITIES: There is no pedal edema. Peripheral pulses are present. Neurological examination: Patient's neurological examination is unchanged from yesterday. Patient is more awake and alert today. She is sitting up and is able to answer simple questions. Her memory and intellectual functions show improvement since initial presentation. - Labs CBC & Chem 7: 01/21/17 05:46 01/24/17 06:13 Labs: Abnormal Lab Results - Last 24 Hours (Table) 01/23/17 01/24/17 01/24/17 Range/Units 16:43 06:13 06:52 Chloride 111 H (98-107) mmol/L Glucose 101 H (74-99) mg/dL POC Glucose (mg/dL) 125 H 108 H (75-99) mg/dL 01/24/17 Range/Units 11:46 Chloride (98-107) mmol/L Glucose (74-99) mg/dL POC Glucose (mg/dL) 124 H (75-99) mg/dL Assessment and Plan (1) Acute encephalopathy Status: Acute Code(s): G93.40 - ENCEPHALOPATHY, UNSPECIFIED (2) Diffuse large B cell lymphoma Status: Acute Code(s): C83.30 - DIFFUSE LARGE B-CELL LYMPHOMA, UNSPECIFIED SITE (3) SIRS (systemic inflammatory response syndrome) Status: Acute Code(s): R65.10 - SIRS OF NON-INFECTIOUS ORIGIN W/O ACUTE ORGAN DYSFUNCTION (4) Weakness Status: Acute Code(s): R53.1 - WEAKNESS Plan: This patient is a 81-year-old female who was initially evaluated for evaluation of acute mental status changes. She has a history of underlying B-cell lymphoma and remote history of breast cancer. The patient was evaluated for this and did undergo routine MRI of the brain with and without contrast. This MRI came back negative with specifically no evidence of enhancing mass lesion. The patient seems to be doing better today in terms of her mental status. She did undergo routine EEG which was also showing diffuse slowing but no evidence for epileptiform discharges. She has had no further findings of benefit benign tremors. She likely did have some degree of mild myoclonus which is now resolved. She is being treated for renal failure as well. Her serum creatinine today is 1.36. Nephrology is following the patient closely. We will continue close neurological follow-up of this patient. Patient is now being treated for portal hypertension. We'll await further recommendations from GI. Oncology continues to follow the patient closely. They're not recommending lumbar puncture at this time as there has been some improvement in her overall mental status. We will continue close neurological follow-up for the patient. She should continue to show improvement with her mental status as her kidney function improves. Patient is being considered for possible discharge home later today. She can follow up in the outpatient Neurology Clinic in 3-4 Weeks. Her prognosis remains very guarded. We will continue close neurological follow-up of this patient during this admission.
--- NOTE | 2017-01-25 10:49 | DS ---
DATE OF ADMISSION: 01/13/2017 DATE OF DISCHARGE: 01/24/2017 Patient is initially admitted for congestive heart failure exacerbation, appears to be diastolic dysfunction. Patient was also treated for atrial fibrillation with rapid ventricular rate. Patient is presently rate controlled. He is on verapamil. Patient is not on anticoagulation at this point of time because of probably thrombocytopenia and high bleeding risk. Patient is otherwise clinically doing well. Patient supposed to go to subacute rehabilitation, although family is declining to send her to subacute rehab. Patient is definitely high risk for readmission because of her multiple chronic medical problems. Patient will be discharged today home with home care. Patient was seen and examined on the day of discharge. PHYSICAL EXAMINATION: VITAL SIGNS: Stable. GENERAL: The patient is alert and oriented x3, not in any acute distress. Well developed, well nourished. HEENT: Pupils are round and equally reacting to light. EOMI. No scleral icterus. No conjunctival pallor. Normocephalic, atraumatic. No pharyngeal erythema. No thyromegaly. CARDIOVASCULAR: S1 and S2 present. No murmurs, rubs, or gallops. PULMONARY: Chest is clear to auscultation, no wheezing or crackles. ABDOMEN: Soft, nontender, nondistended, normoactive bowel sounds. No palpable organomegaly. MUSCULOSKELETAL: No joint swelling or deformity. EXTREMITIES: No cyanosis, clubbing, or pedal edema. NEUROLOGICAL: Gross neurological examination did not reveal any focal deficits. SKIN: No rashes. Patient had multiple issues during the hospitalization, including confusion and tremors, all of which resolved after discontinuation of Zosyn. Patient was treated for aspiration pneumonia as well. ASSESSMENT AND PLAN: 1. Atrial fibrillation, presently rate controlled. 2. Large B-cell lymphoma. No evidence of recurrence. 3. Altered mental status secondary to toxic encephalopathy. 4. Myoclonus secondary to Zosyn. 5. Acute renal failure secondary to prerenal azotemia, improved at this point of time. 6. Ascites hepatitis and cirrhosis, unknown etiology. Patient will follow with Gastroenterology for further evaluation. Mildly elevated troponin secondary to renal dysfunction. Pancytopenia secondary to recent chemotherapy and lymphoma. 7. Hypertension. 8. Hyperlipidemia. 9. Diabetic nephropathy. 10. Gastroesophageal reflux disease. 11. Patient will be discharged today. Please refer to my depart summary for the list of discharge medications. Because of fluctuating renal function, I am discontinuing metformin. 12. Discharge diet: Cardiac ADA 2000 calorie diet. 13. Follow up with Dr. Jermaine Judge in 3 to 7 days. 14. Activity as tolerated. 15. If his kidney function remains stable, can be restarted back on metformin. 16. The patient will follow up with ( ) in 1 week, Dr. Wolfgang Mauro on 25 January at 3:00 p.m. spent. I spent greater than 35 minutes in total discharge process.
== END 2017-01-24 16:34 | disposition home health service (06) | DRG 291 ==
LOC: EC 10:52 → 6SEL 12:57 → 5ONC 01-16 18:49 → 6SEL 01-20 23:28
PROVIDERS: ADMIT Internal Medicine; ATTEND Internal Medicine
PROC: 30233N1 Transfusion of Nonautologous Red Blood Cells into Peripheral Vein, Percutaneous Approach (ICD-10-PCS; 2017-01-15)
PROC: 0W9G3ZX Drainage of Peritoneal Cavity, Percutaneous Approach, Diagnostic (ICD-10-PCS; principal; 2017-01-16)
DX: I13.0 Hypertensive heart and chronic kidney disease with heart failure and stage 1 through stage 4 chronic kidney disease, or unspecified chronic kidney disease (principal); I50.23 Acute on chronic systolic (congestive) heart failure; J69.0 Pneumonitis due to inhalation of food and vomit; N17.0 Acute kidney failure with tubular necrosis; G92 Toxic encephalopathy; D61.810 Antineoplastic chemotherapy induced pancytopenia; E44.0 Moderate protein-calorie malnutrition; R18.8 Other ascites; C83.30 Diffuse large B-cell lymphoma, unspecified site; K76.6 Portal hypertension; D68.9 Coagulation defect, unspecified; I47.1 Supraventricular tachycardia; E87.1 Hypo-osmolality and hyponatremia; J44.1 Chronic obstructive pulmonary disease with (acute) exacerbation; J98.11 Atelectasis; R65.10 Systemic inflammatory response syndrome (SIRS) of non-infectious origin without acute organ dysfunction; E86.1 Hypovolemia; K75.9 Inflammatory liver disease, unspecified; E11.22 Type 2 diabetes mellitus with diabetic chronic kidney disease; E11.42 Type 2 diabetes mellitus with diabetic polyneuropathy; D50.9 Iron deficiency anemia, unspecified; D63.8 Anemia in other chronic diseases classified elsewhere; E78.5 Hyperlipidemia, unspecified; E87.6 Hypokalemia; G25.3 Myoclonus; G25.81 Restless legs syndrome; I08.0 Rheumatic disorders of both mitral and aortic valves; I27.2 Other secondary pulmonary hypertension; I42.9 Cardiomyopathy, unspecified; K21.9 Gastro-esophageal reflux disease without esophagitis; K74.60 Unspecified cirrhosis of liver; M19.90 Unspecified osteoarthritis, unspecified site; N18.2 Chronic kidney disease, stage 2 (mild); T36.0X5A Adverse effect of penicillins, initial encounter; T45.1X5A Adverse effect of antineoplastic and immunosuppressive drugs, initial encounter; G43.909 Migraine, unspecified, not intractable, without status migrainosus; R26.9 Unspecified abnormalities of gait and mobility; F40.240 Claustrophobia; R32 Unspecified urinary incontinence; Z79.84 Long term (current) use of oral hypoglycemic drugs; Z79.899 Other long term (current) drug therapy; Z79.82 Long term (current) use of aspirin; Z87.891 Personal history of nicotine dependence; Z85.3 Personal history of malignant neoplasm of breast; Z86.14 Personal history of Methicillin resistant Staphylococcus aureus infection; Z68.23 Body mass index [BMI] 23.0-23.9, adult
CPT/HCPCS: 36415; 36600; 49083; 70450; 70553; 71010; 71020; 71275; 74000; 74176; 74177; 76705; 80048; 80053; 80074; 81001; 82042; 82103; 82105; 82140; 82390; 82550; 82553; 82728; 82784; 82805; 83036; 83516; 83540; 83550; 83605; 83735; 83880; 84165; 84443; 84484; 85025; 85027; 85045; 85379; 85610; 85730; 86038; 86850; 86900; 86901; 86920; 87040; 87070; 87086; 87205; 88108; 88184; 88185; 88305; 93005; 93306; 94640; 94760; 95819; 96365; 99215; 99285

== ENCOUNTER → 2017-02-02 | Outpatient (CLI) | payer MEDICARE, BC ==
--- NOTE | 2017-02-02 11:44 | US ---
EXAMINATION TYPE: US abdomen limited DATE OF EXAM: 02/02/2017 11:15 AM COMPARISON: Prior abdomen ultrasound two January 2017 CLINICAL HISTORY: R18.10 Ascites. Free fluid is noted in all four abdominal quadrants with largest pocket at RLQ = 5.8cm A/P. IMPRESSION: Ascites is moderate
== END | disposition home or self-care (01) ==
LOC: RADUSWWP 11:02
PROVIDERS: ATTEND Internal Medicine Hematology & Oncology
DX: R18.8 Other ascites (principal); C83.30 Diffuse large B-cell lymphoma, unspecified site; C50.919 Malignant neoplasm of unspecified site of unspecified female breast
CPT/HCPCS: 76705

== ENCOUNTER → 2017-02-06 | Outpatient (CLI) | payer MEDICARE, BC | END | disposition home or self-care (01) | LOC: LABWHC1 10:01 | PROVIDERS: ATTEND Internal Medicine Hematology & Oncology | DX: C83.30 Diffuse large B-cell lymphoma, unspecified site (principal); C50.919 Malignant neoplasm of unspecified site of unspecified female breast; N39.0 Urinary tract infection, site not specified; R63.0 Anorexia; D63.0 Anemia in neoplastic disease; R07.9 Chest pain, unspecified | CPT/HCPCS: 86850; 86900; 86901 ==

== ENCOUNTER 2017-02-08 08:21 | Day surgery (SDC) | payer MEDICARE, BC ==
[2017-02-08 09:14] LABS: INR 1.2 (<1.1); Prothrombin Time 12.2 sec (9.0-12.0)
[2017-02-08 09:15] LABS: Large Platelets Flag Moderate
[2017-02-08 10:00] VITALS: RESP 20
[2017-02-08 11:14] VITALS: BP 140/68; PULSE 70; TEMP 98.4
--- NOTE | 2017-02-08 11:30 | US ---
Therapeutic paracentesis. CLINICAL HISTORY: Ascites The procedure was discussed with the patient. The risks, complications, benefits, and alternatives we re discussed and any questions were answered. Informed consent was obtained. The patient was placed s upine on the ultrasound table and prepped and draped in the usual sterile fashion. All elements of maximal barrier technique were utilized. Under ultrasound guidance, access into the right lower quadrant was obtained, via the paracentesis catheter system and direct ultrasound guidanc e. Approximately 3.8 liters of straw-colored fluid was removed. The patient was stable throughout the pr ocedure and remained stable upon discharge from Department of Radiology. IMPRESSION: Successful therapeutic paracentesis under ultrasound guidance.
== END 2017-02-08 11:25 | disposition home or self-care (01) ==
LOC: RADPROMAIN 08:21
PROVIDERS: ATTEND Internal Medicine Hematology & Oncology
DX: R18.8 Other ascites (principal); C83.30 Diffuse large B-cell lymphoma, unspecified site; C50.919 Malignant neoplasm of unspecified site of unspecified female breast
CPT/HCPCS: 86900; 86901; 85049; 85610; 86850; 36415; 49083; P9035

== ENCOUNTER 2017-03-16 09:09 | Day surgery (SDC) | payer MEDICARE, BC ==
[2017-03-16 09:48] VITALS: RESP 14; TEMP 98.2
[2017-03-16 10:04] LABS: Mean Platelet Volume 10.7
[2017-03-16] MEDS ORDERED: VERAPAMIL SR 180 MG TABLET.ER PO ONE ×2 (10:14→10:45)
[2017-03-16] MEDS ORDERED: LISINOPRIL 10 MG TAB PO STA (10:15)
[2017-03-16 10:23] LABS: INR 1.2 (<1.1); Prothrombin Time 12.3 sec (9.0-12.0)
[2017-03-16 10:43] LABS: Glucose,Whole Blood 101 mg/dL (75-99)
[2017-03-16 12:31] VITALS: BP 159/61; PULSE 88
--- NOTE | 2017-03-16 12:47 | US ---
Therapeutic paracentesis. DATE OF EXAM: 03/16/2017 CLINICAL HISTORY: Ascites The procedure was discussed with the patient. The risks, complications, benefits, and alternatives we re discussed and any questions were answered. Informed consent was obtained. The patient was placed s upine on the ultrasound table and prepped and draped in the usual sterile fashion. All elements of maximal barrier technique were utilized. Under ultrasound guidance, access into the left lower quadrant was obtained, via the paracentesis catheter system and direct ultrasound guidance . Approximately 5.5 liters of straw-colored fluid was removed. The patient was stable throughout the pr ocedure and remained stable upon discharge from Department of Radiology. IMPRESSION: Successful therapeutic paracentesis under ultrasound guidance.
== END 2017-03-16 12:46 | disposition home or self-care (01) ==
LOC: RADPROMAIN 09:09
PROVIDERS: ATTEND Internal Medicine Hematology & Oncology
DX: R18.8 Other ascites (principal); C50.919 Malignant neoplasm of unspecified site of unspecified female breast; C83.30 Diffuse large B-cell lymphoma, unspecified site
CPT/HCPCS: 85049; 85610; 49083; J1642

== ENCOUNTER 2017-04-05 12:11 | Day surgery (SDC) | payer MEDICARE, BC ==
[2017-04-05 12:37] VITALS: RESP 14; TEMP 98.1
[2017-04-05 12:43] LABS: Mean Platelet Volume 10.6
[2017-04-05 13:16] LABS: INR 1.3 (<1.1); Prothrombin Time 12.7 sec (9.0-12.0)
[2017-04-05 14:49] VITALS: BP 119/58; PULSE 73
--- NOTE | 2017-04-06 11:30 | US ---
Therapeutic paracentesis. DATE OF EXAM: 04/05/2017 CLINICAL HISTORY: Ascites The procedure was discussed with the patient. The risks, complications, benefits, and alternatives we re discussed and any questions were answered. Informed consent was obtained. The patient was placed s upine on the ultrasound table and prepped and draped in the usual sterile fashion. All elements of maximal barrier technique were utilized. Under ultrasound guidance, access into the left lower quadrant was obtained, via the paracentesis catheter system and direct ultrasound guidance . Approximately 6.7 liters of straw-colored fluid was removed. The patient was stable throughout the pr ocedure and remained stable upon discharge from Department of Radiology. IMPRESSION: Successful therapeutic paracentesis under ultrasound guidance.
== END 2017-04-05 14:50 | disposition home or self-care (01) ==
LOC: RADPROMAIN 12:11
PROVIDERS: ATTEND Family Medicine
DX: R18.8 Other ascites (principal)
CPT/HCPCS: 85049; 85610; 49083; J1642

== ENCOUNTER 2017-05-31 08:38 | Day surgery (SDC) | payer MEDICARE, BC ==
[2017-05-31 09:16] LABS: Glucose,Whole Blood 88 mg/dL (75-99)
[2017-05-31 09:24] VITALS: TEMP 97.7
[2017-05-31 09:26] LABS: INR 1.3 (<1.2); Large Platelets Flag Slight; Mean Platelet Volume 11.9; Prothrombin Time 12.4 sec (9.0-12.0)
[2017-05-31 10:30] VITALS: RESP 16
[2017-05-31 11:12] VITALS: BP 152/73; PULSE 85
--- NOTE | 2017-05-31 15:21 | US ---
Therapeutic paracentesis. DATE OF EXAM: 05/31/2017 CLINICAL HISTORY: ascites The procedure was discussed with the patient. The risks, complications, benefits, and alternatives we re discussed and any questions were answered. Informed consent was obtained. The patient was placed s upine on the ultrasound table and prepped and draped in the usual sterile fashion. All elements of maximal barrier technique were utilized. Under ultrasound guidance, access into the left lower quadrant lower quadrant was obtained, via the paracentesis catheter system and direct ultr asound guidance. Approximately 4.3 liters of straw-colored fluid was removed. The patient was stable throughout the pr ocedure and remained stable upon discharge from Department of Radiology. IMPRESSION: Successful therapeutic paracentesis under ultrasound guidance.
== END 2017-05-31 11:00 | disposition home or self-care (01) ==
LOC: RADPROMAIN 08:38
PROVIDERS: ATTEND Family Medicine
DX: R18.8 Other ascites (principal)
CPT/HCPCS: 36415; 49083; 85049; 85610

== ENCOUNTER 2017-06-07 11:55 | Day surgery (SDC) | payer MEDICARE, BC ==
[2017-06-07 12:44] VITALS: RESP 20; TEMP 97.9
[2017-06-07 12:47] LABS: Large Platelets Flag Slight
[2017-06-07 13:07] LABS: INR 1.2 (<1.2); Prothrombin Time 12.2 sec (9.0-12.0)
[2017-06-07 14:29] VITALS: BP 116/78; PULSE 76
--- NOTE | 2017-06-07 15:15 | US ---
EXAMINATION TYPE: US paracentesis abd w/image DATE OF EXAM: 06/07/2017 COMPARISON: Prior exam 05/31/2017 HISTORY: Ascites. PROCEDURE: Maximal barrier technique was utilized. The skin overlying a suitable pocket of fluid was localized with ultrasound and the overlying skin was prepped and draped. Ultrasound was utilized with sterile technique. Lidocaine was used for local anesthesia and a skin hema made with a scalpel. Catheter was advanced under direct ultrasound guidance into a suitable pocket of fluid and approximately 2.1 liter s of serous fluid were removed. Catheter was withdrawn and hemostasis achieved. There is no immedia te complication; the patient is discharged in stable condition. IMPRESSION: STATUS POST ULTRASOUND GUIDED PARACENTESIS FOR PALLIATION OF ASCITES. THIS PROCEDURE WA S PERFORMED BY THE UNDERSIGNED.
== END 2017-06-07 14:45 | disposition home or self-care (01) ==
LOC: RADPROMAIN 11:55
PROVIDERS: ATTEND Family Medicine
DX: R18.8 Other ascites (principal)
CPT/HCPCS: 36415; 49083; 85049; 85610

== ENCOUNTER 2017-06-27 12:26 | Day surgery (SDC) | payer MEDICARE, BC ==
[2017-06-27 13:24] VITALS: BP 131/77; PULSE 77; RESP 20; TEMP 97.4
--- NOTE | 2017-06-27 13:52 | US ---
Discontinued paracentesis HISTORY: Ascites Small amount of ascites is noted. Patient is essentially asymptomatic. No paracentesis performed at this time, reconsult as necessary.
== END 2017-06-27 13:00 | disposition home or self-care (01) ==
LOC: RADPROMAIN 12:26
PROVIDERS: ATTEND Family Medicine
DX: R18.8 Other ascites (principal); Z53.8 Procedure and treatment not carried out for other reasons
CPT/HCPCS: 76705

== ENCOUNTER 2017-07-07 12:01 | Day surgery (SDC) | payer MEDICARE, BC ==
--- NOTE | 2017-07-07 12:52 | US ---
Discontinued paracentesis HISTORY: Ascites A small amount of ascites is present. Patient is asymptomatic. Patient will be rescheduled for parace ntesis.
== END 2017-07-07 12:20 | disposition home or self-care (01) ==
LOC: RADPROMAIN 12:01
PROVIDERS: ATTEND Family Medicine
DX: R18.8 Other ascites (principal); Z53.8 Procedure and treatment not carried out for other reasons
CPT/HCPCS: 76705

== ENCOUNTER → 2017-07-07 | Outpatient (CLI) | payer MEDICARE, BC ==
[2017-07-07 13:03] LABS: Blood Urea Nitrogen 21 mg/dL (7-17); Non-African American GFR(MDRD) 57 (>60 ml/min/1.73 sqM)
--- NOTE | 2017-07-07 15:50 | CT ---
EXAMINATION TYPE: CT ChestAbdPelvis w con DATE OF EXAM: 07/07/2017 COMPARISON: Chest from 01/13/2017 and Abdomen and pelvis from 01/18/2017 HISTORY: 82-year-old female Lymphoma TECHNIQUE: Contiguous axial scanning of the performed with IV Contrast, patient injected with 80 mL o f Visipaque 320. Delayed images through the kidneys were obtained. Coronal/sagittal reconstructions p erformed. CT DLP: 1682 mGycm Automated exposure control for dose reduction was used. FINDINGS: CHEST: Patient is status post right mastectomy. Heart is normal size without pericardial effusion. Mitral annular and aortic valvular calcifications are present. Additional coronary vessel calcifications are noted in remarkable for coronary artery di sease. There is normal caliber with mild atherosclerotic calcifications and conventional arch vessel branchi ng anatomy. Left anterior chest wall injection port is present with catheter tip at the mid to lower SVC. Couple surgical clips in the right axilla. No thoracic lymphadenopathy by CT size criteria. Mild diffuse bronchial wall thickening is noted. These changes are greater present to a greater exten t at the posterior lung bases where patchy and strandy opacities present with mild bronchiectasis. No nik consolidation identified. A trace effusion on the left. A patch of groundglass in the medial left upper lobe is unchanged. There is some focal chronic atelec tasis at the inferior lingula. ABDOMEN: No focal liver lesion or evident biliary ductal dilatation. Cholecystectomy clips are present. Portal venous system appears patent. Adrenal glands and mildly atrophic pancreas show no gross abnormality. There is splenomegaly at 15.1 cm craniocaudal versus 15.8 cm, previously. There is continued moderate abdominal pelvic ascites, slightly increased from prior exam and slight i nterval increasing anasarca-type change. Similar extrarenal pelvis on the right though there is suggestion of some urothelial thickening. This can be correlated with history and laboratory assessment to exclude urinary tract infection. There i s symmetric uptake of contrast and delayed enhancement of the kidneys. Scattered abdominal lymphadenopathy measuring 1.0 cm in the gastrohepatic ligament region, 9 mm arline hepatic, 1 cm mesenteric are nonspecific. There is some soft tissue density in the retroperitoneum at the level of the aortic bifurcation, refe r to axial image 86. This appears relatively similar. Oral contrast has progressed to the distal transverse colon. There is scattered mild to moderate stoo l. Pelvis: Suggestion of some pelvic floor relaxation. Uterus is surgically absent. Moderate to large free fluid collected in the pelvis is similar to prior. The right ovary may be seen on axial image 103. Left ov coleman not clearly identified. Bones: Degenerative changes at the hips and within the lower lumbar spine. Bridging anterior endplate spondy losis mid to lower thoracic spine suggestive of dish. Partially visualized ACDF hardware. Grade 1 ant erolisthesis at L4-L5. No osseous destructive process seen. IMPRESSION: 1. PRIOR RIGHT MASTECTOMY AND RIGHT AXILLARY NODE DISSECTION. 2. CONTINUED DIFFUSE BRONCHIAL WALL THICKENING, LIKELY CHRONIC BRONCHITIS OR UNCONTROLLED ASTHMA. AER ATION IN THE LUNGS HAS IMPROVED FROM PRIOR WITH SOME RESIDUAL DENSITIES AT THE LUNG BASES AND MILD BR ONCHIECTASIS LIKELY CHRONIC POSTINFECTIOUS/INFLAMMATORY SEQUELA. TRACE LEFT EFFUSION REMAINS. 3. MODERATE ABDOMINOPELVIC ASCITES AND MILD DIFFUSE ANASARCA-TYPE CHANGE. THE ASCITES IS SIMILAR TO S LIGHTLY INCREASED. 4. SOME MILDLY ENLARGED UPPER ABDOMINAL AND MESENTERIC LYMPH NODES ARE NONSPECIFIC, UNCHANGED, AND MA Y BE REACTIVE. THERE IS ALSO UNCHANGED SOFT TISSUE THICKENING IN THE RETROPERITONEUM AT THE LEVEL OF THE AORTIC BIFURCATION. 5. SPLENOMEGALY (15.1 CM) HAS MINIMALLY IMPROVED FROM 15.8 CM. 6. SUGGESTION OF SOME UROTHELIAL THICKENING INVOLVING THE RIGHT RENAL COLLECTING SYSTEM. CORRELATE WI TH URINALYSIS TO EXCLUDE UTI.
== END | disposition home or self-care (01) ==
LOC: RADPROMAIN 12:11
PROVIDERS: ATTEND Internal Medicine Hematology & Oncology
DX: J47.9 Bronchiectasis, uncomplicated (principal); R60.1 Generalized edema; R16.1 Splenomegaly, not elsewhere classified; R59.0 Localized enlarged lymph nodes; J98.09 Other diseases of bronchus, not elsewhere classified; C83.30 Diffuse large B-cell lymphoma, unspecified site; Z90.11 Acquired absence of right breast and nipple
CPT/HCPCS: 82565; 84520; 71260; 74177; Q9967; J1642; 76705

== ENCOUNTER 2017-07-17 12:46 | Day surgery (SDC) | payer MEDICARE, BC ==
[2017-07-17 13:21] VITALS: RESP 20; TEMP 98.6
[2017-07-17 13:38] LABS: Mean Platelet Volume 10.1
[2017-07-17 13:40] LABS: INR 1.2 (<1.2); Prothrombin Time 11.7 sec (9.0-12.0)
[2017-07-17 14:37] VITALS: PULSE 68
[2017-07-17 14:56] VITALS: BP 122/60
--- NOTE | 2017-07-17 16:33 | US ---
EXAMINATION TYPE: US paracentesis abd w/image DATE OF EXAM: 07/17/2017 COMPARISON: NONE HISTORY: Ascites. PROCEDURE: Maximal barrier technique was utilized. The skin overlying a suitable pocket of fluid was localized with ultrasound and the overlying skin was prepped and draped. Ultrasound was utilized with sterile technique. Lidocaine was used for local anesthesia and a skin hema made with a scalpel. Catheter was advanced under direct ultrasound guidance into a suitable pocket of fluid and approximately 2.8 liter s of serous fluid were removed. Catheter was withdrawn and hemostasis achieved. There is no immedia te complication; the patient is discharged in stable condition. IMPRESSION: STATUS POST ULTRASOUND GUIDED PARACENTESIS FOR PALLIATION OF ASCITES. THIS PROCEDURE WA S PERFORMED BY THE UNDERSIGNED.
== END 2017-07-17 15:15 | disposition home or self-care (01) ==
LOC: RADPROMAIN 12:46
PROVIDERS: ATTEND Family Medicine
DX: R18.8 Other ascites (principal)
CPT/HCPCS: 85049; 85610; 85730; 36415; 49083; J1642

== ENCOUNTER 2017-08-14 11:58 | Day surgery (SDC) | payer MEDICARE, BC ==
[2017-08-14 12:46] LABS: Mean Platelet Volume 11.4
[2017-08-14 12:54] LABS: Non-African American GFR(MDRD) >60 (>60 ml/min/1.73 sqM)
[2017-08-14 12:57] LABS: INR 1.2 (<1.2); Prothrombin Time 12.1 sec (9.0-12.0)
[2017-08-14 13:46] VITALS: RESP 18; TEMP 98.3
--- NOTE | 2017-08-14 15:34 | US ---
EXAMINATION TYPE: US paracentesis abd w/image DATE OF EXAM: 08/14/2017 COMPARISON: NONE HISTORY: Ascites. PROCEDURE: Maximal barrier technique was utilized. The skin overlying a suitable pocket of fluid was localized with ultrasound and the overlying skin was prepped and draped. Ultrasound was utilized with sterile technique. Lidocaine was used for local anesthesia and a skin hema made with a scalpel. Catheter was advanced under direct ultrasound guidance into a suitable pocket of fluid and approximately 4.5 liter s of serous fluid were removed. Catheter was withdrawn and hemostasis achieved. There is no immedia te complication; the patient is discharged in stable condition. IMPRESSION: STATUS POST ULTRASOUND GUIDED PARACENTESIS FOR PALLIATION OF ASCITES. THIS PROCEDURE WA S PERFORMED BY THE UNDERSIGNED.
[2017-08-14 15:45] VITALS: BP 150/70; PULSE 96
== END 2017-08-14 15:40 | disposition home or self-care (01) ==
LOC: RADPROMAIN 11:58
PROVIDERS: ATTEND Family Medicine
DX: R18.8 Other ascites (principal)
CPT/HCPCS: 49083; 82565; 85049; 85610

== ENCOUNTER 2017-09-08 11:47 | Day surgery (SDC) | payer MEDICARE, BC ==
--- NOTE | 2017-09-08 12:42 | US ---
Therapeutic paracentesis. DATE OF EXAM: 09/08/2017 CLINICAL HISTORY: Ascites Preliminary imaging demonstrated no sizable collection. The patient wished to defer the procedure. IMPRESSION: Deferred paracentesis.
[2017-09-08 12:58] VITALS: BP 124/74; RESP 16; TEMP 97.4
== END 2017-09-08 12:40 | disposition home or self-care (01) ==
LOC: RADPROMAIN 11:47
PROVIDERS: ATTEND Family Medicine
DX: R18.8 Other ascites (principal); Z53.8 Procedure and treatment not carried out for other reasons
CPT/HCPCS: 76705

== ENCOUNTER 2017-09-26 12:08 | Day surgery (SDC) | payer MEDICARE, BC ==
--- NOTE | 2017-09-26 12:54 | US ---
Therapeutic paracentesis. DATE OF EXAM: 09/26/2017 CLINICAL HISTORY: Ascites No sizable fluid for drainage. IMPRESSION: Discontinued paracentesis secondary to no sizable fluid collection.
[2017-09-27 23:05] VITALS: BP 131/71; PULSE 78; RESP 18; TEMP 97.6
== END 2017-09-26 13:00 | disposition home or self-care (01) ==
LOC: RADPROMAIN 12:08
PROVIDERS: ATTEND Family Medicine
DX: R18.8 Other ascites (principal)
CPT/HCPCS: 71046; 76705; 99214

== ENCOUNTER 2018-01-22 21:09 | Inpatient (IN) | payer MEDICARE, BC ==
[2018-01-22] MEDS ORDERED: IPRATROPIUM 0.5 MG/2.5 ML NEBU INHALATION STA (21:30)
[2018-01-22] MEDS ORDERED: methylPREDNISolone SOD SUCCI 125 MG/2 ML VIAL IV STA (21:30)
[2018-01-22] MEDS ORDERED: cefTRIAXone IN SWFI 2,000 MG/20 ML SYRINGE IVP STA (21:30)
[2018-01-22] MEDS ORDERED: ALBUTEROL NEBULIZED 2.5 MG/3 ML INHALATION STA (21:30)
[2018-01-22] MEDS ORDERED: RX INFO: IV CONTRAST WAS GIVEN 1 EACH MISC MISCELLANE PRN (21:56)
[2018-01-22] MEDS ORDERED: SODIUM CHLORIDE 0.9% 1,000 ML IV STA (22:19)
[2018-01-22 22:20] LABS: Anisocytosis Slight; HCT 23.4 % (34.0-46.0); Hypochromasia Marked; MCH 26.4 pg (25.0-35.0); MCHC 30.1 g/dL (31.0-37.0); MCV 87.8 fL (80.0-100.0); Mean Platelet Volume 11.5; Platelet Count 82 k/uL (150-450); RBC 2.67 m/uL (3.80-5.40); WBC 18.7 k/uL (3.8-10.6)
[2018-01-22] MEDS ORDERED: SODIUM CHLORIDE 0.9% 500 ML IV STA (22:20)
[2018-01-22 22:26] LABS: Albumin 2.6 g/dL (3.5-5.0); Calcium 8.4 mg/dL (8.4-10.2); Potassium 4.3 mmol/L (3.5-5.1); Total Bilirubin 0.5 mg/dL (0.2-1.3); Total Protein 4.2 g/dL (6.3-8.2)
[2018-01-22] MEDS ORDERED: PIPERACILLIN-TAZOBACTAM 3.375 GM in DEXTROSE/WATER 1 50ML.BAG IVPB STA (22:32)
[2018-01-22 22:34] LABS: INR 1.2 (<1.2); Partial Thromboplastin Time 26.9 sec (22.0-30.0); Prothrombin Time 11.7 sec (9.0-12.0)
[2018-01-22 22:41] LABS: Lymphocytes # (M) 1.12 k/uL (1.0-4.8); Neutrophils # (M) 17.58 k/uL (1.3-7.7); Neutrophils % (M) 94 %; Nucleated Red Blood Cells 0 /100 WBC (0-0); Total Cells Counted 100
[2018-01-22 22:42] LABS: Ovalocytes Present; Poikilocytosis (M) Present; Target Cells Present
[2018-01-22 22:49] LABS: Creatine Kinase MB 0.7 ng/mL (0.0-2.4); D-Dimer 6.98 mg/L FEU (<0.60); Troponin I 0.015 ng/mL (0.000-0.034)
--- NOTE | 2018-01-22 22:49 | ED ---
SOB HPI - General Chief Complaint: Shortness of Breath Stated Complaint: Fall Time Seen by Provider: 01/22/18 21:20 Source: patient, family, EMS Mode of arrival: EMS Limitations: no limitations - History of Present Illness Initial Comments: Years O female sent in by Dr. Judge from his office with shortness of breath he did the d-dimer in his office and was quite elevated he was concerned about blood clot, patient's O2 sat on arrival was 72% she also fell on her way to the hospital she laid her both knees no complaining about any pain she does have a history of lymphoma and Dr. Judge mentioned that she is a very high energy percent radiation looks quite sec. Patient herself complains about mild chest pain and severe shortness of breath and reports it gets worse with deep breaths he is very very weak. Denies any abdominal pain no frequency urgency dysuria no symptoms of TIA or CVA - Related Data Home Medications Medication Instructions Recorded Confirmed Cholecalciferol [Vitamin D3] 1,000 unit PO DAILY 08/05/14 01/22/18 Gabapentin [Neurontin] 300 mg PO TID 08/05/14 01/22/18 Omeprazole 40 mg PO AC-BRKFST 08/05/14 01/22/18 Oxybutynin Chloride [Ditropan XL] 10 mg PO DAILY 08/05/14 01/22/18 Pravastatin Sodium [Pravachol] 10 mg PO DAILY 05/21/15 01/22/18 rOPINIRole HCL [Requip] 0.5 mg PO HS 07/28/16 01/22/18 Lisinopril [Prinivil] 10 mg PO BID 03/14/17 01/22/18 Verapamil HCl [Verapamil ER] 180 mg PO DAILY 03/14/17 01/22/18 metFORMIN HCL [Metformin HCl] 500 mg PO BID 03/14/17 01/22/18 Budesonide [Pulmicort Flexhaler] 1 puff INHALATION RT-BID 01/22/18 01/22/18 Allergies Allergy/AdvReac Type Severity Reaction Status Date / Time No Known Allergies Allergy Verified 01/22/18 21:58 Review of Systems ROS Statement: Those systems with pertinent positive or pertinent negative responses have been documented in the HPI. ROS Other: All systems not noted in ROS Statement are negative. Past Medical History Past Medical History: Cancer, Diabetes Mellitus, GERD/Reflux, Hyperlipidemia, Hypertension, Neurologic Disorder, Syncope Additional Past Medical History / Comment(s): LARGE B CELL LYMPHOMA; RIGHT BREAST CANCER WITH SX AND PT BELIEVES CHEMO, MIGRAINES IN PAST, CONSTIPATION, ANEMIA, NIDDM TYPE II, NEUROPATHY BILATERAL FEET, PUD, DIVERTICULAR DX, UTI'S, BACK PAIN, VASOMOTOR SYMPATHETIC DYSTROPHY RIGHT HAND, RLS. History of Any Multi-Drug Resistant Organisms: MRSA Date of last positivie culture/infection: 08/26/2014 MDRO Source:: Urine Past Surgical History: Adenoidectomy, Appendectomy, Breast Surgery, Cholecystectomy, Heart Catheterization, Hysterectomy, Orthopedic Surgery, Tonsillectomy Additional Past Surgical History / Comment(s): MASTECTOMY RIGHT, BILATERAL CATARACTS REMOVED WITH LENS IMPLANTS, CARDIAC CATH-NORMAL, COLONOSCOPY, multiple paracentesis, recent fall - surgery for broken hip Past Anesthesia/Blood Transfusion Reactions: No Reported Reaction Additional Past Anesthesia/Blood Transfusion Reaction / Comment(s): HAD BLOOD TRANSFUSION IN PAST, HAS CLAUSTERPHOBIA Past Psychological History: No Psychological Hx Reported Smoking Status: Never smoker Past Alcohol Use History: None Reported Past Drug Use History: None Reported - Past Family History Father Family Medical History: Musculoskeletal Disorder, Neurologic Disorder Additional Family Medical History / Comment(s): PARKINSONS Mother Family Medical History: Cancer Additional Family Medical History / Comment(s): FROM BREAST CANCER-HAD HEART PROBLEMS, General Exam - General Exam Comments Initial Comments: General: The patient is awake him a she is in a severe respiratory distress, and arrival she was using accessory muscles which improved later Skin: Skin is warm and dry and no rashes or lesions are noted. Eye: Pupils are equal, round and reactive to light, extra-ocular movements are intact; there is normal conjunctiva bilaterally. Ears, nose, mouth and throat: There are moist mucous membranes and no oral lesions. Neck: The neck is supple, there is no tenderness or signs of any meningitis Cardiovascular: There is a regular rate and rhythm. No murmur, rub or gallop is appreciated Respiratory: To auscultation bilateral, oriented but poor air exchange bilaterally noticed some crackles at the lower half of the both sides Gastrointestinal: Soft, non-distended, non-tender abdomen without masses or organomegaly noted. There is no rebound or guarding present. Bowel sounds are unremarkable. Back: There is no tenderness to palpation in the midline. There is no obvious deformity. Musculoskeletal: Normal ROM, no tenderness, There is no pedal edema. There is no calf tenderness or swelling. No cords were appreciated. Neurological: CN II-XII intact, Cranial nerves III through XII are intact. There are no obvious motor or sensory deficits. Coordination appears grossly intact. Speech is normal. Psychiatric: Cooperative, appropriate mood & affect, normal judgment. Limitations: no limitations Course Vital Signs 01/22/18 01/22/18 01/22/18 21:17 22:12 22:31 Temperature 97.4 F L Pulse Rate 72 71 65 Respiratory 30 H Rate Blood Pressure 87/43 84/43 O2 Sat by Pulse 87 L 95 Oximetry 01/22/18 01/22/18 23:10 23:21 Temperature Pulse Rate 73 70 Respiratory 26 H Rate Blood Pressure 96/46 O2 Sat by Pulse 97 Oximetry EKG is normal sinus rhythm ventricular rate is 91 MS interval is 176 QRS duration is 72 QT/QTc is 410/504 review of this EKG does not reveal any ST elevation noticed some mom mild ST depression in lateral left lateral chest leads Medical Decision Making - Lab Data Result diagrams: 01/22/18 22:00 01/22/18 22:00 Lab Results 01/22/18 01/22/18 01/22/18 Range/Units 22:00 22:00 22:00 WBC 18.7 H (3.8-10.6) k/uL RBC 2.67 L (3.80-5.40) m/uL Hgb 7.0 L* (11.4-16.0) gm/dL Hct 23.4 L (34.0-46.0) % MCV 87.8 (80.0-100.0) fL MCH 26.4 (25.0-35.0) pg MCHC 30.1 L (31.0-37.0) g/dL RDW 20.0 H (11.5-15.5) % Plt Count 82 L (150-450) k/uL Neutrophils % (Manual) 94 % Lymphocytes % (Manual) 6 % Neutrophils # (Manual) 17.58 H (1.3-7.7) k/uL Lymphocytes # (Manual) 1.12 (1.0-4.8) k/uL Nucleated RBCs 0 (0-0) /100 WBC Manual Slide Review Performed Hypochromasia Marked Poikilocytosis (manual Present Anisocytosis Slight Target Cells Present Ovalocytes Present PT (9.0-12.0) sec INR (<1.2) APTT (22.0-30.0) sec D-Dimer (<0.60) mg/L FEU Sodium 146 H (137-145) mmol/L Potassium 4.3 (3.5-5.1) mmol/L Chloride 108 H (98-107) mmol/L Carbon Dioxide 23 (22-30) mmol/L Anion Gap 15 mmol/L BUN 36 H (7-17) mg/dL Creatinine 1.20 H (0.52-1.04) mg/dL Est GFR (CKD-EPI)AfAm 48 (>60 ml/min/1.73 sqM) Est GFR (CKD-EPI)NonAf 42 (>60 ml/min/1.73 sqM) Glucose 145 H (74-99) mg/dL Plasma Lactic Acid Ruy (0.7-2.0) mmol/L Calcium 8.4 (8.4-10.2) mg/dL Total Bilirubin 0.5 (0.2-1.3) mg/dL AST 13 L (14-36) U/L ALT 19 (9-52) U/L Alkaline Phosphatase 77 (38-126) U/L Total Creatine Kinase 21 L (30-135) U/L CK-MB (CK-2) 0.7 (0.0-2.4) ng/mL CK-MB (CK-2) Rel Index 3.3 Troponin I 0.015 (0.000-0.034) ng/mL Total Protein 4.2 L (6.3-8.2) g/dL Albumin 2.6 L (3.5-5.0) g/dL Urine Color Urine Appearance (Clear) Urine pH (5.0-8.0) Ur Specific Force (1.001-1.035) Urine Protein (Negative) Urine Glucose (UA) (Negative) Urine Ketones (Negative) Urine Blood (Negative) Urine Nitrite (Negative) Urine Bilirubin (Negative) Urine Urobilinogen (<2.0) mg/dL Ur Leukocyte Esterase (Negative) Urine RBC (0-5) /hpf Urine WBC (0-5) /hpf Urine WBC Clumps (None) /hpf Ur Squamous Epith Cells (0-4) /hpf Urine Yeast (Budding) (None) /hpf 01/22/18 01/22/18 01/22/18 Range/Units 22:00 22:00 22:45 WBC (3.8-10.6) k/uL RBC (3.80-5.40) m/uL Hgb (11.4-16.0) gm/dL Hct (34.0-46.0) % MCV (80.0-100.0) fL MCH (25.0-35.0) pg MCHC (31.0-37.0) g/dL RDW (11.5-15.5) % Plt Count (150-450) k/uL Neutrophils % (Manual) % Lymphocytes % (Manual) % Neutrophils # (Manual) (1.3-7.7) k/uL Lymphocytes # (Manual) (1.0-4.8) k/uL Nucleated RBCs (0-0) /100 WBC Manual Slide Review Hypochromasia Poikilocytosis (manual Anisocytosis Target Cells Ovalocytes PT 11.7 (9.0-12.0) sec INR 1.2 H (<1.2) APTT 26.9 (22.0-30.0) sec D-Dimer 6.98 H (<0.60) mg/L FEU Sodium (137-145) mmol/L Potassium (3.5-5.1) mmol/L Chloride (98-107) mmol/L Carbon Dioxide (22-30) mmol/L Anion Gap mmol/L BUN (7-17) mg/dL Creatinine (0.52-1.04) mg/dL Est GFR (CKD-EPI)AfAm (>60 ml/min/1.73 sqM) Est GFR (CKD-EPI)NonAf (>60 ml/min/1.73 sqM) Glucose (74-99) mg/dL Plasma Lactic Acid Ruy 3.8 H* (0.7-2.0) mmol/L Calcium (8.4-10.2) mg/dL Total Bilirubin (0.2-1.3) mg/dL AST (14-36) U/L ALT (9-52) U/L Alkaline Phosphatase (38-126) U/L Total Creatine Kinase (30-135) U/L CK-MB (CK-2) (0.0-2.4) ng/mL CK-MB (CK-2) Rel Index Troponin I (0.000-0.034) ng/mL Total Protein (6.3-8.2) g/dL Albumin (3.5-5.0) g/dL Urine Color Yellow Urine Appearance Cloudy H (Clear) Urine pH 5.5 (5.0-8.0) Ur Specific Force 1.013 (1.001-1.035) Urine Protein 1+ H (Negative) Urine Glucose (UA) Negative (Negative) Urine Ketones Negative (Negative) Urine Blood Moderate H (Negative) Urine Nitrite Negative (Negative) Urine Bilirubin Negative (Negative) Urine Urobilinogen <2.0 (<2.0) mg/dL Ur Leukocyte Esterase Moderate H (Negative) Urine RBC 10 H (0-5) /hpf Urine WBC 17 H (0-5) /hpf Urine WBC Clumps Many H (None) /hpf Ur Squamous Epith Cells <1 (0-4) /hpf Urine Yeast (Budding) Moderate H (None) /hpf Critical Care Time Total Critical Care Time: 60 Critical Care Time: 82 years old female suddenly became very sec, sent in by Dr. Judge, arrival her O2 sat was 73 d-dimer is quite elevated Dr. Judge to that we repeated that it's around 7 and chest x-ray confirms pulmonary edema as well as pneumonia lactate is 3.8 hemoglobin is quite low 7F pulse was done 2 units of packed red cells or ordered she was started on broad-spectrum antibiotics unfortunately and not able to give her lots of fluids because of the pulmonary edema she was given 500 mils of normal saline before I got the chest x-ray picture she be admitted to Dr. Kennedy service and now is with the Dr. Rebollar used car lot attendant covering ICU unfortunately there are no beds she will stay in the ER 30 to the bed opens up. Considering her anemia she will get transfusion she is not very did candidate for aggressive fluid resuscitation though lactate is 3.8 she will get nor appendectomy infusion to keep the systolic blood pressure greater than 100 also has renal disease Disposition Clinical Impression: Respiratory distress, Sepsis, Anemia, Pneumonia, Pulmonary edema Disposition: ADMITTED IP TO THIS HOSP Condition: Fair Referrals: Jermaine Judge MD [Primary Care Provider] - 1-2 days
[2018-01-22] MEDS ORDERED: SODIUM CHLORIDE 0.9% 1,000 ML IV ONE (22:54)
--- NOTE | 2018-01-22 22:55 | XR ---
EXAMINATION TYPE: XR chest 1V DATE OF EXAM: 01/22/2018 COMPARISON: 09/26/2017 HISTORY: Difficulty breathing TECHNIQUE: Single frontal view of the chest is obtained. FINDINGS: Heart is normal. Thoracic aorta is atheromatous. There is pulmonary interstitial edema. There is a l eft central venous catheter with tip in the superior vena cava. There are chest leads. Conclusion There are new pulmonary infiltrates and pulmonary edema compared to last exam. This could be acute he art failure. Early RDS is possible.
[2018-01-22 23:00] LABS: Appearance,Urine Cloudy (Clear); Bilirubin,Urine Negative (Negative); Blood,Urine Moderate (Negative); Budding Yeast,Urine Moderate /hpf; Color,Urine Yellow; Glucose,Urine (UA) Negative (Negative); Ketones,Urine Negative (Negative); Leukocyte Esterase,Urine Moderate (Negative); Nitrite,Urine Negative (Negative); PH, Urine 5.5 (5.0-8.0); Protein,Urine 1+ (Negative); RBC,Urine 10 /hpf (0-5); Specific Gravity,Urine 1.013 (1.001-1.035); Squamous Epithelial Cell,Urine <1 /hpf (0-4); Urobilinogen,Urine <2.0 mg/dL (<2.0); WBC,Urine 17 /hpf (0-5)
[2018-01-22] MEDS ORDERED: NOREPINEPHRIN 4 MG-0.9% NS PMX 4 MG/250 ML ML IV SCH (23:00)
[2018-01-22] MEDS ORDERED: ACETAMINOPHEN TAB 325 MG TAB PO PRN (23:39)
[2018-01-22] MEDS ORDERED: MORPHINE SULFATE 4 MG/ML SYRINGE IV PRN (23:39)
[2018-01-22] MEDS ORDERED: NALOXONE 0.4 MG/ML 1 ML VIAL IV PRN (23:39)
--- NOTE | 2018-01-22 23:59 | CT ---
EXAMINATION TYPE: CT angio chest DATE OF EXAM: 01/22/2018 11:36 PM COMPARISON: 07/07/2017 HISTORY: Prior on synaspse, JOSHUA< R/O PE CT DLP: 193.10 mGycm Automated exposure control for dose reduction was used. CONTRAST: CTA scan of the thorax is performed with IV Contrast, patient injected with 70 mL of Isovue 370, pulm onary embolism protocol. There are 3-D post processed images.. FINDINGS: There are bilateral pleural effusions. There are bilateral airspace patchy consolidation at the lung bases. There is also some reticular infiltrate in the right upper lobe. I see no filling defects in the pulmonary arteries. There is no evidence of aortic aneurysm or dissec tion. Thoracic aorta is atheromatous. There is no mediastinal adenopathy. Heart size is fairly normal . There is massive ascites fluid. There is spurring in the thoracic spine. IMPRESSION: NO EVIDENCE OF PULMONARY EMBOLISM. THERE ARE NEW AND INCREASING PULMONARY INFILTRATES AT THE LUNG BAS ES COMPARED TO OLD EXAM. MASSIVE ASCITES IS SIMILAR TO OLD EXAM. PLEURAL EFFUSIONS ARE SIGNIFICANTLY INCREASED COMPARED TO OLD EXAM.
--- NOTE | 2018-01-23 00:06 | XR ---
EXAMINATION TYPE: XR knee complete bilateral DATE OF EXAM: 01/22/2018 COMPARISON: NONE HISTORY: Knee pain TECHNIQUE: 6 views FINDINGS: I see no fracture nor dislocation. Joint spaces are fairly normal. There is no sign of knee joint effusion. There are small densities anterior to the patella tendon of the right knee a could b e small foreign bodies. There is no focal bony destructive process. There is vascular calcification. IMPRESSION: Possible small cutaneous foreign bodies below the right patella near the skin surface. No fracture.
[2018-01-23] MEDS: FUROSEMIDE 10 MG/ML 4 ML VIAL IV STA ×2 (00:25→02:56)
--- NOTE | 2018-01-23 03:12 | XR ---
EXAMINATION TYPE: XR chest 1V portable DATE OF EXAM: 01/23/2018 COMPARISON: Yesterday HISTORY: Central line placement TECHNIQUE: Single frontal view of the chest is obtained. FINDINGS: There is a right jugular catheter with the tip over the right atrium. There is no pneumoth orax. There is some pulmonary edema. There is a left subclavian catheter with tip in the superior yobani a cava. There are chest leads. Thoracic aorta is atheromatous. IMPRESSION: There is some pulmonary interstitial and alveolar edema that is slightly worse than exam 4 hours ago. RDS is possible. Congestive heart failure is possible. Heart is not enlarged.
[2018-01-23 03:32] LABS: Glucose,Whole Blood 179 mg/dL (75-99)
[2018-01-23 04:01] LABS: Magnesium 1.5 mg/dL (1.6-2.3); Phosphorus 4.7 mg/dL (2.5-4.5); Potassium 4.4 mmol/L (3.5-5.1)
[2018-01-23] MEDS ORDERED: Magnesium Replacement Protocol 1 EACH MISC MISCELLANE PRN (04:27)
[2018-01-23] MEDS: MAGNESIUM SULFATE-D5W PMX 1 GM in DEXTROSE/WATER 1 100ML.BAG IVPB SCH ×2 (06:13→07:11)
[2018-01-23] MEDS ORDERED: FUROSEMIDE 10 MG/ML 2 ML VIAL IV ONE (06:22)
[2018-01-23 07:34] LABS: Glucose,Whole Blood 235 mg/dL (75-99)
--- NOTE | 2018-01-23 07:52 | P.CNPUL ---
History of Present Illness Consult date: 01/23/18 Reason for consult: dyspnea, hypoxemia, abnormal CXR/CT Chief complaint: Shortness of breath, heart failure, pneumonia, sepsis History of present illness: Consult dated 01/23/2018 This is an 82-year-old female. The patient apparently was sent by Dr. Judge from his office because of shortness of breath. The patient apparently had an elevated d-dimer and a CT angiogram was negative for PE or aortic dissection. The patient's chest x-ray CAT scan did show evidence of what appears to be heart failure or pneumonia. Anyway, I spoke to the ER physician who was admitting the patient with a diagnosis of pneumonia possible sepsis heart failure and anemia. She does apparently have a history of B-cell lymphoma. The patient's currently on a nonrebreather. She is resting somewhat comfortably in the ICU. He still is a full code. The patient's on an IV of saline at KVO. She is on norepinephrine at 2 mics per minute and she's received 1 unit of packed red blood cells. Another one was ordered but I canceled it. 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 She apparently also has restless leg syndrome and has a previous history of MRSA infection. Surgical procedures include among other things adenoidectomy appendectomy breast surgery cholecystectomy heart catheterization hysterectomy orthopedic procedures and tonsillectomy. He is also status post right mastectomy. Review of Systems The patient is a very poor historian and not much can be obtained from regards to review of systems. I do get that she is short of breath although that's improved a bit since she's been here. Past Medical History Past Medical History: Cancer, Diabetes Mellitus, GERD/Reflux, Hyperlipidemia, Hypertension, Neurologic Disorder, Syncope Additional Past Medical History / Comment(s): LARGE B CELL LYMPHOMA; RIGHT BREAST CANCER WITH SX AND PT BELIEVES CHEMO, MIGRAINES IN PAST, CONSTIPATION, ANEMIA, NIDDM TYPE II, NEUROPATHY BILATERAL FEET, PUD, DIVERTICULAR DX, UTI'S, BACK PAIN, VASOMOTOR SYMPATHETIC DYSTROPHY RIGHT HAND, RLS. History of Any Multi-Drug Resistant Organisms: MRSA Date of last positivie culture/infection: 08/26/2014 MDRO Source:: Urine Past Surgical History: Adenoidectomy, Appendectomy, Breast Surgery, Cholecystectomy, Heart Catheterization, Hysterectomy, Orthopedic Surgery, Tonsillectomy Additional Past Surgical History / Comment(s): MASTECTOMY RIGHT, BILATERAL CATARACTS REMOVED WITH LENS IMPLANTS, CARDIAC CATH-NORMAL, COLONOSCOPY, multiple paracentesis, recent fall - surgery for broken hip Past Anesthesia/Blood Transfusion Reactions: No Reported Reaction Additional Past Anesthesia/Blood Transfusion Reaction / Comment(s): HAD BLOOD TRANSFUSION IN PAST, HAS CLAUSTERPHOBIA Past Psychological History: No Psychological Hx Reported Additional Psychological History / Comment(s): PT RESIDES WITH HER SPOUSE AND DAUGHTER. SHE USES A CANE TO AMBULATE. SHE NO LONGER DRIVES, HER SPOUSE TAKES HER TO APPTS OR HER DAUGHTER. They have 5 children. One grandson is a dentist in [place], [place]. She has no experience. No international travel. no animal exposures. Very supportive family. for 65 years. Smoking Status: Never smoker Past Alcohol Use History: None Reported Past Drug Use History: None Reported - Past Family History Father Family Medical History: Musculoskeletal Disorder, Neurologic Disorder Additional Family Medical History / Comment(s): PARKINSONS Mother Family Medical History: Cancer Additional Family Medical History / Comment(s): FROM BREAST CANCER-HAD HEART PROBLEMS, Medications and Allergies Home Medications Medication Instructions Recorded Confirmed Type Cholecalciferol [Vitamin D3] 1,000 unit PO DAILY 08/05/14 01/22/18 History Gabapentin [Neurontin] 300 mg PO TID 08/05/14 01/22/18 History Omeprazole 40 mg PO AC-BRKFST 08/05/14 01/22/18 History Oxybutynin Chloride [Ditropan XL] 10 mg PO DAILY 08/05/14 01/22/18 History Pravastatin Sodium [Pravachol] 10 mg PO DAILY 05/21/15 01/22/18 History rOPINIRole HCL [Requip] 0.5 mg PO HS 07/28/16 01/22/18 History Lisinopril [Prinivil] 10 mg PO BID 03/14/17 01/22/18 History Verapamil HCl [Verapamil ER] 180 mg PO DAILY 03/14/17 01/22/18 History metFORMIN HCL [Metformin HCl] 500 mg PO BID 03/14/17 01/22/18 History Budesonide [Pulmicort Flexhaler] 1 puff INHALATION RT-BID 01/22/18 01/22/18 History Allergies Allergy/AdvReac Type Severity Reaction Status Date / Time No Known Allergies Allergy Verified 01/22/18 21:58 Physical Exam Osteopathic Statement: *. No significant issues noted on an osteopathic structural exam other than those noted in the History and Physical/Consult. Vitals: Vital Signs Temp Pulse Pulse Resp BP Pulse Ox 01/23/18 07:08 97.6 F 68 14 93/46 01/23/18 07:00 73 15 97/47 100 01/23/18 06:30 67 15 102/49 100 01/23/18 06:00 66 22 109/49 99 01/23/18 05:30 65 13 102/47 100 01/23/18 05:00 67 14 114/51 95 01/23/18 04:51 97.5 F L 67 14 100/47 01/23/18 04:30 68 15 84/37 100 01/23/18 04:21 97.4 F L 67 12 80/39 100 01/23/18 04:11 97.2 F L 67 16 95/58 100 01/23/18 04:00 97.2 F L 68 14 91/43 100 01/23/18 03:31 105 H 01/23/18 01:02 71 24 103/52 95 01/22/18 23:54 69 24 97/50 100 01/22/18 23:21 70 26 H 96/46 97 01/22/18 23:10 73 01/22/18 23:00 69 01/22/18 22:31 65 01/22/18 22:12 71 84/43 95 01/22/18 21:17 97.4 F L 72 30 H 87/43 87 L Intake and Output 01/22/18 01/23/18 01/23/18 22:59 06:59 14:59 Intake Total 310 100 Output Total 245 15 Balance 65 85 Intake: IV 100 Magnesium Sulfate-D5w Pmx 100 1 gm In Dextrose/Water 1 100ml.bag @ 100 mls/hr IVPB Q1H APOORVA Rx#: [id number] Blood Product 310 Rc As-1 Unit 310 [id number] Output: Urine 245 15 Uretheral (Castillo) 100 Other: Voiding Method Indwelling Catheter Weight 72.575 kg 75 kg Mildly tachypneic and dyspneic, poor historian, nonrebreather mask in place. HEENT examination is grossly unremarkable. Mucous membranes are moist. No oral lesions. Neck supple. Full range of motion. No adenopathy thyromegaly or neck vein distention. Cardiovascular examination reveals distant heart sounds. Heart rate about 100. S1 and S2 appear normal. No heart murmur. No S3 or S4 noted.. Lungs reveal very loud and coarse gurgly respirations. A few scattered rhonchi are noted. Crackles are appreciated the bases. No wheezes. Breath sounds are equal bilaterally.. Abdomen soft bowel sounds are heard. No masses or tenderness. Extremities are intact. Mild edema is noted Skin is without rash or lesion. Neurologic examination difficult to assess but she moves all 4 extremities well Results - Laboratory Findings CBC and BMP: 01/22/18 22:00 01/23/18 03:00 PT/INR, D-dimer PT 11.7 sec (9.0-12.0) 01/22/18 22:00 INR 1.2 (<1.2) H 01/22/18 22:00 D-Dimer 6.98 mg/L FEU (<0.60) H 01/22/18 22:00 Abnormal lab findings: Abnormal Labs 01/22/18 01/22/18 01/22/18 22:00 22:00 22:00 WBC 18.7 H RBC 2.67 L Hgb 7.0 L* Hct 23.4 L MCHC 30.1 L RDW 20.0 H Plt Count 82 L Neutrophils # (Manual) 17.58 H INR D-Dimer Sodium 146 H Chloride 108 H BUN 36 H Creatinine 1.20 H Glucose 145 H POC Glucose (mg/dL) Plasma Lactic Acid Ruy Calcium Phosphorus Magnesium AST 13 L Total Creatine Kinase 21 L Total Protein 4.2 L Albumin 2.6 L Urine Appearance Urine Protein Urine Blood Ur Leukocyte Esterase Urine RBC Urine WBC Urine WBC Clumps Urine Yeast (Budding) Crossmatch 01/22/18 01/22/18 01/22/18 22:00 22:00 22:40 WBC RBC Hgb Hct MCHC RDW Plt Count Neutrophils # (Manual) INR 1.2 H D-Dimer 6.98 H Sodium Chloride BUN Creatinine Glucose POC Glucose (mg/dL) Plasma Lactic Acid Ruy 3.8 H* Calcium Phosphorus Magnesium AST Total Creatine Kinase Total Protein Albumin Urine Appearance Urine Protein Urine Blood Ur Leukocyte Esterase Urine RBC Urine WBC Urine WBC Clumps Urine Yeast (Budding) Crossmatch See Detail 01/22/18 01/23/18 01/23/18 22:45 03:00 03:18 WBC RBC Hgb Hct MCHC RDW Plt Count Neutrophils # (Manual) INR D-Dimer Sodium Chloride 108 H BUN 38 H Creatinine 1.30 H Glucose 187 H POC Glucose (mg/dL) Plasma Lactic Acid Ruy 2.1 H* Calcium 8.0 L Phosphorus 4.7 H Magnesium 1.5 L AST Total Creatine Kinase Total Protein Albumin Urine Appearance Cloudy H Urine Protein 1+ H Urine Blood Moderate H Ur Leukocyte Esterase Moderate H Urine RBC 10 H Urine WBC 17 H Urine WBC Clumps Many H Urine Yeast (Budding) Moderate H Crossmatch 01/23/18 01/23/18 03:30 07:33 WBC RBC Hgb Hct MCHC RDW Plt Count Neutrophils # (Manual) INR D-Dimer Sodium Chloride BUN Creatinine Glucose POC Glucose (mg/dL) 179 H 235 H Plasma Lactic Acid Ruy Calcium Phosphorus Magnesium AST Total Creatine Kinase Total Protein Albumin Urine Appearance Urine Protein Urine Blood Ur Leukocyte Esterase Urine RBC Urine WBC Urine WBC Clumps Urine Yeast (Budding) Crossmatch - Diagnostic Findings Chest x-ray: image reviewed CT scan - chest: image reviewed (Labs x-rays and medications are all reviewed.) Assessment and Plan Assessment: Assessment Hypoxemic respiratory failure, which may relate to either pneumonia and/or heart failure Rule out sepsis History of large B-cell lymphoma Previous right mastectomy for breast cancer History of diabetes mellitus GERD by history Hyperlipidemia History of hypertension History of migraine cephalgia Diverticular disease Peptic ulcer disease History of urinary tract infection Chronic constipation History of restless leg syndrome. Plan: Plan dated 01/23/2018 The patient's antibiotics will be Rocephin and Zithromax for community-acquired pneumonia. The patient will get additional Lasix. The patient received only 1 unit of blood. Repeat labs will be done. The patient will get some additional Lasix 20 mg IV push after the 1 unit of PRBCs. The patient was started on Lovenox for DVT prophylaxis. We'll do a stat BNP. Additional recommendations and suggestions are forthcoming. We'll have to talk to the family about CODE STATUS. The patient's very ill with multiple medical problems and I think it would be inappropriate to place her on mechanical ventilation at this time. Time with Patient: Greater than 30
[2018-01-23] MEDS ORDERED: BUDESONIDE 0.5 MG/2 ML NEBU INHALATION SCH (08:00)
[2018-01-23] MEDS: AZITHROMYCIN 500 MG in SODIUM CHLORIDE 0.9% 250 ML IVPB SCH (08:21)
[2018-01-23] MEDS: cefTRIAXone IN SWFI 1,000 MG/10 ML SYRINGE IVP SCH (08:21)
[2018-01-23] MEDS: INSULIN ASPART 100 UNIT/ML 1 ML 10 ML VIAL SQ SCH ×4 (08:21→20:40)
[2018-01-23] MEDS: CHOLECALCIFEROL 1,000 UNIT TAB PO SCH (08:22)
[2018-01-23] MEDS: PANTOPRAZOLE 40 MG TABLET PO SCH (08:22)
[2018-01-23] MEDS: metFORMIN 500 MG TAB PO SCH ×2 (08:22→17:09)
[2018-01-23] MEDS: OXYBUTYNIN 10 MG TAB.ER.24 PO SCH (08:22)
[2018-01-23] MEDS: GABAPENTIN 300 MG CAP PO SCH ×3 (08:22→20:35)
[2018-01-23] MEDS ORDERED: ENOXAPARIN 40 MG/0.4 ML SYRINGE SQ SCH (09:00)
[2018-01-23] MEDS ORDERED: VERAPAMIL SR 180 MG TABLET.ER PO SCH (09:00)
[2018-01-23] MEDS ORDERED: LISINOPRIL 10 MG TAB PO SCH (09:00)
[2018-01-23] MEDS ORDERED: PRAVASTATIN SODIUM 20 MG TAB PO SCH (09:00)
[2018-01-23 09:21] LABS: Anisocytosis Slight; Basophils % (A) 0 %; Eosinophils % (A) 0 %; HCT 25.7 % (34.0-46.0); HGB 7.9 gm/dL (11.4-16.0); Hypochromasia Marked; Lymphocytes # (A) 0.4 k/uL (1.0-4.8); Lymphocytes % (A) 3 %; MCH 27.4 pg (25.0-35.0); MCHC 30.8 g/dL (31.0-37.0); MCV 88.9 fL (80.0-100.0); Mean Platelet Volume 11.4; Monocytes # (A) 0.3 k/uL (0-1.0); Monocytes % (A) 2 %; Neutrophils # (A) 12.7 k/uL (1.3-7.7); Neutrophils % (A) 94 %; Poikilocytosis Slight; RBC 2.89 m/uL (3.80-5.40); RDW 18.8 % (11.5-15.5); WBC 13.5 k/uL (3.8-10.6)
[2018-01-23 09:23] LABS: Platelet Count 81 k/uL (150-450)
[2018-01-23] MEDS ORDERED: NOREPINEPHRIN 16 MG-0.9%NS PMX 16 MG/250 ML ML IV SCH (10:30)
[2018-01-23 12:01] LABS: Glucose,Whole Blood 191 mg/dL (75-99)
--- NOTE | 2018-01-23 14:59 | US ---
EXAMINATION TYPE: US abdomen limited DATE OF EXAM: 01/23/2018 COMPARISON: US CLINICAL HISTORY: assess for fluid pocket. Swelling and bloating. Ascites is noted in all four abdominal quadrants with largest fluid pocket LLQ at 14.2cm A/P. Moderate to large amount of ascites is confirmed most prominent in the lower quadrants, left greater than right, on images saved. IMPRESSION: As above.
[2018-01-23 15:34] LABS: Hemoglobin A1C 5.9 % (4.0-6.0)
--- NOTE | 2018-01-23 16:36 | P.HPIM ---
History of Present Illness 79-year-old female was sent from Dr. Pandey office because of elevated d- dimer patient underwent CT angiogram of the chest which is negative for PE a right sided dissection. Patient was having some shortness of breath. Patient does have ascites patient was told that she doesn't have any cirrhosis and her abdominal fluid is not secondary to B-cell lymphoma unsure of the etiology of the ascites apparently as per the patient patient although his has been undergoing paracentesis. Patient is bit [id number] lady with bilateral pleural effusions and is also minimal air bronchogram in the right middle and inferior lung brown and patient is being treated for pneumonia as well as congestive heart failure. Since her blood pressure is low in spite of giving Lasix patient is also getting nor epinephrine. Patient does have abdominal distention with fluid shift, patient is scheduled to get the paracentesis tomorrow patient denied any significant abdominal pain although patient does have some sharp some shortness of breath occasionally because of the abdominal distention patient denied any fever chills patient does have leukocytosis. Patient is complaining of cough unable to cough up anything. 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 HEENT: No recent visual problems or hearing problems. Denied any sore throat. CARDIOVASCULAR: No chest pain, orthopnea, PND, no palpitations, no syncope. PULMONARY:, no hemoptysis. GASTROINTESTINAL: No diarrhea, no nausea, no vomiting, no abdominal pain. Normoactive bowel sounds. NEUROLOGICAL: No headaches, no weakness, no numbness. HEMATOLOGICAL: Denies any bleeding or petechiae. GENITOURINARY: Denies any burning micturition, frequency, or urgency. MUSCULOSKELETAL/RHEUMATOLOGICAL: Denies any joint pain, swelling, or any muscle pain. ENDOCRINE: Denies any polyuria or polydipsia. The rest of the 14-point review of systems is negative. Past Medical History Past Medical History: Cancer, Diabetes Mellitus, GERD/Reflux, Hyperlipidemia, Hypertension, Neurologic Disorder, Syncope Additional Past Medical History / Comment(s): LARGE B CELL LYMPHOMA; RIGHT BREAST CANCER WITH SX AND PT BELIEVES CHEMO, MIGRAINES IN PAST, CONSTIPATION, ANEMIA, NIDDM TYPE II, NEUROPATHY BILATERAL FEET, PUD, DIVERTICULAR DX, UTI'S, BACK PAIN, VASOMOTOR SYMPATHETIC DYSTROPHY RIGHT HAND, RLS. History of Any Multi-Drug Resistant Organisms: MRSA Date of last positivie culture/infection: 08/26/2014 MDRO Source:: Urine Past Surgical History: Adenoidectomy, Appendectomy, Breast Surgery, Cholecystectomy, Heart Catheterization, Hysterectomy, Orthopedic Surgery, Tonsillectomy Additional Past Surgical History / Comment(s): MASTECTOMY RIGHT, BILATERAL CATARACTS REMOVED WITH LENS IMPLANTS, CARDIAC CATH-NORMAL, COLONOSCOPY, multiple paracentesis, recent fall - surgery for broken hip Past Anesthesia/Blood Transfusion Reactions: No Reported Reaction Additional Past Anesthesia/Blood Transfusion Reaction / Comment(s): HAD BLOOD TRANSFUSION IN PAST, HAS CLAUSTERPHOBIA Past Psychological History: No Psychological Hx Reported Additional Psychological History / Comment(s): PT RESIDES WITH HER SPOUSE AND DAUGHTER. SHE USES A CANE TO AMBULATE. SHE NO LONGER DRIVES, HER SPOUSE TAKES HER TO APPTS OR HER DAUGHTER. They have 5 children. One grandson is a dentist in [place], [place] She has no experience. No international travel. no animal exposures. Very supportive family. for 65 years. Smoking Status: Never smoker Past Alcohol Use History: None Reported Past Drug Use History: None Reported - Past Family History Father Family Medical History: Musculoskeletal Disorder, Neurologic Disorder Additional Family Medical History / Comment(s): PARKINSONS Mother Family Medical History: Cancer Additional Family Medical History / Comment(s): FROM BREAST CANCER-HAD HEART PROBLEMS, Medications and Allergies Home Medications Medication Instructions Recorded Confirmed Type Cholecalciferol [Vitamin D3] 1,000 unit PO DAILY 08/05/14 01/22/18 History Gabapentin [Neurontin] 300 mg PO TID 08/05/14 01/22/18 History Omeprazole 40 mg PO AC-BRKFST 08/05/14 01/22/18 History Oxybutynin Chloride [Ditropan XL] 10 mg PO DAILY 08/05/14 01/22/18 History Pravastatin Sodium [Pravachol] 10 mg PO DAILY 05/21/15 01/22/18 History rOPINIRole HCL [Requip] 0.5 mg PO HS 07/28/16 01/22/18 History Lisinopril [Prinivil] 10 mg PO BID 03/14/17 01/22/18 History Verapamil HCl [Verapamil ER] 180 mg PO DAILY 03/14/17 01/22/18 History metFORMIN HCL [Metformin HCl] 500 mg PO BID 03/14/17 01/22/18 History Budesonide [Pulmicort Flexhaler] 1 puff INHALATION RT-BID 01/22/18 01/22/18 History Allergies Allergy/AdvReac Type Severity Reaction Status Date / Time No Known Allergies Allergy Verified 01/22/18 21:58 Physical Exam Vitals: Vital Signs Temp Pulse Pulse Resp BP Pulse Ox 01/23/18 13:00 81 22 96/49 95 01/23/18 12:30 75 20 95/44 96 01/23/18 12:00 98.2 F 81 22 90/46 95 01/23/18 11:30 70 18 112/55 94 L 01/23/18 11:00 72 20 99/47 98 01/23/18 10:30 71 16 112/56 100 01/23/18 10:00 76 18 106/54 99 01/23/18 09:30 74 19 93/49 99 01/23/18 09:00 75 20 84/57 95 01/23/18 08:30 73 22 127/55 01/23/18 08:00 97.5 F L 85 20 109/54 01/23/18 07:30 67 15 84/41 01/23/18 07:08 97.6 F 68 14 93/46 01/23/18 07:00 73 15 97/47 100 01/23/18 06:30 67 15 102/49 100 01/23/18 06:00 66 22 109/49 99 01/23/18 05:30 65 13 102/47 100 01/23/18 05:00 67 14 114/51 95 01/23/18 04:51 97.5 F L 67 14 100/47 01/23/18 04:30 68 15 84/37 100 01/23/18 04:21 97.4 F L 67 12 80/39 100 01/23/18 04:11 97.2 F L 67 16 95/58 100 01/23/18 04:00 97.2 F L 68 14 91/43 100 01/23/18 03:31 105 H 01/23/18 01:02 71 24 103/52 95 01/22/18 23:54 69 24 97/50 100 01/22/18 23:21 70 26 H 96/46 97 04/30/18 23:10 73 01/22/18 23:00 69 01/22/18 22:31 65 01/22/18 22:12 71 84/43 95 01/22/18 21:17 97.4 F L 72 30 H 87/43 87 L Intake and Output 01/23/18 01/23/18 01/23/18 06:59 14:59 22:59 Intake Total 310 1056.25 Output Total 245 260 Balance 65 796.25 Intake: IV 350 Azithromycin 500 mg In 250 Sodium Chloride 0.9% 250 ml @ 125 mls/hr IVPB DAILY [facility] Rx#:[id number] Magnesium Sulfate-D5w Pmx 100 1 gm In Dextrose/Water 1 100ml.bag @ 100 mls/hr IVPB Q1H [facility] Rx#: [id number] Intake, IV Titration 106.25 Amount Norepinephrin 4 mg-0.9% 106.25 Ns Pmx 4 mg In 250 ml @ Titrate IV .Q0M [facility] Rx#: [id number] Oral 600 Blood Product 310 Rc As-1 Unit 310 [id number] Output: Urine 245 260 Uretheral (Castillo) 100 Other: Voiding Method Indwelling Catheter Indwelling Catheter Weight 75 kg 75 kg PHYSICAL EXAMINATION: GENERAL: The patient is alert and oriented x3, not in any acute distress. Well developed, well nourished. HEENT: Pupils are round and equally reacting to light. EOMI. No scleral icterus. No conjunctival pallor. Normocephalic, atraumatic. No pharyngeal erythema. No thyromegaly. CARDIOVASCULAR: S1 and S2 present. No murmurs, rubs, or gallops. Unable to assess JVD ST and S4 were not appreciable PULMONARY: Coarse rhonchorous breath sounds bibasilar crackles are appreciated, medical hernia was now noted there is no palmar erythema spider nevi, caput medusa ABDOMEN: Soft, distended she fluid shift without any tenderness MUSCULOSKELETAL: No joint swelling or deformity. EXTREMITIES: No cyanosis, clubbing, or pedal edema. NEUROLOGICAL: Gross neurological examination did not reveal any focal deficits. SKIN: No rashes. Results CBC & Chem 7: 01/23/18 09:00 01/23/18 03:00 Labs: Abnormal Lab Results - Last 24 Hours (Table) 01/22/18 01/22/18 01/22/18 Range/Units 22:00 22:00 22:00 WBC 18.7 H (3.8-10.6) k/uL RBC 2.67 L (3.80-5.40) m/uL Hgb 7.0 L* (11.4-16.0) gm/dL Hct 23.4 L (34.0-46.0) % MCHC 30.1 L (31.0-37.0) g/dL RDW 20.0 H (11.5-15.5) % Plt Count 82 L (150-450) k/uL Neutrophils # (1.3-7.7) k/uL Neutrophils # (Manual) 17.58 H (1.3-7.7) k/uL Lymphocytes # (1.0-4.8) k/uL INR (<1.2) D-Dimer (<0.60) mg/L FEU Sodium 146 H (137-145) mmol/L Chloride 108 H (98-107) mmol/L BUN 36 H (7-17) mg/dL Creatinine 1.20 H (0.52-1.04) mg/dL Glucose 145 H (74-99) mg/dL POC Glucose (mg/dL) (75-99) mg/dL Plasma Lactic Acid Ruy (0.7-2.0) mmol/L Calcium (8.4-10.2) mg/dL Phosphorus (2.5-4.5) mg/dL Magnesium (1.6-2.3) mg/dL AST 13 L (14-36) U/L Total Creatine Kinase 21 L (30-135) U/L Total Protein 4.2 L (6.3-8.2) g/dL Albumin 2.6 L (3.5-5.0) g/dL Urine Appearance (Clear) Urine Protein (Negative) Urine Blood (Negative) Ur Leukocyte Esterase (Negative) Urine RBC (0-5) /hpf Urine WBC (0-5) /hpf Urine WBC Clumps (None) /hpf Urine Yeast (Budding) (None) /hpf Crossmatch 01/22/18 01/22/18 01/22/18 Range/Units 22:00 22:00 22:40 WBC (3.8-10.6) k/uL RBC (3.80-5.40) m/uL Hgb (11.4-16.0) gm/dL Hct (34.0-46.0) % MCHC (31.0-37.0) g/dL RDW (11.5-15.5) % Plt Count (150-450) k/uL Neutrophils # (1.3-7.7) k/uL Neutrophils # (Manual) (1.3-7.7) k/uL Lymphocytes # (1.0-4.8) k/uL INR 1.2 H (<1.2) D-Dimer 6.98 H (<0.60) mg/L FEU Sodium (137-145) mmol/L Chloride (98-107) mmol/L BUN (7-17) mg/dL Creatinine (0.52-1.04) mg/dL Glucose (74-99) mg/dL POC Glucose (mg/dL) (75-99) mg/dL Plasma Lactic Acid Ruy 3.8 H* (0.7-2.0) mmol/L Calcium (8.4-10.2) mg/dL Phosphorus (2.5-4.5) mg/dL Magnesium (1.6-2.3) mg/dL AST (14-36) U/L Total Creatine Kinase (30-135) U/L Total Protein (6.3-8.2) g/dL Albumin (3.5-5.0) g/dL Urine Appearance (Clear) Urine Protein (Negative) Urine Blood (Negative) Ur Leukocyte Esterase (Negative) Urine RBC (0-5) /hpf Urine WBC (0-5) /hpf Urine WBC Clumps (None) /hpf Urine Yeast (Budding) (None) /hpf Crossmatch See Detail 01/22/18 01/23/18 01/23/18 Range/Units 22:45 03:00 03:18 WBC (3.8-10.6) k/uL RBC (3.80-5.40) m/uL Hgb (11.4-16.0) gm/dL Hct (34.0-46.0) % MCHC (31.0-37.0) g/dL RDW (11.5-15.5) % Plt Count (150-450) k/uL Neutrophils # (1.3-7.7) k/uL Neutrophils # (Manual) (1.3-7.7) k/uL Lymphocytes # (1.0-4.8) k/uL INR (<1.2) D-Dimer (<0.60) mg/L FEU Sodium (137-145) mmol/L Chloride 108 H (98-107) mmol/L BUN 38 H (7-17) mg/dL Creatinine 1.30 H (0.52-1.04) mg/dL Glucose 187 H (74-99) mg/dL POC Glucose (mg/dL) (75-99) mg/dL Plasma Lactic Acid Ruy 2.1 H* (0.7-2.0) mmol/L Calcium 8.0 L (8.4-10.2) mg/dL Phosphorus 4.7 H (2.5-4.5) mg/dL Magnesium 1.5 L (1.6-2.3) mg/dL AST (14-36) U/L Total Creatine Kinase (30-135) U/L Total Protein (6.3-8.2) g/dL Albumin (3.5-5.0) g/dL Urine Appearance Cloudy H (Clear) Urine Protein 1+ H (Negative) Urine Blood Moderate H (Negative) Ur Leukocyte Esterase Moderate H (Negative) Urine RBC 10 H (0-5) /hpf Urine WBC 17 H (0-5) /hpf Urine WBC Clumps Many H (None) /hpf Urine Yeast (Budding) Moderate H (None) /hpf Crossmatch 01/23/18 01/23/18 01/23/18 Range/Units 03:30 07:33 09:00 WBC 13.5 H (3.8-10.6) k/uL RBC 2.89 L (3.80-5.40) m/uL Hgb 7.9 L (11.4-16.0) gm/dL Hct 25.7 L (34.0-46.0) % MCHC 30.8 L (31.0-37.0) g/dL RDW 18.8 H (11.5-15.5) % Plt Count 81 L (150-450) k/uL Neutrophils # 12.7 H (1.3-7.7) k/uL Neutrophils # (Manual) (1.3-7.7) k/uL Lymphocytes # 0.4 L (1.0-4.8) k/uL INR (<1.2) D-Dimer (<0.60) mg/L FEU Sodium (137-145) mmol/L Chloride (98-107) mmol/L BUN (7-17) mg/dL Creatinine (0.52-1.04) mg/dL Glucose (74-99) mg/dL POC Glucose (mg/dL) 179 H 235 H (75-99) mg/dL Plasma Lactic Acid Ruy (0.7-2.0) mmol/L Calcium (8.4-10.2) mg/dL Phosphorus (2.5-4.5) mg/dL Magnesium (1.6-2.3) mg/dL AST (14-36) U/L Total Creatine Kinase (30-135) U/L Total Protein (6.3-8.2) g/dL Albumin (3.5-5.0) g/dL Urine Appearance (Clear) Urine Protein (Negative) Urine Blood (Negative) Ur Leukocyte Esterase (Negative) Urine RBC (0-5) /hpf Urine WBC (0-5) /hpf Urine WBC Clumps (None) /hpf Urine Yeast (Budding) (None) /hpf Crossmatch 01/23/18 Range/Units 12:00 WBC (3.8-10.6) k/uL RBC (3.80-5.40) m/uL Hgb (11.4-16.0) gm/dL Hct (34.0-46.0) % MCHC (31.0-37.0) g/dL RDW (11.5-15.5) % Plt Count (150-450) k/uL Neutrophils # (1.3-7.7) k/uL Neutrophils # (Manual) (1.3-7.7) k/uL Lymphocytes # (1.0-4.8) k/uL INR (<1.2) D-Dimer (<0.60) mg/L FEU Sodium (137-145) mmol/L Chloride (98-107) mmol/L BUN (7-17) mg/dL Creatinine (0.52-1.04) mg/dL Glucose (74-99) mg/dL POC Glucose (mg/dL) 191 H (75-99) mg/dL Plasma Lactic Acid Ruy (0.7-2.0) mmol/L Calcium (8.4-10.2) mg/dL Phosphorus (2.5-4.5) mg/dL Magnesium (1.6-2.3) mg/dL AST (14-36) U/L Total Creatine Kinase (30-135) U/L Total Protein (6.3-8.2) g/dL Albumin (3.5-5.0) g/dL Urine Appearance (Clear) Urine Protein (Negative) Urine Blood (Negative) Ur Leukocyte Esterase (Negative) Urine RBC (0-5) /hpf Urine WBC (0-5) /hpf Urine WBC Clumps (None) /hpf Urine Yeast (Budding) (None) /hpf Crossmatch Microbiology - Last 24 Hours (Table) 01/22/18 22:45 Urine Culture - Preliminary Urine,Catheterized Thrombosis Risk Factor Assmnt - Choose All That Apply Any of the Below Risk Factors Present?: Yes Each Factor Represents 1 point: Sepsis (< 1month) Other Risk Factors: Yes Each Risk Factor Represents 2 Points: Patient confined to bed Each Risk Factor Represents 3 Points: Age 75 years or older Other congenital or acquired thrombophilia - If yes, enter type in comment: No Thrombosis Risk Factor Assessment Total Risk Factor Score: 6 Thrombosis Risk Factor Assessment Level: High Risk Assessment and Plan Plan: Acute hypoxic respiratory failure: Probably secondary to both pneumonia and heart failure patient is on antibiotics which will be continued is also on IV Lasix which will be continued -Possible congestive heart failure chronic diastolic dysfunction with acute exacerbation patient had normal ejection fraction the past. Patient is on IV Lasix which will continue -hypotension/shock: Possibility of cardiogenic and septic etiologies secondary to cirrhosis and heart failure, cancer cachexia in May be infection contributing to her hypotension. Patient is on not epinephrine which will be continued. -Acute renal failure most probably prerenal azotemia from heart failure and cirrhosis -Cirrhosis etiology is unknown unsure whether patient has cirrhosis patient's INR is 1.2, patient is going for paracentesis will obtain peritoneotomy fluid albumin LDH protein culture and cytology. -History of breast cancer in the past. Next and-B-cell lymphoma for which patient follows up with oncology and receiving chemotherapy -Gastro-esophageal reflux disease -Hyperlipidemia -Type 2 diabetes mellitus
[2018-01-23 17:07] LABS: Glucose,Whole Blood 157 mg/dL (75-99)
--- NOTE | 2018-01-23 20:18 | CONS ---
CONSULTATION REASON FOR CONSULT: Renal failure. HISTORY OF PRESENT ILLNESS: Patient is an 82-year-old female who was admitted to the hospital, as she was found to have elevated D-dimer as outpatient during a routine office visit. When patient came into the ER, she was short of breath. She was also hypotensive and was transferred to the ICU. Patient is maintained on low-dose Levophed. She was given IV fluids initially. She is currently being treated for pneumonia. Serum creatinine was 1.2 mg/dL, and it increased to 1.3. Urine output was low initially; it seems to have picked up. Patient received 60 mg of Lasix this morning. Patient did have a CT angiogram done on initial admission, and that was the primary reason she was sent to the hospital for elevated D-dimer as outpatient. PAST MEDICAL HISTORY: 1. Large B-cell lymphoma. 2. Right breast cancer. 3. Migraines. 4. Anemia. 5. Type 2 diabetes. 6. Neuropathy. 7. Diverticulitis. 8. Peptic ulcer disease. 9. Back pain. 10.Vasomotor sympathetic dystrophy, right hand. PAST SURGICAL HISTORY: 1. Adenoidectomy. 2. Appendectomy. 3. Breast surgery. 4. Cholecystectomy. 5. Cardiac catheterization. 6. Hysterectomy. 7. Tonsillectomy. 8. Mastectomy. 9. Cataract surgery. 10.Colonoscopy. 11.Previous multiple paracenteses. 12.Hip surgery. SOCIAL HISTORY: Negative for smoking, drug abuse or alcohol abuse. HOME MEDICATIONS PRIOR TO ADMISSION: 1. Vitamin D3. 2. Neurontin. 3. Ditropan. 4. Omeprazole. 5. Pravachol. 6. Requip. 7. Prinivil. 8. Verapamil. 9. Metformin. 10.Pulmicort. ALLERGIES: NONE. PHYSICAL EXAMINATION: Currently patient is comfortable. She is awake. She is not in any acute distress. She is not able to give a detailed history. Blood pressure this morning when patient was seen was 106/54. Patient is afebrile. EXAMINATION OF THE HEART: S1, S2. EXAMINATION OF LUNGS: Bilateral breath sounds are heard. ABDOMEN: Soft, non-tender. Distended. Examination of lower extremities shows edema 1+ bilaterally with chronic skin changes. [employer] exam is grossly intact; patient moving all 4 extremities. Labs show hemoglobin 7.9, sodium 145, potassium 4.4, BUN 38, serum creatinine 1.3. Lactic acid was 2.1, phosphorus 4.7, calcium 8.0. BNP was elevated 5670. UA shows moderate blood, WBC 17, protein 1+. ASSESSMENT: 1. Acute kidney injury secondary to hypotension as well as element of cardiorenal syndrome. Patient is hypervolemic. Continue off of IV fluids. I will maintain her on IV Lasix at 40 mg q.12 hours, and we can increase the diuretics if her respiratory status worsens. 2. Anemia, multifactorial. Rule out iron deficiency. No active bleeding noted. 3. Urinary tract infection. Urine culture is pending. Patient is maintained on empiric antibiotics. 4. Possible pneumonia. 5. Elevated D-dimer as outpatient, status post chest CTA with no evidence of pulmonary embolus. PLAN: Diurese patient. Continue off of IV fluids. Maintain Lasix 40 mg IV q.12 hours. Check iron studies. Repeat labs in a.m. Try to wean off pressors as tolerated. If the urine output remains low, we should discontinue the metformin. Continue off of ELIDA inhibitors and other antihypertensive medications. MMODL / IJN: [id number] /
[2018-01-23] MEDS: FUROSEMIDE 10 MG/ML 4 ML VIAL IV SCH (20:34)
[2018-01-23 20:41] LABS: Glucose,Whole Blood 188 mg/dL (75-99)
[2018-01-24 03:59] LABS: Calcium 8.4 mg/dL (8.4-10.2); Phosphorus 4.5 mg/dL (2.5-4.5); Potassium 4.7 mmol/L (3.5-5.1)
[2018-01-24 04:16] LABS: Anisocytosis Slight; HCT 23.8 % (34.0-46.0); HGB 7.4 gm/dL (11.4-16.0); Hypochromasia Marked; MCH 27.6 pg (25.0-35.0); MCHC 30.9 g/dL (31.0-37.0); MCV 89.2 fL (80.0-100.0); Mean Platelet Volume 10.8; Poikilocytosis Slight; RBC 2.67 m/uL (3.80-5.40); RDW 19.2 % (11.5-15.5); WBC 15.2 k/uL (3.8-10.6)
[2018-01-24 06:20] LABS: Band Neutrophils % 13 %; Lymphocytes # (M) 0.76 k/uL (1.0-4.8); Metamyelocytes # (M) 0.15 k/uL (0); Metamyelocytes % 1 %; Monocytes # (M) 0.76 k/uL (0-1.0); Neutrophils % (M) 78 %; Nucleated Red Blood Cells 0 /100 WBC (0-0); Total Cells Counted 200
[2018-01-24 06:21] LABS: Large Platelets Present; Polychromasia Present
[2018-01-24 06:22] LABS: Ovalocytes Present; RBC Fragments Present
[2018-01-24 06:23] LABS: Platelet Count 79 k/uL (150-450)
[2018-01-24 07:05] LABS: Glucose,Whole Blood 167 mg/dL (75-99)
[2018-01-24] MEDS: INSULIN ASPART 100 UNIT/ML 1 ML 10 ML VIAL SQ SCH ×4 (07:39→21:10)
[2018-01-24] MEDS: PANTOPRAZOLE 40 MG TABLET PO SCH (07:40)
[2018-01-24] MEDS: metFORMIN 500 MG TAB PO SCH ×2 (07:40→17:05)
--- NOTE | 2018-01-24 08:17 | XR ---
EXAMINATION TYPE: XR chest 1V DATE OF EXAM: 01/24/2018 HISTORY: Shortness of breath. COMPARISON: 01/23/2018 TECHNIQUE: Single view of the chest is submitted. FINDINGS: Demonstrated are scattered senescent parenchymal change. Stable scattered interstitial and alveolar infiltrates with small pleural effusions. Right IJ central venous line and left-sided MediPort catheter. The heart is stable. Hilar and mediastinal structures are within normal limits. Degenerative changes are seen of the dorsal spine. IMPRESSION: 1. Stable chest.
[2018-01-24] MEDS ORDERED: MORPHINE ORAL SOLN 10 MG/5 ML CUP PO PRN (08:25)
[2018-01-24] MEDS: FUROSEMIDE 10 MG/ML 4 ML VIAL IV SCH ×2 (08:46→20:54)
[2018-01-24] MEDS: AZITHROMYCIN 500 MG in SODIUM CHLORIDE 0.9% 250 ML IVPB SCH (08:48)
--- NOTE | 2018-01-24 08:52 | P.PN ---
Subjective Progress Note Date: 01/24/18 Principal diagnosis: Sepsis, pneumonia, heart failure Progress note dated 01/24/2018 82-year-old female who we saw yesterday for hypoxemic respiratory failure which we thought related to either pneumonia or heart failure. The patient also has a history of large B-cell lymphoma previous right mastectomy for breast cancer diabetes mellitus GERD by history hyperlipidemia history of hypertension migraine cephalgia diverticular disease peptic ulcer disease urinary tract infection chronic constipation and restless leg syndrome. The patient is been weaned off the norepinephrine. She is receiving O2 2 L. She seems a bit confused today. CODE STATUS is still not properly dressed in my opinion and should be addressed. I think the patient has a very poor understanding of what intubation and mechanical ventilation would involve. The patient's chest x-ray is improved. Volume status seems better. Labs x-rays a medications will be evaluated. Objective - Vital Signs Vital signs: Vital Signs Temp 97.1 F L 01/24/18 08:30 Pulse 94 01/24/18 08:30 Resp 24 01/24/18 08:30 BP 95/56 01/24/18 08:30 Pulse Ox 93 L 01/24/18 08:30 Intake & Output 01/23/18 01/24/18 01/24/18 18:59 06:59 18:59 Intake Total 1920.891 166.532 11.219 Output Total 458 645 70 Balance 1462.891 -478.468 -58.781 Weight 75 kg 76.2 kg Intake: IV 350 50 10 .9 KVO 50 10 Azithromycin 500 mg In 250 Sodium Chloride 0.9% 250 ml @ 125 mls/hr IVPB DAILY [facility] Rx#:[id number] Magnesium Sulfate-D5w Pmx 100 1 gm In Dextrose/Water 1 100ml.bag @ 100 mls/hr IVPB Q1H [facility] Rx#: [id number] Intake, IV Titration 130.891 16.532 1.219 Amount Norepinephrin 16 mg-0.9% 24.641 16.532 1.219 Ns Pmx 16 mg In 250 ml @ Titrate IV .Q0M [facility] Rx#: [id number] Norepinephrin 4 mg-0.9% 106.25 Ns Pmx 4 mg In 250 ml @ Titrate IV .Q0M [facility] Rx#: [id number] Oral 1440 100 Output: Urine 458 645 70 Other: Voiding Method Indwelling Catheter Indwelling Catheter ABP, PAP, CO, CI - Last Documented Arterial Blood Pressure 95/45 - Exam No acute distress, confused, fidgety, nasal O2 in place. HEENT examination is grossly unremarkable. Mucous membranes are moist. No oral lesions. Neck supple. Full range of motion. No adenopathy thyromegaly or neck vein distention. Cardiovascular examination reveals regular rhythm rate. S1-S2 normal. No S3 or S4. No discernible murmur noted. Lungs reveal a few scattered crackles. The some coarse rhonchi noted. Breath sounds are equal bilaterally. Abdomen soft bowel sounds are heard. No masses or tenderness. Extremities are intact. No cyanosis clubbing or edema. Skin is without rash or lesion. Neurologic examination is difficult to assess. - Labs CBC & Chem 7: 01/24/18 03:30 01/24/18 03:30 Labs: Abnormal Lab Results - Last 24 Hours (Table) 01/23/18 01/23/18 01/23/18 Range/Units 09:00 12:00 17:05 WBC 13.5 H (3.8-10.6) k/uL RBC 2.89 L (3.80-5.40) m/uL Hgb 7.9 L (11.4-16.0) gm/dL Hct 25.7 L (34.0-46.0) % MCHC 30.8 L (31.0-37.0) g/dL RDW 18.8 H (11.5-15.5) % Plt Count 81 L (150-450) k/uL Neutrophils # 12.7 H (1.3-7.7) k/uL Neutrophils # (Manual) (1.3-7.7) k/uL Lymphocytes # 0.4 L (1.0-4.8) k/uL Lymphocytes # (Manual) (1.0-4.8) k/uL Metamyelocytes # (Man) (0) k/uL BUN (7-17) mg/dL Creatinine (0.52-1.04) mg/dL Glucose (74-99) mg/dL POC Glucose (mg/dL) 191 H 157 H (75-99) mg/dL 01/23/18 01/24/18 01/24/18 Range/Units 20:39 03:30 03:30 WBC 15.2 H (3.8-10.6) k/uL RBC 2.67 L (3.80-5.40) m/uL Hgb 7.4 L (11.4-16.0) gm/dL Hct 23.8 L (34.0-46.0) % MCHC 30.9 L (31.0-37.0) g/dL RDW 19.2 H (11.5-15.5) % Plt Count 79 L (150-450) k/uL Neutrophils # (1.3-7.7) k/uL Neutrophils # (Manual) 13.80 H (1.3-7.7) k/uL Lymphocytes # (1.0-4.8) k/uL Lymphocytes # (Manual) 0.76 L (1.0-4.8) k/uL Metamyelocytes # (Man) 0.15 H (0) k/uL BUN 45 H (7-17) mg/dL Creatinine 1.40 H (0.52-1.04) mg/dL Glucose 146 H (74-99) mg/dL POC Glucose (mg/dL) 188 H (75-99) mg/dL 01/24/18 Range/Units 07:02 WBC (3.8-10.6) k/uL RBC (3.80-5.40) m/uL Hgb (11.4-16.0) gm/dL Hct (34.0-46.0) % MCHC (31.0-37.0) g/dL RDW (11.5-15.5) % Plt Count (150-450) k/uL Neutrophils # (1.3-7.7) k/uL Neutrophils # (Manual) (1.3-7.7) k/uL Lymphocytes # (1.0-4.8) k/uL Lymphocytes # (Manual) (1.0-4.8) k/uL Metamyelocytes # (Man) (0) k/uL BUN (7-17) mg/dL Creatinine (0.52-1.04) mg/dL Glucose (74-99) mg/dL POC Glucose (mg/dL) 167 H (75-99) mg/dL Microbiology - Last 24 Hours (Table) 01/22/18 22:00 Blood Culture - Preliminary Blood No Growth after 24 hours 01/22/18 22:45 Urine Culture - Preliminary Urine,Catheterized Assessment and Plan Assessment: Assessment Hypoxemic respiratory failure, which may relate to either pneumonia and/or heart failure Rule out sepsis History of large B-cell lymphoma Previous right mastectomy for breast cancer History of diabetes mellitus Anemia Prerenal azotemia GERD by history Hyperlipidemia History of hypertension History of migraine cephalgia Diverticular disease Peptic ulcer disease History of urinary tract infection Chronic constipation History of restless leg syndrome. Plan: Plan dated 01/23/2018 The patient's antibiotics will be Rocephin and Zithromax for community-acquired pneumonia. The patient will get additional Lasix. The patient received only 1 unit of blood. Repeat labs will be done. The patient will get some additional Lasix 20 mg IV push after the 1 unit of PRBCs. The patient was started on Lovenox for DVT prophylaxis. We'll do a stat BNP. Additional recommendations and suggestions are forthcoming. We'll have to talk to the family about CODE STATUS. The patient's very ill with multiple medical problems and I think it would be inappropriate to place her on mechanical ventilation at this time. Plan dated 01/24/2018 The patient is continuing on antibiotics. The norepinephrine has been weaned off. The patient remains on 2 L nasal cannula. Chest x-ray my opinion is a bit better. Thus far, microbiology is negative. She is mildly anemic with a hemoglobin of 7.4. No blood at this time. Medications labs and x-rays are all reviewed. Prognosis is guarded. CODE STATUS needs to be addressed by the primary service. Critical care time 33 minutes Time with Patient: Greater than 30
[2018-01-24] MEDS ORDERED: ENOXAPARIN 30 MG/0.3 ML SYRINGE SQ SCH (09:00)
[2018-01-24] MEDS: CHOLECALCIFEROL 1,000 UNIT TAB PO SCH (09:05)
[2018-01-24] MEDS: OXYBUTYNIN 10 MG TAB.ER.24 PO SCH (09:05)
[2018-01-24] MEDS: GABAPENTIN 300 MG CAP PO SCH ×3 (09:05→21:06)
[2018-01-24] MEDS: cefTRIAXone IN SWFI 1,000 MG/10 ML SYRINGE IVP SCH (10:13)
[2018-01-24 11:58] LABS: Albumin 2.8 g/dL (3.5-5.0)
[2018-01-24 12:24] LABS: Glucose,Whole Blood 154 mg/dL (75-99)
--- NOTE | 2018-01-24 12:26 | P.PN ---
Subjective 79-year-old female admitted to the secondary to shortness of breath and respiratory failure patient is being treated for pneumonia pulmonary edema. Patient is on IV Lasix. Discussed her CODE STATUS. Patient wanted to be DO NOT RESUSCITATE after discussion with the patient. Patient respiratory status appears to have improved. Patient underwent paracentesis after which patient is quite tired and fatigued removed about 4.5 L at do not have any paracentesis labs available yet. Patient's enoxaparin will be switched to heparin because of the poor renal function and creatinine of around 1.4 nephrology is following the patient as well. Constitutional: Denied any fatigue denied any fever. Cardio vascular: denied any chest pain, palpitations Gastrointestinal denied any nausea vomiting Pulmonary: As mentioned in HPI Neurologic denied any new focal deficits Objective - Vital Signs Vital signs: Vital Signs Temp 99.1 F 01/24/18 12:00 Pulse 85 01/24/18 12:00 Resp 23 01/24/18 12:00 BP 108/51 01/24/18 12:00 Pulse Ox 96 01/24/18 12:00 Intake & Output 01/23/18 01/24/18 01/24/18 18:59 06:59 18:59 Intake Total 1920.891 166.532 304.016 Output Total 167 041 6244 Balance 1462.891 -478.468 -5480.984 Weight 75 kg 76.2 kg 76.2 kg Intake: IV 350 50 300 .9 KVO 50 50 Azithromycin 500 mg In 250 250 Sodium Chloride 0.9% 250 ml @ 125 mls/hr IVPB DAILY [facility] Rx#:[id number] Magnesium Sulfate-D5w Pmx 100 1 gm In Dextrose/Water 1 100ml.bag @ 100 mls/hr IVPB Q1H [facility] Rx#: [id number] Intake, IV Titration 130.891 16.532 4.016 Amount Norepinephrin 16 mg-0.9% 24.641 16.532 4.016 Ns Pmx 16 mg In 250 ml @ Titrate IV .Q0M [facility] Rx#: [id number] Norepinephrin 4 mg-0.9% 106.25 Ns Pmx 4 mg In 250 ml @ Titrate IV .Q0M [facility] Rx#: [id number] Oral 1440 100 Blood Product 0 Rc As-1 Unit 0 [id number] Output: Gastric Drainage 5500 Urine 458 645 285 Other: Voiding Method Indwelling Catheter Indwelling Catheter Indwelling Catheter ABP, PAP, CO, CI - Last Documented Arterial Blood Pressure 95/45 - Exam PHYSICAL EXAMINATION: GENERAL: The patient is alert and oriented x3, not in any acute distress. Well developed, well nourished. HEENT: Pupils are round and equally reacting to light. EOMI. No scleral icterus. No conjunctival pallor. Normocephalic, atraumatic. No pharyngeal erythema. No thyromegaly. CARDIOVASCULAR: S1 and S2 present. No rubs, or gallops. Unable to assess JVD ST and S4 were not appreciable, patient does have a systolic murmur of grade 3/ 6 and diuretic area PULMONARY: Coarse rhonchorous breath sounds bibasilar crackles are appreciated, medical hernia was now noted there is no palmar erythema spider nevi, caput medusa ABDOMEN: Soft, distended she fluid shift without any tenderness MUSCULOSKELETAL: No joint swelling or deformity. EXTREMITIES: No cyanosis, clubbing, or pedal edema. NEUROLOGICAL: Gross neurological examination did not reveal any focal deficits. SKIN: No rashes. - Labs CBC & Chem 7: 01/24/18 03:30 01/24/18 03:30 Labs: Abnormal Lab Results - Last 24 Hours (Table) 01/22/18 01/23/18 01/23/18 Range/Units 22:40 17:05 20:39 WBC (3.8-10.6) k/uL RBC (3.80-5.40) m/uL Hgb (11.4-16.0) gm/dL Hct (34.0-46.0) % MCHC (31.0-37.0) g/dL RDW (11.5-15.5) % Plt Count (150-450) k/uL Neutrophils # (Manual) (1.3-7.7) k/uL Lymphocytes # (Manual) (1.0-4.8) k/uL Metamyelocytes # (Man) (0) k/uL BUN (7-17) mg/dL Creatinine (0.52-1.04) mg/dL Glucose (74-99) mg/dL POC Glucose (mg/dL) 157 H 188 H (75-99) mg/dL Albumin (3.5-5.0) g/dL Crossmatch See Detail 01/24/18 01/24/18 01/24/18 Range/Units 03:30 03:30 07:02 WBC 15.2 H (3.8-10.6) k/uL RBC 2.67 L (3.80-5.40) m/uL Hgb 7.4 L (11.4-16.0) gm/dL Hct 23.8 L (34.0-46.0) % MCHC 30.9 L (31.0-37.0) g/dL RDW 19.2 H (11.5-15.5) % Plt Count 79 L (150-450) k/uL Neutrophils # (Manual) 13.80 H (1.3-7.7) k/uL Lymphocytes # (Manual) 0.76 L (1.0-4.8) k/uL Metamyelocytes # (Man) 0.15 H (0) k/uL BUN 45 H (7-17) mg/dL Creatinine 1.40 H (0.52-1.04) mg/dL Glucose 146 H (74-99) mg/dL POC Glucose (mg/dL) 167 H (75-99) mg/dL Albumin (3.5-5.0) g/dL Crossmatch 01/24/18 Range/Units 11:20 WBC (3.8-10.6) k/uL RBC (3.80-5.40) m/uL Hgb (11.4-16.0) gm/dL Hct (34.0-46.0) % MCHC (31.0-37.0) g/dL RDW (11.5-15.5) % Plt Count (150-450) k/uL Neutrophils # (Manual) (1.3-7.7) k/uL Lymphocytes # (Manual) (1.0-4.8) k/uL Metamyelocytes # (Man) (0) k/uL BUN (7-17) mg/dL Creatinine (0.52-1.04) mg/dL Glucose (74-99) mg/dL POC Glucose (mg/dL) (75-99) mg/dL Albumin 2.8 L (3.5-5.0) g/dL Crossmatch Microbiology - Last 24 Hours (Table) 01/22/18 22:45 Urine Culture - Final Urine,Catheterized 01/22/18 22:00 Blood Culture - Preliminary Blood No Growth after 24 hours Assessment and Plan Plan: Acute hypoxic respiratory failure: Probably secondary to both pneumonia and heart failure patient is on antibiotics which will be continued is also on IV Lasix which will be continued -Possible congestive heart failure chronic diastolic dysfunction with acute exacerbation patient had normal ejection fraction the past. Patient is on IV Lasix which will continue , patient may have aortic stenosis which is contributing to her symptoms as well -hypotension/shock: Possibility of cardiogenic and septic etiologies secondary to cirrhosis and heart failure, cancer cachexia in May be infection contributing to her hypotension. Patient is on nor epinephrine which will be continued. Nor epinephrine was discontinued yesterday back on norepinephrine after paracentesis -Acute renal failure most probably prerenal azotemia from heart failure and cirrhosis -Cirrhosis etiology is unknown unsure whether patient has cirrhosis patient's INR is 1.2, patient is going for paracentesis will obtain peritoneotomy fluid albumin LDH protein culture and cytology. Patient underwent paracentesis with removal of 4.5 L of acetic fluid -History of breast cancer in the past. Next and-B-cell lymphoma for which patient follows up with oncology and receiving chemotherapy -Gastro-esophageal reflux disease -Hyperlipidemia -Type 2 diabetes mellitus
[2018-01-24 12:59] LABS: Glucose,Whole Blood 80 mg/dL (75-99)
--- NOTE | 2018-01-24 13:22 | US ---
Therapeutic paracentesis. DATE OF EXAM: 01/24/2018 CLINICAL HISTORY: Ascites The procedure was discussed with the patient. The risks, complications, benefits, and alternatives we re discussed and any questions were answered. Informed consent was obtained. The patient was placed s upine on the ultrasound table and prepped and draped in the usual sterile fashion. All elements of maximal barrier technique were utilized. Under ultrasound guidance, access into the right lower quadrant was obtained, via the paracentesis catheter system and direct ultrasound guidanc e. Approximately 5.5 liters of straw-colored fluid was removed. The patient was stable throughout the pr ocedure. IMPRESSION: Successful therapeutic paracentesis under ultrasound guidance.
--- NOTE | 2018-01-24 14:10 | CDI ---
Last Revision, August 2017 Documentation Clarification Form Date: January 24, 2018 From: Lo Valles RN Admit Date: 01/22/2018 11:39:00 PM Patient Name: Brent Ni Visit Number: [id number] ATTENTION: The Clinical Documentation Specialists (CDI) and [facility] Coding Staff appreciate your assistance in clarifying documentation. Please respond to the clarification below the line at the bottom and electronically sign. The CDI & [facility] Coding staff will review the response and follow-up if needed. Please note: Queries are made part of the Legal Health Record. If you have any questions, please contact the author of this message via ITS. Dr. Alanna Kennedy, History/Risk Factors: Cancer, DM, GERD, hyperlipidemia, HTN, neurologic disorder, syncope Presented with sepsis, SOB, pneumonia Clinical Indicators: Admission : BUN 36, CR 1.20 , GFR 42 Current: BUN 45, CR1.40, GFR 35 Treatment: Patients medications include: IVF bolus x3 Monitor Labs In order to capture the severity of condition, please clarify if the condition signifies: CKD Stage 2 (GFR 60-89) CKD Stage 3 (GFR 30-59) CKD Stage 4 (GFR 15-29) Other, please specify Unable to determine Please continue to document in your progress notes and discharge summary in order to capture severity of illness and risk of mortality. Include clinical findings that support your diagnosis. MTDD
[2018-01-24 16:13] LABS: Appearance,BF Cloudy; Nucleated Cells, Body Fluid 50 /uL; RBC, Body Fluid 1010 /uL
[2018-01-24 16:46] LABS: Glucose,Whole Blood 145 mg/dL (75-99)
[2018-01-24 17:31] LABS: Mononuclear WBC,Body Fluid 91 %; Polynuclear WBC,Body Fluid 9 %; Total Cells Counted,Body Fluid 100
--- NOTE | 2018-01-24 18:36 | PN ---
PROGRESS NOTE Patient is seen for followup for acute kidney injury and she was mildly fluid overloaded yesterday. She received a dose of 60 mg of IV Lasix in the morning and another dose of 40 mg IV last evening. Urine output has been about 40-45 mL an hour. The patient is currently much more awake, comfortable. So far, cultures are negative. The patient was able to come off of the Levophed. Her systolic blood pressure is staying around 90s. EXAMINATION: Today, this morning blood pressure was 86/48. Patient is afebrile. Heart rate about 88 per minute. Examination of the heart S1, S2. Examination lungs bilateral breath sounds are heard. Decreased breath sounds at bases. Abdomen is soft, nontender. Examination of lower extremities shows edema 1+ bilaterally. [employer]IST exam is grossly intact. Patient moving all 4 extremities. LAB: Show sodium 142, potassium 4.7, chloride 105, BUN 45, serum creatinine 1.4, hemoglobin 7.4 g/dL. ASSESSMENT: 1. Acute kidney injury, acute tubular necrosis, nonoliguric. Serum creatinine slightly worse today. We will continue off of IV fluids and continue with the Lasix at 40 mg IV q.12 hours. 2. Volume overload, currently slightly improved. Chest x-ray from today does still show some scattered interstitial and alveolar infiltrates and pleural effusions. 3. Ascites with history of paracentesis. 4. Anemia status post 1 unit packed RBCs yesterday. Hemoglobin is lower again at 7.4. I will transfuse another unit of packed RBCs given her hypotension. No active bleeding is noted. We will check stool for occult blood. Iron profile will be ordered as well. 5. History of breast cancer. 6. Urinary tract infection. Urine culture still pending. 7. Status post chest CTA for elevated D-dimer with no evidence of pulmonary embolism. 8. History of large B-cell lymphoma. PLAN: Continue current dose of IV Lasix. Check iron studies. Transfuse 1 unit packed RBCs and consider workup for recurrent ascites and possible chronic liver disease. MMODL / IJN: [id number] /
[2018-01-24 20:41] LABS: Total Protein, Body Fluid 390.7 mg/dL
[2018-01-24] MEDS: HEPARIN SODIUM,PORCINE 5,000 UNIT/ML 1 ML VIAL SQ SCH (20:54)
[2018-01-24 21:10] LABS: Glucose,Whole Blood 148 mg/dL (75-99)
[2018-01-25 05:14] LABS: Anisocytosis Slight; HCT 28.7 % (34.0-46.0); Hypochromasia Moderate; MCH 27.9 pg (25.0-35.0); MCHC 31.6 g/dL (31.0-37.0); MCV 88.2 fL (80.0-100.0); Mean Platelet Volume 11.5; Poikilocytosis Moderate; RBC 3.26 m/uL (3.80-5.40); RDW 18.5 % (11.5-15.5); WBC 12.2 k/uL (3.8-10.6)
[2018-01-25 05:21] LABS: HGB 9.1 gm/dL (11.4-16.0)
[2018-01-25 05:22] LABS: Platelet Count 66 k/uL (150-450)
[2018-01-25 05:34] LABS: Band Neutrophils % 1 %; Lymphocytes # (M) 0.37 k/uL (1.0-4.8); Monocytes # (M) 1.59 k/uL (0-1.0); Neutrophils % (M) 83 %; Nucleated Red Blood Cells 0 /100 WBC (0-0); Total Cells Counted 100
[2018-01-25 05:42] LABS: Calcium 8.7 mg/dL (8.4-10.2); Magnesium 1.7 mg/dL (1.6-2.3); Phosphorus 3.3 mg/dL (2.5-4.5); Potassium 4.4 mmol/L (3.5-5.1)
[2018-01-25 07:24] LABS: Glucose,Whole Blood 126 mg/dL (75-99)
[2018-01-25] MEDS: MAGNESIUM SULFATE-D5W PMX 1 GM in DEXTROSE/WATER 1 100ML.BAG IVPB SCH ×2 (07:25→08:37)
--- NOTE | 2018-01-25 08:03 | XR ---
EXAMINATION TYPE: XR chest 1V DATE OF EXAM: 01/25/2018 COMPARISON: 01/24/2018 HISTORY: Shortness of breath TECHNIQUE: Single frontal view of the chest is obtained. FINDINGS: Demonstrated are scattered senescent parenchymal change. Stable scattered interstitial and alveolar infiltrates with small pleural effusions. Right IJ central venous line and left-sided MediP ort catheter. The heart is stable. Hilar and mediastinal structures are within normal limits. Degener ative changes are seen of the dorsal spine. Interstitium slightly improved. IMPRESSION: 1. Bilateral consolidation and small effusion. Slight interstitial improvement relative to the previo us. Mild central venous congestion not excluded.
[2018-01-25] MEDS: INSULIN ASPART 100 UNIT/ML 1 ML 10 ML VIAL SQ SCH ×4 (08:30→21:01)
[2018-01-25] MEDS: AZITHROMYCIN 500 MG in SODIUM CHLORIDE 0.9% 250 ML IVPB SCH (08:32)
[2018-01-25] MEDS: PANTOPRAZOLE 40 MG TABLET PO SCH (08:36)
[2018-01-25] MEDS: GABAPENTIN 300 MG CAP PO SCH ×3 (08:36→21:00)
[2018-01-25] MEDS: FUROSEMIDE 10 MG/ML 4 ML VIAL IV SCH ×2 (08:37→21:00)
[2018-01-25] MEDS: metFORMIN 500 MG TAB PO SCH (08:38)
[2018-01-25] MEDS: CHOLECALCIFEROL 1,000 UNIT TAB PO SCH (08:38)
[2018-01-25] MEDS: HEPARIN SODIUM,PORCINE 5,000 UNIT/ML 1 ML VIAL SQ SCH (08:38)
[2018-01-25] MEDS: OXYBUTYNIN 10 MG TAB.ER.24 PO SCH (08:38)
[2018-01-25] MEDS: cefTRIAXone IN SWFI 1,000 MG/10 ML SYRINGE IVP SCH (08:42)
--- NOTE | 2018-01-25 09:31 | P.PN ---
Subjective Progress Note Date: 01/25/18 Principal diagnosis: Sepsis, pneumonia, heart failure Progress note dated 01/24/2018 82-year-old female who we saw yesterday for hypoxemic respiratory failure which we thought related to either pneumonia or heart failure. The patient also has a history of large B-cell lymphoma previous right mastectomy for breast cancer diabetes mellitus GERD by history hyperlipidemia history of hypertension migraine cephalgia diverticular disease peptic ulcer disease urinary tract infection chronic constipation and restless leg syndrome. The patient is been weaned off the norepinephrine. She is receiving O2 2 L. She seems a bit confused today. CODE STATUS is still not properly dressed in my opinion and should be addressed. I think the patient has a very poor understanding of what intubation and mechanical ventilation would involve. The patient's chest x-ray is improved. Volume status seems better. Labs x-rays a medications will be evaluated. Progress note dated 01/25/2018 82-year-old female who was admitted with a diagnosis of hypoxemic respiratory failure thought to be related to either pneumonia and/or heart failure. There is also question of sepsis. The patient has a history of large B-cell lymphoma , previous right mastectomy for breast cancer, diabetes, GERD, hyperlipidemia, hypertension, migraine cephalgia, diverticular disease, peptic ulcer disease, urinary tract infection, chronic constipation and restless leg syndrome. The patient has been weaned off the norepinephrine. CODE STATUS has been addressed and she is now a DO NOT RESUSCITATE. The patient's only on O2 at 2 L and a KVO IV. The patient could be transferred out to the general medical floor. The patient's chest x-ray is much improved in my opinion and microbiology thus far as all negative. Objective - Vital Signs Vital signs: Vital Signs Temp 98.3 F 01/25/18 04:00 Pulse 89 01/25/18 08:00 Resp 21 01/25/18 08:00 BP 114/67 01/25/18 08:00 Pulse Ox 94 L 01/25/18 08:12 Intake & Output 01/24/18 01/25/18 01/25/18 18:59 06:59 18:59 Intake Total 678.235 630 10 Output Total 6055 895 50 Balance -5376.765 -265 -40 Weight 76.2 kg 71.4 kg Intake: IV 360 130 10 .9 KVO 110 130 10 Azithromycin 500 mg In 250 Sodium Chloride 0.9% 250 ml @ 125 mls/hr IVPB DAILY [facility] Rx#:[id number] Intake, IV Titration 8.235 Amount Norepinephrin 16 mg-0.9% 8.235 Ns Pmx 16 mg In 250 ml @ Titrate IV .Q0M [facility] Rx#: [id number] Oral 500 Blood Product 310 Rc As-1 Unit 310 [id number] Output: Gastric Drainage 5500 Urine 555 895 50 Other: Voiding Method Indwelling Catheter Indwelling Catheter ABP, PAP, CO, CI - Last Documented Arterial Blood Pressure 95/45 - Exam No acute distress, confused, fidgety, nasal O2 in place. HEENT examination is grossly unremarkable. Mucous membranes are moist. No oral lesions. Neck supple. Full range of motion. No adenopathy thyromegaly or neck vein distention. Cardiovascular examination reveals regular rhythm rate. S1-S2 normal. No S3 or S4. No discernible murmur noted. Lungs reveal a few scattered crackles. The some coarse rhonchi noted. Breath sounds are equal bilaterally. Abdomen soft bowel sounds are heard. No masses or tenderness. Extremities are intact. No cyanosis clubbing or edema. Skin is without rash or lesion. Neurologic examination is difficult to assess. - Labs CBC & Chem 7: 01/25/18 04:58 01/25/18 04:58 Labs: Abnormal Lab Results - Last 24 Hours (Table) 01/22/18 01/24/18 01/24/18 Range/Units 22:40 11:20 12:23 WBC (3.8-10.6) k/uL RBC (3.80-5.40) m/uL Hgb (11.4-16.0) gm/dL Hct (34.0-46.0) % RDW (11.5-15.5) % Plt Count (150-450) k/uL Neutrophils # (Manual) (1.3-7.7) k/uL Lymphocytes # (Manual) (1.0-4.8) k/uL Monocytes # (Manual) (0-1.0) k/uL BUN (7-17) mg/dL Creatinine (0.52-1.04) mg/dL Glucose (74-99) mg/dL POC Glucose (mg/dL) 154 H (75-99) mg/dL Albumin 2.8 L (3.5-5.0) g/dL Crossmatch See Detail 01/24/18 01/24/18 01/25/18 Range/Units 16:45 21:08 04:58 WBC 12.2 H (3.8-10.6) k/uL RBC 3.26 L (3.80-5.40) m/uL Hgb 9.1 L D (11.4-16.0) gm/dL Hct 28.7 L (34.0-46.0) % RDW 18.5 H (11.5-15.5) % Plt Count 66 L (150-450) k/uL Neutrophils # (Manual) 10.20 H (1.3-7.7) k/uL Lymphocytes # (Manual) 0.37 L (1.0-4.8) k/uL Monocytes # (Manual) 1.59 H (0-1.0) k/uL BUN (7-17) mg/dL Creatinine (0.52-1.04) mg/dL Glucose (74-99) mg/dL POC Glucose (mg/dL) 145 H 148 H (75-99) mg/dL Albumin (3.5-5.0) g/dL Crossmatch 01/25/18 01/25/18 Range/Units 04:58 07:22 WBC (3.8-10.6) k/uL RBC (3.80-5.40) m/uL Hgb (11.4-16.0) gm/dL Hct (34.0-46.0) % RDW (11.5-15.5) % Plt Count (150-450) k/uL Neutrophils # (Manual) (1.3-7.7) k/uL Lymphocytes # (Manual) (1.0-4.8) k/uL Monocytes # (Manual) (0-1.0) k/uL BUN 48 H (7-17) mg/dL Creatinine 1.20 H (0.52-1.04) mg/dL Glucose 117 H (74-99) mg/dL POC Glucose (mg/dL) 126 H (75-99) mg/dL Albumin (3.5-5.0) g/dL Crossmatch Microbiology - Last 24 Hours (Table) 01/24/18 10:30 Gram Stain - Preliminary Ascites Fluid Body Fluid Culture - Preliminary 01/22/18 22:00 Blood Culture - Preliminary Blood No Growth after 48 hours 01/24/18 10:30 Anaerobic Culture - Preliminary Ascites Fluid 01/22/18 22:45 Urine Culture - Final Urine,Catheterized Assessment and Plan Assessment: Assessment Hypoxemic respiratory failure, which may relate to either pneumonia and/or heart failure Rule out sepsis, cultures are thus far negative. History of large B-cell lymphoma Previous right mastectomy for breast cancer History of diabetes mellitus Anemia Prerenal azotemia GERD by history Hyperlipidemia History of hypertension History of migraine cephalgia Diverticular disease Peptic ulcer disease History of urinary tract infection Chronic constipation History of restless leg syndrome. Plan: Plan dated 01/23/2018 The patient's antibiotics will be Rocephin and Zithromax for community-acquired pneumonia. The patient will get additional Lasix. The patient received only 1 unit of blood. Repeat labs will be done. The patient will get some additional Lasix 20 mg IV push after the 1 unit of PRBCs. The patient was started on Lovenox for DVT prophylaxis. We'll do a stat BNP. Additional recommendations and suggestions are forthcoming. We'll have to talk to the family about CODE STATUS. The patient's very ill with multiple medical problems and I think it would be inappropriate to place her on mechanical ventilation at this time. Plan dated 01/24/2018 The patient is continuing on antibiotics. The norepinephrine has been weaned off. The patient remains on 2 L nasal cannula. Chest x-ray my opinion is a bit better. Thus far, microbiology is negative. She is mildly anemic with a hemoglobin of 7.4. No blood at this time. Medications labs and x-rays are all reviewed. Prognosis is guarded. CODE STATUS needs to be addressed by the primary service. Critical care time 33 minutes Plan dated 01/25/2018 The patient continues on antibiotics. The norepinephrine has been weaned off. The patient remains on O2 at 2 L by nasal cannula. Chest x-ray is much improved in my opinion. The patient will continue be followed closely. Meds labs and x-rays are all reviewed. CODE STATUS has been addressed I think this is appropriate. Additional recommendations and suggestions are forthcoming. Time with Patient: Less than 30
--- NOTE | 2018-01-25 10:11 | P.PN ---
Subjective Patient is seen in follow-up for acute kidney injury. Her baseline creatinine is 1 and peaked at 1.4 this admission. It is down to 1.2 today. Patient's currently resting in bed. She underwent paracentesis yesterday with 5.5 L drained. She also received a unit of blood. Hemoglobin is up to 9.1. She is maintained on Lasix 40 mg IV twice daily. She is nonoliguric. She is off all vasopressors. Feels tired. Denies chest pain or shortness of breath. Oral intake is still poor. Vital signs are stable. General: The patient appeared well nourished and normally developed. HEENT: Head exam is unremarkable. Neck is without jugular venous distension. LUNGS: Lungs are clear to auscultation and percussion. Breath sounds decreased. HEART: Rate and Rhythm are regular. First and second heart sounds normal. No murmurs, rubs or gallops. ABDOMEN: Abdominal exam reveals normal bowel sounds. Non-tender, moderately distended. EXTREMITITES: No clubbing, cyanosis, or edema. Objective - Vital Signs Vital signs: Vital Signs Temp 98.3 F 01/25/18 04:00 Pulse 89 01/25/18 08:00 Resp 21 01/25/18 08:00 BP 114/67 01/25/18 08:00 Pulse Ox 94 L 01/25/18 08:12 Intake & Output 01/24/18 01/25/18 01/25/18 18:59 06:59 18:59 Intake Total 678.235 630 10 Output Total 6055 895 50 Balance -5376.765 -265 -40 Weight 76.2 kg 71.4 kg Intake: IV 360 130 10 .9 KVO 110 130 10 Azithromycin 500 mg In 250 Sodium Chloride 0.9% 250 ml @ 125 mls/hr IVPB DAILY [facility] Rx#:[id number] Intake, IV Titration 8.235 Amount Norepinephrin 16 mg-0.9% 8.235 Ns Pmx 16 mg In 250 ml @ Titrate IV .Q0M [facility] Rx#: [id number] Oral 500 Blood Product 310 Rc As-1 Unit 310 [id number] Output: Gastric Drainage 5500 Urine 555 895 50 Other: Voiding Method Indwelling Catheter Indwelling Catheter ABP, PAP, CO, CI - Last Documented Arterial Blood Pressure 95/45 - Labs CBC & Chem 7: 01/25/18 04:58 01/25/18 04:58 Labs: Abnormal Lab Results - Last 24 Hours (Table) 01/22/18 01/24/18 01/24/18 Range/Units 22:40 11:20 12:23 WBC (3.8-10.6) k/uL RBC (3.80-5.40) m/uL Hgb (11.4-16.0) gm/dL Hct (34.0-46.0) % RDW (11.5-15.5) % Plt Count (150-450) k/uL Neutrophils # (Manual) (1.3-7.7) k/uL Lymphocytes # (Manual) (1.0-4.8) k/uL Monocytes # (Manual) (0-1.0) k/uL BUN (7-17) mg/dL Creatinine (0.52-1.04) mg/dL Glucose (74-99) mg/dL POC Glucose (mg/dL) 154 H (75-99) mg/dL Albumin 2.8 L (3.5-5.0) g/dL Crossmatch See Detail 01/24/18 01/24/18 01/25/18 Range/Units 16:45 21:08 04:58 WBC 12.2 H (3.8-10.6) k/uL RBC 3.26 L (3.80-5.40) m/uL Hgb 9.1 L D (11.4-16.0) gm/dL Hct 28.7 L (34.0-46.0) % RDW 18.5 H (11.5-15.5) % Plt Count 66 L (150-450) k/uL Neutrophils # (Manual) 10.20 H (1.3-7.7) k/uL Lymphocytes # (Manual) 0.37 L (1.0-4.8) k/uL Monocytes # (Manual) 1.59 H (0-1.0) k/uL BUN (7-17) mg/dL Creatinine (0.52-1.04) mg/dL Glucose (74-99) mg/dL POC Glucose (mg/dL) 145 H 148 H (75-99) mg/dL Albumin (3.5-5.0) g/dL Crossmatch 01/25/18 01/25/18 Range/Units 04:58 07:22 WBC (3.8-10.6) k/uL RBC (3.80-5.40) m/uL Hgb (11.4-16.0) gm/dL Hct (34.0-46.0) % RDW (11.5-15.5) % Plt Count (150-450) k/uL Neutrophils # (Manual) (1.3-7.7) k/uL Lymphocytes # (Manual) (1.0-4.8) k/uL Monocytes # (Manual) (0-1.0) k/uL BUN 48 H (7-17) mg/dL Creatinine 1.20 H (0.52-1.04) mg/dL Glucose 117 H (74-99) mg/dL POC Glucose (mg/dL) 126 H (75-99) mg/dL Albumin (3.5-5.0) g/dL Crossmatch Microbiology - Last 24 Hours (Table) 01/24/18 10:30 Gram Stain - Preliminary Ascites Fluid Body Fluid Culture - Preliminary 01/22/18 22:00 Blood Culture - Preliminary Blood No Growth after 48 hours 01/24/18 10:30 Anaerobic Culture - Preliminary Ascites Fluid 01/22/18 22:45 Urine Culture - Final Urine,Catheterized Assessment and Plan Plan: assessment: #1. Nonoliguric acute kidney injury secondary to ATN. Renal function improved with creatinine down to 1.2 today. 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 #2. Ascites secondary to cirrhosis status post paracentesis on January 24- 0.5 L drained. #3. Anemia status post 2 units of blood transmission. Hemoglobin improved. Rule out iron deficiency. #4. Volume overload maintained on IV diuretics. Improved. #5. Community-acquired pneumonia maintained on antibiotics. Plan: Continue Lasix 40 mg IV twice daily. Check iron studies. Avoid nephrotoxic agents and hypotensive episodes.
[2018-01-25 11:42] LABS: Iron Saturation 23.23 (12.00-45.00)
[2018-01-25 11:52] LABS: Glucose,Whole Blood 112 mg/dL (75-99)
[2018-01-25 13:11] LABS: Reticulocyte % 1.8 % (0.5-2.0)
[2018-01-25] MEDS ORDERED: IPRATROPIUM-ALBUTEROL 3 ML NEB INHALATION PRN (13:17)
--- NOTE | 2018-01-25 13:20 | P.PN ---
Subjective 79-year-old female admitted to the secondary to shortness of breath and respiratory failure patient is being treated for pneumonia pulmonary edema. Patient is on IV Lasix. Discussed her CODE STATUS. Patient wanted to be DO NOT RESUSCITATE after discussion with the patient. Patient respiratory status appears to have improved. Patient underwent paracentesis after which patient is quite tired and fatigued removed about 4.5 L at do not have any paracentesis labs available yet. Patient's enoxaparin will be switched to heparin because of the poor renal function and creatinine of around 1.4 nephrology is following the patient as well. 01/25/2018 Patient has significant clinical improvement is on 3 L of oxygen and patient uses 3 L at home patient is wheezing significantly will start him on systemic strides today and inhalational treatments. Continue with antibiotics. Diuretic therapy is being managed by nephrology. Constitutional: Denied any fatigue denied any fever. Cardio vascular: denied any chest pain, palpitations Gastrointestinal denied any nausea vomiting Pulmonary: As mentioned in HPI Neurologic denied any new focal deficits Objective - Vital Signs Vital signs: Vital Signs Temp 97.9 F 01/25/18 12:00 Pulse 89 01/25/18 12:00 Resp 29 H 01/25/18 12:00 BP 90/50 01/25/18 12:00 Pulse Ox 95 01/25/18 12:00 Intake & Output 01/24/18 01/25/18 01/25/18 18:59 06:59 18:59 Intake Total 678.235 630 380 Output Total 6055 895 650 Balance -5376.765 -265 -270 Weight 76.2 kg 71.4 kg 71.4 kg Intake: IV 360 130 280 .9 KVO 110 130 30 Azithromycin 500 mg In 250 250 Sodium Chloride 0.9% 250 ml @ 125 mls/hr IVPB DAILY [facility] Rx#:[id number] Intake, IV Titration 8.235 100 Amount Magnesium Sulfate-D5w Pmx 100 1 gm In Dextrose/Water 1 100ml.bag @ 100 mls/hr IVPB Q1H [facility] Rx#: [id number] Norepinephrin 16 mg-0.9% 8.235 Ns Pmx 16 mg In 250 ml @ Titrate IV .Q0M [facility] Rx#: [id number] Oral 500 Blood Product 310 Rc As-1 Unit 310 [id number] Output: Gastric Drainage 5500 Urine 555 895 650 Other: Voiding Method Indwelling Catheter Indwelling Catheter Indwelling Catheter ABP, PAP, CO, CI - Last Documented Arterial Blood Pressure 95/45 - Exam PHYSICAL EXAMINATION: GENERAL: The patient is alert and oriented x3, not in any acute distress. Well developed, well nourished. HEENT: Pupils are round and equally reacting to light. EOMI. No scleral icterus. No conjunctival pallor. Normocephalic, atraumatic. No pharyngeal erythema. No thyromegaly. CARDIOVASCULAR: S1 and S2 present. No rubs, or gallops. Unable to assess JVD ST and S4 were not appreciable, patient does have a systolic murmur of grade 3/ 6 and diuretic area PULMONARY: Coarse rhonchorous breath sounds bibasilar crackles are appreciated, expiratory wheezing was appreciated ABDOMEN: Soft, distended she fluid shift without any tenderness MUSCULOSKELETAL: No joint swelling or deformity. EXTREMITIES: No cyanosis, clubbing, or pedal edema. NEUROLOGICAL: Gross neurological examination did not reveal any focal deficits. SKIN: No rashes. - Labs CBC & Chem 7: 01/25/18 04:58 01/25/18 04:58 Labs: Abnormal Lab Results - Last 24 Hours (Table) 01/22/18 01/24/18 01/24/18 Range/Units 22:40 16:45 21:08 WBC (3.8-10.6) k/uL RBC (3.80-5.40) m/uL Hgb (11.4-16.0) gm/dL Hct (34.0-46.0) % RDW (11.5-15.5) % Plt Count (150-450) k/uL Neutrophils # (Manual) (1.3-7.7) k/uL Lymphocytes # (Manual) (1.0-4.8) k/uL Monocytes # (Manual) (0-1.0) k/uL BUN (7-17) mg/dL Creatinine (0.52-1.04) mg/dL Glucose (74-99) mg/dL POC Glucose (mg/dL) 145 H 148 H (75-99) mg/dL Crossmatch See Detail 01/25/18 01/25/18 01/25/18 Range/Units 04:58 04:58 07:22 WBC 12.2 H (3.8-10.6) k/uL RBC 3.26 L (3.80-5.40) m/uL Hgb 9.1 L D (11.4-16.0) gm/dL Hct 28.7 L (34.0-46.0) % RDW 18.5 H (11.5-15.5) % Plt Count 66 L (150-450) k/uL Neutrophils # (Manual) 10.20 H (1.3-7.7) k/uL Lymphocytes # (Manual) 0.37 L (1.0-4.8) k/uL Monocytes # (Manual) 1.59 H (0-1.0) k/uL BUN 48 H (7-17) mg/dL Creatinine 1.20 H (0.52-1.04) mg/dL Glucose 117 H (74-99) mg/dL POC Glucose (mg/dL) 126 H (75-99) mg/dL Crossmatch 01/25/18 Range/Units 11:51 WBC (3.8-10.6) k/uL RBC (3.80-5.40) m/uL Hgb (11.4-16.0) gm/dL Hct (34.0-46.0) % RDW (11.5-15.5) % Plt Count (150-450) k/uL Neutrophils # (Manual) (1.3-7.7) k/uL Lymphocytes # (Manual) (1.0-4.8) k/uL Monocytes # (Manual) (0-1.0) k/uL BUN (7-17) mg/dL Creatinine (0.52-1.04) mg/dL Glucose (74-99) mg/dL POC Glucose (mg/dL) 112 H (75-99) mg/dL Crossmatch Microbiology - Last 24 Hours (Table) 01/24/18 10:30 Gram Stain - Preliminary Ascites Fluid Body Fluid Culture - Preliminary 01/22/18 22:00 Blood Culture - Preliminary Blood No Growth after 48 hours 01/24/18 10:30 Anaerobic Culture - Preliminary Ascites Fluid 01/22/18 22:45 Urine Culture - Final Urine,Catheterized Assessment and Plan Plan: Acute hypoxic respiratory failure: Probably secondary to both pneumonia and heart failure patient is on antibiotics which will be continued is also on IV Lasix which will be continued -Possible COPD examination patient will be started on systemic steroids as mentioned above and inhalational treatments. -Possible congestive heart failure chronic diastolic dysfunction with acute exacerbation patient had normal ejection fraction the past. Patient is on IV Lasix which will continue , patient may have aortic stenosis which is contributing to her symptoms as well -hypotension/shock: Possibility of cardiogenic and septic etiologies secondary to cirrhosis and heart failure, cancer cachexia I do not have any peritoneal fluid albumin available to assess for SAAG score -Acute renal failure most probably prerenal azotemia from heart failure and cirrhosis -Cirrhosis etiology is unknown unsure whether patient has cirrhosis patient's INR is 1.2, Patient underwent paracentesis with removal of 4.5 L of acetic fluid -History of breast cancer in the past. Next and-B-cell lymphoma for which patient follows up with oncology and receiving chemotherapy -Gastro-esophageal reflux disease -Hyperlipidemia -Type 2 diabetes mellitus
[2018-01-25] MEDS: predniSONE 20 MG TAB PO SCH (14:29)
--- NOTE | 2018-01-25 15:31 | P.CONS ---
History of Present Illness - Reason for Consult Consult date: 01/25/18 lymphoma Requesting physician: Brittaney Mccain - Chief Complaint fall, SOB, weakness - History of Present Illness Mrs. Ni is a very pleasant female pt of Dr. Mauro who was initially seen in consult January of 2013, she was referred by her PCP Dr. Brenner after she was found to have a large mid abdominal mass, associated with 3 months of weakness, anorexia and weight loss of over 40lbs, recent symptom of SOB, CT AP 14cm conglomerate mass encasing aorta, large pelvic and retroperitoneal lymphadenopathy and right hydronephrosis. 01/28/13 pt had right supraclavicular core biopsy of lymph node, diffuse large B-cell lymphoma. Patient was started on R-CHOP completing only 4 cycles due to poor tolerance. She was placed on monitoring and maintenance Rituxan given weekly x 4 once a year, with no evidence of disease, last CT was Jun 2017. 02/02/17 pt presented with SOB, weakness and abdominal distension, exacerbation of COPD and CHF, she had palliative paracetesis with negative cytology, no imaging findings of possible lymphoma. Pt continued to have almost weekly paracentesis while here, her last CT in Jun showed LAUREN so, she went to [facility] for the winter and just recently returned, due to see Dr. Mauro on the . Pt has remote history of right sided breast cancer, treated with Lumpectomy/XRT , aromatase inhibitor treatment x 2 years, there was local recurrent treated with mastectomy, LAUREN since. Pt admitted for fall and progressive weakness, pt states that she just can't her energy levels up, she is tired all the time, denies fever, nausea, appetite is poor, she has difficulty ambulating due to weakness and SOB on exertion, no acute changes in bowel or bladder habits, mild to moderate BLE swelling, she has multiple bruises on legs from fall, she continues to have paracentesis PRN. Review of Systems 10 point ROS as stated in HPI Past Medical History Past Medical History: Cancer, Diabetes Mellitus, GERD/Reflux, Hyperlipidemia, Hypertension, Neurologic Disorder, Syncope Additional Past Medical History / Comment(s): LARGE B CELL LYMPHOMA; RIGHT BREAST CANCER WITH SX AND PT BELIEVES CHEMO, MIGRAINES IN PAST, CONSTIPATION, ANEMIA, NIDDM TYPE II, NEUROPATHY BILATERAL FEET, PUD, DIVERTICULAR DX, UTI'S, BACK PAIN, VASOMOTOR SYMPATHETIC DYSTROPHY RIGHT HAND, RLS. History of Any Multi-Drug Resistant Organisms: MRSA Year Discovered:: 08/26/2014 MDRO Source:: Urine Past Surgical History: Adenoidectomy, Appendectomy, Breast Surgery, Cholecystectomy, Heart Catheterization, Hysterectomy, Orthopedic Surgery, Tonsillectomy Additional Past Surgical History / Comment(s): MASTECTOMY RIGHT, BILATERAL CATARACTS REMOVED WITH LENS IMPLANTS, CARDIAC CATH-NORMAL, COLONOSCOPY, multiple paracentesis, recent fall - surgery for broken hip Past Anesthesia/Blood Transfusion Reactions: No Reported Reaction Additional Past Anesthesia/Blood Transfusion Reaction / Comm: HAD BLOOD TRANSFUSION IN PAST, HAS CLAUSTERPHOBIA Past Psychological History: No Psychological Hx Reported Additional Psychological History / Comment(s): PT RESIDES WITH HER SPOUSE AND DAUGHTER. SHE USES A CANE TO AMBULATE. SHE NO LONGER DRIVES, HER SPOUSE TAKES HER TO APPTS OR HER DAUGHTER. They have 5 children. One grandson is a dentist in [place], [place] She has no experience. No international travel. no animal exposures. Very supportive family. for 65 years. Smoking Status: Never smoker Past Alcohol Use History: None Reported Past Drug Use History: None Reported - Past Family History Father Family Medical History: Musculoskeletal Disorder, Neurologic Disorder Additional Family Medical History / Comment(s): PARKINSONS Mother Family Medical History: Cancer Additional Family Medical History / Comment(s): FROM BREAST CANCER-HAD HEART PROBLEMS, Medications and Allergies Home Medications Medication Instructions Recorded Confirmed Type Cholecalciferol [Vitamin D3] 1,000 unit PO DAILY 08/05/14 01/22/18 History Gabapentin [Neurontin] 300 mg PO TID 08/05/14 01/22/18 History Omeprazole 40 mg PO AC-BRKFST 08/05/14 01/22/18 History Oxybutynin Chloride [Ditropan XL] 10 mg PO DAILY 08/05/14 01/22/18 History Pravastatin Sodium [Pravachol] 10 mg PO DAILY 05/21/15 01/22/18 History rOPINIRole HCL [Requip] 0.5 mg PO HS 07/28/16 01/22/18 History Lisinopril [Prinivil] 10 mg PO BID 03/14/17 01/22/18 History Verapamil HCl [Verapamil ER] 180 mg PO DAILY 03/14/17 01/22/18 History metFORMIN HCL [Metformin HCl] 500 mg PO BID 03/14/17 01/22/18 History Budesonide [Pulmicort Flexhaler] 1 puff INHALATION RT-BID 01/22/18 01/22/18 History Allergies Allergy/AdvReac Type Severity Reaction Status Date / Time No Known Allergies Allergy Verified 01/22/18 21:58 Physical Exam Vitals: Vital Signs Temp Pulse Resp BP Pulse Ox 01/25/18 10:00 87 16 101/56 96 01/25/18 09:00 94 22 116/66 97 01/25/18 08:12 94 L 01/25/18 08:00 89 16 114/67 94 L 01/25/18 07:00 85 17 120/66 94 L 01/25/18 06:00 91 24 128/72 95 01/25/18 05:00 98 31 H 125/69 94 L 01/25/18 04:00 98.3 F 96 27 H 112/54 96 01/25/18 03:00 96 28 H 110/59 95 01/25/18 02:00 93 22 97/60 92 L 01/25/18 01:00 91 22 121/71 93 L 01/25/18 00:01 90 24 118/62 95 01/25/18 00:00 98.7 F 93 18 118/62 94 L 01/24/18 23:00 88 20 102/57 95 01/24/18 22:00 95 24 112/57 94 L 01/24/18 21:00 86 28 H 98/52 94 L 01/24/18 20:00 98.1 F 90 28 H 91/50 95 01/24/18 19:00 90 23 95/48 94 L 01/24/18 18:00 96 21 109/53 94 L 18 17:00 93 24 107/51 94 L 01/24/18 16:00 98.2 F 87 21 97/52 94 L 01/24/18 15:00 84 22 98/49 93 L 01/24/18 14:11 98.4 F 81 20 96/50 95 01/24/18 14:00 84 28 H 106/57 95 01/24/18 13:30 78 24 104/55 95 01/24/18 13:00 81 24 92/49 95 01/24/18 12:30 88 27 H 96/52 95 Intake and Output 01/24/18 01/25/18 01/25/18 22:59 06:59 14:59 Intake Total 80 590 360 Output Total 365 665 400 Balance -285 -75 -40 Intake: IV 80 90 260 .9 KVO 80 90 10 Azithromycin 500 mg In 250 Sodium Chloride 0.9% 250 ml @ 125 mls/hr IVPB DAILY [facility] Rx#:[id number] Intake, IV Titration 100 Amount Magnesium Sulfate-D5w Pmx 100 1 gm In Dextrose/Water 1 100ml.bag @ 100 mls/hr IVPB Q1H [facility] Rx#: [id number] Oral 500 Output: Urine 365 665 400 Other: Voiding Method Indwelling Catheter Indwelling Catheter Indwelling Catheter Weight 76.2 kg 71.4 kg 71.4 kg - Constitutional frail General appearance: cooperative, mild distress, thin - EENT dry mouth, lips chapped, little bloody Eyes: anicteric sclerae - Neck Neck: no lymphadenopathy - Respiratory Respiratory: bilateral: diminished - Cardiovascular Heart sounds: normal: S1, S2 leg Peripheral Edema: bilateral: 2+ - Gastrointestinal General gastrointestinal: no absent bowel sounds, no decreased bowel sounds, no distended, no hepatomegaly, no hyperactive bowel sounds, normal bowel sounds, no organomegaly, no rigid, no scaphoid, soft, no splenomegaly, no tenderness, no umbilical hernia, no ventral hernia - Integumentary Integumentary: pale - Neurologic tremor from weakness noted, pt cannot move her body without assistance - Musculoskeletal Musculoskeletal: generalized weakness - Psychiatric Psychiatric: A&O x's 3, appropriate affect, intact judgment & insight Results CBC & Chem 7: 01/25/18 04:58 01/25/18 04:58 Labs: Abnormal Lab Results - Last 24 Hours (Table) 01/22/18 01/24/18 01/24/18 Range/Units 22:40 12:23 16:45 WBC (3.8-10.6) k/uL RBC (3.80-5.40) m/uL Hgb (11.4-16.0) gm/dL Hct (34.0-46.0) % RDW (11.5-15.5) % Plt Count (150-450) k/uL Neutrophils # (Manual) (1.3-7.7) k/uL Lymphocytes # (Manual) (1.0-4.8) k/uL Monocytes # (Manual) (0-1.0) k/uL BUN (7-17) mg/dL Creatinine (0.52-1.04) mg/dL Glucose (74-99) mg/dL POC Glucose (mg/dL) 154 H 145 H (75-99) mg/dL Crossmatch See Detail 01/24/18 01/25/18 01/25/18 Range/Units 21:08 04:58 04:58 WBC 12.2 H (3.8-10.6) k/uL RBC 3.26 L (3.80-5.40) m/uL Hgb 9.1 L D (11.4-16.0) gm/dL Hct 28.7 L (34.0-46.0) % RDW 18.5 H (11.5-15.5) % Plt Count 66 L (150-450) k/uL Neutrophils # (Manual) 10.20 H (1.3-7.7) k/uL Lymphocytes # (Manual) 0.37 L (1.0-4.8) k/uL Monocytes # (Manual) 1.59 H (0-1.0) k/uL BUN 48 H (7-17) mg/dL Creatinine 1.20 H (0.52-1.04) mg/dL Glucose 117 H (74-99) mg/dL POC Glucose (mg/dL) 148 H (75-99) mg/dL Crossmatch 01/25/18 01/25/18 Range/Units 07:22 11:51 WBC (3.8-10.6) k/uL RBC (3.80-5.40) m/uL Hgb (11.4-16.0) gm/dL Hct (34.0-46.0) % RDW (11.5-15.5) % Plt Count (150-450) k/uL Neutrophils # (Manual) (1.3-7.7) k/uL Lymphocytes # (Manual) (1.0-4.8) k/uL Monocytes # (Manual) (0-1.0) k/uL BUN (7-17) mg/dL Creatinine (0.52-1.04) mg/dL Glucose (74-99) mg/dL POC Glucose (mg/dL) 126 H 112 H (75-99) mg/dL Crossmatch Microbiology - Last 24 Hours (Table) 01/24/18 10:30 Gram Stain - Preliminary Ascites Fluid Body Fluid Culture - Preliminary 01/22/18 22:00 Blood Culture - Preliminary Blood No Growth after 48 hours 01/24/18 10:30 Anaerobic Culture - Preliminary Ascites Fluid 01/22/18 22:45 Urine Culture - Final Urine,Catheterized Assessment and Plan (1) Anemia Narrative/Plan: Pt is chronically anemic with Hgb 9-10. Anemia work up has been ordered. No transfusion today, follow CBC Current Visit: Yes Status: Acute Priority: Medium Code(s): D64.9 - ANEMIA , UNSPECIFIED SNOMED Code(s): 358144309 (2) Thrombocytopenia Narrative/Plan: Baseline platelets for pt range 30-70 thousand. No transfusion unless symptomatic or plt <10,000 Current Visit: Yes Status: Chronic Priority: Medium Code(s): D69.6 - THROMBOCYTOPENIA, UNSPECIFIED SNOMED Code(s): 759779736 (3) Diffuse large B cell lymphoma Narrative/Plan: Pt presentation and symptoms seem to be rather chronic when reviewing her history of the last year, not suspecting current presentation is related to a lymphoma recurrence but, it cannot be completely ruled out. Last imaging in Jun 2017 with no evidence of recurrent lymphoma at that time. Once pt more hemodynamically stable CT CAP may be ordered for comparison. Current Visit: No Status: Chronic Priority: Medium Code(s): C83.30 - DIFFUSE LARGE B-CELL LYMPHOMA, UNSPECIFIED SITE SNOMED Code(s): 718491548 (4) History of cancer of right breast Current Visit: No Status: Chronic Priority: Low Code(s): Z85.3 - PERSONAL HISTORY OF MALIGNANT NEOPLASM OF BREAST SNOMED Code(s): 754993950 Plan: Attests: I have performed a History and Physical examination of the pt, discussed with dictator. I agree with dictators note, documented as a scribe.
[2018-01-25] MEDS: IPRATROPIUM-ALBUTEROL 3 ML NEB INHALATION SCH ×2 (15:54→19:19)
[2018-01-25 18:36] LABS: Glucose,Whole Blood 153 mg/dL (75-99)
[2018-01-25 20:46] LABS: Glucose,Whole Blood 215 mg/dL (75-99)
[2018-01-26 07:04] LABS: Glucose,Whole Blood 211 mg/dL (75-99)
[2018-01-26] MEDS: IPRATROPIUM-ALBUTEROL 3 ML NEB INHALATION SCH ×4 (07:33→20:52)
[2018-01-26] MEDS: AZITHROMYCIN 500 MG in SODIUM CHLORIDE 0.9% 250 ML IVPB SCH (07:43)
[2018-01-26] MEDS: ENOXAPARIN 30 MG/0.3 ML SYRINGE SQ SCH (07:44)
[2018-01-26] MEDS: INSULIN ASPART 100 UNIT/ML 1 ML 10 ML VIAL SQ SCH ×4 (07:44→21:55)
[2018-01-26] MEDS: FUROSEMIDE 10 MG/ML 4 ML VIAL IV SCH ×2 (07:45→21:55)
[2018-01-26] MEDS: GABAPENTIN 300 MG CAP PO SCH ×3 (07:45→21:55)
[2018-01-26] MEDS: PANTOPRAZOLE 40 MG TABLET PO SCH (07:45)
[2018-01-26] MEDS: predniSONE 20 MG TAB PO SCH (07:45)
[2018-01-26] MEDS: CHOLECALCIFEROL 1,000 UNIT TAB PO SCH (07:45)
[2018-01-26] MEDS: OXYBUTYNIN 10 MG TAB.ER.24 PO SCH (07:45)
[2018-01-26] MEDS: cefTRIAXone IN SWFI 1,000 MG/10 ML SYRINGE IVP SCH (08:31)
[2018-01-26 09:42] LABS: Anisocytosis Slight; Basophils % (A) 0 %; Eosinophils % (A) 0 %; HCT 32.2 % (34.0-46.0); HGB 9.8 gm/dL (11.4-16.0); Hypochromasia Marked; Lymphocytes # (A) 0.4 k/uL (1.0-4.8); Lymphocytes % (A) 4 %; MCH 27.3 pg (25.0-35.0); MCHC 30.6 g/dL (31.0-37.0); MCV 89.4 fL (80.0-100.0); Mean Platelet Volume 12.1; Monocytes # (A) 0.5 k/uL (0-1.0); Monocytes % (A) 5 %; Neutrophils # (A) 8.3 k/uL (1.3-7.7); Neutrophils % (A) 89 %; RDW 18.4 % (11.5-15.5); WBC 9.4 k/uL (3.8-10.6)
[2018-01-26 09:44] LABS: Platelet Count 62 k/uL (150-450)
[2018-01-26 09:50] LABS: Calcium 8.8 mg/dL (8.4-10.2); Magnesium 1.8 mg/dL (1.6-2.3); Phosphorus 3.2 mg/dL (2.5-4.5); Potassium 4.7 mmol/L (3.5-5.1)
--- NOTE | 2018-01-26 09:57 | P.PN ---
Subjective Progress Note Date: 01/26/18 Principal diagnosis: Sepsis, pneumonia, heart failure Progress note dated 01/24/2018 82-year-old female who we saw yesterday for hypoxemic respiratory failure which we thought related to either pneumonia or heart failure. The patient also has a history of large B-cell lymphoma previous right mastectomy for breast cancer diabetes mellitus GERD by history hyperlipidemia history of hypertension migraine cephalgia diverticular disease peptic ulcer disease urinary tract infection chronic constipation and restless leg syndrome. The patient is been weaned off the norepinephrine. She is receiving O2 2 L. She seems a bit confused today. CODE STATUS is still not properly dressed in my opinion and should be addressed. I think the patient has a very poor understanding of what intubation and mechanical ventilation would involve. The patient's chest x-ray is improved. Volume status seems better. Labs x-rays a medications will be evaluated. Progress note dated 01/25/2018 82-year-old female who was admitted with a diagnosis of hypoxemic respiratory failure thought to be related to either pneumonia and/or heart failure. There is also question of sepsis. The patient has a history of large B-cell lymphoma , previous right mastectomy for breast cancer, diabetes, GERD, hyperlipidemia, hypertension, migraine cephalgia, diverticular disease, peptic ulcer disease, urinary tract infection, chronic constipation and restless leg syndrome. The patient has been weaned off the norepinephrine. CODE STATUS has been addressed and she is now a DO NOT RESUSCITATE. The patient's only on O2 at 2 L and a KVO IV. The patient could be transferred out to the general medical floor. The patient's chest x-ray is much improved in my opinion and microbiology thus far as all negative. On 01/26/2018 patient seen in follow-up on medical surgical floor. Denies any acute distress, denies any worsening dyspnea. Liters per nasal cannula with O2 sat at 96%. Afebrile, vital signs are stable. Lung sounds are positive for some scattered rhonchi. Yesterday's chest x-ray showed bilateral consolidation and small effusion, and slight improvement in the previous exam. Clinically patient continues to improve. Blood, urine, and ascites fluid cultures are pending at this time, patient remains on empiric antibiotics in the form of Zithromax and Rocephin, receiving IV diuresis, nebulized treatments. IV steroids have been transitioned to oral prednisone. She is generally weak. Medical oncology is following the patient regards to B-cell lymphoma. Objective - Vital Signs Vital signs: Vital Signs Temp 97.8 F 01/26/18 05:50 Pulse 111 H 01/26/18 07:44 Resp 16 01/26/18 07:34 BP 114/62 01/26/18 05:50 Pulse Ox 96 01/26/18 05:50 Intake & Output 01/25/18 01/26/18 01/26/18 18:59 06:59 18:59 Intake Total 1000 Output Total 975 460 Balance 25 -460 Weight 71.4 kg 71 kg Intake: IV 300 .9 KVO 50 Azithromycin 500 mg In 250 Sodium Chloride 0.9% 250 ml @ 125 mls/hr IVPB DAILY [facility] Rx#:[id number] Intake, IV Titration 100 Amount Magnesium Sulfate-D5w Pmx 100 1 gm In Dextrose/Water 1 100ml.bag @ 100 mls/hr IVPB Q1H [facility] Rx#: [id number] Oral 600 Output: Urine 975 460 Other: Voiding Method Indwelling Catheter Indwelling Catheter # Voids 2 # Bowel Movements 1 ABP, PAP, CO, CI - Last Documented Arterial Blood Pressure 95/45 - Exam No acute distress, confused, fidgety, nasal O2 in place. HEENT examination is grossly unremarkable. Mucous membranes are moist. No oral lesions. Neck supple. Full range of motion. No adenopathy thyromegaly or neck vein distention. Cardiovascular examination reveals regular rhythm rate. S1-S2 normal. No S3 or S4. No discernible murmur noted. Lungs reveal a few scattered crackles. The some coarse rhonchi noted. Breath sounds are equal bilaterally. Abdomen soft bowel sounds are heard. No masses or tenderness. Extremities are intact. No cyanosis clubbing or edema. Skin is without rash or lesion. Neurologic examination is difficult to asses - Labs CBC & Chem 7: 01/26/18 09:32 01/25/18 04:58 Labs: Abnormal Lab Results - Last 24 Hours (Table) 01/24/18 01/25/18 01/25/18 Range/Units 03:30 04:58 11:51 RBC (3.80-5.40) m/uL Hgb (11.4-16.0) gm/dL Hct (34.0-46.0) % MCHC (31.0-37.0) g/dL RDW (11.5-15.5) % Plt Count (150-450) k/uL Neutrophils # (1.3-7.7) k/uL Lymphocytes # (1.0-4.8) k/uL POC Glucose (mg/dL) 112 H (75-99) mg/dL Iron 46 L 44 L (50-170) ug/dL TIBC 198 L (228-460) ug/dL Vitamin B12 (200.0-944.0) pg/mL RBC Folate (280 - 791) ng/mL 01/25/18 01/25/18 01/25/18 Range/Units 12:50 12:50 18:33 RBC (3.80-5.40) m/uL Hgb (11.4-16.0) gm/dL Hct (34.0-46.0) % MCHC (31.0-37.0) g/dL RDW (11.5-15.5) % Plt Count (150-450) k/uL Neutrophils # (1.3-7.7) k/uL Lymphocytes # (1.0-4.8) k/uL POC Glucose (mg/dL) 153 H (75-99) mg/dL Iron (50-170) ug/dL TIBC (228-460) ug/dL Vitamin B12 1561.0 H (200.0-944.0) pg/mL RBC Folate 953 H (280 - 791) ng/mL 01/25/18 01/26/18 01/26/18 Range/Units 20:45 07:00 09:32 RBC 3.60 L (3.80-5.40) m/uL Hgb 9.8 L (11.4-16.0) gm/dL Hct 32.2 L (34.0-46.0) % MCHC 30.6 L (31.0-37.0) g/dL RDW 18.4 H (11.5-15.5) % Plt Count 62 L (150-450) k/uL Neutrophils # 8.3 H (1.3-7.7) k/uL Lymphocytes # 0.4 L (1.0-4.8) k/uL POC Glucose (mg/dL) 215 H 211 H (75-99) mg/dL Iron (50-170) ug/dL TIBC (228-460) ug/dL Vitamin B12 (200.0-944.0) pg/mL RBC Folate (280 - 791) ng/mL Microbiology - Last 24 Hours (Table) 01/22/18 22:00 Blood Culture - Preliminary Blood No Growth after 72 hours 01/24/18 10:30 Gram Stain - Preliminary Ascites Fluid Body Fluid Culture - Preliminary Assessment and Plan Plan: Assessment: Hypoxemic respiratory failure, which may relate to either pneumonia and/or heart failure Rule out sepsis, cultures are thus far negative. History of large B-cell lymphoma Previous right mastectomy for breast cancer History of diabetes mellitus Anemia Prerenal azotemia GERD by history Hyperlipidemia History of hypertension History of migraine cephalgia Diverticular disease Peptic ulcer disease History of urinary tract infection Chronic constipation History of restless leg syndrome. Plan: Await results of final cultures, continue empiric antibiotics, diuresis per nephrology. From pulmonary standpoint patient is improving, no worsening dyspnea, patient is afebrile, vital signs are stable. IV steroids switched to oral prednisone, continue nebulized bronchodilators. Patient is improving. Continue current plan of care. We will see the patient on as-needed basis I performed a history & physical examination of the patient and discussed their management with my nurse practitioner, Ofelia Judd. I reviewed the nurse practitioner's note and agree with the documented findings and plan of care. Lung sounds are positive for diffuse rhonchi and rales. The findings and the impression was discussed with the patient. I attest to the documentation by the nurse practitioner. Time with Patient: Less than 30
[2018-01-26 12:28] LABS: Glucose,Whole Blood 207 mg/dL (75-99)
--- NOTE | 2018-01-26 12:49 | P.PN ---
Subjective 79-year-old female admitted to the secondary to shortness of breath and respiratory failure patient is being treated for pneumonia pulmonary edema. Patient is on IV Lasix. Discussed her CODE STATUS. Patient wanted to be DO NOT RESUSCITATE after discussion with the patient. Patient respiratory status appears to have improved. Patient underwent paracentesis after which patient is quite tired and fatigued removed about 4.5 L at do not have any paracentesis labs available yet. Patient's enoxaparin will be switched to heparin because of the poor renal function and creatinine of around 1.4 nephrology is following the patient as well. 01/25/2018 Patient has significant clinical improvement is on 3 L of oxygen and patient uses 3 L at home patient is wheezing significantly will start him on systemic strides today and inhalational treatments. Continue with antibiotics. Diuretic therapy is being managed by nephrology. 01/26/2018 Patient wheezing significant improved but still rhonchorous, off oxygen today., We'll cut down the systemic steroid, continue with antibiotics patient is bit tachycardic kidney function improved patient is feeling much better respiratory status improved significantly. Still coughing. Constitutional: Denied any fatigue denied any fever. Cardio vascular: denied any chest pain, palpitations Gastrointestinal denied any nausea vomiting Pulmonary: As mentioned in HPI Neurologic denied any new focal deficits Objective - Vital Signs Vital signs: Vital Signs Temp 97.8 F 01/26/18 05:50 Pulse 110 H 01/26/18 11:39 Resp 16 01/26/18 11:28 BP 114/62 01/26/18 05:50 Pulse Ox 96 01/26/18 05:50 Intake & Output 01/25/18 01/26/18 01/26/18 18:59 06:59 18:59 Intake Total 1000 Output Total 975 460 Balance 25 -460 Weight 71.4 kg 71 kg Intake: IV 300 .9 KVO 50 Azithromycin 500 mg In 250 Sodium Chloride 0.9% 250 ml @ 125 mls/hr IVPB DAILY [facility] Rx#:[id number] Intake, IV Titration 100 Amount Magnesium Sulfate-D5w Pmx 100 1 gm In Dextrose/Water 1 100ml.bag @ 100 mls/hr IVPB Q1H [facility] Rx#: [id number] Oral 600 Output: Urine 975 460 Other: Voiding Method Indwelling Catheter Indwelling Catheter # Voids 2 # Bowel Movements 1 ABP, PAP, CO, CI - Last Documented Arterial Blood Pressure 95/45 - Exam PHYSICAL EXAMINATION: GENERAL: The patient is alert and oriented x3, not in any acute distress. Well developed, well nourished. HEENT: Pupils are round and equally reacting to light. EOMI. No scleral icterus. No conjunctival pallor. Normocephalic, atraumatic. No pharyngeal erythema. No thyromegaly. CARDIOVASCULAR: S1 and S2 present. No rubs, or gallops. Unable to assess JVD ST and S4 were not appreciable, patient does have a systolic murmur of grade 3/ 6 and diuretic area PULMONARY: Coarse rhonchorous breath sounds bibasilar crackles are appreciated, wheezing completely resolved ABDOMEN: Soft, distended she fluid shift without any tenderness MUSCULOSKELETAL: No joint swelling or deformity. EXTREMITIES: No cyanosis, clubbing, or pedal edema. NEUROLOGICAL: Gross neurological examination did not reveal any focal deficits. SKIN: No rashes. - Labs CBC & Chem 7: 01/26/18 09:32 01/26/18 09:32 Labs: Abnormal Lab Results - Last 24 Hours (Table) 01/24/18 01/25/18 01/25/18 Range/Units 03:30 04:58 12:50 RBC (3.80-5.40) m/uL Hgb (11.4-16.0) gm/dL Hct (34.0-46.0) % MCHC (31.0-37.0) g/dL RDW (11.5-15.5) % Plt Count (150-450) k/uL Neutrophils # (1.3-7.7) k/uL Lymphocytes # (1.0-4.8) k/uL BUN (7-17) mg/dL Creatinine (0.52-1.04) mg/dL Glucose (74-99) mg/dL POC Glucose (mg/dL) (75-99) mg/dL Iron 46 L 44 L (50-170) ug/dL TIBC 198 L (228-460) ug/dL Vitamin B12 1561.0 H (200.0-944.0) pg/mL RBC Folate (280 - 791) ng/mL 01/25/18 01/25/18 01/25/18 Range/Units 12:50 18:33 20:45 RBC (3.80-5.40) m/uL Hgb (11.4-16.0) gm/dL Hct (34.0-46.0) % MCHC (31.0-37.0) g/dL RDW (11.5-15.5) % Plt Count (150-450) k/uL Neutrophils # (1.3-7.7) k/uL Lymphocytes # (1.0-4.8) k/uL BUN (7-17) mg/dL Creatinine (0.52-1.04) mg/dL Glucose (74-99) mg/dL POC Glucose (mg/dL) 153 H 215 H (75-99) mg/dL Iron (50-170) ug/dL TIBC (228-460) ug/dL Vitamin B12 (200.0-944.0) pg/mL RBC Folate 953 H (280 - 791) ng/mL 01/26/18 01/26/18 01/26/18 Range/Units 07:00 09:32 09:32 RBC 3.60 L (3.80-5.40) m/uL Hgb 9.8 L (11.4-16.0) gm/dL Hct 32.2 L (34.0-46.0) % MCHC 30.6 L (31.0-37.0) g/dL RDW 18.4 H (11.5-15.5) % Plt Count 62 L (150-450) k/uL Neutrophils # 8.3 H (1.3-7.7) k/uL Lymphocytes # 0.4 L (1.0-4.8) k/uL BUN 52 H (7-17) mg/dL Creatinine 1.10 H (0.52-1.04) mg/dL Glucose 161 H (74-99) mg/dL POC Glucose (mg/dL) 211 H (75-99) mg/dL Iron (50-170) ug/dL TIBC (228-460) ug/dL Vitamin B12 (200.0-944.0) pg/mL RBC Folate (280 - 791) ng/mL 01/26/18 Range/Units 12:26 RBC (3.80-5.40) m/uL Hgb (11.4-16.0) gm/dL Hct (34.0-46.0) % MCHC (31.0-37.0) g/dL RDW (11.5-15.5) % Plt Count (150-450) k/uL Neutrophils # (1.3-7.7) k/uL Lymphocytes # (1.0-4.8) k/uL BUN (7-17) mg/dL Creatinine (0.52-1.04) mg/dL Glucose (74-99) mg/dL POC Glucose (mg/dL) 207 H (75-99) mg/dL Iron (50-170) ug/dL TIBC (228-460) ug/dL Vitamin B12 (200.0-944.0) pg/mL RBC Folate (280 - 791) ng/mL Microbiology - Last 24 Hours (Table) 01/22/18 22:00 Blood Culture - Preliminary Blood No Growth after 72 hours 01/24/18 10:30 Gram Stain - Preliminary Ascites Fluid Body Fluid Culture - Preliminary Assessment and Plan Plan: Acute hypoxic respiratory failure: Probably secondary to both pneumonia and heart failure patient is on antibiotics which will be continued is also on IV Lasix which will be continued -Possible COPD examination patient will be started on systemic steroids as mentioned above and inhalational treatments. -Possible congestive heart failure chronic diastolic dysfunction with acute exacerbation patient had normal ejection fraction the past. Patient is on IV Lasix which will continue , patient may have aortic stenosis which is contributing to her symptoms as well -hypotension/shock: Possibility of cardiogenic and septic etiologies secondary to cirrhosis and heart failure, cancer cachexia I do not have any peritoneal fluid albumin available to assess for SAAG score -Acute renal failure most probably prerenal azotemia from heart failure and cirrhosis -Cirrhosis etiology is unknown unsure whether patient has cirrhosis patient's INR is 1.2, Patient underwent paracentesis with removal of 4.5 L of acetic fluid -History of breast cancer in the past. Next and-B-cell lymphoma for which patient follows up with oncology and receiving chemotherapy -Gastro-esophageal reflux disease -Hyperlipidemia -Type 2 diabetes mellitus
--- NOTE | 2018-01-26 15:32 | PN ---
PROGRESS NOTE Patient is seen for followup for acute kidney injury. Her renal function has improved. The patient has been transferred out of the ICU. She remains on IV Lasix q.12 hours. PHYSICAL EXAMINATION: Blood pressure is 114/62, heart rate 88 per minute. She is afebrile. Examination of the heart S1, S2. Examination of lungs bilateral breath sounds are heard. Abdomen is soft, nontender. Examination lower extremity shows chronic skin changes, chronic edema 1+ bilaterally. LABS SHOW: Sodium 143, potassium 4.7, BUN 52, serum creatinine 1.1, hemoglobin 9.8 g/dL. ASSESSMENT: 1. Acute kidney injury secondary to hypotension, hypoperfusion currently improved. 2. Hypotension. There was concern for underlying infection on initial admission. All cultures are negative. The patient is being treated for pneumonia. 3. Recurrent ascites status post paracentesis. 4. Mild volume overload. Currently maintained on IV Lasix which we will continue. 5. Chronic obstructive pulmonary disease. 6. History of breast cancer. 7. History of B-cell lymphoma, being followed by Dr. Alvarado. PLAN: Continue IV Lasix. Continue to avoid nephrotoxic agents. Encourage increased oral intake. MMODL / IJN: [id number] /
[2018-01-26 17:35] LABS: Glucose,Whole Blood 246 mg/dL (75-99)
[2018-01-26 21:27] LABS: Glucose,Whole Blood 234 mg/dL (75-99)
[2018-01-27 07:21] LABS: Glucose,Whole Blood 153 mg/dL (75-99)
[2018-01-27] MEDS: IPRATROPIUM-ALBUTEROL 3 ML NEB INHALATION SCH ×4 (07:44→20:06)
[2018-01-27] MEDS: FUROSEMIDE 10 MG/ML 4 ML VIAL IV SCH ×2 (07:53→21:28)
[2018-01-27] MEDS: INSULIN ASPART 100 UNIT/ML 1 ML 10 ML VIAL SQ SCH ×4 (07:53→21:29)
[2018-01-27] MEDS: PANTOPRAZOLE 40 MG TABLET PO SCH (07:53)
[2018-01-27] MEDS: cefTRIAXone IN SWFI 1,000 MG/10 ML SYRINGE IVP SCH (07:53)
[2018-01-27] MEDS: AZITHROMYCIN 500 MG TAB PO SCH (07:54)
[2018-01-27] MEDS: GABAPENTIN 300 MG CAP PO SCH ×3 (07:54→21:28)
[2018-01-27] MEDS: OXYBUTYNIN 10 MG TAB.ER.24 PO SCH (07:54)
[2018-01-27] MEDS: ENOXAPARIN 30 MG/0.3 ML SYRINGE SQ SCH (07:54)
[2018-01-27] MEDS: CHOLECALCIFEROL 1,000 UNIT TAB PO SCH (07:54)
[2018-01-27] MEDS ORDERED: predniSONE 20 MG TAB PO SCH (09:00)
[2018-01-27 09:11] LABS: Anisocytosis Slight; HGB 9.5 gm/dL (11.4-16.0); Hypochromasia Marked; MCH 28.4 pg (25.0-35.0); MCHC 31.8 g/dL (31.0-37.0); MCV 89.2 fL (80.0-100.0); Mean Platelet Volume 11.9; RBC 3.36 m/uL (3.80-5.40); RDW 18.8 % (11.5-15.5); WBC 14.9 k/uL (3.8-10.6)
[2018-01-27 09:14] LABS: Platelet Count 65 k/uL (150-450)
[2018-01-27 09:19] LABS: Calcium 9.3 mg/dL (8.4-10.2); Magnesium 1.8 mg/dL (1.6-2.3); Phosphorus 2.9 mg/dL (2.5-4.5); Potassium 4.2 mmol/L (3.5-5.1)
[2018-01-27 10:12] LABS: Band Neutrophils % 1 %; Eosinophils # (M) 0.15 k/uL (0-0.7); Lymphocytes # (M) 1.04 k/uL (1.0-4.8); Metamyelocytes # (M) 0.15 k/uL (0); Metamyelocytes % 1 %; Monocytes # (M) 2.38 k/uL (0-1.0); Myelocytes # (M) 0.15 k/uL (0); Myelocytes % 1 %; Neutrophils % (M) 76 %; Nucleated Red Blood Cells 0 /100 WBC (0-0); Total Cells Counted 200
[2018-01-27 10:15] LABS: Poikilocytosis (M) Present
[2018-01-27 12:59] LABS: Glucose,Whole Blood 115 mg/dL (75-99)
--- NOTE | 2018-01-27 13:40 | XR ---
EXAMINATION TYPE: XR chest 1V portable DATE OF EXAM: 01/27/2018 HISTORY: shortness of breath. REFERENCE: Previous study dated 01/25/2018. FINDINGS: There has been a previous ACDF in the lower cervical spine. The patient's right internal jugular catheter is been removed. There continues to be a MediPort in pl [place] on the left. There continues to be bibasilar airspace disease. This is unchanged from previous. No definite pleura l fluid is seen. The heart is not enlarged. IMPRESSION: CONTINUING BIBASILAR AIRSPACE DISEASE, ESSENTIALLY UNCHANGED FROM PREVIOUS.
--- NOTE | 2018-01-27 14:55 | P.PN ---
Subjective 79-year-old female admitted to the secondary to shortness of breath and respiratory failure patient is being treated for pneumonia pulmonary edema. Patient is on IV Lasix. Discussed her CODE STATUS. Patient wanted to be DO NOT RESUSCITATE after discussion with the patient. Patient respiratory status appears to have improved. Patient underwent paracentesis after which patient is quite tired and fatigued removed about 4.5 L at do not have any paracentesis labs available yet. Patient's enoxaparin will be switched to heparin because of the poor renal function and creatinine of around 1.4 nephrology is following the patient as well. 01/25/2018 Patient has significant clinical improvement is on 3 L of oxygen and patient uses 3 L at home patient is wheezing significantly will start him on systemic strides today and inhalational treatments. Continue with antibiotics. Diuretic therapy is being managed by nephrology. 01/26/2018 Patient wheezing significant improved but still rhonchorous, off oxygen today., We'll cut down the systemic steroid, continue with antibiotics patient is bit tachycardic kidney function improved patient is feeling much better respiratory status improved significantly. Still coughing. 01/27/2018 Patient is not doing well patient is tachypneic, patient is being treated with antibiotics, Lasix , patient has abdominal distention again. Her prognosis is extremely poor discussed regarding comfort care and hospice with the family. Patient is presently DO NOT RESUSCITATE. Chest x-ray did not show any increase in infiltrate, pulmonary edema remains the same. Constitutional: Denied any fatigue denied any fever. Cardio vascular: denied any chest pain, palpitations Gastrointestinal denied any nausea vomiting Pulmonary: As mentioned in HPI Neurologic denied any new focal deficits Objective - Vital Signs Vital signs: Vital Signs Temp 96.8 F L 01/27/18 06:15 Pulse 104 H 01/27/18 12:00 Resp 20 01/27/18 06:15 BP 125/72 01/27/18 06:15 Pulse Ox 98 01/27/18 07:47 Intake & Output 01/26/18 01/27/18 01/27/18 18:59 06:59 18:59 Intake Total 925 250 120 Balance 925 250 120 Intake: Oral 925 250 120 Other: Voiding Method Indwelling Catheter Bedside Commode Incontinent # Voids 2 1 # Bowel Movements 1 ABP, PAP, CO, CI - Last Documented Arterial Blood Pressure 95/45 - Exam PHYSICAL EXAMINATION: GENERAL: The patient is alert and oriented x3, patient is in etad-wr-nrrjrowa respiratory distress HEENT: Pupils are round and equally reacting to light. EOMI. No scleral icterus. No conjunctival pallor. Normocephalic, atraumatic. No pharyngeal erythema. No thyromegaly. CARDIOVASCULAR: S1 and S2 present. No rubs, or gallops. Unable to assess JVD ST and S4 were not appreciable, patient does have a systolic murmur of grade 3/ 6 and diuretic area PULMONARY: Coarse rhonchorous breath sounds bibasilar crackles are appreciated, patient is wheezing again today significantly ABDOMEN: Soft,abdomen is distended more and almost at the level and she came in with fluid shift MUSCULOSKELETAL: No joint swelling or deformity. EXTREMITIES: No cyanosis, clubbing, or pedal edema. NEUROLOGICAL: Gross neurological examination did not reveal any focal deficits. SKIN: No rashes. - Labs CBC & Chem 7: 01/27/18 08:30 01/27/18 08:30 Labs: Abnormal Lab Results - Last 24 Hours (Table) 01/26/18 01/26/18 01/27/18 Range/Units 17:32 20:58 07:10 WBC (3.8-10.6) k/uL RBC (3.80-5.40) m/uL Hgb (11.4-16.0) gm/dL Hct (34.0-46.0) % RDW (11.5-15.5) % Plt Count (150-450) k/uL Neutrophils # (Manual) (1.3-7.7) k/uL Monocytes # (Manual) (0-1.0) k/uL Metamyelocytes # (Man) (0) k/uL Myelocytes # (Manual) (0) k/uL BUN (7-17) mg/dL Creatinine (0.52-1.04) mg/dL Glucose (74-99) mg/dL POC Glucose (mg/dL) 246 H 234 H 153 H (75-99) mg/dL 01/27/18 01/27/18 01/27/18 Range/Units 08:30 08:30 12:45 WBC 14.9 H (3.8-10.6) k/uL RBC 3.36 L (3.80-5.40) m/uL Hgb 9.5 L (11.4-16.0) gm/dL Hct 30.0 L (34.0-46.0) % RDW 18.8 H (11.5-15.5) % Plt Count 65 L (150-450) k/uL Neutrophils # (Manual) 11.40 H (1.3-7.7) k/uL Monocytes # (Manual) 2.38 H (0-1.0) k/uL Metamyelocytes # (Man) 0.15 H (0) k/uL Myelocytes # (Manual) 0.15 H (0) k/uL BUN 53 H (7-17) mg/dL Creatinine 1.20 H (0.52-1.04) mg/dL Glucose 124 H (74-99) mg/dL POC Glucose (mg/dL) 115 H (75-99) mg/dL Microbiology - Last 24 Hours (Table) 01/24/18 10:30 Gram Stain - Preliminary Ascites Fluid Body Fluid Culture - Preliminary 01/22/18 22:00 Blood Culture - Preliminary Blood No Growth after 96 hours 01/24/18 10:30 Anaerobic Culture - Preliminary Ascites Fluid Assessment and Plan Plan: Acute hypoxic respiratory failure: Probably secondary to both pneumonia and heart failure patient is on antibiotics which will be continued is also on IV Lasix which will be continued -Possible COPD examination patient will be started on systemic steroids as mentioned above and inhalational treatments. -Possible congestive heart failure chronic diastolic dysfunction with acute exacerbation patient had normal ejection fraction the past. Patient is on IV Lasix which will continue , patient may have aortic stenosis which is contributing to her symptoms as well -hypotension/shock: Possibility of cardiogenic and septic etiologies secondary to cirrhosis and heart failure, cancer cachexia I do not have any peritoneal fluid albumin available to assess for SAAG scoreshock resolved, patient is presently on the floor but not doing well clinically -Acute renal failure most probably prerenal azotemia from heart failure and cirrhosis -Cirrhosis etiology is unknown unsure whether patient has cirrhosis patient's INR is 1.2, Patient underwent paracentesis with removal of 4.5 L , patient may need repeat paracentesis her present shortness of breath is probably because of fevers cirrhosis and abdominal distention again -History of breast cancer in the past. Next and-B-cell lymphoma for which patient follows up with oncology and receiving chemotherapy -Gastro-esophageal reflux disease -Hyperlipidemia -Type 2 diabetes mellitus patient's prognosis is extremely poor will obtain ABG, discussed the regarding her CODE STATUS
[2018-01-27 16:07] LABS: ABG Base Excess 3.2 mmol/L; ABG HCO3 27 mmol/L (21-25); ABG Oxygen Saturation 90.9 % (94-97); ABG PCO2 41 mmHg (35-45); ABG PH 7.44 (7.35-7.45); ABG PO2 58 mmHg (83-108); ABG TCO2 29 mmol/L (19-24)
--- NOTE | 2018-01-27 16:51 | PN ---
PROGRESS NOTE Patient is seen for followup for acute kidney injury. She is currently doing well. She is comfortable. She is sleeping. She had a bad night according to her roommate. This morning, blood pressure was 125/72, heart rate of 104 per minute. Patient is afebrile. Examination of the heart S1, S2. Examination lungs bilateral breath sounds are heard. Abdomen is soft, nontender. Exam of lower extremities shows edema 1+ bilaterally. Chronic skin changes are noted. LAB: Show sodium 142, potassium 4.2, BUN 53, serum creatinine 1.2 mg/dL. ASSESSMENT: 1. Acute kidney injury secondary to hypotension hypoperfusion currently improved. 2. Hypervolemia, maintained on IV Lasix. The patient is currently sleeping comfortably. We will continue with the diuresis. 3. Chronic obstructive pulmonary disease. 4. History of breast cancer. 5. History of B-cell lymphoma, being followed by Oncology. 6. Recurrent ascites, status post paracentesis. 7. NKF stage III, with baseline creatinine appears to be around . PLAN: Encourage increased oral intake and continue with diuresis. Renal function is stable. MMODL / IJN: [id number] /
[2018-01-27 17:05] LABS: Glucose,Whole Blood 217 mg/dL (75-99)
[2018-01-27 21:24] LABS: Glucose,Whole Blood 212 mg/dL (75-99)
[2018-01-28] MEDS: IPRATROPIUM-ALBUTEROL 3 ML NEB INHALATION SCH ×4 (07:20→19:49)
[2018-01-28 07:31] LABS: Glucose,Whole Blood 135 mg/dL (75-99)
[2018-01-28] MEDS: INSULIN ASPART 100 UNIT/ML 1 ML 10 ML VIAL SQ SCH ×4 (08:53→21:51)
[2018-01-28] MEDS: cefTRIAXone IN SWFI 1,000 MG/10 ML SYRINGE IVP SCH (08:53)
[2018-01-28] MEDS: predniSONE 20 MG TAB PO SCH (08:54)
[2018-01-28] MEDS: FUROSEMIDE 10 MG/ML 4 ML VIAL IV SCH (08:54)
[2018-01-28] MEDS: OXYBUTYNIN 10 MG TAB.ER.24 PO SCH (08:54)
[2018-01-28] MEDS: CHOLECALCIFEROL 1,000 UNIT TAB PO SCH (08:54)
[2018-01-28] MEDS: GABAPENTIN 300 MG CAP PO SCH ×3 (08:54→21:51)
[2018-01-28] MEDS: ENOXAPARIN 30 MG/0.3 ML SYRINGE SQ SCH (08:54)
[2018-01-28] MEDS: AZITHROMYCIN 500 MG TAB PO SCH (08:54)
[2018-01-28] MEDS: PANTOPRAZOLE 40 MG TABLET PO SCH (08:55)
[2018-01-28 09:00] LABS: Calcium 9.3 mg/dL (8.4-10.2); Magnesium 1.7 mg/dL (1.6-2.3); Phosphorus 3.3 mg/dL (2.5-4.5); Potassium 4.3 mmol/L (3.5-5.1)
[2018-01-28 09:10] LABS: Anisocytosis Slight; HCT 30.4 % (34.0-46.0); HGB 9.3 gm/dL (11.4-16.0); Hypochromasia Marked; MCH 27.9 pg (25.0-35.0); MCHC 30.8 g/dL (31.0-37.0); MCV 90.7 fL (80.0-100.0); Mean Platelet Volume 11.9; RBC 3.35 m/uL (3.80-5.40); WBC 14.1 k/uL (3.8-10.6)
[2018-01-28 09:14] LABS: Platelet Count 65 k/uL (150-450)
[2018-01-28 10:01] LABS: Band Neutrophils % 1 %; Eosinophils # (M) 0.14 k/uL (0-0.7); Lymphocytes # (M) 0.99 k/uL (1.0-4.8); Metamyelocytes # (M) 0.14 k/uL (0); Metamyelocytes % 1 %; Monocytes # (M) 3.24 k/uL (0-1.0); Neutrophils % (M) 69 %; Nucleated Red Blood Cells 0 /100 WBC (0-0); Total Cells Counted 200
[2018-01-28 10:02] LABS: Poikilocytosis (M) Present
--- NOTE | 2018-01-28 11:08 | P.PN ---
Subjective 79-year-old female admitted to the secondary to shortness of breath and respiratory failure patient is being treated for pneumonia pulmonary edema. Patient is on IV Lasix. Discussed her CODE STATUS. Patient wanted to be DO NOT RESUSCITATE after discussion with the patient. Patient respiratory status appears to have improved. Patient underwent paracentesis after which patient is quite tired and fatigued removed about 4.5 L at do not have any paracentesis labs available yet. Patient's enoxaparin will be switched to heparin because of the poor renal function and creatinine of around 1.4 nephrology is following the patient as well. 01/25/2018 Patient has significant clinical improvement is on 3 L of oxygen and patient uses 3 L at home patient is wheezing significantly will start him on systemic strides today and inhalational treatments. Continue with antibiotics. Diuretic therapy is being managed by nephrology. 01/26/2018 Patient wheezing significant improved but still rhonchorous, off oxygen today., We'll cut down the systemic steroid, continue with antibiotics patient is bit tachycardic kidney function improved patient is feeling much better respiratory status improved significantly. Still coughing. 01/27/2018 Patient is not doing well patient is tachypneic, patient is being treated with antibiotics, Lasix , patient has abdominal distention again. Her prognosis is extremely poor discussed regarding comfort care and hospice with the family. Patient is presently DO NOT RESUSCITATE. Chest x-ray did not show any increase in infiltrate, pulmonary edema remains the same. 01/28/2018 chest x-ray from yesterday did not show any significant change, ABG did not show any significant abnormality patient is pretty status improved compared to yesterday patient is not in respiratory distress today although rock rhonchus breath sounds bilaterally on exam. Constitutional: Denied any fatigue denied any fever. Cardio vascular: denied any chest pain, palpitations Gastrointestinal denied any nausea vomiting Pulmonary: As mentioned in HPI Neurologic denied any new focal deficits Objective - Vital Signs Vital signs: Vital Signs Temp 97.8 F 01/28/18 07:00 Pulse 98 01/28/18 07:31 Resp 26 H 01/28/18 07:00 BP 147/63 01/28/18 07:00 Pulse Ox 95 01/28/18 07:00 Intake & Output 01/27/18 01/28/18 01/28/18 18:59 06:59 18:59 Intake Total 120 300 240 Output Total 2 Balance 120 298 240 Weight 70 kg Intake: Oral 120 300 240 Output: Urine/Stool Mix 2 Other: Voiding Method Bedside Commode Incontinent # Voids 2 2 # Bowel Movements 1 2 ABP, PAP, CO, CI - Last Documented Arterial Blood Pressure 95/45 - Exam PHYSICAL EXAMINATION: GENERAL: The patient is alert and oriented x3, she does not in respiratory distress today HEENT: Pupils are round and equally reacting to light. EOMI. No scleral icterus. No conjunctival pallor. Normocephalic, atraumatic. No pharyngeal erythema. No thyromegaly. CARDIOVASCULAR: S1 and S2 present. No rubs, or gallops. Unable to assess JVD ST and S4 were not appreciable, patient does have a systolic murmur of grade 3/ 6 and diuretic area PULMONARY: Coarse rhonchorous breath sounds bibasilar crackles are appreciated, patient is wheezing again today significantly ABDOMEN: Soft,abdomen is distended more and almost at the level and she came in with fluid shift MUSCULOSKELETAL: No joint swelling or deformity. EXTREMITIES: No cyanosis, clubbing, or pedal edema. NEUROLOGICAL: Gross neurological examination did not reveal any focal deficits. SKIN: No rashes. - Labs CBC & Chem 7: 01/28/18 08:29 01/28/18 08:29 Labs: Abnormal Lab Results - Last 24 Hours (Table) 01/27/18 01/27/18 01/27/18 Range/Units 12:45 16:04 16:58 WBC (3.8-10.6) k/uL RBC (3.80-5.40) m/uL Hgb (11.4-16.0) gm/dL Hct (34.0-46.0) % MCHC (31.0-37.0) g/dL RDW (11.5-15.5) % Plt Count (150-450) k/uL Neutrophils # (Manual) (1.3-7.7) k/uL Lymphocytes # (Manual) (1.0-4.8) k/uL Monocytes # (Manual) (0-1.0) k/uL Metamyelocytes # (Man) (0) k/uL ABG pO2 58 L (83-108) mmHg ABG HCO3 27 H (21-25) mmol/L ABG Total CO2 29 H (19-24) mmol/L ABG O2 Saturation 90.9 L (94-97) % Sodium (137-145) mmol/L BUN (7-17) mg/dL Creatinine (0.52-1.04) mg/dL Glucose (74-99) mg/dL POC Glucose (mg/dL) 115 H 217 H (75-99) mg/dL 01/27/18 01/28/18 01/28/18 Range/Units 21:19 07:06 08:29 WBC 14.1 H (3.8-10.6) k/uL RBC 3.35 L (3.80-5.40) m/uL Hgb 9.3 L (11.4-16.0) gm/dL Hct 30.4 L (34.0-46.0) % MCHC 30.8 L (31.0-37.0) g/dL RDW 19.0 H (11.5-15.5) % Plt Count 65 L (150-450) k/uL Neutrophils # (Manual) 9.80 H (1.3-7.7) k/uL Lymphocytes # (Manual) 0.99 L (1.0-4.8) k/uL Monocytes # (Manual) 3.24 H (0-1.0) k/uL Metamyelocytes # (Man) 0.14 H (0) k/uL ABG pO2 (83-108) mmHg ABG HCO3 (21-25) mmol/L ABG Total CO2 (19-24) mmol/L ABG O2 Saturation (94-97) % Sodium (137-145) mmol/L BUN (7-17) mg/dL Creatinine (0.52-1.04) mg/dL Glucose (74-99) mg/dL POC Glucose (mg/dL) 212 H 135 H (75-99) mg/dL 01/28/18 Range/Units 08:29 WBC (3.8-10.6) k/uL RBC (3.80-5.40) m/uL Hgb (11.4-16.0) gm/dL Hct (34.0-46.0) % MCHC (31.0-37.0) g/dL RDW (11.5-15.5) % Plt Count (150-450) k/uL Neutrophils # (Manual) (1.3-7.7) k/uL Lymphocytes # (Manual) (1.0-4.8) k/uL Monocytes # (Manual) (0-1.0) k/uL Metamyelocytes # (Man) (0) k/uL ABG pO2 (83-108) mmHg ABG HCO3 (21-25) mmol/L ABG Total CO2 (19-24) mmol/L ABG O2 Saturation (94-97) % Sodium 149 H (137-145) mmol/L BUN 51 H (7-17) mg/dL Creatinine 1.08 H (0.52-1.04) mg/dL Glucose 111 H (74-99) mg/dL POC Glucose (mg/dL) (75-99) mg/dL Microbiology - Last 24 Hours (Table) 01/24/18 10:30 Anaerobic Culture - Final Ascites Fluid 01/22/18 22:00 Blood Culture - Preliminary Blood No Growth after 120 hours 01/24/18 10:30 Gram Stain - Preliminary Ascites Fluid Body Fluid Culture - Preliminary Assessment and Plan Plan: Acute hypoxic respiratory failure: Probably secondary to both pneumonia and heart failure patient is on antibiotics which will be continued is also on IV Lasix which will be continued -Possible COPD examination patient will be started on systemic steroids as mentioned above and inhalational treatments. -Possible congestive heart failure chronic diastolic dysfunction with acute exacerbation patient had normal ejection fraction the past. Patient is on IV Lasix which will continue , patient may have aortic stenosis which is contributing to her symptoms as well -hypotension/shock: Possibility of cardiogenic and septic etiologies secondary to cirrhosis and heart failure, cancer cachexia I do not have any peritoneal fluid albumin available to assess for SAAG scoreshock resolved, patient is presently on the floor but not doing well clinically -Acute renal failure most probably prerenal azotemia from heart failure and cirrhosis -Cirrhosis etiology is unknown unsure whether patient has cirrhosis patient's INR is 1.2, Patient underwent paracentesis with removal of 4.5 L , patient may need repeat paracentesis , patient started retaining fluid again patient has abdominal distention and cirrhosis and ascites -History of breast cancer in the past. Next and-B-cell lymphoma for which patient follows up with oncology and receiving chemotherapy -Gastro-esophageal reflux disease -Hyperlipidemia -Type 2 diabetes mellitus patient's prognosis is extremely poor will obtain ABG, discussed the regarding her CODE STATUS
[2018-01-28 12:08] LABS: Glucose,Whole Blood 183 mg/dL (75-99)
[2018-01-28] MEDS: DEXTROSE 5% IN WATER 1,000 ML IV SCH (12:52)
--- NOTE | 2018-01-28 13:10 | PN ---
PROGRESS NOTE The patient is seen for followup for acute kidney injury. Her renal function has improved. Patient is fairly stable. This morning she was awake, comfortable, not in any acute distress. Her sodium has been increased to 149 today. Patient is not on any IV fluids. She is maintained on IV Lasix. PHYSICAL EXAMINATION: Blood pressure is 147/63, heart rate of 94 per minute. Patient is afebrile. Examination of the heart S1, S2. Examination lungs bilateral breath sounds are heard. Abdomen is soft, nontender. Examination lower extremities shows chronic skin changes. Edema 1+ bilaterally. LABS: Sodium 149, potassium 4.3, hemoglobin 9.3 g/dL. White cell count 14.1. ASSESSMENT: 1. Acute kidney injury secondary to hypotension and hypoperfusion nonoliguric currently improved. 2. Hypernatremia associated with free water deficit. Patient is encouraged to increase free water intake. I will add small amount of D5W. We will continue with the Lasix. Decrease the Lasix to once a day. 3. History of breast cancer. 4. History of lymphoma. 5. Pneumonia maintained on antibiotics. PLAN: Decrease Lasix. Add D5W at 40 mL an hour. Repeat labs in a.m. MMODL / IJN: [id number] /
[2018-01-28 17:21] LABS: Glucose,Whole Blood 213 mg/dL (75-99)
[2018-01-28 21:04] LABS: Glucose,Whole Blood 251 mg/dL (75-99)
[2018-01-29 07:24] LABS: Glucose,Whole Blood 191 mg/dL (75-99)
[2018-01-29] MEDS: IPRATROPIUM-ALBUTEROL 3 ML NEB INHALATION SCH ×4 (07:48→21:02)
[2018-01-29] MEDS: AZITHROMYCIN 500 MG TAB PO SCH (08:24)
[2018-01-29] MEDS: FUROSEMIDE 10 MG/ML 4 ML VIAL IV SCH (08:24)
[2018-01-29] MEDS: CHOLECALCIFEROL 1,000 UNIT TAB PO SCH (08:25)
[2018-01-29] MEDS: ENOXAPARIN 30 MG/0.3 ML SYRINGE SQ SCH (08:25)
[2018-01-29] MEDS: predniSONE 20 MG TAB PO SCH (08:25)
[2018-01-29] MEDS: OXYBUTYNIN 10 MG TAB.ER.24 PO SCH (08:25)
[2018-01-29] MEDS: INSULIN ASPART 100 UNIT/ML 1 ML 10 ML VIAL SQ SCH ×4 (08:25→21:56)
[2018-01-29] MEDS: PANTOPRAZOLE 40 MG TABLET PO SCH (08:25)
[2018-01-29] MEDS: GABAPENTIN 300 MG CAP PO SCH ×3 (08:25→21:56)
[2018-01-29] MEDS: cefTRIAXone IN SWFI 1,000 MG/10 ML SYRINGE IVP SCH (08:26)
[2018-01-29 12:06] LABS: Glucose,Whole Blood 146 mg/dL (75-99)
[2018-01-29 12:22] LABS: Anisocytosis Slight; HCT 29.4 % (34.0-46.0); HGB 8.9 gm/dL (11.4-16.0); Hypochromasia Marked; MCH 27.6 pg (25.0-35.0); MCHC 30.2 g/dL (31.0-37.0); MCV 91.2 fL (80.0-100.0); Mean Platelet Volume 12.1; RBC 3.23 m/uL (3.80-5.40); RDW 19.3 % (11.5-15.5)
[2018-01-29 12:28] LABS: Platelet Count 56 k/uL (150-450)
[2018-01-29 12:43] LABS: Potassium 4.3 mmol/L (3.5-5.1)
[2018-01-29] MEDS: DEXTROSE 5% IN WATER 1,000 ML IV SCH (12:53)
[2018-01-29] MEDS ORDERED: FUROSEMIDE 10 MG/ML 4 ML VIAL IV STA (14:16)
--- NOTE | 2018-01-29 15:02 | P.PN ---
Subjective Progress Note Date: 01/29/18 Principal diagnosis: Diffuse Large B Cell Lymphoma Patient seen in follow-up today. Mild distress breathing Objective - Vital Signs Vital signs: Vital Signs Temp 97.1 F L 01/29/18 05:35 Pulse 84 01/29/18 11:34 Resp 16 01/29/18 11:34 BP 123/60 01/29/18 05:35 Pulse Ox 98 01/29/18 05:35 Intake & Output 01/28/18 01/29/18 01/29/18 18:59 06:59 18:59 Intake Total 720 400 Balance 720 400 Weight 67.5 kg Intake: Intake, IV Titration 400 Amount Dextrose 5% in Water 1, 400 000 ml @ 50 mls/hr IV . Q20H APOORVA Rx#:[id number] Oral 720 Other: Voiding Method Bedside Commode Incontinent # Voids 2 1 # Bowel Movements 1 ABP, PAP, CO, CI - Last Documented Arterial Blood Pressure 95/45 - Constitutional General appearance: Present: cooperative, no acute distress - EENT Eyes: Present: EOMI, PERRLA, dentition normal ENT: Present: hard of hearing, normal oropharynx - Neck Neck: Present: normal ROM - Respiratory Respiratory: bilateral: diminished (Lower lobes), rhonchi - Cardiovascular Rhythm: regular Heart sounds: normal: S1, S2 - Gastrointestinal General gastrointestinal: Present: distended, soft - Integumentary Integumentary: Present: pale - Neurologic Neurologic: Present: CNII-XII intact - Musculoskeletal Musculoskeletal: Present: generalized weakness, strength equal bilaterally - Psychiatric Psychiatric: Present: A&O x's 3, appropriate affect, intact judgment & insight - Labs CBC & Chem 7: 01/29/18 11:57 01/29/18 11:57 Labs: Abnormal Lab Results - Last 24 Hours (Table) 01/28/18 01/28/18 01/29/18 Range/Units 17:15 21:03 07:21 WBC (3.8-10.6) k/uL RBC (3.80-5.40) m/uL Hgb (11.4-16.0) gm/dL Hct (34.0-46.0) % MCHC (31.0-37.0) g/dL RDW (11.5-15.5) % Plt Count (150-450) k/uL BUN (7-17) mg/dL Glucose (74-99) mg/dL POC Glucose (mg/dL) 213 H 251 H 191 H (75-99) mg/dL 01/29/18 01/29/18 01/29/18 Range/Units 11:47 11:57 11:57 WBC 15.0 H (3.8-10.6) k/uL RBC 3.23 L (3.80-5.40) m/uL Hgb 8.9 L (11.4-16.0) gm/dL Hct 29.4 L (34.0-46.0) % MCHC 30.2 L (31.0-37.0) g/dL RDW 19.3 H (11.5-15.5) % Plt Count 56 L (150-450) k/uL BUN 43 H (7-17) mg/dL Glucose 163 H (74-99) mg/dL POC Glucose (mg/dL) 146 H (75-99) mg/dL Microbiology - Last 24 Hours (Table) 01/22/18 22:00 Blood Culture - Final Blood No Growth after 144 hours 01/24/18 10:30 Gram Stain - Final Ascites Fluid Body Fluid Culture - Final Assessment and Plan Plan: Assessment and Plan (1) Anemia Narrative/Plan: Pt is chronically anemic with Hgb 9-10. Anemia work up has been ordered. No transfusion today, follow CBC - Hgb 8.9 Current Visit: Yes Status: Acute Priority: Medium Code(s): D64.9 - ANEMIA , UNSPECIFIED SNOMED Code(s): 867415080 (2) Thrombocytopenia Narrative/Plan: Baseline platelets for pt range 30-70 thousand. No transfusion unless symptomatic or plt <10,000 - 56 today Current Visit: Yes Status: Chronic Priority: Medium Code(s): D69.6 - THROMBOCYTOPENIA, UNSPECIFIED SNOMED Code(s): 983014590 (3) Diffuse large B cell lymphoma Narrative/Plan: Pt presentation and symptoms seem to be rather chronic when reviewing her history of the last year, not suspecting current presentation is related to a lymphoma recurrence but, it cannot be completely ruled out. Last imaging in Jun 2017 with no evidence of recurrent lymphoma at that time. Once pt more hemodynamically stable CT CAP may be ordered for comparison. Current Visit: No Status: Chronic Priority: Medium Code(s): C83.30 - DIFFUSE LARGE B-CELL LYMPHOMA, UNSPECIFIED SITE SNOMED Code(s): 242063360 (4) History of cancer of right breast Current Visit: No Status: Chronic Priority: Low Code(s): Z85.3 - PERSONAL HISTORY OF MALIGNANT NEOPLASM OF BREAST SNOMED Code(s): 541344515 (5)Cirrosis and abdominal Ascites - Repeat abdominal CT with PO contrast, likely from cirrhosis but assess for progressive lymphoma Plan: Attests: I have performed a History and Physical examination of the pt, discussed with dictator. I agree with dictators note, documented as a scribe.
[2018-01-29 15:10] VITALS: BMI 24.7
[2018-01-29] MEDS: IOPAMIDOL-300 CONTRAST 30 ML VIAL (ORAL USE) PO PRN ×2 (16:09→17:12)
[2018-01-29 17:06] LABS: Glucose,Whole Blood 239 mg/dL (75-99)
--- NOTE | 2018-01-29 17:41 | P.PN ---
Subjective 79-year-old female admitted to the secondary to shortness of breath and respiratory failure patient is being treated for pneumonia pulmonary edema. Patient is on IV Lasix. Discussed her CODE STATUS. Patient wanted to be DO NOT RESUSCITATE after discussion with the patient. Patient respiratory status appears to have improved. Patient underwent paracentesis after which patient is quite tired and fatigued removed about 4.5 L at do not have any paracentesis labs available yet. Patient's enoxaparin will be switched to heparin because of the poor renal function and creatinine of around 1.4 nephrology is following the patient as well. 01/25/2018 Patient has significant clinical improvement is on 3 L of oxygen and patient uses 3 L at home patient is wheezing significantly will start him on systemic strides today and inhalational treatments. Continue with antibiotics. Diuretic therapy is being managed by nephrology. 01/26/2018 Patient wheezing significant improved but still rhonchorous, off oxygen today., We'll cut down the systemic steroid, continue with antibiotics patient is bit tachycardic kidney function improved patient is feeling much better respiratory status improved significantly. Still coughing. 01/27/2018 Patient is not doing well patient is tachypneic, patient is being treated with antibiotics, Lasix , patient has abdominal distention again. Her prognosis is extremely poor discussed regarding comfort care and hospice with the family. Patient is presently DO NOT RESUSCITATE. Chest x-ray did not show any increase in infiltrate, pulmonary edema remains the same. 01/28/2018 chest x-ray from yesterday did not show any significant change, ABG did not show any significant abnormality patient is pretty status improved compared to yesterday patient is not in respiratory distress today although rock rhonchus breath sounds bilaterally on exam. 01/29/2018 Patient respiratory status has worsened and is on 4 L of IV eczema now as opposed to no oxygen as today mostly because of abdominal distention will also order Ultrasound guided paracentesis. If her respiratory status improves by tomorrow can be discharged back to subacute rehab. Patient's prognosis is extremely poor discussed with the family again today, patient is more appropriate for palliative care, comfort care. Constitutional: Denied any fatigue denied any fever. Cardio vascular: denied any chest pain, palpitations Gastrointestinal denied any nausea vomiting Pulmonary: As mentioned in HPI Neurologic denied any new focal deficits Objective - Vital Signs Vital signs: Vital Signs Temp 98.8 F 01/29/18 15:00 Pulse 88 01/29/18 16:28 Resp 18 01/29/18 16:00 BP 116/67 01/29/18 15:00 Pulse Ox 92 L 01/29/18 15:00 Intake & Output 01/28/18 01/29/18 01/29/18 18:59 06:59 18:59 Intake Total 720 400 Balance 720 400 Weight 67.5 kg 67.5 kg Intake: Intake, IV Titration 400 Amount Dextrose 5% in Water 1, 400 000 ml @ 50 mls/hr IV . Q20H [facility] Rx#:[id number] Oral 720 Other: Voiding Method Bedside Commode Incontinent # Voids 2 1 3 # Bowel Movements 1 1 ABP, PAP, CO, CI - Last Documented Arterial Blood Pressure 95/45 - Exam PHYSICAL EXAMINATION: GENERAL: The patient is alert and oriented x3, she does not in respiratory distress today HEENT: Pupils are round and equally reacting to light. EOMI. No scleral icterus. No conjunctival pallor. Normocephalic, atraumatic. No pharyngeal erythema. No thyromegaly. CARDIOVASCULAR: S1 and S2 present. No rubs, or gallops. Unable to assess JVD ST and S4 were not appreciable, patient does have a systolic murmur of grade 3/ 6 and diuretic area PULMONARY: Coarse rhonchorous breath sounds bibasilar crackles are appreciated, patient is wheezing again today significantly ABDOMEN: Soft,abdomen is distended more and almost at the level and she came in with fluid shift MUSCULOSKELETAL: No joint swelling or deformity. EXTREMITIES: No cyanosis, clubbing, or pedal edema. NEUROLOGICAL: Gross neurological examination did not reveal any focal deficits. SKIN: No rashes. - Labs CBC & Chem 7: 01/29/18 11:57 01/29/18 11:57 Labs: Abnormal Lab Results - Last 24 Hours (Table) 01/28/18 01/29/18 01/29/18 Range/Units 21:03 07:21 11:47 WBC (3.8-10.6) k/uL RBC (3.80-5.40) m/uL Hgb (11.4-16.0) gm/dL Hct (34.0-46.0) % MCHC (31.0-37.0) g/dL RDW (11.5-15.5) % Plt Count (150-450) k/uL BUN (7-17) mg/dL Glucose (74-99) mg/dL POC Glucose (mg/dL) 251 H 191 H 146 H (75-99) mg/dL 01/29/18 01/29/18 01/29/18 Range/Units 11:57 11:57 17:03 WBC 15.0 H (3.8-10.6) k/uL RBC 3.23 L (3.80-5.40) m/uL Hgb 8.9 L (11.4-16.0) gm/dL Hct 29.4 L (34.0-46.0) % MCHC 30.2 L (31.0-37.0) g/dL RDW 19.3 H (11.5-15.5) % Plt Count 56 L (150-450) k/uL BUN 43 H (7-17) mg/dL Glucose 163 H (74-99) mg/dL POC Glucose (mg/dL) 239 H (75-99) mg/dL Microbiology - Last 24 Hours (Table) 01/22/18 22:00 Blood Culture - Final Blood No Growth after 144 hours Assessment and Plan Plan: Acute hypoxic respiratory failure: Probably secondary to both pneumonia and heart failure patient is on antibiotics which will be continued is also on IV Lasix which will be continued -Possible COPD exacerbation patient will be started on systemic steroids as mentioned above and inhalational treatments. -Possible congestive heart failure chronic diastolic dysfunction with acute exacerbation patient had normal ejection fraction the past. Patient is on IV Lasix which will continue , patient may have aortic stenosis which is contributing to her symptoms as well -hypotension/shock: Possibility of cardiogenic and septic etiologies secondary to cirrhosis and heart failure, cancer cachexia I do not have any peritoneal fluid albumin available to assess for SAAG scoreshock resolved, patient is presently on the floor but not doing well clinically. Patient shock resolved -Acute renal failure most probably prerenal azotemia from heart failure and cirrhosis -Cirrhosis etiology is unknown unsure whether patient has cirrhosis patient's INR is 1.2, Patient underwent paracentesis with removal of 4.5 L , patient may need repeat paracentesis , patient started retaining fluid again patient has abdominal distention and cirrhosis and ascites -History of breast cancer in the past. Next and-B-cell lymphoma for which patient follows up with oncology and receiving chemotherapy -Gastro-esophageal reflux disease -Hyperlipidemia -Type 2 diabetes mellitus patient's prognosis is extremely poor will obtain ABG, discussed the regarding her CODE STATUS
--- NOTE | 2018-01-29 18:43 | US ---
EXAMINATION TYPE: US abdomen limited DATE OF EXAM: 01/29/2018 COMPARISON: NONE CLINICAL HISTORY: assess for ascites. Ascites visualized largest area of fluid seen in left lower quadrant. IMPRESSION: There is demonstration of a moderately large amount of ascites fluid and a large pocket i n the left lower quadrant.
--- NOTE | 2018-01-29 18:49 | CT ---
EXAMINATION TYPE: CT abdomen pelvis wo con DATE OF EXAM: 01/29/2018 COMPARISON: 07/07/2017 HISTORY: Patient complains of bloating. CT DLP: 615.5 mGycm Automated exposure control for dose reduction was used. TECHNIQUE: Helical acquisition of images was performed from the lung bases through the pelvis. FINDINGS: There are small bilateral pleural effusions with basilar pulmonary infiltrates and atelectasis. Heart size is normal. There is a large amount of ascites fluid throughout the abdomen. Liver is relatively small and could relate to cirrhosis. I see no splenic mass. There is no evidence of pancreatic mass. Bile ducts are n ot dilated. There are clips from cholecystectomy. There is no evidence of a bowel obstruction. There is no sign of free air. There is some thinning of the anterior abdominal wall. There is some subcutan eous air over the anterior abdomen on the right side. This could relate to injection site. There is a subcutaneous fluid collection over the left anterior abdomen that measures approximately 6 x 1.5 cm in is consistent with a small ventral hernia that contains ascites fluid. Kidneys have normal size. There is no hydronephrosis. There is a 2.57 m cortical cyst on the upper po le left kidney. There is no evidence of a solid renal mass. I see no retroperitoneal adenopathy. Bladder distends smoothly. There is a left hip prosthesis. IMPRESSION: THERE IS MASSIVE ASCITES THAT IS INCREASED COMPARED TO OLD CT SCAN. LOWER LOBE PULMONARY INFILTRATES AND ATELECTASIS AND PLEURAL FLUID ARE INCREASED COMPARED TO OLD EXAM. THERE IS PROBABLY CIRRHOSIS. VE NTRAL HERNIA APPEARS UNCHANGED.
--- NOTE | 2018-01-29 20:05 | PN ---
PROGRESS NOTE Patient is seen for followup for acute kidney injury. This morning she is complaining of shortness of breath. The patient also had significant ascites and is scheduled for a repeat paracentesis. PHYSICAL EXAMINATION: Blood pressure is 116/67, heart rate 86 per minute. She is afebrile. Examination of the heart: S1, S2. Examination lungs: Decreased breath sounds bases. Audible wheezing is heard bilaterally. Abdomen is soft, distended with ascites. Examination lower extremity shows chronic skin changes and edema 1+ bilaterally. 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 LAB: Show serum creatinine down to 1.0. Sodium 139, potassium 4.3, hemoglobin 8.9 g/dL. ASSESSMENT: 1. Acute kidney injury secondary to hypotension hypoperfusion on initial admission, currently significantly improved. 2. Hypervolemia/fluid overload maintained on Lasix which is currently IV. 3. Mild hypernatremia, now improved with sodium coming down from 149 to 139. The D5W can be discontinued. 4. Recurrent ascitics with underlying chronic liver disease, etiology unclear. 5. History of breast cancer. 6. History of B-cell lymphoma. PLAN: Continue IV Lasix, DC D5W. Repeat labs in a.m. Overall prognosis is guarded. MMODL / IJN: [id number] /
[2018-01-29 21:04] LABS: Glucose,Whole Blood 196 mg/dL (75-99)
[2018-01-30 07:11] LABS: Glucose,Whole Blood 144 mg/dL (75-99)
[2018-01-30] MEDS: IPRATROPIUM-ALBUTEROL 3 ML NEB INHALATION SCH ×4 (07:37→21:11)
[2018-01-30 08:02] LABS: Anisocytosis Slight; HGB 8.8 gm/dL (11.4-16.0); Hypochromasia Marked; MCH 28.8 pg (25.0-35.0); MCHC 31.5 g/dL (31.0-37.0); MCV 91.2 fL (80.0-100.0); Mean Platelet Volume 11.7; RBC 3.07 m/uL (3.80-5.40); RDW 19.3 % (11.5-15.5); WBC 12.7 k/uL (3.8-10.6)
[2018-01-30 08:06] LABS: Platelet Count 62 k/uL (150-450)
[2018-01-30 08:17] LABS: Calcium 8.8 mg/dL (8.4-10.2); Potassium 4.4 mmol/L (3.5-5.1)
[2018-01-30 09:10] LABS: INR 1.2 (<1.2); Prothrombin Time 11.7 sec (9.0-12.0)
[2018-01-30] MEDS: AZITHROMYCIN 500 MG TAB PO SCH (09:49)
[2018-01-30] MEDS: PANTOPRAZOLE 40 MG TABLET PO SCH (09:49)
[2018-01-30] MEDS: cefTRIAXone IN SWFI 1,000 MG/10 ML SYRINGE IVP SCH (09:49)
[2018-01-30] MEDS: INSULIN ASPART 100 UNIT/ML 1 ML 10 ML VIAL SQ SCH ×4 (09:49→21:13)
[2018-01-30] MEDS: FUROSEMIDE 10 MG/ML 4 ML VIAL IV SCH ×2 (09:50→21:13)
[2018-01-30] MEDS: OXYBUTYNIN 10 MG TAB.ER.24 PO SCH (09:50)
[2018-01-30] MEDS: GABAPENTIN 300 MG CAP PO SCH ×3 (09:50→21:13)
[2018-01-30] MEDS: predniSONE 20 MG TAB PO SCH (09:50)
[2018-01-30] MEDS: ENOXAPARIN 30 MG/0.3 ML SYRINGE SQ SCH (09:50)
[2018-01-30] MEDS: CHOLECALCIFEROL 1,000 UNIT TAB PO SCH (09:50)
--- NOTE | 2018-01-30 12:07 | US ---
Therapeutic paracentesis. DATE OF EXAM: 01/30/2018 CLINICAL HISTORY: Ascites The procedure was discussed with the patient. The risks, complications, benefits, and alternatives we re discussed and any questions were answered. Informed consent was obtained. The patient was placed s upine on the ultrasound table and prepped and draped in the usual sterile fashion. All elements of maximal barrier technique were utilized. Under ultrasound guidance, access into the lower quadrant was obtained, via the paracentesis catheter system and direct ultrasound guidance. Approximately 4 liters of straw-colored fluid was removed. The patient was stable throughout the proc edure and remained stable upon discharge from Department of Radiology. IMPRESSION: Successful therapeutic paracentesis under ultrasound guidance.
[2018-01-30 12:14] LABS: Glucose,Whole Blood 160 mg/dL (75-99)
--- NOTE | 2018-01-30 17:14 | P.PN ---
Subjective Progress Note Date: 01/30/18 Principal diagnosis: Diffuse Large B Cell Lymphoma Patient seen in follow-up today. reviewed CT scan and no progressive lymphoma identified. Objective - Vital Signs Vital signs: Vital Signs Temp 98.1 F 01/30/18 15:27 Pulse 96 01/30/18 16:22 Resp 18 01/30/18 15:27 BP 114/55 01/30/18 15:27 Pulse Ox 91 L 01/30/18 15:27 Intake & Output 01/29/18 01/30/18 01/30/18 18:59 06:59 18:59 Weight 67.5 kg Other: Voiding Method Bedside Commode Incontinent # Voids 2 1 3 # Bowel Movements 2 1 2 ABP, PAP, CO, CI - Last Documented Arterial Blood Pressure 95/45 - Constitutional General appearance: Present: cooperative, no acute distress - EENT Eyes: Present: EOMI, dentition normal ENT: Present: NA/AT, normal oropharynx - Neck Neck: Present: normal ROM - Respiratory Respiratory: bilateral: diminished, wheezing - Cardiovascular Rhythm: irregularly irregular - Gastrointestinal General gastrointestinal: Present: distended, soft, tenderness - Neurologic Neurologic: Present: CNII-XII intact, focal deficits - Musculoskeletal Musculoskeletal: Present: strength equal bilaterally - Psychiatric Psychiatric: Present: A&O x's 3 - Labs CBC & Chem 7: 01/30/18 07:44 01/30/18 07:44 Labs: Abnormal Lab Results - Last 24 Hours (Table) 01/29/18 01/29/18 01/30/18 Range/Units 17:03 21:00 07:03 WBC (3.8-10.6) k/uL RBC (3.80-5.40) m/uL Hgb (11.4-16.0) gm/dL Hct (34.0-46.0) % RDW (11.5-15.5) % Plt Count (150-450) k/uL INR (<1.2) BUN (7-17) mg/dL Glucose (74-99) mg/dL POC Glucose (mg/dL) 239 H 196 H 144 H (75-99) mg/dL 01/30/18 01/30/18 01/30/18 Range/Units 07:44 07:44 08:41 WBC 12.7 H (3.8-10.6) k/uL RBC 3.07 L (3.80-5.40) m/uL Hgb 8.8 L (11.4-16.0) gm/dL Hct 28.0 L (34.0-46.0) % RDW 19.3 H (11.5-15.5) % Plt Count 62 L (150-450) k/uL INR 1.2 H (<1.2) BUN 44 H (7-17) mg/dL Glucose 117 H (74-99) mg/dL POC Glucose (mg/dL) (75-99) mg/dL 01/30/18 Range/Units 12:05 WBC (3.8-10.6) k/uL RBC (3.80-5.40) m/uL Hgb (11.4-16.0) gm/dL Hct (34.0-46.0) % RDW (11.5-15.5) % Plt Count (150-450) k/uL INR (<1.2) BUN (7-17) mg/dL Glucose (74-99) mg/dL POC Glucose (mg/dL) 160 H (75-99) mg/dL Assessment and Plan Plan: Assessment and Plan (1) Anemia Narrative/Plan: Pt is chronically anemic with Hgb 9-10. Anemia work up has been ordered. No transfusion today, follow CBC - Current Visit: Yes Status: Acute Priority: Medium Code(s): D64.9 - ANEMIA , UNSPECIFIED SNOMED Code(s): 318865764 (2) Thrombocytopenia Narrative/Plan: Baseline platelets for pt range 30-70 thousand. No transfusion unless symptomatic or plt <10,000 -\ Current Visit: Yes Status: Chronic Priority: Medium Code(s): D69.6 - THROMBOCYTOPENIA, UNSPECIFIED SNOMED Code(s): 751198531 (3) Diffuse large B cell lymphoma Narrative/Plan: Pt presentation and symptoms seem to be rather chronic when reviewing her history of the last year, not suspecting current presentation is related to a lymphoma recurrence but, it cannot be completely ruled out. Last imaging in Jun 2017 with no evidence of recurrent lymphoma at that time. Once pt more hemodynamically stable CT CAP may be ordered for comparison. - Follow-up with oncology as outpatient. Current Visit: No Status: Chronic Priority: Medium Code(s): C83.30 - DIFFUSE LARGE B-CELL LYMPHOMA, UNSPECIFIED SITE SNOMED Code(s): 234198668 (4) History of cancer of right breast Current Visit: No Status: Chronic Priority: Low Code(s): Z85.3 - PERSONAL HISTORY OF MALIGNANT NEOPLASM OF BREAST SNOMED Code(s): 845235988 (5)Cirrosis and abdominal Ascites - Repeat abdominal CT with PO contrast, likely from cirrhosis but assess for progressive lymphoma - reviewed CT Scan and no identifiable progression. Plan: Attests: I have performed a History and Physical examination of the pt, discussed with dictator. I agree with dictators note, documented as a scribe.
--- NOTE | 2018-01-30 17:33 | PN ---
PROGRESS NOTE The patient is seen for followup for acute kidney injury and volume overload. Her renal function has improved significantly with creatinine down to 0.8 mg/dL. The patient has recurrent ascites and she had paracentesis this morning with about 4 L of fluid being removed. The patient has been hypervolemic with increased edema and she was maintained on IV Lasix which I decreased to once a day secondary to hypernatremia. This morning patient states she is feeling slightly better. Blood pressure is 114/55, heart rate is 72 per minute. She is afebrile. Examination of the heart: S1, S2. Examination lungs: Bilateral breath sounds are heard. Occasional wheezing is heard bilaterally with basal crackles. Abdomen is soft, distended, nontender. Exam of lower extremity shows 2+ edema bilaterally with chronic skin changes. 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 LAB: Show sodium 140, potassium 4.4, BUN 44, serum creatinine 0.8. ASSESSMENT: 1. Acute kidney injury secondary to hypotension hypoperfusion, currently improved. 2. Hypervolemia, congestive heart failure. I will increase the Lasix back to q.12 hours. 3. Recurrent ascites with possibly underlying chronic kidney disease, etiology is unclear. 4. Hypernatremia, now improved. 5. History of breast cancer. 6. History of B-cell lymphoma. PLAN: Increase Lasix to 40 mg q.12 hours. Hold off on albumin as this will worsen her CHF. MMODL / IJN: [id number] /
[2018-01-30 17:35] LABS: Glucose,Whole Blood 226 mg/dL (75-99)
[2018-01-30 20:29] LABS: Glucose,Whole Blood 274 mg/dL (75-99)
--- NOTE | 2018-01-30 23:51 | PN ---
PROGRESS NOTE DATE OF SERVICE: 01/30/2018 PRESENTING COMPLAINT: Short of breath. INTERVAL HISTORY: The patient has multiple issues, was treated for cardiogenic/septic shock, had 4 L of paracentesis. The patient is tolerating some diet. Her elderly is at the bedside, so is the daughter. The patient did have a bowel movement, has a cough, barely any sputum, awake. REVIEW OF SYSTEMS: Done for constitutional, cardiovascular, GI, pulmonary; relevant findings as above. CURRENT MEDICATIONS: Reviewed, include: 1. DuoNeb. 2. IV ceftriaxone. 3. Zithromax. 4. IV Lasix. 5. Oral prednisone. EXAMINATION: Afebrile, pulse 94, respirations 18, blood pressure 114/55, pulse ox 91% on 4L. GENERAL APPEARANCE: Lying in bed, awake, tired. EYES: Pupil equal. Conjunctivae pale. HEENT: External nose and ears normal. Oral cavity normal. NECK: JVD unable to assess. Mass not palpable. RESPIRATORY: Effort increased. LUNGS: Some basal crackles. CARDIOVASCULAR: First and second sounds. Minimal edema. ABDOMEN: Distended, soft. Liver, spleen not palpable. PSYCHIATRY: Alert and oriented x3. Mood and affect slightly anxious-appearing. MUSCULOSKELETAL: Some wasting of the muscles. INVESTIGATIONS: White count 12.7, hemoglobin 8.8. Potassium 4.4, BUN 44, creatinine 0.88. ASSESSMENT: 1. Bilateral pneumonia, suspect gram-negative organism, clinically improving. 2. Acute chronic obstructive pulmonary disease exacerbation, improving. 3. Acute hypoxic respiratory failure from pneumonia. 4. Acute congestive heart failure exacerbation from underlying diastolic dysfunction, ejection fraction not known. 5. Status post cardiogenic and septic shock. 6. Cirrhosis, idiopathic, causing ascites and status post paracentesis 4 L of fluid was removed. 7. Acute renal failure, prerenal, resolved. 8. Diffuse B-cell lymphoma. 9. Gastroesophageal reflux disease. 10.Hyperlipidemia. 11.Chronic kidney disease, probably stage 2. 12.Peripheral neuropathy, idiopathic. 13.Restless legs syndrome. 14.Reflex sympathetic dystrophy of the right upper extremity. 15.Ventral hernia. PLAN: I did talk to the patient's and daughter. Did discuss with the prognosis as guarded. The patient will be going over to the rehab. White cell count is nicely coming down. MMODL / IJN: [id number] /
[2018-01-31 07:16] LABS: Glucose,Whole Blood 139 mg/dL (75-99)
[2018-01-31] MEDS: INSULIN ASPART 100 UNIT/ML 1 ML 10 ML VIAL SQ SCH ×4 (08:12→21:56)
[2018-01-31] MEDS: FUROSEMIDE 10 MG/ML 4 ML VIAL IV SCH (08:13)
[2018-01-31] MEDS: OXYBUTYNIN 10 MG TAB.ER.24 PO SCH (08:14)
[2018-01-31] MEDS: CHOLECALCIFEROL 1,000 UNIT TAB PO SCH (08:14)
[2018-01-31] MEDS: AZITHROMYCIN 500 MG TAB PO SCH (08:14)
[2018-01-31] MEDS: predniSONE 20 MG TAB PO SCH (08:14)
[2018-01-31] MEDS: PANTOPRAZOLE 40 MG TABLET PO SCH (08:14)
[2018-01-31] MEDS: ENOXAPARIN 30 MG/0.3 ML SYRINGE SQ SCH (08:14)
[2018-01-31] MEDS: GABAPENTIN 300 MG CAP PO SCH ×3 (08:14→21:56)
[2018-01-31] MEDS: IPRATROPIUM-ALBUTEROL 3 ML NEB INHALATION SCH ×4 (09:23→19:33)
[2018-01-31 11:33] LABS: Glucose,Whole Blood 217 mg/dL (75-99)
--- NOTE | 2018-01-31 13:16 | PN ---
PROGRESS NOTE The patient followup for acute kidney injury. She is currently maintained on IV Lasix. Patient had paracenteses done yesterday. She states she feels better. She is much more comfortable today. Blood pressure was 109/50, heart rate 92 per minute. Patient is afebrile. Examination of the heart S1, S2. Examination of the lungs bilateral breath sounds. Bilateral basal crackles are heard. Abdomen is soft, distended, nontender with ascites. Lower extremity shows edema 1+ bilaterally. LABS: Not available from today. ASSESSMENT: 1. Acute kidney injury secondary to hypotension hypoperfusion, now resolved. 2. Volume overload maintained on IV Lasix which was increased again yesterday. I will continue at the current dose. 3. Recurrent ascites status post paracentesis done yesterday. Etiology unclear. 4. Anemia. No active bleeding noted. Iron saturation was at 23%, which is not low. PLAN: Continue with the Lasix. Encourage increased oral intake. Overall prognosis is guarded. MMODL / IJN: [id number] /
[2018-01-31 16:55] LABS: Glucose,Whole Blood 312 mg/dL (75-99)
--- NOTE | 2018-01-31 20:10 | PN ---
PROGRESS NOTE DATE OF SERVICE: 01/31/2018. PRESENTING COMPLAINT: Short of breath. INTERVAL HISTORY: This patient was admitted with cardiogenic septic shock; also had 4 L of paracentesis. The patient is also being treated for COPD exacerbation, pneumonia, congestive heart failure. Today she is sitting up, propped up in bed. She is rather short of breath, feeling tired, on IV Lasix. REVIEW OF SYSTEMS: Done for constitutional, cardiovascular, GI, pulmonary; relevant findings as above. CURRENT MEDICATIONS: Reviewed. They include IV Lasix 40 mg q.12. PHYSICAL EXAMINATION: Temperature 97, pulse 92, respiration 20, blood pressure 109/50, pulse ox 96% on 4 L. GENERAL APPEARANCE: Propped up, short of breath. EYES: Pupils equal. Conjunctivae pale. HEENT: External appearance of nose and ears normal. Oral cavity normal. NECK: JVD unable to assess. Mass not palpable. RESPIRATORY: Effort increased. LUNGS: Bilateral inspiratory and expiratory crackles. CARDIOVASCULAR: First and second sounds normal. Edema present. ABDOMEN: Distended, soft. Liver and spleen not palpable. PSYCHIATRY: Alert and oriented x3. Mood and affect tired-appearing. INVESTIGATIONS: Accu-Cheks are noted. ASSESSMENT: 1. Bilateral pneumonia. Suspect Gram-negative organism. 2. Acute chronic obstructive pulmonary disease exacerbation. 3. Acute hypoxic respiratory failure from pneumonia. 4. Acute congestive heart failure exacerbation from underlying diastolic dysfunction. Ejection fraction not known. Slow to respond. 5. Status post cardiogenic and septic shock. 6. Cirrhosis, idiopathic, causing ascites, status post paracentesis with 4 L of fluid removed. 7. Acute renal failure, prerenal, resolved. 8. Diffuse B-cell lymphoma. 9. Gastroesophageal reflux disease. 10.Hyperlipidemia. 11.Chronic kidney disease, probably stage II, from nephrosclerosis. 12.Peripheral neuropathy, idiopathic. 13.Restless legs syndrome. 14.Reflex sympathetic dystrophy of the right upper extremity. 15.Ventral hernia. PLAN: Will increase patient's Lasix to 60 mg q.8. Patient is in slight respiratory distress. Will hold off any discharge for right now until the patient is more stable. Prognosis is guarded. No family currently present. MMODL / IJN: [id number] /
[2018-01-31 21:41] LABS: Glucose,Whole Blood 236 mg/dL (75-99)
[2018-01-31] MEDS: FUROSEMIDE 10 MG/ML 10 ML VIAL IV SCH (21:56)
[2018-02-01] MEDS: FUROSEMIDE 10 MG/ML 10 ML VIAL IV SCH ×3 (04:16→20:55)
[2018-02-01 07:33] LABS: Glucose,Whole Blood 129 mg/dL (75-99)
[2018-02-01] MEDS: IPRATROPIUM-ALBUTEROL 3 ML NEB INHALATION SCH ×4 (07:56→20:22)
[2018-02-01] MEDS: INSULIN ASPART 100 UNIT/ML 1 ML 10 ML VIAL SQ SCH ×4 (08:20→20:57)
[2018-02-01] MEDS: GABAPENTIN 300 MG CAP PO SCH ×3 (08:21→20:55)
[2018-02-01] MEDS: ENOXAPARIN 30 MG/0.3 ML SYRINGE SQ SCH (08:21)
[2018-02-01] MEDS: PANTOPRAZOLE 40 MG TABLET PO SCH (08:21)
[2018-02-01] MEDS: AZITHROMYCIN 500 MG TAB PO SCH (08:21)
[2018-02-01] MEDS: OXYBUTYNIN 10 MG TAB.ER.24 PO SCH (08:22)
[2018-02-01] MEDS: predniSONE 20 MG TAB PO SCH (08:22)
--- NOTE | 2018-02-01 09:46 | XR ---
EXAMINATION TYPE: XR chest 2V DATE OF EXAM: 02/01/2018 COMPARISON: 01/27/2018 INDICATION: CHF TECHNIQUE: Frontal and lateral views of the chest are obtained. FINDINGS: The heart size is normal. The pulmonary vasculature is normal. Bibasilar infiltrates are present. A port is present on the left tip in the superior vena cava region .. IMPRESSION: 1. Bibasilar infiltrates. Correlate for worsening pneumonia. Atelectasis could be considered.
[2018-02-01 10:20] LABS: Potassium 3.9 mmol/L (3.5-5.1)
[2018-02-01 12:44] LABS: Glucose,Whole Blood 167 mg/dL (75-99)
--- NOTE | 2018-02-01 14:05 | PN ---
PROGRESS NOTE Patient is seen for followup for acute kidney injury, hyperkalemia. She is currently maintained on IV Lasix. Patient states she is more short of breath today. On examination, blood pressure 123/70, heart rate 104 per minute. She is afebrile. Examination of the heart, S1, S2 heard. Examination of the lungs, decreased breath sounds bilateral bases with basal bilateral crackles. Abdomen is soft, nontender. Examination of the lower extremities shows edema 2+ bilaterally. LABS: Serum creatinine 0.92, sodium 142, potassium 3.9. ASSESSMENT: 1. Acute kidney injury on initial admission secondary to hypotension and pleural effusion, recent currently resolved. 2. Hypovolemia with fluid overload. Lasix has been increased. Will continue with the increased dose. Renal function is stable. We can also add metolazone. 3. Recurrent ascites, status post paracentesis. Neurology is on clear. 4. Hypernatremia, now resolved. 5. History of breast cancer. 6. History of lymphoma. 7. Pneumonia, maintained on Azithromycin. PLAN: Continue with increased dose of Lasix. Add metolazone as well. Please see labs in a.m. Overall prognosis is guarded. MMODL / IJN: [id number] /
[2018-02-01] MEDS: METOLAZONE 2.5 MG TAB PO SCH (15:36)
[2018-02-01 17:02] LABS: Glucose,Whole Blood 320 mg/dL (75-99)
--- NOTE | 2018-02-01 17:23 | PN ---
PROGRESS NOTE DATE OF SERVICE: 02/01/2018 PRESENTING COMPLAINT: Short of breath. INTERVAL HISTORY: Patient was admitted with cardiogenic and septic shock; also had paracentesis. The patient also had COPD exacerbation, pneumonia, congestive heart failure. I increased patient's Lasix dose yesterday. Patient did eat her breakfast. She is still quite a bit short of breath. She is diuresing well. Son at the bedside. REVIEW OF SYSTEMS: Done for constitutional, cardiovascular, GI, pulmonary; relevant findings as above. Patient remains quite a bit short of breath at rest. CURRENT MEDICATIONS: Reviewed. They include IV Lasix 60 mg q.8. Zaroxolyn was added today. PHYSICAL EXAMINATION: Temperature 98.6, pulse 104, respiration 18, blood pressure 126/70, pulse ox 93% on 4 L. GENERAL APPEARANCE: Lying in bed, awake, short of breath. EYES: Pupils equal. Conjunctivae pale. HEENT: External appearance of nose and ears normal. Oral cavity normal. NECK: JVD unable to assess. Mass not palpable. RESPIRATORY: Effort increased. LUNGS: Bilateral crackles, though a shade better than yesterday. CARDIOVASCULAR: First and second sounds normal. Edema present. ABDOMEN: Distended, soft. Liver and spleen not palpable. PSYCHIATRY: Alert and oriented x3. Mood and affect normal. INVESTIGATIONS: Potassium 3.9, BUN 44, creatinine 0.92. ProBNP is 2620. Chest x-ray showing some venous prominence. ASSESSMENT: 1. Acute congestive heart failure exacerbation from underlying diastolic dysfunction. Ejection fraction not known. Patient is slow to respond. 2. Bilateral pneumonia. Suspect Gram-negative organism. 3. Acute chronic obstructive pulmonary disease exacerbation. 4. Acute hypoxic respiratory failure from pneumonia and congestive heart failure. 5. Status post cardiogenic and septic shock. 6. Cirrhosis, idiopathic, causing ascites, status post paracentesis of 4 L. 7. Acute renal failure, prerenal, resolved. 8. Diffuse B-cell lymphoma. 9. Gastroesophageal reflux disease. 10.Hyperlipidemia. 11.Chronic kidney disease, stage II, from nephrosclerosis. 12.Peripheral neuropathy, idiopathic. 13.Restless legs syndrome. 14.Reflex sympathetic dystrophy of the right upper extremity. 15.Ventral hernia. PLAN: Will keep the patient on the current dose of Lasix. Prognosis is not good. Did speak to the patient's son at the bedside and the patient. ADVANCED CARE PLANNING: I did speak to the patient at length about the guarded prognosis. Also spoke to the patient's son. I did broach the topic of hospice, which patient does understand. At this point patient is capable of taking her own decisions. Otherwise, patient's and son have the durable power of attorneys. I will see how the patient does in the next 24 hours. Otherwise, hospice will have to be looked at more closely. Additional 25 minutes was spent on this aspect of the case, discussing advanced care planning. JV / NATALEEN: [id number] /
[2018-02-01 20:39] LABS: Glucose,Whole Blood 231 mg/dL (75-99)
[2018-02-01] MEDS: NEOMYCIN-BACITRACIN-POLY OINT 14 GM TUBE TOPICAL SCH (20:57)
[2018-02-02] MEDS: FUROSEMIDE 10 MG/ML 10 ML VIAL IV SCH ×2 (04:50→12:55)
[2018-02-02 07:08] LABS: Glucose,Whole Blood 125 mg/dL (75-99)
[2018-02-02] MEDS: INSULIN ASPART 100 UNIT/ML 1 ML 10 ML VIAL SQ SCH ×4 (07:24→21:44)
[2018-02-02 08:57] LABS: Calcium 8.9 mg/dL (8.4-10.2); Potassium 3.9 mmol/L (3.5-5.1)
[2018-02-02] MEDS: IPRATROPIUM-ALBUTEROL 3 ML NEB INHALATION SCH ×4 (09:00→20:09)
[2018-02-02] MEDS: ENOXAPARIN 40 MG/0.4 ML SYRINGE SQ SCH (09:43)
[2018-02-02] MEDS: predniSONE 20 MG TAB PO SCH (09:43)
[2018-02-02] MEDS: GABAPENTIN 300 MG CAP PO SCH ×3 (09:44→21:45)
[2018-02-02] MEDS: PANTOPRAZOLE 40 MG TABLET PO SCH (09:44)
[2018-02-02] MEDS: METOLAZONE 2.5 MG TAB PO SCH (09:44)
[2018-02-02] MEDS: AZITHROMYCIN 500 MG TAB PO SCH (09:44)
[2018-02-02] MEDS: NEOMYCIN-BACITRACIN-POLY OINT 14 GM TUBE TOPICAL SCH ×2 (09:44→21:45)
[2018-02-02] MEDS: OXYBUTYNIN 10 MG TAB.ER.24 PO SCH (09:45)
[2018-02-02 12:23] LABS: Glucose,Whole Blood 145 mg/dL (75-99)
--- NOTE | 2018-02-02 12:47 | PN ---
PROGRESS NOTE Patient is seen for followup for acute kidney injury. Her renal function is improved. However, she remains fluid overloaded and maintained on IV Lasix. There has been discussion regarding hospice given her overall poor general condition and underlying comorbidities. PHYSICAL EXAMINATION: On examination today, blood pressure was 128/57, heart rate 92 per minute. Patient is afebrile. EXAMINATION OF THE HEART: S1, S2. EXAMINATION OF THE LUNGS: Bilateral breath sounds are heard. Abdomen is soft, nontender. Examination of the lower extremities shows edema 2+ bilaterally. Bilateral basal crackles are heard. LABS: Labs show sodium 140, potassium 3.9, chloride 95, BUN 47, serum creatinine 0.95. ASSESSMENT: 1. Acute kidney injury secondary to hypotension hypoperfusion on initial admission, currently resolved. 2. Volume overload. Patient remains on Lasix, which we can continue. 3. Recurrent ascites, status post multiple paracentesis. 4. Diffuse large B-cell lymphoma, being followed by Hematology/Oncology. 5. History of right breast cancer. PLAN: Continue with IV Lasix. Overall prognosis is guarded. MMODL / IJN: [id number] /
[2018-02-02 17:26] LABS: Glucose,Whole Blood 329 mg/dL (75-99)
[2018-02-02 20:39] LABS: Glucose,Whole Blood 376 mg/dL (75-99)
--- NOTE | 2018-02-02 22:41 | PN ---
PROGRESS NOTE DATE OF SERVICE: February 02, 2018. PRESENTING COMPLAINT: Short of breath. INTERVAL HISTORY: This patient initially presented with cardiogenic and septic shock and also had a paracentesis, also treated for COPD exacerbation, pneumonia and congestive heart failure. This morning when I saw the patient, patient again was visibly short of breath, crackly in the chest. The patient had a small amount of breakfast. Did feel rather tired. REVIEW OF SYSTEMS: Done for constitutional, cardiovascular, GI, pulmonary; relevant findings as above. CURRENT MEDICATIONS: Reviewed that includes 2.5 of Zaroxolyn and IV Lasix 60 q.8. EXAMINATION: Temperature 97, pulse 102, respiration 22, blood pressure 128/57, pulse ox 91% on 4 L. GENERAL: Propped up in bed, short of breath, tired. Eyes pupils equal. Conjunctivae pale. HEENT: External appearance of nose and ears normal. Oral cavity normal. Neck JVD unable to assess. Mass not palpable. Respiratory effort increased. Lungs decreased breath sounds. Prolonged expiration with crackles. Cardiovascular 1st and 2nd sounds normal. Some edema present. ABDOMEN: Soft, nontender. Liver and spleen not palpable. Mild distention. Psychiatry: Alert and oriented times 3. Mood and affect slightly anxious-appearing. INVESTIGATIONS: Potassium 3.9, BUN 47, creatinine 0.95. ASSESSMENT: 1. Acute congestive heart failure exacerbation from underlying diastolic dysfunction. Ejection fraction not known, slow to respond. In fact, worsening intermittently. 2. Bilateral pneumonia suspect gram-negative organism. 3. Acute chronic obstructive pulmonary disease exacerbation. 4. Acute hypoxic respiratory failure from pneumonia and congestive heart failure. 5. Status post cardiogenic and septic shock. 6. Cirrhosis, idiopathic, causing ascites status post paracentesis 4 L. 7. Acute renal failure prerenal resolved. 8. Diffuse B-cell lymphoma. 9. Gastroesophageal reflux disease. 10.Hyperlipidemia. 11.Chronic kidney disease stage 2 from nephrosclerosis. 12.Peripheral neuropathy idiopathic. 13.Restless legs syndrome. 14.Reflex sympathetic dystrophy of the right upper extremity. 15.Abdominal ventral hernia. PLAN: I saw this patient earlier this morning. The patient remained to be intubated to remain on Lasix. Not stable to go anywhere at all. In fact not doing well. The patient is still pulling along. ADVANCED CARE PLANNING: Had a lengthy talk with the patient and also talked to the patient's and daughter. Did bring up hospice again as the patient was having trouble breathing at this point patient does not want to go under hospice, but she does understand that if she did deteriorate further, she probably end up going on hospice and she agrees to informational visit which was actually done this later afternoon. The family and the patient understand that she is not good to go for rehab the way she is. She also understands that if she deteriorates further that hospice will be entertained. At this point will continue with current medication and treatment plan and supportive care. The patient was compos mentis and was found to have decision making capacity to be normal. Additional 20 to 25 minutes was spent on this aspect of the case. MMDOUGLAS / IJN: [id number] /
[2018-02-03 02:20] LABS: Glucose,Whole Blood 195 mg/dL (75-99)
[2018-02-03] MEDS: FUROSEMIDE 10 MG/ML 10 ML VIAL IV SCH ×4 (02:30→20:31)
[2018-02-03 07:02] LABS: Glucose,Whole Blood 193 mg/dL (75-99)
[2018-02-03] MEDS: IPRATROPIUM-ALBUTEROL 3 ML NEB INHALATION SCH ×4 (08:00→20:21)
[2018-02-03] MEDS: GABAPENTIN 300 MG CAP PO SCH ×3 (08:09→21:28)
[2018-02-03] MEDS: PANTOPRAZOLE 40 MG TABLET PO SCH (08:09)
[2018-02-03] MEDS: ENOXAPARIN 40 MG/0.4 ML SYRINGE SQ SCH (08:09)
[2018-02-03] MEDS: INSULIN ASPART 100 UNIT/ML 1 ML 10 ML VIAL SQ SCH ×4 (08:09→21:28)
[2018-02-03] MEDS: AZITHROMYCIN 500 MG TAB PO SCH (08:09)
[2018-02-03] MEDS: NEOMYCIN-BACITRACIN-POLY OINT 14 GM TUBE TOPICAL SCH ×2 (08:10→21:32)
[2018-02-03] MEDS: OXYBUTYNIN 10 MG TAB.ER.24 PO SCH (08:10)
[2018-02-03] MEDS: METOLAZONE 2.5 MG TAB PO SCH (08:10)
[2018-02-03] MEDS: predniSONE 20 MG TAB PO SCH (08:10)
[2018-02-03 08:27] LABS: Calcium 8.4 mg/dL (8.4-10.2); Potassium 3.9 mmol/L (3.5-5.1)
[2018-02-03 12:28] LABS: Glucose,Whole Blood 199 mg/dL (75-99)
--- NOTE | 2018-02-03 12:29 | P.PN ---
Subjective Patient is seen in follow-up for acute kidney injury which has mostly resolved. Creatinine is a little bit higher at 1.04 today which is due to diuresis. She is currently maintained on Lasix 60 mg IV 3 times daily. She underwent paracentesis on January 30 with 4 L removed. She still is quite dyspneic. She admits to good urine output. Oral intake is fair. Vital signs are stable. General: The patient appeared well nourished and normally developed. HEENT: Head exam is unremarkable. Neck is without jugular venous distension. LUNGS: Breath sounds decreased. Scattered rhonchi. HEART: Rate and Rhythm are regular. First and second heart sounds normal. No murmurs, rubs or gallops. ABDOMEN: Abdominal exam reveals normal bowel sounds. Non-tender and non- distended. No evidence of peritonitis. EXTREMITITES: No clubbing, cyanosis, or edema. Objective - Vital Signs Vital signs: Vital Signs Temp 97.2 F L 02/03/18 06:16 Pulse 104 H 02/03/18 12:21 Resp 17 02/03/18 06:16 BP 133/71 02/03/18 06:16 Pulse Ox 96 02/03/18 06:16 Intake & Output 02/02/18 02/03/18 02/03/18 18:59 06:59 18:59 Other: Voiding Method Bedside Commode # Voids 1 2 # Bowel Movements 1 ABP, PAP, CO, CI - Last Documented Arterial Blood Pressure 95/45 - Labs CBC & Chem 7: 01/30/18 07:44 02/03/18 07:32 Labs: Abnormal Lab Results - Last 24 Hours (Table) 02/02/18 02/02/18 02/03/18 Range/Units 17:22 20:38 02:18 Chloride (98-107) mmol/L Carbon Dioxide (22-30) mmol/L BUN (7-17) mg/dL Glucose (74-99) mg/dL POC Glucose (mg/dL) 329 H 376 H 195 H (75-99) mg/dL 02/03/18 02/03/18 Range/Units 06:59 07:32 Chloride 94 L (98-107) mmol/L Carbon Dioxide 36 H (22-30) mmol/L BUN 54 H (7-17) mg/dL Glucose 138 H (74-99) mg/dL POC Glucose (mg/dL) 193 H (75-99) mg/dL Assessment and Plan Plan: Assessment: 1. Nonoliguric acute kidney injury secondary to ATN secondary to hypotension. Resolved. 2. Volume overload maintained on IV Lasix. 3. Ascites status post paracentesis on January 30 with 4 L removed. 4. Diffuse large B lymphoma being followed by oncology. Plan: Maintain Lasix 60 mg IV 3 times daily for now. Encouraged oral intake. Avoid nephrotoxic agents and hypotensive episodes. Repeat electrolytes in the morning.
[2018-02-03] MEDS: GLYCOPYRROLATE 1 MG TAB PO SCH ×3 (13:32→21:49)
[2018-02-03 17:30] LABS: Glucose,Whole Blood 294 mg/dL (75-99)
[2018-02-03 18:15] LABS: Glucose,Whole Blood 279 mg/dL (75-99)
[2018-02-03 20:39] LABS: Glucose,Whole Blood 237 mg/dL (75-99)
--- NOTE | 2018-02-03 22:37 | PN ---
PROGRESS NOTE DATE OF SERVICE: 02/03/2018 PRESENTING COMPLAINT: Short of breath. INTERVAL HISTORY: The patient presents with cardiogenic and septic shock, status post paracentesis, continues to be short of breath with end-stage COPD. The patient also had pneumonia, congestive heart failure. Remains on IV Lasix. Remains short of breath at rest. Abdomen is again getting distended. Did tolerate some diet. REVIEW OF SYSTEMS: Done for constitutional, cardiovascular, GI, pulmonary; relevant findings as above. CURRENT MEDICATIONS: Include IV Lasix 60 mg q.8. EXAMINATION: Temperature 97.1, pulse 104, respirations 20, blood pressure 96/52, pulse ox 92% on 4L. GENERAL APPEARANCE: Propped up in bed, short of breath, awake. EYES: Pupils equal. Conjunctivae pale. HEENT: External nose and ears normal. Oral cavity normal. NECK: JVD unable to assess. Mass not palpable. RESPIRATORY: Effort increased. LUNGS: Inspiratory and expiratory crackles. CARDIOVASCULAR: First and second sounds normal. Edema present. ABDOMEN: Distended, soft. Liver and spleen not palpable. PSYCHIATRY: Alert and oriented x3. Mood affect anxious-appearing. INVESTIGATIONS: BUN 54, creatinine 1.04. Accu-Cheks noted. ASSESSMENT: 1. Acute congestive heart failure exacerbation from underlying diastolic dysfunction, ejection fraction not known, slow to respond. 2. Bilateral pneumonia, suspect gram-negative organism. 3. Acute chronic obstructive pulmonary disease exacerbation. 4. Acute hypoxic respiratory failure from pneumonia and congestive heart failure. 5. Status post cardiogenic and septic shock. 6. Cirrhosis, idiopathic, causing ascites, status post paracentesis 4L, seems to be ascites is building up again. 7. Acute renal failure, prerenal, resolved. 8. Diffuse B-cell lymphoma. 9. Gastroesophageal reflux disease. 10.Hyperlipidemia. 11.Chronic kidney disease stage 2, probably from nephrosclerosis. 12.Peripheral neuropathy, idiopathic. 13.Restless legs syndrome. 14.Reflex sympathetic dystrophy of the right upper extremity. 15.Abdominal ventral hernia. PLAN: Prognosis remains not good. I did talk to the patient and family again. Patient will also see how long she can stretch this out, but she does understand that overall condition is rather poor. Continue with diuresis. MMODL / IJN: [id number] /
[2018-02-04] MEDS: FUROSEMIDE 10 MG/ML 10 ML VIAL IV SCH ×3 (06:11→20:54)
[2018-02-04 07:21] LABS: Glucose,Whole Blood 143 mg/dL (75-99)
[2018-02-04] MEDS: PANTOPRAZOLE 40 MG TABLET PO SCH (07:43)
[2018-02-04] MEDS: predniSONE 20 MG TAB PO SCH (07:44)
[2018-02-04] MEDS: AZITHROMYCIN 500 MG TAB PO SCH (07:44)
[2018-02-04] MEDS: GABAPENTIN 300 MG CAP PO SCH ×3 (07:44→21:59)
[2018-02-04] MEDS: METOLAZONE 2.5 MG TAB PO SCH (07:44)
[2018-02-04] MEDS: GLYCOPYRROLATE 1 MG TAB PO SCH ×3 (07:44→21:59)
[2018-02-04] MEDS: OXYBUTYNIN 10 MG TAB.ER.24 PO SCH (07:45)
[2018-02-04] MEDS: INSULIN ASPART 100 UNIT/ML 1 ML 10 ML VIAL SQ SCH ×4 (07:45→21:58)
[2018-02-04] MEDS: ENOXAPARIN 40 MG/0.4 ML SYRINGE SQ SCH (07:45)
[2018-02-04] MEDS: NEOMYCIN-BACITRACIN-POLY OINT 14 GM TUBE TOPICAL SCH ×2 (07:46→22:00)
[2018-02-04 08:07] LABS: Calcium 8.8 mg/dL (8.4-10.2); Magnesium 1.4 mg/dL (1.6-2.3); Potassium 3.8 mmol/L (3.5-5.1)
[2018-02-04] MEDS: IPRATROPIUM-ALBUTEROL 3 ML NEB INHALATION SCH ×4 (09:10→20:28)
--- NOTE | 2018-02-04 11:31 | P.PN ---
Subjective Patient is seen in follow-up for acute kidney injury which has mostly resolved. Creatinine is a little bit higher at 1.08 today which is due to diuresis. She is currently maintained on Lasix 60 mg IV 3 times daily. She underwent paracentesis on January 30 with 4 L removed. She still is quite dyspneic. She admits to good urine output. Oral intake is fair. Vital signs are stable. General: The patient appeared well nourished and normally developed. HEENT: Head exam is unremarkable. Neck is without jugular venous distension. LUNGS: Breath sounds decreased. Scattered rhonchi. HEART: Rate and Rhythm are regular. First and second heart sounds normal. No murmurs, rubs or gallops. ABDOMEN: Abdominal exam reveals normal bowel sounds. Moderately distended. EXTREMITITES: No clubbing, cyanosis, or edema. Objective - Vital Signs Vital signs: Vital Signs Temp 97.6 F 02/04/18 07:00 Pulse 99 02/04/18 09:24 Resp 24 02/04/18 08:00 BP 122/68 02/04/18 07:00 Pulse Ox 97 02/04/18 07:00 Intake & Output 02/03/18 02/04/18 02/04/18 18:59 06:59 18:59 Other: # Voids 5 2 # Bowel Movements 1 1 ABP, PAP, CO, CI - Last Documented Arterial Blood Pressure 95/45 - Labs CBC & Chem 7: 01/30/18 07:44 02/04/18 07:19 Labs: Abnormal Lab Results - Last 24 Hours (Table) 02/03/18 02/03/18 02/03/18 Range/Units 12:26 17:28 18:11 Chloride (98-107) mmol/L Carbon Dioxide (22-30) mmol/L BUN (7-17) mg/dL Creatinine (0.52-1.04) mg/dL Glucose (74-99) mg/dL POC Glucose (mg/dL) 199 H 294 H 279 H (75-99) mg/dL Magnesium (1.6-2.3) mg/dL 02/03/18 02/04/18 02/04/18 Range/Units 20:29 07:18 07:19 Chloride 93 L (98-107) mmol/L Carbon Dioxide 37 H (22-30) mmol/L BUN 61 H (7-17) mg/dL Creatinine 1.08 H (0.52-1.04) mg/dL Glucose 112 H (74-99) mg/dL POC Glucose (mg/dL) 237 H 143 H (75-99) mg/dL Magnesium 1.4 L (1.6-2.3) mg/dL Microbiology - Last 24 Hours (Table) 02/03/18 16:00 Gram Stain - Preliminary Sputum Assessment and Plan Plan: Assessment: 1. Nonoliguric acute kidney injury secondary to ATN secondary to hypotension. Creatinine 1.08 today which is due to diuresis. 2. Volume overload maintained on IV Lasix. 3. Ascites status post paracentesis on January 30 with 4 L removed. 4. Diffuse large B lymphoma being followed by oncology. 5. Hypomagnesemia secondary to diuresis and poor oral intake. Plan: Maintain Lasix 60 mg IV 3 times daily for now. Encouraged oral intake. Avoid nephrotoxic agents and hypotensive episodes. Replace magnesium. 2 g IV today. Repeat electrolytes in the morning. Poor prognosis. Patient is an appropriate candidate for hospice.
[2018-02-04 12:24] LABS: Glucose,Whole Blood 219 mg/dL (75-99)
[2018-02-04] MEDS: MAGNESIUM SULFATE-D5W PMX 1 GM in DEXTROSE/WATER 1 100ML.BAG IVPB SCH (14:56)
[2018-02-04 17:07] LABS: Glucose,Whole Blood 299 mg/dL (75-99)
[2018-02-04 20:39] LABS: Glucose,Whole Blood 294 mg/dL (75-99)
--- NOTE | 2018-02-04 22:35 | PN ---
PROGRESS NOTE DATE OF SERVICE: 02/04/18 PRESENTING COMPLAINT: Short of breath. INTERVAL HISTORY: The patient is propped up in bed, tired-appearing when I walked in. The aide told me patient had really not woken up much since the morning and had barely eaten. I did wake up the patient. She immediately became very short of breath, but able to answer questions. Denies any pain. REVIEW OF SYSTEMS: Done for constitutional, cardiovascular, GI, pulmonary; relevant findings as above. CURRENT MEDICATIONS: Reviewed that include IV Lasix. PHYSICAL EXAMINATION: Temperature 97.6, pulse 98, respiration 24, blood pressure 122/68, pulse 97% on 5 L. General appearance: Lying in bed, tired appearing, short of breath at rest. Eyes: Pupils equal. Conjunctivae pale. HEENT external appearance of nose and ears normal. Oral cavity normal. Neck JVD unable to assess. Mass not palpable. Respiratory effort increased. Lungs both inspiratory and expiratory crackles. Cardiovascular: 1st and 2nd sounds normal. Edema present. Abdomen more distended. Dullness in the flanks. Liver and spleen not palpable. Psychiatry: The patient is able to answer questions, anxious. INVESTIGATION: Potassium 3.8, BUN 61, creatinine 1.08. ASSESSMENT: 1. Acute congestive heart failure exacerbation from underlying diastolic dysfunction. Ejection fraction not known, slow to respond. 2. Bilateral pneumonia, suspect gram-negative organism. 3. Acute chronic obstructive pulmonary disease exacerbation. 4. Acute hypoxic respiratory failure from pneumonia and congestive heart failure. 5. Status post cardiogenic and septic shock. 6. Cirrhosis, idiopathic causing ascites. 7. Ascites worsening status post paracentesis 4 L. 8. Acute renal failure prerenal resolved. 9. Diffuse B-cell lymphoma. 10.Gastroesophageal reflux disease. 11.Hyperlipidemia. 12.Chronic kidney disease stage 2 probably from nephrosclerosis. 13.Peripheral neuropathy idiopathic. 14.Restless legs syndrome. 15.Abdominal ventral hernia. PLAN: Before I spoke to the patient, I did speak to Dr. Richards. He suggested again that the patient should be made hospice which I agreed. I did talk to the patient stating that her condition is doing poorly and she is rapidly deteriorating. She is becoming restless, short of breath, did drop her blood pressure and not able to get Lasix, Lasix has to be backed off sometimes and she still quite a bit short of breath and crackly in the chest. I did suggest per her wishes that maybe I will make arrangements for her to go home with hospice and we will talk to her family. ADVANCED CARE PLANNING: I did a family meeting in the late afternoon with her , son and daughter and the [id number] and patient's nurse and did explain patient's extremely poor prognosis that the patient's is rapidly deteriorating and the patient has got problems in multiple aspects and she is not really responding and the patient would be probably best served with hospice and per patient's wishes, she wants to be home. They will talk to the [facility] who will be here tomorrow morning. They will look into some financial aspects of things. In the meantime, supportive care will continue. The patient is not really responding to the current treatment and is becoming more futile. Additional 25 minutes was spent for advanced care planning/Family meeting with the patient arrangements being made towards hospice. JV / CHAPO: [id number] /
[2018-02-05] MEDS: FUROSEMIDE 10 MG/ML 10 ML VIAL IV SCH ×2 (03:52→13:10)
[2018-02-05 07:04] LABS: Glucose,Whole Blood 135 mg/dL (75-99)
[2018-02-05] MEDS: IPRATROPIUM-ALBUTEROL 3 ML NEB INHALATION SCH ×3 (07:30→15:53)
[2018-02-05 08:18] LABS: Calcium 8.7 mg/dL (8.4-10.2); Magnesium 1.4 mg/dL (1.6-2.3); Potassium 3.5 mmol/L (3.5-5.1)
[2018-02-05] MEDS: GABAPENTIN 300 MG CAP PO SCH ×2 (08:23→15:44)
[2018-02-05] MEDS: AZITHROMYCIN 500 MG TAB PO SCH (08:23)
[2018-02-05] MEDS: predniSONE 20 MG TAB PO SCH (08:23)
[2018-02-05] MEDS: ENOXAPARIN 40 MG/0.4 ML SYRINGE SQ SCH (08:23)
[2018-02-05] MEDS: METOLAZONE 2.5 MG TAB PO SCH (08:23)
[2018-02-05] MEDS: PANTOPRAZOLE 40 MG TABLET PO SCH (08:23)
[2018-02-05] MEDS: GLYCOPYRROLATE 1 MG TAB PO SCH ×2 (08:23→15:44)
[2018-02-05] MEDS: OXYBUTYNIN 10 MG TAB.ER.24 PO SCH (08:24)
[2018-02-05] MEDS: INSULIN ASPART 100 UNIT/ML 1 ML 10 ML VIAL SQ SCH ×2 (08:24→13:10)
[2018-02-05] MEDS: NEOMYCIN-BACITRACIN-POLY OINT 14 GM TUBE TOPICAL SCH (08:25)
[2018-02-05 11:36] LABS: Glucose,Whole Blood 152 mg/dL (75-99)
[2018-02-05 15:11] VITALS: BP 106/66; RESP 18; TEMP 99.4
[2018-02-05 16:09] VITALS: PULSE 100
[2018-02-05 16:55] LABS: Glucose,Whole Blood 369 mg/dL (75-99)
--- NOTE | 2018-02-05 21:33 | PN ---
PROGRESS NOTE The patient is seen for followup for acute kidney injury and volume overload. This morning she is comfortable. She remains on diuretics. The patient denies any significant complaints. She has been talked to regarding hospice care. PHYSICAL EXAMINATION: Blood pressure is 106/66, heart rate 98 per minute. Patient is afebrile. Examination of the heart S1, S2. Examination lungs bilateral rales are heard. Occasional wheezing is heard bilaterally. Abdomen is soft, nontender. Examination of lower extremity shows edema 2+ bilaterally. LAB: Show sodium 138, potassium 3.5, BUN 65, serum creatinine 1.02. Magnesium 1.4. ASSESSMENT: 1. Acute kidney injury secondary to hypotension hypoperfusion currently improved. 2. Volume overload which persists. The patient is maintained on IV diuretics and hospice care is being considered. 3. Recurrent ascites status post paracentesis. 4. Diffuse large B-cell lymphoma. 5. Hypomagnesemia secondary to diuresis status post replacement. PLAN: Continue with Lasix which can be continued along with hospice care. Overall prognosis is guarded and poor. MMODL / IJN: [id number] /
--- NOTE | 2018-02-06 08:01 | DS ---
DISCHARGE SUMMARY DATE OF ADMISSION: 01/22/18. DATE OF DISCHARGE: 02/05/18 FINAL DIAGNOSES: 1. Acute congestive heart failure exacerbation from underlying diastolic dysfunction. Ejection fraction not known. 2. Bilateral pneumonia suspect gram-negative organism. 3. Acute chronic obstructive pulmonary disease exacerbation. 4. Acute hypoxic respiratory failure from pneumonia and congestive heart failure. 5. Status post cardiogenic and septic shock. 6. Cirrhosis, idiopathic, causing ascites. 7. Paracentesis 4 L of fluid was removed. 8. Acute renal failure prerenal resolved. 9. Diffuse B-cell lymphoma. 10.Gastroesophageal reflux disease. 11.Hyperlipidemia. 12.Chronic kidney disease stage 2 probably from nephrosclerosis. 13.Peripheral neuropathy idiopathic. 14.Restless leg syndrome. 15.Abdominal ventral hernia. HOSPITAL COURSE: This patient with multiple medical problems and has a problem with her heart and lungs in from of COPD, cirrhosis, overall poor functional status. The patient was not really improving. Multiple discussions were held with the family because of very poor prognosis and not responding. Patient was not felt to be candidate for any kind of rehab because short of breath at baseline. Eventually patient is being made hospice and being discharged. Final questions were answered. Today I spoke to the director hospice operations and the nurse. On examination, lungs: bilateral crackles. The patient is able to answer simple questions. The patient tolerating some diet. DISCHARGE MEDICATIONS: 1. Neurontin 300 mg t.i.d. 2. Omeprazole 40 mg breakfast. 3. Ditropan XL 10 mg a day. 4. Requip 0.5 mg p.o. q.h.s. 5. DuoNeb q.i.d. 6. Ativan 1 mg q.4 p.r.n. for anxiety. 7. Roxanol 20 mg/cc given at 5 mg q.4 p.r.n. 8. Zaroxolyn 2.5 mg p.o. daily. 9. Scopolamine patch to 72 hours p.r.n. for secretions. 10.Prednisone taper. 11.Home oxygen. Follow with Dr. Judge in 3 days. [facility] H[facility] is involved. Discussion and discharge planning more than 35 minutes. MMODL / IJN: [id number] /
--- NOTE | 2018-02-06 15:11 | CDI ---
Last Revision, August 2017 Documentation Clarification Form Date: 02/06/18 From: Willa Humberto Terri Bobby, Transmission Superintendent Hours-8:30 am & 5 pm M-F Admit Date: 01/22/2018 11:39:00 PM Patient Name: Brent Ni Visit Number: [id number] Discharge Date: 02/05/18 ATTENTION: The Clinical Documentation Specialists (CDI) and [facility] Coding Staff appreciate your assistance in clarifying documentation. Please respond to the clarification below the line at the bottom and electronically sign. The CDI & [facility] Coding staff will review the response and follow-up if needed. Please note: Queries are made part of the Legal Health Record. If you have any questions, please contact the author of this message via ITS. Dr. Meño Stevens Sepsis is not documented in your discharge summary. Sepsis was documented in the ED Note, 01/23 consult, H&P and numerous progress notes. History/Risk Factors: acute hypoxic respiatory failrue, AECOPD, gm neg pneumonia , A/C CHF, lymphoma, ATN, cardiogenic shock, severe sepsis w septic shock WBC/Left Shift: 18.7/17.58 Lactic acid: 3.8 Blood cultures: negative Vitals signs on admission: P-72, R-30, BP-87/43, O2-87 Antibiotics: IV Rocephin, IV Zosyn IV Bolus: Saline 0.9% In your professional opinion, please clarify if these findings signify one of the following conditions, whether the condition is POA, and cause, if known: Condition Sepsis ruled out SIRS, without underlying infectious process Sepsis Severe Sepsis Septic Shock Other, please specify Unable to determine SIRS Criteria..2 or more of the following may indicate SIRS: Temperature < 96.8F (36C) or > 101.0F (38.3C) Heart Rate > 90 bpm Respiratory Rate > 20 breaths/min or PaCO2 < 32 mmHg White Blood Cell Count > 12,000 or < 4,000 cells/mm3 or > 10% bands Lactate >2.0 mmol/L (>4.0 is equivalent to septic shock) Please continue to document in your progress notes and discharge summary in order to capture severity of illness and risk of mortality. Include clinical findings that support your diagnosis. ____possible severe sepsis with septic shock POA MTDD
== END 2018-02-05 18:30 | disposition hospice, home (50) | DRG 871 ==
LOC: EC 21:09 → 6ICU 23:39 → 4MS4W 01-26 00:30
PROVIDERS: ADMIT Hospitalist; ATTEND Hospitalist
PROC: 30243N1 Transfusion of Nonautologous Red Blood Cells into Central Vein, Percutaneous Approach (ICD-10-PCS; 2018-01-23)
PROC: 0W9G3ZZ Drainage of Peritoneal Cavity, Percutaneous Approach (ICD-10-PCS; principal; 2018-01-24)
PROC: 0W9G3ZZ Drainage of Peritoneal Cavity, Percutaneous Approach (ICD-10-PCS; 2018-01-30)
DX: A41.9 Sepsis, unspecified organism (principal); J96.01 Acute respiratory failure with hypoxia; I50.33 Acute on chronic diastolic (congestive) heart failure; N17.0 Acute kidney failure with tubular necrosis; K76.7 Hepatorenal syndrome; R57.0 Cardiogenic shock; R65.21 Severe sepsis with septic shock; J15.6 Pneumonia due to other Gram-negative bacteria; I13.0 Hypertensive heart and chronic kidney disease with heart failure and stage 1 through stage 4 chronic kidney disease, or unspecified chronic kidney disease; R18.8 Other ascites; G90.511 Complex regional pain syndrome I of right upper limb; C83.30 Diffuse large B-cell lymphoma, unspecified site; R64 Cachexia; J44.0 Chronic obstructive pulmonary disease with (acute) lower respiratory infection; J44.1 Chronic obstructive pulmonary disease with (acute) exacerbation; E87.0 Hyperosmolality and hypernatremia; E11.22 Type 2 diabetes mellitus with diabetic chronic kidney disease; E11.40 Type 2 diabetes mellitus with diabetic neuropathy, unspecified; D69.6 Thrombocytopenia, unspecified; K74.60 Unspecified cirrhosis of liver; Z66 Do not resuscitate; Z51.5 Encounter for palliative care; D64.9 Anemia, unspecified; N18.2 Chronic kidney disease, stage 2 (mild); E83.42 Hypomagnesemia; K27.9 Peptic ulcer, site unspecified, unspecified as acute or chronic, without hemorrhage or perforation; K21.9 Gastro-esophageal reflux disease without esophagitis; E55.9 Vitamin D deficiency, unspecified; K59.09 Other constipation; G25.81 Restless legs syndrome; K57.90 Diverticulosis of intestine, part unspecified, without perforation or abscess without bleeding; E78.5 Hyperlipidemia, unspecified; K43.9 Ventral hernia without obstruction or gangrene; G43.909 Migraine, unspecified, not intractable, without status migrainosus; M54.9 Dorsalgia, unspecified; T50.2X5A Adverse effect of carbonic-anhydrase inhibitors, benzothiadiazides and other diuretics, initial encounter; R79.1 Abnormal coagulation profile; F40.240 Claustrophobia; Z68.24 Body mass index [BMI] 24.0-24.9, adult; Z79.84 Long term (current) use of oral hypoglycemic drugs; Z79.51 Long term (current) use of inhaled steroids; Z79.899 Other long term (current) drug therapy; Z90.11 Acquired absence of right breast and nipple; Z85.3 Personal history of malignant neoplasm of breast; Z92.21 Personal history of antineoplastic chemotherapy; Z86.14 Personal history of Methicillin resistant Staphylococcus aureus infection; Z90.49 Acquired absence of other specified parts of digestive tract; Z90.710 Acquired absence of both cervix and uterus; Z98.42 Cataract extraction status, left eye; Z98.41 Cataract extraction status, right eye; Z96.1 Presence of intraocular lens; Z87.81 Personal history of (healed) traumatic fracture; Z87.440 Personal history of urinary (tract) infections; Z91.81 History of falling; Z80.3 Family history of malignant neoplasm of breast; Z82.0 Family history of epilepsy and other diseases of the nervous system; Z82.49 Family history of ischemic heart disease and other diseases of the circulatory system
CPT/HCPCS: 36415; 36600; 49083; 51702; 71045; 71046; 71275; 74176; 76705; 80048; 80053; 81001; 82040; 82042; 82272; 82550; 82553; 82607; 82728; 82747; 82805; 82945; 83036; 83540; 83550; 83605; 83615; 83735; 83880; 84100; 84157; 84484; 85025; 85027; 85045; 85379; 85610; 85730; 86850; 86900; 86901; 86920; 87040; 87070; 87075; 87086; 87205; 88108; 88305; 88341; 88342; 89050; 93005; 94640; 94760; 96361; 96365; 96366; 96374; 96375; 99291